=== PATIENT | male | born 1970 | race Caucasian/White ===

== ENCOUNTER 2016-10-04 20:43 | Observation (INO) | payer OTHER ==
[~2016-10-04] VITALS: Ht 160 cm; Wt 109.8 kg
[~2016-10-04 20:43] MED LIST: ADVAIR; ALBU17AE3 IH; ALBU2.5V4 IH; ALBU8.5H2 IH; ALBU8.5H4 IH; AZIT250T5 PO; BUDE10.2 INH; CEPH500C PO; DOXY100C2 PO; DOXY100T2 PO; FAMO20TA5 PO; FLUT1DIS26 IH; HYDR-34 PO; IBUP-30 PO; IBUP800T26 PO; LRT10T PO; METFORMIN PO; MNTL10T PO; MTF500T PO; NEBU1EAC2 MC; PNT40TEC PO; PRD10T PO; PRD20T PO; PRED5TAB PO; RT-ALBUINH IH; RT-ALBUINH INH
--- OUTSIDE RECORDS SUMMARY | 2016-10-04 20:48 | XMS REPORT | Continuity of Care Document ---
Author Author [facility] Organization [facility] Address Unknown Phone Unavailable Allergies Active Description Code Type Severity Reaction Onset Reported/Identified Relationship to Patient Clinical Status Yes No Known Drug Allergies [id number] Drug Allergy Unknown N/ A 05/16/2012 Medications Problems Date Dx Coded Attending Type Code Diagnosis Diagnosed By 05/17/2012 Ot 305.1 TOBACCO USE DISORDER 05/17/2012 Ot 493.90 ASTHMA, UNSPECIFIED 05/17/2012 Ot 790.6 ABN BLOOD CHEMISTRY NEC 05/17/2012 Ot V03.82 PROPHYLACTIC VACC AGAINST STREPTOCOCCUS 05/17/2012 Ot V04.81 ND FOR PROPHYLACTIC VACCIN AND INOCULATI 07/06/2012 Ot 493.92 ASTHMA, UNSPECIFIED, W (ACUTE) EXACERBAT 10/13/2012 Ot 910.4 INSECT BITE HEAD 10/13/2012 Ot E000.8 OTHER EXTERNAL CAUSE STATUS 10/13/2012 Ot E849.0 ACCIDENT IN HOME 10/13/2012 Ot E906.4 NONVENOM ARTHROPOD BITE 06/15/2013 RYAN HANSON MD Ot 250.00 DIAB DENAE WO COMPL, TYPE II OR UNSPEC TY 06/15/2013 RYAN HANSON MD Ot 305.1 TOBACCO USE DISORDER 06/15/2013 RYAN HANSON MD Ot 574.00 CHOLELITH W AC CHOLECYST 06/15/2013 RYAN HANSON MD Ot 574.10 CHOLELITH W CHOLECYS NEC 06/15/2013 RYAN HANSON MD Ot V04.81 ND FOR PROPHYLACTIC VACCIN AND INOCULATI 11/12/2013 VINCENT MUÑOZ MD Ot 574.20 CHOLELITHIASIS NOS 11/12/2013 VINCENT MUÑOZ MD Ot 789.03 ABDOMINAL PAIN, RIGHT LOWER QUADRANT 01/17/2014 MARC SOUSA MD Ot 250.00 DIAB DENAE WO COMPL, TYPE II OR UNSPEC TY 01/17/2014 MARC SOUSA MD Ot 305.1 TOBACCO USE DISORDER 01/17/2014 MARC SOUSA MD M Ot 574.91 CALC GB/BILE DUCT W/O CHOLECYST W/ OBSTRU 01/18/2014 RYAN HANSON MD Ot 250.00 DIAB DENAE WO COMPL, TYPE II OR UNSPEC TY 01/18/2014 RYAN HANSON MD Ot 493.90 ASTHMA, UNSPECIFIED 01/18/2014 RYAN HANSON MD Ot 574.00 CHOLELITH W AC CHOLECYST 01/18/2014 RYAN HANSON MD Ot 574.10 CHOLELITH W CHOLECYS NEC 07/01/2014 VINCENT MUÑOZ MD Ot 493.92 ASTHMA, UNSPECIFIED, W (ACUTE) EXACERBAT 07/01/2014 VINCENT MUÑOZ MD Ot 786.09 RESPIRATORY ABNORM NEC 08/01/2015 LORENA APPIAH MD Ot 250.00 08/01/2015 LORENA APPIAH MD Ot 786.50 08/01/2015 NAIF SIMMS ADDING MACHINE OPERATOR Ot F17.210 NICOTINE DEPENDENCE, CIGARETTES, UNCOMPL 08/01/2015 NAIF SIMMS ADDING MACHINE OPERATOR Ot J20.9 ACUTE BRONCHITIS, UNSPECIFIED 08/01/2015 LORENA APPIAH MD Ot 250.00 08/01/2015 LORENA APPIAH MD Ot 786.50 09/18/2015 SUZETTE GUPTA Ot F17.210 NICOTINE DEPENDENCE, CIGARETTES, UNCOMPL 09/18/2015 SUZETTE GUPTA Ot J45.901 UNSPECIFIED ASTHMA WITH (ACUTE) EXACERBA 09/18/2015 LORENA APPIAH MD Ot 250.00 09/18/2015 LORENA APPIAH MD Ot 786.50 11/11/2015 LORENA APPIAH MD Ot 250.00 11/11/2015 LORENA APPIAH MD Ot 786.50 04/20/2016 LORENA APPIAH MD Ot 250.00 DIAB DENAE WO COMPL, TYPE II OR UNSPEC TY 04/20/2016 LORENA APPIAH MD Ot 786.50 CHEST PAIN NOS 04/21/2016 JOHN DIETZ MD Ot J18.9 PNEUMONIA, UNSPECIFIED ORGANISM 04/21/2016 JOHN DIETZ MD Ot J45.51 SEVERE PERSISTENT ASTHMA WITH (ACUTE) EX 04/21/2016 LORENA APPIAH MD Ot 250.00 DIAB DENAE WO COMPL, TYPE II OR UNSPEC TY 04/21/2016 TD ROA, LORENA J Ot 786.50 CHEST PAIN NOS Procedures Results Test Result Range Complete blood count (CBC) with automated white blood cell (WBC) differential - 04/20/16 15:02 Blood leukocytes automated count (number/volume) 11.2 10*3/ uL 4.3-11.0 Blood erythrocytes automated count (number/volume) 4.99 10*6 /uL 4.35-5.85 Venous blood hemoglobin measurement (mass/volume) 15.8 g/dL 13.3-17.7 Blood hematocrit (volume fraction) 45 % 40-54 Automated erythrocyte mean corpuscular volume 90 [foz_us] 80-99 Automated erythrocyte mean corpuscular hemoglobin (mass per erythrocyte) 32 pg 25-34 Automated erythrocyte mean corpuscular hemoglobin concentration measurement ( mass/volume) 35 g/dL 32-36 Automated erythrocyte distribution width ratio 12.6 % 10.0-14.5 Automated blood platelet count (count/volume) 271 10*3/uL 130-400 Automated blood platelet mean volume measurement 10.1 [foz_ us] 7.4-10.4 Automated blood neutrophils/100 leukocytes 62 % 42-75 Automated blood lymphocytes/100 leukocytes 26 % 12-44 Blood monocytes/100 leukocytes 10 % 0-12 Automated blood eosinophils/100 leukocytes 2 % 0-10 Automated blood basophils/100 leukocytes 1 % 0-10 Blood neutrophils automated count (number/volume) 6.9 10*3 1.8-7.8 Blood lymphocytes automated count (number/volume) 2.9 10*3 1.0-4.0 Blood monocytes automated count (number/volume) 1.2 10*3 0.0-1.0 Automated eosinophil count 0.2 10*3/uL 0.0-0.3 Automated blood basophil count (count/volume) 0.1 10*3/uL 0.0-0.1 Comprehensive metabolic panel - 04/20/16 15:02 Serum or plasma sodium measurement (moles/volume) 139 mmol/ L 135-145 Serum or plasma potassium measurement (moles/volume) 3.9 mmol/L 3.6-5.0 Serum or plasma chloride measurement (moles/volume) 108 mmol /L 98-107 Carbon dioxide 22 mmol/L 21-32 Serum or plasma anion gap determination (moles/volume) 9 mmol/L 5-14 Serum or plasma urea nitrogen measurement (mass/volume) 11 mg/dL 7-18 Serum or plasma creatinine measurement (mass/volume) 1.10 mg /dL 0.60-1.30 Serum or plasma urea nitrogen/creatinine mass ratio 10 NRG Serum or plasma creatinine measurement with calculation of estimated glomerular filtration rate > NRG Serum or plasma glucose measurement (mass/volume) 155 mg/dL 70-105 Serum or plasma calcium measurement (mass/volume) 9.8 mg/dL 8.5-10.1 Serum or plasma total bilirubin measurement (mass/volume) 0.3 mg/dL 0.1-1.0 Serum or plasma alkaline phosphatase measurement (enzymatic activity/volume) 119 U/L 40-136 Serum or plasma aspartate aminotransferase measurement (enzymatic activity/ volume) 24 U/L 5-34 Serum or plasma alanine aminotransferase measurement (enzymatic activity/volume ) 55 U/L 0-55 Serum or plasma protein measurement (mass/volume) 7.4 g/dL 6.4-8.2 Serum or plasma albumin measurement (mass/volume) 4.3 g/dL 3.2-4.5 Serum or plasma troponin i.cardiac measurement (mass/volume) - 04/20/16 15:02 Serum or plasma troponin i.cardiac measurement (mass/volume) < ng/mL <0.30 Serum or plasma lithium measurement (moles/volume) - 04/20/16 15:02 BNP level < pg/mL <100.0 Arterial blood gas measurement - 04/20/16 16:09 Blood pCO2 26 mm[Hg] 35-45 Blood pO2 61 mm[Hg] 79-93 Arterial blood bicarbonate measurement (moles/volume) 20 mmol/L 23-27 Arterial blood base excess by calculation -0.7 mmol/L -2.5-2.5 Arterial blood oxygen saturation measurement 95 % 94-100 * Inhaled oxygen flow rate 2 NRG Arterial blood pH measurement with patient temperature correction 7.52 7.37-7.43 Arterial blood carbon dioxide, total measurement (moles/volume) 21.2 mmol/L 21.0-31.0 Body site LEFT RADIAL NRG Assessment of wrist artery patency prior to arterial puncture POSITIVE NRG Setting of ventilation mode NO NRG Measurement of body temperature 98.7 NRG Bacterial blood culture - 04/20/16 16:49 Bacterial blood culture NG NRG Blood lactic acid measurement (moles/volume) - 04/20/16 17:18 Blood lactic acid measurement (moles/volume) 1.4 mmol/L 0.5-2.0 Bacterial blood culture - 04/20/16 17:18 Bacterial blood culture NG NRG Arterial blood gas measurement - 04/20/16 18:46 Blood pCO2 41 mm[Hg] 35-45 Blood pO2 85 mm[Hg] 79-93 Arterial blood bicarbonate measurement (moles/volume) 24 mmol/L 23-27 Arterial blood base excess by calculation -1.5 mmol/L -2.5-2.5 Arterial blood oxygen saturation measurement 97 % 94-100 * Inhaled oxygen flow rate 3 NRG Arterial blood pH measurement with patient temperature correction 7.38 7.37-7.43 Arterial blood carbon dioxide, total measurement (moles/volume) 24.8 mmol/L 21.0-31.0 Body site LEFT RADIAL NRG Assessment of wrist artery patency prior to arterial puncture POSITIVE NRG Setting of ventilation mode NO NRG Measurement of body temperature 98.4 NRG Encounters ACCT No. Visit Date/Time Discharge Status Pt. Type Provider Facility Loc./Unit Complaint [id number] 04/20/2016 16:49:00 2015 11:10:00 DIS Inpatient MIRELA ROA, JOHN Parsons [facility] 4TH ATYPICAL PNEUMONIA, ASTHMA, HYPOXIA [id number] 09/18/2015 17:00:00 2015 19:34:00 DIS Emergency SUZETTE GUPTA [facility] ER CONGESTION,SOA [id number] 08/01/2015 20:35:00 2014 22:10:00 DIS Emergency NAIF SIMMS APRN [facility] ER SOA [id number] 06/30/2014 23:25:00 2013 01:00:00 DIS Emergency VINCENT MUÑOZ MD [facility] ER DIFFICULITY BREATHING [id number] 01/17/2014 19:10:00 2013 21:20:00 DIS Outpatient RYAN HANSON MD [facility] SDC GALLSTONES [id number] 01/16/2014 17:44:00 2013 09:36:00 DIS Inpatient LARS ROA, MARC Tanner [facility] 4TH CHOLELITHIASIS WITH CBD OBSTRUCTION [id number] 11/12/2013 04:09:00 2013 08:07:00 DIS Emergency WANDA ROA, VINCENT Parsons [facility] ER ABD PAIN [id number] 06/14/2013 03:16:00 2012 11:20:00 DIS Inpatient VALENTIN ROA, RYAN [facility] SURGICAL ABD PAIN,ACUTE CHOLECYSTITIS [id number] 01/03/2013 10:24:00 2012 23:59:59 CLS Outpatient TD ROA, LORENA Dempsey [facility] RAD CHEST PAIN,DIZZINES,HTN,DIABETES [id number] 12/28/2012 18:10:00 2012 16:10:00 DIS Inpatient [id number] 10/13/2012 21:52:00 Document Registration [id number] 07/06/2012 00:05:00 Document Registration [id number] 05/16/2012 18:00:00 Document Registration
[2016-10-04] MEDS ORDERED: RT-ALBUTEROL/IPRATROPIUM 3 ML (DUONEB) VIAL INH ONE ×2 (21:00→21:30)
[2016-10-04] MEDS ORDERED: DEXAMETHASONE 4 MG/ML SDV (DECADRON) IH ONE (21:00)
--- NOTE | 2016-10-04 21:00 | ED Respiratory ---
General Chief Complaint: Respiratory Problems Stated Complaint: SOA Source: patient History of Present Illness Time seen by provider: 20:43 Initial Comments PT ARRIVES VIA POV FROM HOME C/O SHORTNESS OF BREATH FOR 3-4 DAYS, WORSE SINCE THIS AM PT WITH HISTORY OF ASTHMA/ SUSPECTED COPD--STATES NEBULIZER TREATMENTS NOT HELPING---USED SYMBICORT TWICE TODAY AND USED ALBUTEROL NEBULIZER TODAY X 2-- LAST TIME WAS AT 1500 TODAY HAS HAD MINIMALLY PRODUCTIVE COUGH NO FEVER, SWEATS OR CHILLS HAS HAD SLIGHT SWELLING IN LEGS/ FEET HAS RIGHT LOWER CHEST PAIN--MOSTLY WITH MOVEMENTS OR COUGHING DENIES HISTORY OF CARDIAC PROBLEMS OR HTN 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 PCP: [facility] Allergies and Home Medications Allergies Coded Allergies: No Known Drug Allergies (Unverified , 05/16/12) Home Medications Albuterol Sulfate 2.5 Mg/3 Ml Vial.neb #30 2.5 MG IH QID PRN PRN SHORTNESS OF BREATH Prescribed by: JOHN LOUIE on 04/21/16 1007 Budesonide/Formoterol Fumarate 10.2 Gm Hfa.aer.ad 2 PUFF INH BID (Reported) Ibuprofen 800 Mg Tablet 800 MG PO BID PRN PRN PAIN (Reported) Constitutional: no symptoms reportedNo chills, No diaphoresis, No dizziness, No fever EENTM: no symptoms reported Respiratory: see HPI cough dyspnea on exertion short of breath wheezing Cardiovascular: see HPI chest pain edemaNo palpitations, No syncope, No vascular heart diseas Gastrointestinal: no symptoms reported Genitourinary: no symptoms reported Musculoskeletal: see HPI Skin: no symptoms reported Psychiatric/Neurological: No Symptoms Reported Hematologic/Lymphatic: No Symptoms Reported Immunological/Allergic: no symptoms reported Past Gdluvsb-Xkdzbt-Jhgobe Hx Patient Social History Alcohol Use: Past History (HISTORY OF ABUSE/HEAVY USE--STATES NONE FOR YEARS) Recreational Drug Use: No Smoking Status: Current Everyday Smoker (1 PPD) Type Used: Cigarettes Recent Foreign Travel: No Contact w/Someone Who Travel: No Recent Hopitalizations: No Immunizations Up To Date Tetanus Booster (TDap): More than 5yrs PED Vaccines UTD: Yes Date of Pneumonia Vaccine: May 01, 2012 Date of Influenza Vaccine: Jun 15, 2013 Seasonal Allergies Seasonal Allergies: Yes Surgeries HX Surgeries: Yes (ERCP BEFORE GALL BLADDER REMOVAL ; HERNIA REPAIR; RIGHT SHOULDER SURGERY) Surgeries: Abdominal, Gallbladder, Orthopedic Respiratory Hx Respiratory Disorders: Yes Respiratory Disorders: Asthma, Pneumonia, Chronic Bronchitis Cardiovascular Hx Cardiac Disorders: No Neurological Hx Neurological Disorders: Yes Neurological Disorders: Headaches /Migraines Reproductive System Hx Reproductive Disorders: No Genitourinary Hx Genitourinary Disorders: Yes Genitourinary Disorders: Kidney Stones Gastrointestinal Hx Gastrointestinal Disorders: Yes ("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 5) Gastrointestinal Disorders: Gastroesophageal Reflux, Gall Bladder Disease Musculoskeletal Hx Musculoskeletal Disorders: Yes (RIGHT SHOULDER SURGERY-2006) Musculoskeletal Disorders: Arthritis, Chronic Back Pain Endocrine Hx Endocrine Disorders: Yes (Reports diet control only) Endocrine Disorders: Diabetes, Non-Insulin dep HEENT HX ENT Disorders: Yes (wears glasses; POOR DENTITION) Loss of Vision: Bilateral Hearing Impairment: Hard of Hearing Cancer Hx Cancer: No Psychosocial Hx Psychiatric Problems: No Integumentary HX Skin/Integumentary Disorder: Yes Skin/Integumentary Disorders: Psoriasis Blood Transfusions Hx Blood Disorders: No Adverse Reaction to a Blood Tr: No Family Medical History Significant Family History: No Pertinent Family Hx Family Medial History: Cancer 09 SISTER, Onset:Unknown (LEUKEMIA) Family history: Alzheimer's disease GRANDMOTHER, Onset:Unknown Family history: Arthritis GRANDMOTHER, Onset:Unknown Family history: Asthma 03 FATHER, Onset:Unknown Family history: Diabetes mellitus 03 FATHER, Onset:Unknown Family history: Hypertension 03 FATHER, Onset:Unknown 03 MOTHER, Onset:Unknown Kidney disease 03 FATHER (KIDNEY STONES) Visual impairment Physical Exam Vital Signs Vital Sign - Last 12Hours 10/04/16 10/04/16 20:53 21:04 Temp 97.1 Pulse 86 Resp 44 B/P 138/91 Pulse Ox 92 O2 Delivery Room Air O2 Flow Rate 2 Capillary Refill : General Appearance: mild distress (MILD TO MODERATE DYSPNEA/HYPERVENTILATING, BUT ABLE TO TALK IN FULL SENTENCES; ANXIOUS) obese HEENT: PERRL/EOMI other (POOR DENTITION, MULTIPLE MISSING TEETH) Neck: normal inspection Respiratory: wheezing (DIFFUSE EXPIRATORY WHEEZING BILATERALLY) other (MILD TO MODERATE DYSPNEA, HYPERVENTILATING. TENDERNESS, TO RIGHT ANTERIOR LOWER RIB AREA) Cardiovascular: regular rate, rhythm no JVD no murmur Gastrointestinal: non tender soft Extremities: normal range of motion non-tender no calf tenderness normal capillary refill pedal edema (TRACE BILATERALLY) Neurologic/Psychiatric: apple thinner II-XII nml as tested no motor/sensory deficits alert oriented x 3 other (ANXIOUS) Skin: normal color warm/dry Progress/Results/Core Measures Results/Orders Lab Results Laboratory Tests Test 10/04/16 20:55 Range/Units Activated Partial Thromboplast Time 27 24-35 SEC Alanine Aminotransferase (ALT/SGPT) 63 H 0-55 U/L Albumin 4.1 3.2-4.5 G/DL Alkaline Phosphatase 121 40-136 U/L Anion Gap 12 5-14 MMOL/L Aspartate Amino Transf (AST/SGOT) 28 5-34 U/L B-Type Natriuretic Peptide < 10.0 <100.0 PG/ML BUN/Creatinine Ratio 18 Basophils # (Auto) 0.1 0.0-0.1 10^3/uL Basophils (%) (Auto) 1 0-10 % Blood Urea Nitrogen 17 7-18 MG/DL Calcium Level 9.7 8.5-10.1 MG/DL Carbon Dioxide Level 22 21-32 MMOL/L Chloride Level 107 98-107 MMOL/L Creatine Kinase MB 2.5 <6.6 NG/ML Creatinine 0.95 0.60-1.30 MG/DL Eosinophils # (Auto) 0.3 0.0-0.3 10^3/uL Eosinophils (%) (Auto) 3 0-10 % Estimat Glomerular Filtration Rate > 60 Glucose Level 115 H 70-105 MG/DL Hematocrit 43 40-54 % Hemoglobin 15.2 13.3-17.7 G/DL INR Comment 0.9 0.8-1.4 Lymphocytes # (Auto) 2.6 1.0-4.0 X 10^3 Lymphocytes (%) (Auto) 26 12-44 % Magnesium Level 2.2 1.8-2.4 MG/DL Mean Corpuscular Hemoglobin 32 25-34 PG Mean Corpuscular Hemoglobin Concent 35 32-36 G/DL Mean Corpuscular Volume 89 80-99 FL Mean Platelet Volume 10.0 7.4-10.4 FL Monocytes # (Auto) 1.7 H 0.0-1.0 X 10^3 Monocytes (%) (Auto) 17 H 0-12 % Neutrophils # (Auto) 5.5 1.8-7.8 X 10^3 Neutrophils (%) (Auto) 53 42-75 % Platelet Count 241 130-400 10^3/uL Potassium Level 4.6 3.6-5.0 MMOL/L Prothrombin Time 12.0 L 12.2-14.7 SEC Red Blood Count 4.83 4.35-5.85 10^6/uL Red Cell Distribution Width 12.9 10.0-14.5 % Sodium Level 141 135-145 MMOL/L Total Bilirubin 0.3 0.1-1.0 MG/DL Total Creatine Kinase 159 30-200 U/L Total Protein 7.1 6.4-8.2 G/DL Troponin I < 0.30 <0.30 NG/ML White Blood Count 10.3 4.3-11.0 10^3/uL Micro Results Microbiology 10/04/16 Influenza Types A,B Antigen (ORESTES) - Final, Complete My Orders Orders-DEMI BOSE DO Saline Lock/Iv-Start (10/04/16 20:53) Ekg Tracing (10/04/16 20:53) O2 (10/04/16 20:53) Monitor-Rhythm Ecg Trace Only (10/04/16 20:53) BNP (10/04/16 20:53) Cbc With Automated Diff (10/04/16 20:53) Comprehensive Metabolic Panel (10/04/16 20:53) Creatine Kinase (10/04/16 20:53) Creatine Kinase Mb (10/04/16 20:53) Magnesium (10/04/16 20:53) Protime With Inr (10/04/16 20:53) Partial Thromboplastin Time (10/04/16 20:53) Troponin I (10/04/16 20:53) Influenza A And B Antigens (10/04/16 20:53) Chest 1 View, Ap/Pa Only (10/04/16 20:53) Albuterol/Ipra Inhalation Soln (Duoneb I (10/04/16 21:00) Dexamethasone Injection (Decadron Inject (10/04/16 21:00) Rt Request For Service (10/04/16 20:53) Svn Sm Volume Nebulizer Rt-Rfs (10/04/16 20:53) Albuterol/Ipra Inhalation Soln (Duoneb I (10/04/16 21:30) Rt Request For Service (10/04/16 21:23) Svn Sm Volume Nebulizer Rt-Rfs (10/04/16 21:23) Chest Pa/Lat (2 View) (10/04/16 21:31) Methylprednisolone Sod Succ (Solu-Medrol (10/04/16 21:45) Lorazepam Injection (Ativan Injection) (10/04/16 21:45) Medications Given in ED Current Medications Medications Dose Ordered Sig/Mike Route Start Time Stop Time Status Last Admin Dose Admin Albuterol/ Ipratropium 3 ml ONCE ONCE INH 10/04/16 21:00 10/04/16 21:01 DC 10/04/16 21:04 3 ML Dexamethasone Sodium Phosphate 20 mg ONCE ONCE IH 10/04/16 21:00 10/04/16 21:01 DC 10/04/16 21:04 20 MG Lorazepam 1 mg ONCE ONCE IVP 10/04/16 21:45 10/04/16 21:46 DC 10/04/16 21:41 1 MG Methylprednisolone Sodium Succinate 125 mg ONCE ONCE IVP 10/04/16 21:45 10/04/16 21:46 DC 10/04/16 21:39 125 MG Vital Signs/I&O Vital Sign - Last 12Hours 10/04/16 10/04/16 10/04/16 10/04/16 20:53 20:59 21:04 21:14 Temp 97.1 Pulse 86 Resp 44 B/P 138/91 Pulse Ox 92 98 99 97 O2 Delivery Room Air Nasal Cannula O2 Flow Rate 2 2 Progress Note : Progress Note INCREASED AERATION AND DECREASED WHEEZING AFTER NEB TREATMENTS, BUT STILL WITH MILD RESIDUAL WHEEZE, AND STILL MILDLY DYSPNEIC, BUT OVERALL IMPROVED PT CALMER WITH ATIVAN O2 SATS REMAINED IN MID 90'S ON 2L/NC ECG Initial ECG Impression Time: 20:54 Initial ECG Rate: 83 Initial ECG Rhythm: Normal Sinus Initial ECG Comparisson: Unchanged Diagnostic Imaging Comments PORTABLE CXR--BIBASILAR ALVEOLAR INFILTRATES, LIMITED EXAM--PER RADIOLOGIST REPORT @ 2121 CXR PA AND LAT--CENTRAL REACTIVE AIRWAY CHANGES SUCH BRONCHITIS, WITH PERIHILAR AND BIBASILAR INFILTRATES--PER RADIOLOGIST REPORT @ 2208 Reviewed: Reviewed by Me Departure Communication Progress Notes 2224--SPOKE WITH DR. ENCARNACION, ACCEPTS PT FOR ADMIT. Impression Impression: Primary Impression: Pneumonia Additional Impression: COPD exacerbation Disposition: ADMITTED INPATIENT Condition: Improved Decision to Admit Reason: Admit from ER (General) Decision to Admit/Date: Oct 04, 2016 Time/Decision to Admit Time: 22:25 Departure-Patient Inst. Referrals: NO,LOCAL PHYSICIAN (PCP/Family) Primary Care Physician DEMI BOSE DO Oct 04, 2016 21:00
[2016-10-04 21:02] LABS: BASOPHILS # (AUTO) 0.1 10^3/uL (0.0-0.1); BASOPHILS % (AUTO) 1 % (0-10); EOSINOPHILS # (AUTO) 0.3 10^3/uL (0.0-0.3); EOSINOPHILS % (AUTO) 3 % (0-10); LYMPHOCYTES # (AUTO) 2.6 X 10^3 (1.0-4.0); LYMPHOCYTES % (AUTO) 26 % (12-44); MEAN CORPUSCULAR HEMOGLOBIN 32 PG (25-34); MEAN CORPUSCULAR HGB CONC 35 G/DL (32-36); MEAN CORPUSCULAR VOLUME 89 FL (80-99); MONOCYTES # (AUTO) 1.7 X 10^3 (0.0-1.0); MONOCYTES % (AUTO) 17 % (0-12); NEUTROPHILS # (AUTO) 5.5 X 10^3 (1.8-7.8); NEUTROPHILS % (AUTO) 53 % (42-75); PLATELET COUNT 241 10^3/uL (130-400); RED BLOOD COUNT 4.83 10^6/uL (4.35-5.85); RED CELL DISTRIBUTION WIDTH 12.9 % (10.0-14.5); WHITE BLOOD COUNT 10.3 10^3/uL (4.3-11.0)
[2016-10-04 21:12] LABS: INR 0.9 (0.8-1.4)
--- NOTE | 2016-10-04 21:19 | Diagnostic Imaging Report ---
INDICATION: 46-year-old male presents with increasing shortness of breath. COMPARISONS: 04/20/16 FINDINGS: Single view of the chest is slightly underpenetrated. Cardiac contour is upper limits of normal. The basilar infiltrates are present. Soft tissues and bony thorax are normal. IMPRESSION: Bibasilar alveolar infiltrates. The film, however, is underpenetrated which accentuates the findings. Dictated by: Dictated on workstation # [id number]
[2016-10-04 21:24] LABS: ALANINE AMINOTRANSFERASE 63 U/L (0-55); ALBUMIN 4.1 G/DL (3.2-4.5); ANION GAP 12 MMOL/L (5-14); ASPARTATE AMINO TRANSFERASE 28 U/L (5-34); BILIRUBIN,TOTAL 0.3 MG/DL (0.1-1.0); BLOOD UREA NITROGEN 17 MG/DL (7-18); BUN/CREATININE RATIO 18; CALCIUM 9.7 MG/DL (8.5-10.1); CARBON DIOXIDE 22 MMOL/L (21-32); CHLORIDE 107 MMOL/L (98-107); CREATINE KINASE 159 U/L (30-200); CREATININE SERUM 0.95 MG/DL (0.60-1.30); GFR ESTIMATED > 60; GLUCOSE 115 MG/DL (70-105); MAGNESIUM 2.2 MG/DL (1.8-2.4); POTASSIUM 4.6 MMOL/L (3.6-5.0); SODIUM 141 MMOL/L (135-145); TOTAL PROTEIN 7.1 G/DL (6.4-8.2)
[2016-10-04 21:31] LABS: TROPONIN I < 0.30 NG/ML (<0.30)
[2016-10-04] MEDS ORDERED: methylPREDNISolone 125 MG (Solu-MEDROL) VIAL IVP ONE (21:45)
[2016-10-04] MEDS ORDERED: LORazepam INJ 2 MG/ML (ATIVAN) VIAL IVP ONE (21:45)
--- NOTE | 2016-10-04 21:58 | Diagnostic Imaging Report ---
INDICATION: A 46-year-old male with shortness of breath and wheezing. COMPARISON: 10/04/2016. FINDINGS: PA and lateral films of the chest show prominent central lung markings with peribronchial cuffing. There is perihilar and bibasilar atelectatic infiltrates but no large consolidations. There is no effusion or pneumothorax. Cardiac contour is upper limits of normal. Soft tissues and bony thorax are normal. IMPRESSION: Central reactive airway changes such as bronchitis with perihilar and bibasilar alveolar infiltrates but no confluent consolidations. Dictated by: Dictated on workstation # [id number]
[2016-10-04] MEDS ORDERED: cefTRIAXone INJECTION 1,000 MG in NS (IVPB) 50 ML IV ONE (22:30)
[2016-10-04] MEDS ORDERED: IBUP-1780 PO (22:43)
[2016-10-05 00:17] VITALS: BP 118/72
[2016-10-05] MEDS ORDERED: RT-ALBUTEROL/IPRATROPIUM 3 ML (DUONEB) VIAL INH PRN (00:45)
[2016-10-05] MEDS ORDERED: AZITHROMYCIN 500 MG/NS 250 ML IVPB (1 X DOSE) IV NR ×2 (00:57)
[2016-10-05] MEDS ORDERED: RT-BUDESONIDE NEBS 0.5 MG/2ML (PULMICORT) AMP INH SCH ×2 (01:00→08:00)
[2016-10-05] MEDS ORDERED: LORazepam INJ 2 MG/ML (ATIVAN) VIAL IV PRN (01:00)
[2016-10-05 02:00] VITALS: BP 119/68
[2016-10-05 04:00] VITALS: BP 119/69
[2016-10-05] MEDS: methylPREDNISolone 125 MG (Solu-MEDROL) VIAL IV SCH ×2 (04:38→09:58)
[2016-10-05 05:07] LABS: BASOPHILS % (AUTO) 0 % (0-10); EOSINOPHILS % (AUTO) 0 % (0-10); LYMPHOCYTES # (AUTO) 0.9 X 10^3 (1.0-4.0); LYMPHOCYTES % (AUTO) 10 % (12-44); MEAN CORPUSCULAR HEMOGLOBIN 31 PG (25-34); MEAN CORPUSCULAR HGB CONC 35 G/DL (32-36); MEAN CORPUSCULAR VOLUME 90 FL (80-99); MEAN PLATELET VOLUME 10.1 FL (7.4-10.4); MONOCYTES # (AUTO) 0.1 X 10^3 (0.0-1.0); MONOCYTES % (AUTO) 1 % (0-12); NEUTROPHILS # (AUTO) 8.2 X 10^3 (1.8-7.8); NEUTROPHILS % (AUTO) 89 % (42-75); PLATELET COUNT 240 10^3/uL (130-400); RED BLOOD COUNT 4.96 10^6/uL (4.35-5.85); RED CELL DISTRIBUTION WIDTH 12.8 % (10.0-14.5); WHITE BLOOD COUNT 9.2 10^3/uL (4.3-11.0)
[2016-10-05 05:37] LABS: ALANINE AMINOTRANSFERASE 64 U/L (0-55); ALBUMIN 4.2 G/DL (3.2-4.5); ANION GAP 14 MMOL/L (5-14); ASPARTATE AMINO TRANSFERASE 23 U/L (5-34); BILIRUBIN,TOTAL 0.4 MG/DL (0.1-1.0); BLOOD UREA NITROGEN 19 MG/DL (7-18); BUN/CREATININE RATIO 20; CALCIUM 9.2 MG/DL (8.5-10.1); CARBON DIOXIDE 17 MMOL/L (21-32); CHLORIDE 105 MMOL/L (98-107); CREATININE SERUM 0.93 MG/DL (0.60-1.30); GFR ESTIMATED > 60; GLUCOSE 277 MG/DL (70-105); POTASSIUM 4.9 MMOL/L (3.6-5.0); SODIUM 136 MMOL/L (135-145); TOTAL PROTEIN 7.2 G/DL (6.4-8.2)
[2016-10-05 06:00] VITALS: BP 120/63
[2016-10-05] MEDS: RT-ALBUTEROL/IPRATROPIUM 3 ML (DUONEB) VIAL INH SCH ×2 (07:26→10:29)
[2016-10-05] MEDS ORDERED: RT-ADVAIR HFA 115/21 MCG PER PUFF IH SCH (08:00)
[2016-10-05 08:42] VITALS: BP 110/65
[2016-10-05] MEDS ORDERED: ALBU2.5V4 NEB (09:23)
[2016-10-05] MEDS ORDERED: IBUP-30 PO (09:26)
[2016-10-05] MEDS ORDERED: DIPH25CA79 PO (09:27)
[2016-10-05] MEDS ORDERED: ACET-2267 PO (09:27)
[2016-10-05] MEDS ORDERED: CATHETER FLUSH 10 ML SYR IV PRN (10:15)
[2016-10-05] MEDS ORDERED: PRED10TA22 PO (11:06)
[2016-10-05] MEDS ORDERED: AZIT250T5 PO (11:06)
--- NOTE | 2016-10-05 11:09 | Discharge Instructions ---
Discharge [facility] Discharge Medications New, Converted or Re-Newed RX: Transmitted to Pharmacy New Medications: Prednisone (Prednisone) 10 Mg Tab.ds.pk 10 MG PO DAILY Take 6 tabs(60mg)daily,decrease by 1 tab(10mg)every other day. # 42 PKG Azithromycin (Azithromycin) 250 Mg Tablet 250 MG PO DAILY Take 2 the first day and 1 tab daily until complete #6 TAB Continued Medications: Acetaminophen (Tylenol Extra Strength) 500 Mg Tablet 1000 MG PO Q6H TAKES 2 (500MG) TABLETS PRN HEADACHE TAB Albuterol Sulfate (Albuterol Sulfate) 2.5 Mg/3 Ml Vial.neb 2.5 MG NEB QID PRN SHORTNESS OF BREATH EA Budesonide/Formoterol Fumarate (Symbicort 160-4.5 Mcg Inhaler) 10.2 Gm Hfa.aer.ad 2 PUFF INH BID LAST FILLED 07-06-16 INHALER Diphenhydramine HCl (Benadryl) 25 Mg Capsule 25 MG PO Q8H PRN ALLERGIES CAP Ibuprofen (Advil) 200 Mg Tablet 600-800 MG PO BID TAKES 3 TO 4 (200MG) TABLETS PRN BACK PAIN TAB Patient Instructions Goal/Follow Up Appt: You have a follow up appointment with Dr Altman on TuesdayOctober 08 @ 11am Patient Instructions: - make sure to take your steroids as prescribed - For the next 2 days schedule your breathing treatments every 6 hrs then go back to only as needed Return to The [facility] For: - Increasing shortness of breath - Chest pain - Unable to tolerate medication Activity & Diet Discharge Diet: Cardiac Diet Activity as Tolerated: Yes Copy Copies To 1: DIRK TY MD, HOLLY R MD Oct 05, 2016 11:09
--- NOTE | 2016-10-05 11:16 | Short Stay Summary ---
HPI History of Present Illness: 46 yo M that presented to ER with increasing shortness of breath since Tuesday. States that he started using his nebulizer treatments several times a day and they were working at the beginning of the week but last night he was severely short of breath. States that he has a baseline shortness of breath with activity. Denies any home oxygen requirement. Denies any fever or chills. + Right upper quadrant abdominal pain that worsened with coughing. + sick contacts. Minimal decrease in appetite Source: patient, family Exam Limitations: no limitations Date seen by provider: Oct 05, 2016 Attending Physician Riddhi Sheppard MD PCP Rachel,[facility] Date of Admission Oct 04, 2016 at 22:25 Home Medications Home Medications Reviewed patient Home Medication Reconciliation Form Allergies Coded Allergies: No Known Drug Allergies (Unverified , 05/16/12) WBK-Ojrxoz-Fbhxhk Hx Patient Social History Alcohol Use: Past History Recreational Drug Use: No Smoking Status: Current Everyday Smoker Type Used: Cigarettes Recent Foreign Travel: No Contact w/other who traveled: No Recent Hopitalizations: No Recent Infectious Disease Expo: No Physical Abuse Screen: No Sexual Abuse: No Immunizations Up To Date Tetanus Booster (TDap): More than 5yrs Date of Pneumonia Vaccine: May 01, 2012 Date of Influenza Vaccine: May 08, 2016 Past Medical History severe asthma Family Medical History Significant Family History: No Pertinent Family Hx Family History: Cancer 09 SISTER, Onset:Unknown (LEUKEMIA) Family history: Alzheimer's disease GRANDMOTHER, Onset:Unknown Family history: Arthritis GRANDMOTHER, Onset:Unknown Family history: Asthma 03 FATHER, Onset:Unknown Family history: Diabetes mellitus 03 FATHER, Onset:Unknown Family history: Hypertension 03 FATHER, Onset:Unknown 03 MOTHER, Onset:Unknown Kidney disease 03 FATHER (KIDNEY STONES) Visual impairment Review of Systems (CHC) Constitutional: no symptoms reportedNo chills, No fever, malaise EENTM: no symptoms reported Respiratory: cough dyspnea on exertionNo hemoptysis, No orthopnea, short of breath Cardiovascular: no symptoms reportedNo chest pain, No edema, No palpitations Gastrointestinal: RUQ (pain with coughing)No constipation, No diarrhea, No hematemesis, No nausea, No vomiting Genitourinary: no symptoms reportedNo dysuria, No frequency, No hematuria Musculoskeletal: no symptoms reported Skin: no symptoms reportedNo lesions, No rash Psychiatric/Neurological: No Symptoms Reported Reviewed Test Results Reviewed Test Results Lab Laboratory Tests Test 10/04/16 20:55 10/05/16 04:56 Range/Units Activated Partial Thromboplast Time 27 24-35 SEC Alanine Aminotransferase (ALT/SGPT) 63 H 64 H 0-55 U/L Albumin 4.1 4.2 3.2-4.5 G/DL Alkaline Phosphatase 121 125 40-136 U/L Anion Gap 12 14 5-14 MMOL/L Aspartate Amino Transf (AST/SGOT) 28 23 5-34 U/L B-Type Natriuretic Peptide < 10.0 <100.0 PG/ML BUN/Creatinine Ratio 18 20 Basophils # (Auto) 0.1 0.0 0.0-0.1 10^3/uL Basophils (%) (Auto) 1 0 0-10 % Blood Urea Nitrogen 17 19 H 7-18 MG/DL Calcium Level 9.7 9.2 8.5-10.1 MG/DL Carbon Dioxide Level 22 17 L 21-32 MMOL/L Chloride Level 107 105 98-107 MMOL/L Creatine Kinase MB 2.5 <6.6 NG/ML Creatinine 0.95 0.93 0.60-1.30 MG/DL Eosinophils # (Auto) 0.3 0.0 0.0-0.3 10^3/uL Eosinophils (%) (Auto) 3 0 0-10 % Estimat Glomerular Filtration Rate > 60 > 60 Glucose Level 115 H 277 H 70-105 MG/DL Hematocrit 43 44 40-54 % Hemoglobin 15.2 15.4 13.3-17.7 G/DL INR Comment 0.9 0.8-1.4 Lymphocytes # (Auto) 2.6 0.9 L 1.0-4.0 X 10^3 Lymphocytes (%) (Auto) 26 10 L 12-44 % Magnesium Level 2.2 1.8-2.4 MG/DL Mean Corpuscular Hemoglobin 32 31 25-34 PG Mean Corpuscular Hemoglobin Concent 35 35 32-36 G/DL Mean Corpuscular Volume 89 90 80-99 FL Mean Platelet Volume 10.0 10.1 7.4-10.4 FL Monocytes # (Auto) 1.7 H 0.1 0.0-1.0 X 10^3 Monocytes (%) (Auto) 17 H 1 0-12 % Neutrophils # (Auto) 5.5 8.2 H 1.8-7.8 X 10^3 Neutrophils (%) (Auto) 53 89 H 42-75 % Platelet Count 241 240 130-400 10^3/uL Potassium Level 4.6 4.9 3.6-5.0 MMOL/L Prothrombin Time 12.0 L 12.2-14.7 SEC Red Blood Count 4.83 4.96 4.35-5.85 10^6/uL Red Cell Distribution Width 12.9 12.8 10.0-14.5 % Sodium Level 141 136 135-145 MMOL/L Total Bilirubin 0.3 0.4 0.1-1.0 MG/DL Total Creatine Kinase 159 30-200 U/L Total Protein 7.1 7.2 6.4-8.2 G/DL Troponin I < 0.30 <0.30 NG/ML White Blood Count 10.3 9.2 4.3-11.0 10^3/uL Radiology Date of Exam: 10/04/16 CHEST PA/LAT (2 VIEW) INDICATION: A 46-year-old male with shortness of breath and wheezing. COMPARISON: 10/04/2016. FINDINGS: PA and lateral films of the chest show prominent central lung markings with peribronchial cuffing. There is perihilar and bibasilar atelectatic infiltrates but no large consolidations. There is no effusion or pneumothorax. Cardiac contour is upper limits of normal. Soft tissues and bony thorax are normal. IMPRESSION: Central reactive airway changes such as bronchitis with perihilar and bibasilar alveolar infiltrates but no confluent consolidations. Physical Exam-([facility]) Physical Exam Vital Signs VS - Last 72 Hours, by Label 10/04/16 10/04/16 10/04/16 10/04/16 20:53 20:59 21:04 21:14 Temp 97.1 Pulse 86 Resp 44 B/P 138/91 Pulse Ox 92 98 99 97 O2 Delivery Room Air Nasal Cannula O2 Flow Rate 2 2 10/04/16 10/04/16 10/04/16 10/05/16 23:01 23:26 23:30 00:17 Temp 97.4 96.9 Pulse 88 93 Resp 14 18 B/P 118/72 Pulse Ox 91 94 94 O2 Delivery Nasal Cannula Nasal Cannula O2 Flow Rate 2 2.00 2.00 2.00 2.00 10/05/16 10/05/16 10/05/16 10/05/16 00:34 01:00 02:00 04:00 Temp 96.8 96.8 Pulse 71 79 97 Resp 20 20 B/P 119/68 119/69 Pulse Ox 94 95 95 O2 Delivery Nasal Cannula Nasal Cannula O2 Flow Rate 2.00 2.00 2.00 2.00 10/05/16 10/05/16 10/05/16 10/05/16 06:00 07:00 07:27 07:36 Temp 97.6 Pulse 95 70 Resp 20 B/P 120/63 Pulse Ox 94 92 93 O2 Delivery Nasal Cannula O2 Flow Rate 2.00 2.00 10/05/16 10/05/16 10/05/16 08:42 09:00 10:29 Temp 97.8 Pulse 117 Resp 20 B/P 110/65 Pulse Ox 93 93 91 O2 Delivery Nasal Cannula Nasal Cannula O2 Flow Rate 2.00 2.00 Capillary Refill : Less Than 3 Seconds General Appearance: WD/WN mild distress (with activity) HEENT: PERRL/EOMI Neck: non-tender full range of motion supple normal inspection Respiratory: chest non-tender no accessory muscle useNo crackles, wheezing Cardiovascular: normal peripheral pulses regular rate, rhythm no edema no gallop no JVD no murmur Gastrointestinal: normal bowel sounds non tender soft no organomegaly no pulsatile massNo guarding, No rebound, No tenderness Back: normal inspection no CVA tenderness Extremities: normal range of motion non-tender normal inspection no pedal edema no calf tenderness normal capillary refill Neurologic/Psychiatric: 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 Patient is wanting to go home today. States that he has all his breathing treatments at home. He is still short of breath this AM but has an oxygen saturation above 92 all morning. Will send him home on antibiotics and prolonged steroid taper. Encouraged patient to schedule his breathing treatments every 4-6 hours for the next couple days. Patient has follow up on Tuesday with PCP. Clinical Quality Measures DVT/VTE Risk/Contraindication: Risk Factor Score Per Nursin RFS Level Per Nursing on Admit: 4+=Very High Copy Copies To 1: DIRK TY MD, HOLLY R MD Oct 05, 2016 11:16
[2016-10-05] MEDS ORDERED: LEVO750T9 PO (11:18)
[2016-10-05] MEDS ORDERED: CATHETER FLUSH 10 ML SYR IV SCH (14:00)
[2016-10-05] MEDS ORDERED: cefTRIAXone 1 GM/NS 50 ML IVPB IV SCH ×2 (21:00)
[2016-10-06] MEDS ORDERED: AZITHROMYCIN 250 MG TAB (ZITHROMAX) PO SCH (09:00)
== END 2016-10-05 11:06 | disposition home or self-care (01) ==
LOC: EDUNIT# 20:43 → ER 20:44 → 4TH 22:25 → UNDOADMOB 22:25 → 4TH 23:27 → UNDODISOB 10-05 12:30
PROVIDERS: ADMIT Family Medicine; ATTEND Family Medicine
DX: J18.9 Pneumonia, unspecified organism (principal); J44.1 Chronic obstructive pulmonary disease with (acute) exacerbation; E11.9 Type 2 diabetes mellitus without complications; E66.9 Obesity, unspecified; F17.210 Nicotine dependence, cigarettes, uncomplicated; Z79.899 Other long term (current) drug therapy
CPT/HCPCS: 36415; 71010; 71020; 80053; 82550; 82553; 83735; 83880; 84484; 85025; 85610; 85730; 87804; 93005; 93041; 94640; 94760; 96374; 96375; G0378

== ENCOUNTER 2016-12-27 22:07 | Observation (INO) | payer OTHER ==
[~2016-12-27] VITALS: Ht 160 cm; Wt 108.0 kg
[~2016-12-27 22:07] MED LIST changes: +ACET-2267 PO; +ALBU2.5V4 NEB; +DIPH25CA79 PO; +IBUP-1780 PO; +LEVO750T9 PO; +PRED10TA22 PO
[2016-12-27] MEDS ORDERED: RT-ALBUTEROL/IPRATROPIUM 3 ML (DUONEB) VIAL ONE (22:13)
[2016-12-27 22:26] LABS: ABG BASE EXCESS 0.6 MMOL/L (-2.5-2.5); ABG HCO3 24 MMOL/L (23-27); ABG OXYGEN SATURATION 87 % (94-100); ABG PCO2 34 MMHG (35-45); ABG PH 7.46 (7.37-7.43); ABG PO2 44 MMHG (79-93); ABG TCO2 25.3 MMOL/L (21.0-31.0)
[2016-12-27 22:26] LABS: BASOPHILS # (AUTO) 0.1 10^3/uL (0.0-0.1); BASOPHILS % (AUTO) 1 % (0-10); EOSINOPHILS # (AUTO) 0.3 10^3/uL (0.0-0.3); EOSINOPHILS % (AUTO) 3 % (0-10); LYMPHOCYTES # (AUTO) 3.1 X 10^3 (1.0-4.0); LYMPHOCYTES % (AUTO) 30 % (12-44); MEAN CORPUSCULAR HEMOGLOBIN 31 PG (25-34); MEAN CORPUSCULAR HGB CONC 35 G/DL (32-36); MEAN CORPUSCULAR VOLUME 89 FL (80-99); MEAN PLATELET VOLUME 10.1 FL (7.4-10.4); MONOCYTES # (AUTO) 1.1 X 10^3 (0.0-1.0); MONOCYTES % (AUTO) 11 % (0-12); NEUTROPHILS # (AUTO) 5.7 X 10^3 (1.8-7.8); NEUTROPHILS % (AUTO) 55 % (42-75); PLATELET COUNT 258 10^3/uL (130-400); RED BLOOD COUNT 4.99 10^6/uL (4.35-5.85); RED CELL DISTRIBUTION WIDTH 12.8 % (10.0-14.5); WHITE BLOOD COUNT 10.3 10^3/uL (4.3-11.0)
--- NOTE | 2016-12-27 22:26 | ED Cough/URI ---
General Chief Complaint: Respiratory Problems Stated Complaint: CANT BREATHE Nursing Triage Note: pt came in by wheelchair to ed. pt stated he has been sob for approx last 4 days. Source: patient Exam Limitations: no limitations History of Present Illness Time seen by provider: 22:25 Initial Comments To ER with reports of inability to breathe. States is been short of breath the past 4 days. He has asthma and COPD. Timing/Duration: just prior to arrival Severity/Quality: moderate Modifying Factors: Improves With Activity Associated Symptoms: denies symptoms Allergies and Home Medications Allergies Coded Allergies: No Known Drug Allergies (Unverified , 05/16/12) Home Medications Acetaminophen 500 Mg Tablet, 1,000 MG PO Q6H PRN for HEADACHE, (Reported) TAKES 2 (500MG) TABLETS Albuterol Sulfate 2.5 Mg/3 Ml Vial.neb, 2.5 MG NEB QID PRN for SHORTNESS OF BREATH, (Reported) Budesonide/Formoterol Fumarate 10.2 Gm Hfa.aer.ad, 2 PUFF INH BID, (Reported) LAST FILLED 07-06-16 Diphenhydramine HCl 25 Mg Capsule, 25 MG PO Q8H PRN for ALLERGIES, (Reported) Ibuprofen 200 Mg Tablet, 600-800 MG PO BID PRN for BACK PAIN, (Reported) TAKES 3 TO 4 (200MG) TABLETS Constitutional: see HPI, No chills, No fever EENTM: see HPI Respiratory: no symptoms reported Cardiovascular: no symptoms reported Genitourinary: no symptoms reported Musculoskeletal: no symptoms reported Skin: no symptoms reported Psychiatric/Neurological: No Symptoms Reported Hematologic/Lymphatic: No Symptoms Reported Immunological/Allergic: no symptoms reported Past Tkjgwma-Knlsey-Kmecaz Hx Patient Social History Alcohol Use: Denies Use Recreational Drug Use: No Smoking Status: Current Everyday Smoker Type Used: Cigarettes 2nd Hand Smoke Exposure: Yes Recent Foreign Travel: No Contact w/Someone Who Travel: No Recent Infectious Disease Expo: No Recent Hopitalizations: No Immunizations Up To Date Tetanus Booster (TDap): More than 5yrs PED Vaccines UTD: Yes Date of Pneumonia Vaccine: May 01, 2012 Date of Influenza Vaccine: May 08, 2016 Seasonal Allergies Seasonal Allergies: Yes Surgeries HX Surgeries: Yes (ERCP BEFORE GALL BLADDER REMOVAL ; HERNIA REPAIR; RIGHT SHOULDER SURGERY) Surgeries: Abdominal, Gallbladder, Orthopedic Respiratory Hx Respiratory Disorders: Yes Respiratory Disorders: Asthma, Pneumonia, Chronic Bronchitis Cardiovascular Hx Cardiac Disorders: No Neurological Hx Neurological Disorders: Yes Neurological Disorders: Headaches /Migraines Reproductive System Hx Reproductive Disorders: No Genitourinary Hx Genitourinary Disorders: Yes Genitourinary Disorders: Kidney Stones Gastrointestinal Hx Gastrointestinal Disorders: Yes ("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 5) Gastrointestinal Disorders: Gastroesophageal Reflux, Gall Bladder Disease Musculoskeletal Hx Musculoskeletal Disorders: Yes (RIGHT SHOULDER SURGERY-2006) Musculoskeletal Disorders: Arthritis, Chronic Back Pain Endocrine Hx Endocrine Disorders: Yes (Reports diet control only) Endocrine Disorders: Diabetes, Non-Insulin dep HEENT HX ENT Disorders: Yes (wears glasses; POOR DENTITION) Loss of Vision: Bilateral Hearing Impairment: Hard of Hearing Cancer Hx Cancer: No Psychosocial Hx Psychiatric Problems: No Integumentary HX Skin/Integumentary Disorder: Yes Skin/Integumentary Disorders: Psoriasis Blood Transfusions Hx Blood Disorders: No Adverse Reaction to a Blood Tr: No Family Medical History Significant Family History: No Pertinent Family Hx Family Medial History: Cancer 09 SISTER, Onset:Unknown (LEUKEMIA) Family history: Alzheimer's disease GRANDMOTHER, Onset:Unknown Family history: Arthritis GRANDMOTHER, Onset:Unknown Family history: Asthma 03 FATHER, Onset:Unknown Family history: Diabetes mellitus 03 FATHER, Onset:Unknown Family history: Hypertension 03 FATHER, Onset:Unknown 03 MOTHER, Onset:Unknown Kidney disease 03 FATHER (KIDNEY STONES) Visual impairment Physical Exam Vital Signs Vital Sign - Last 12Hours 12/27/16 22:11 Temp 96.2 Pulse 98 Resp 20 B/P (MAP) 135/89 Pulse Ox 95 O2 Delivery Room Air Capillary Refill : Less Than 3 Seconds General Appearance: WD/WN, no apparent distress, other (obese, arrives speaking nearly constantly though he is quite tachypneic in the 30-40 range. Lungs are clear. Oxygen saturation is 94-96 percent on room air with good air movement considering his list of medical problems) HEENT: PERRL/EOMI, normal ENT inspection Neck: non-tender, full range of motion Respiratory: normal breath sounds, no respiratory distress, no accessory muscle use Cardiovascular: regular rate, rhythm, no murmur Gastrointestinal: normal bowel sounds, non tender, soft Neurologic/Psychiatric: alert, normal mood/affect Skin: normal color, warm/dry Offered morphine for air hunger patient refuses states "I get real sick on narcotics" Focused Exam Lactic Acid Level Laboratory Tests Test 12/27/16 22:12 Lactic Acid Level 2.00 MMOL/L (0.50-2.00) Progress/Results/Core Measures Results/Orders Lab Results Laboratory Tests Test 12/27/16 22:07 12/27/16 22:12 Range/Units Blood Gas Puncture Site LEFT RADAIL Blood Gas Patient Temperature 96.8 Arterial Blood pH 7.46 H 7.37-7.43 Arterial Blood Partial Pressure CO2 34 L 35-45 MMHG Arterial Blood Partial Pressure O2 44 L 79-93 MMHG Arterial Blood HCO3 24 23-27 MMOL/L Arterial Blood Total CO2 25.3 21.0-31.0 MMOL/L Arterial Blood Oxygen Saturation 87 L 94-100 % Arterial Blood Base Excess 0.6 -2.5-2.5 MMOL/L Perfecto Test YES-POS Blood Gas Ventilator Setting NO Blood Gas Inspired Oxygen 2L White Blood Count 10.3 4.3-11.0 10^3/uL Red Blood Count 4.99 4.35-5.85 10^6/uL Hemoglobin 15.6 13.3-17.7 G/DL Hematocrit 44 40-54 % Mean Corpuscular Volume 89 80-99 FL Mean Corpuscular Hemoglobin 31 25-34 PG Mean Corpuscular Hemoglobin Concent 35 32-36 G/DL Red Cell Distribution Width 12.8 10.0-14.5 % Platelet Count 258 130-400 10^3/uL Mean Platelet Volume 10.1 7.4-10.4 FL Neutrophils (%) (Auto) 55 42-75 % Lymphocytes (%) (Auto) 30 12-44 % Monocytes (%) (Auto) 11 0-12 % Eosinophils (%) (Auto) 3 0-10 % Basophils (%) (Auto) 1 0-10 % Neutrophils # (Auto) 5.7 1.8-7.8 X 10^3 Lymphocytes # (Auto) 3.1 1.0-4.0 X 10^3 Monocytes # (Auto) 1.1 H 0.0-1.0 X 10^3 Eosinophils # (Auto) 0.3 0.0-0.3 10^3/uL Basophils # (Auto) 0.1 0.0-0.1 10^3/uL Sodium Level 139 135-145 MMOL/L Potassium Level 4.0 3.6-5.0 MMOL/L Chloride Level 107 98-107 MMOL/L Carbon Dioxide Level 20 L 21-32 MMOL/L Anion Gap 12 5-14 MMOL/L Blood Urea Nitrogen 13 7-18 MG/DL Creatinine 1.13 0.60-1.30 MG/DL Estimat Glomerular Filtration Rate > 60 BUN/Creatinine Ratio 12 Glucose Level 159 H 70-105 MG/DL Lactic Acid Level 2.00 0.50-2.00 MMOL/L Calcium Level 9.6 8.5-10.1 MG/DL Total Bilirubin 0.3 0.1-1.0 MG/DL Aspartate Amino Transf (AST/SGOT) 28 5-34 U/L Alanine Aminotransferase (ALT/SGPT) 58 H 0-55 U/L Alkaline Phosphatase 119 40-136 U/L Troponin I < 0.30 <0.30 NG/ML Total Protein 7.0 6.4-8.2 G/DL Albumin 4.1 3.2-4.5 G/DL My Orders Orders - NAIF SIMMS APRN Chest Pa/Lat (2 View) (12/27/16 22:18) Troponin I (12/27/16 22:18) Blood Culture (12/27/16 22:18) Cbc With Automated Diff (12/27/16 22:18) Comprehensive Metabolic Panel (12/27/16 22:18) Arterial Blood Gas (12/27/16 22:18) Saline Lock/Iv-Start (12/27/16 22:18) Lactic Acid Analyzer (12/27/16 22:18) Methylprednisolone Sod Succ (Solu-Medrol (12/27/16 22:30) Albuterol/Ipra Inhalation Soln (Duoneb I (12/27/16 22:30) Morphine Injection (Morphine Injection (12/27/16 22:30) Svn Sm Volume Nebulizer Rt-Rfs (12/27/16 22:18) Medications Given in ED Current Medications Medications Dose Ordered Sig/Mike Route Start Time Stop Time Status Last Admin Dose Admin Albuterol/ Ipratropium 3 ml STK-MED ONCE .ROUTE 12/27/16 22:13 12/27/16 22:18 DC 12/27/16 22:20 3 ML Methylprednisolone Sodium Succinate 125 mg ONCE ONCE IVP 12/27/16 22:30 12/27/16 22:31 DC 12/27/16 22:26 125 MG Morphine Sulfate 2 mg ONCE ONCE IVP 12/27/16 22:30 12/27/16 22:31 DC 12/27/16 22:26 2 MG Vital Signs/I&O Vital Sign - Last 12Hours 12/27/16 12/27/16 22:11 22:20 Temp 96.2 Pulse 98 Resp 20 B/P (MAP) 135/89 Pulse Ox 95 96 O2 Delivery Room Air Blood Pressure Mean: 104 Departure Communication Progress Notes 2338-is oxygen saturation has dropped a few times to 86-87 percent while on room air. We'll admit for supple oxygen as he does not have this at home. Impression Impression: Primary Impression: Hyperventilation Additional Impression: Hypoxia Disposition: 09 ADMITTED INPATIENT Condition: Stable Decision to Admit Reason: Admit from ER (General) Decision to Admit/Date: December 27, 2016 Time/Decision to Admit Time: 23:39 Departure-Patient Inst. Referrals: [facility] (PCP/Family) Primary Care Physician NAIF SIMMS APRN December 27, 2016 22:26
[2016-12-27 22:27] LABS: ALLENS TEST YES-POS; PATIENT TEMP 96.8
[2016-12-27] MEDS ORDERED: methylPREDNISolone 125 MG (Solu-MEDROL) VIAL IVP ONE (22:30)
[2016-12-27] MEDS ORDERED: RT-ALBUTEROL/IPRATROPIUM 3 ML (DUONEB) VIAL INH ONE (22:30)
[2016-12-27] MEDS ORDERED: morphine INJ 10 MG/ML 1ML (SYR OR VIAL) IVP ONE (22:30)
[2016-12-27 22:48] LABS: ALANINE AMINOTRANSFERASE 58 U/L (0-55); ALBUMIN 4.1 G/DL (3.2-4.5); ANION GAP 12 MMOL/L (5-14); ASPARTATE AMINO TRANSFERASE 28 U/L (5-34); BILIRUBIN,TOTAL 0.3 MG/DL (0.1-1.0); BLOOD UREA NITROGEN 13 MG/DL (7-18); BUN/CREATININE RATIO 12; CALCIUM 9.6 MG/DL (8.5-10.1); CARBON DIOXIDE 20 MMOL/L (21-32); CHLORIDE 107 MMOL/L (98-107); CREATININE SERUM 1.13 MG/DL (0.60-1.30); GFR ESTIMATED > 60; GLUCOSE 159 MG/DL (70-105); SODIUM 139 MMOL/L (135-145)
[2016-12-27 22:54] LABS: TROPONIN I < 0.30 NG/ML (<0.30)
[2016-12-28] MEDS ORDERED: RT-ALBUTEROL SULF 2.5 MG/3 ML PRE-MIX VIAL IH PRN (01:45)
[2016-12-28 04:00] VITALS: BP 131/66
[2016-12-28] MEDS: methylPREDNISolone 40 MG/ML (Solu-MEDROL) VIAL IV SCH ×2 (06:00→14:53)
[2016-12-28 08:00] VITALS: BP 118/67
--- NOTE | 2016-12-28 08:08 | Diagnostic Imaging Report ---
PA and lateral views of the chest. INDICATION: Cough, COPD. COMPARISON: 10/04/2016. FINDINGS: There is pulmonary hyperinflation, stable prominence of the interstitial markings, and minimal left basilar scarring. There is no airspace consolidation of significance. The heart size is at the upper limits of normal. No effusion or pneumothorax. Mediastinum and amrit appear unremarkable. IMPRESSION: Hyperinflated lungs with stable prominent interstitial thickening. Dictated by: Dictated on workstation # [id number]
[2016-12-28] MEDS ORDERED: CETI10TA20 PO (08:20)
[2016-12-28] MEDS ORDERED: RT-ALBUINH INH (08:20)
[2016-12-28] MEDS: RT-ALBUTEROL SULF 2.5 MG/3 ML PRE-MIX VIAL IH SCH ×3 (08:35→19:21)
[2016-12-28] MEDS: LORATADINE (CLARITIN) 10 MG TAB PO SCH (11:18)
--- NOTE | 2016-12-28 11:36 | History & Physicial (CHS) ---
HPI History of Present Illness: 46 yo male presented to ER with worsening shortness of breath in spite of home breathing treatments for the last 4 days. He has been short of breath for some time, but one of his daughters got sick with a cold and shortly thereafter he had cough with yellow sputum, rattly breathing and worsening shortness of air. He denies fever. He has been using his nebulized albuterol every 6 hours- even at 3 am. He does also use Symbicort on a regular basis. He states he was diagnosed with COPD several months ago, does not recall having had PFTs in the past. He has had nausea and vomiting as well. Date seen by provider: December 28, 2016 Time seen by provider: 09:45 Attending Physician Abbey Ratliff MD PCP [facility] [place] Date of Admission December 27, 2016 at 11:25 pm Home Medications Home Medications Reviewed patient Home Medication Reconciliation Form Allergies Coded Allergies: No Known Drug Allergies (Unverified , 05/16/12) VBW-Pboxqe-Gmtaoj Hx Patient Social History Alcohol Use: Denies Use Recreational Drug Use: No Smoking Status: Current Everyday Smoker Type Used: Cigarettes 2nd Hand Smoke Exposure: Yes Recent Foreign Travel: No Contact w/other who traveled: No Recent Hopitalizations: No Recent Infectious Disease Expo: No Physical Abuse Screen: No Sexual Abuse: No Immunizations Up To Date Tetanus Booster (TDap): More than 5yrs Date of Pneumonia Vaccine: May 01, 2012 Date of Influenza Vaccine: May 08, 2016 Past Medical History PMHx: Possible COPD Diabetes (diet controlled) PSurgHx: Shoulder surgery for rotator cuff and arthritis Cholecystectomy Ex-lap Inguinal hernia repair Family Medical History Significant Family History: COPD, Hypertension Review of Systems ([facility]C) Constitutional: No fever EENTM: nose congestion Respiratory: cough, phlegm, short of breath Cardiovascular: No chest pain Gastrointestinal: abdominal pain (with coughing), No constipation, No diarrhea , nausea, vomiting Genitourinary: no symptoms reported Musculoskeletal: joint pain (hand arthritis) Skin: No rash Psychiatric/Neurological: No Symptoms Reported Reviewed Test Results Reviewed Test Results Lab Laboratory Tests Test 12/27/16 22:07 12/27/16 22:12 Range/Units Blood Gas Puncture Site LEFT RADAIL Blood Gas Patient Temperature 96.8 Arterial Blood pH 7.46 H 7.37-7.43 Arterial Blood Partial Pressure CO2 34 L 35-45 MMHG Arterial Blood Partial Pressure O2 44 L 79-93 MMHG Arterial Blood HCO3 24 23-27 MMOL/L Arterial Blood Total CO2 25.3 21.0-31.0 MMOL/L Arterial Blood Oxygen Saturation 87 L 94-100 % Arterial Blood Base Excess 0.6 -2.5-2.5 MMOL/L Perfecto Test YES-POS Blood Gas Ventilator Setting NO Blood Gas Inspired Oxygen 2L White Blood Count 10.3 4.3-11.0 10^3/uL Red Blood Count 4.99 4.35-5.85 10^6/uL Hemoglobin 15.6 13.3-17.7 G/DL Hematocrit 44 40-54 % Mean Corpuscular Volume 89 80-99 FL Mean Corpuscular Hemoglobin 31 25-34 PG Mean Corpuscular Hemoglobin Concent 35 32-36 G/DL Red Cell Distribution Width 12.8 10.0-14.5 % Platelet Count 258 130-400 10^3/uL Mean Platelet Volume 10.1 7.4-10.4 FL Neutrophils (%) (Auto) 55 42-75 % Lymphocytes (%) (Auto) 30 12-44 % Monocytes (%) (Auto) 11 0-12 % Eosinophils (%) (Auto) 3 0-10 % Basophils (%) (Auto) 1 0-10 % Neutrophils # (Auto) 5.7 1.8-7.8 X 10^3 Lymphocytes # (Auto) 3.1 1.0-4.0 X 10^3 Monocytes # (Auto) 1.1 H 0.0-1.0 X 10^3 Eosinophils # (Auto) 0.3 0.0-0.3 10^3/uL Basophils # (Auto) 0.1 0.0-0.1 10^3/uL Sodium Level 139 135-145 MMOL/L Potassium Level 4.0 3.6-5.0 MMOL/L Chloride Level 107 98-107 MMOL/L Carbon Dioxide Level 20 L 21-32 MMOL/L Anion Gap 12 5-14 MMOL/L Blood Urea Nitrogen 13 7-18 MG/DL Creatinine 1.13 0.60-1.30 MG/DL Estimat Glomerular Filtration Rate > 60 BUN/Creatinine Ratio 12 Glucose Level 159 H 70-105 MG/DL Lactic Acid Level 2.00 0.50-2.00 MMOL/L Calcium Level 9.6 8.5-10.1 MG/DL Total Bilirubin 0.3 0.1-1.0 MG/DL Aspartate Amino Transf (AST/SGOT) 28 5-34 U/L Alanine Aminotransferase (ALT/SGPT) 58 H 0-55 U/L Alkaline Phosphatase 119 40-136 U/L Troponin I < 0.30 <0.30 NG/ML Total Protein 7.0 6.4-8.2 G/DL Albumin 4.1 3.2-4.5 G/DL Radiology CXR 12/27: IMPRESSION: Hyperinflated lungs with stable prominent interstitial thickening. Physical Exam-([facility]) Physical Exam Vital Signs VS - Last 72 Hours, by Label 12/27/16 12/27/16 12/28/16 12/28/16 22:11 22:20 00:27 00:44 Temp 96.2 96.2 Pulse 98 101 Resp 20 24 B/P (MAP) 135/89 Pulse Ox 95 96 92 O2 Delivery Room Air O2 Flow Rate 2.00 12/28/16 12/28/16 12/28/16 12/28/16 01:00 01:00 01:00 04:00 Temp 96.4 Pulse 82 81 Resp 24 B/P (MAP) 131/66 Pulse Ox 94 94 94 O2 Flow Rate 2.00 12/28/16 12/28/16 12/28/16 12/28/16 07:59 08:00 08:15 08:35 Temp 97.7 Pulse 99 86 Resp 20 B/P (MAP) 118/67 Pulse Ox 91 94 O2 Flow Rate 2.00 2.00 2.00 Capillary Refill : Less Than 3 Seconds General Appearance: WD/WN, mild distress Respiratory: decreased breath sounds, accessory muscle use, rhonchi Cardiovascular: regular rate, rhythm, no murmur Gastrointestinal: normal bowel sounds, non tender, distended Extremities: pedal edema, other (clubbing of fingertips) Neurologic/Psychiatric: alert, normal mood/affect Skin: normal color Assessment/Plan Assessment/Plan Admission Dx Acute on chronic hypoxic respiratory insufficiency Diet-controlled diabetes Plan Acute on chronic hypoxic respiratory insufficiency- possibly secondary to COPD, requiring supplemental oxygen with no baseline previous need -No evidence of pneumonia on x-ray and no evidence of infection in labs/vitals -Blood gas with hypoxia and low CO2, somewhat atypical for COPD and he has not had diagnostic testing, has had multiple CXR but no history of CT and now has chronic interstitial thickening finding on CXR, will obtain CT for further evaluation and recommend PFTs outpatient (as well as polysomnogram as he notes his has observed apneas) -Change IV steroids to prednisone taper, continue RT protocol, resume home Symbicort, consider adding anticholinergic for home use Diet-controlled diabetes- A1c in clinic 6.7 05/2016 -Diabetic diet, check A1c DVT ppx- SCDs, enoxaparin Diagnosis/Problems: Clinical Quality Measures DVT/VTE Risk/Contraindication: Risk Factor Score Per Nursin RFS Level Per Nursing on Admit: 4+=Very High Copy Copies To 1: DIRK TY MD, BETHANY N MD December 28, 2016 11:36 am
[2016-12-28 12:00] VITALS: BP 131/73
[2016-12-28] MEDS: ENOXAPARIN 40 MG/0.4 ML (LOVENOX) SYR SC SCH (12:33)
[2016-12-28] MEDS ORDERED: predniSONE 20 MG TAB PO NR (14:45)
--- NOTE | 2016-12-28 15:29 | Diagnostic Imaging Report ---
PROCEDURE: CT angiography of the chest with contrast. TECHNIQUE: Multiple contiguous axial images were obtained through the chest after uneventful bolus administration of intravenous contrast. Reconstructed CTA MIP acquisitions were also performed. INDICATION: Hypoxia. FINDINGS: The pulmonary arterial branches are widely patent with no intraluminal filling defect or thrombus. There are no findings of PE. The thoracic aorta is nonaneurysmal. There are features of COPD with cyst formation, greatest in the pulmonary apices where paraseptal bullae and bleb are noted. The lower lobe airways are nondilated but do show some thickening of their maxwell with likely elements of bronchitis. No focal pneumonia. No dominant lung mass. There is some mild adenopathy, likely reactive, in the pulmonary amrit and mediastinum with no dominant mass. No thoracic effusion. The upper abdomen reveals small amounts of pneumobilia, presumed post interventional, with moderate hepatic steatosis. IMPRESSION: Negative for PE or acute aortic pathology. There are extensive changes of COPD with cyst formation and bullous disease, paraseptal in the apices and airway thickening in the lower lobes. No focal pneumonia, effusion, or pneumothorax. A fatty liver is noted. Dictated by: Dictated on workstation # [id number]
[2016-12-28 16:50] VITALS: BP 116/67
[2016-12-28 19:15] VITALS: BP 129/71
[2016-12-28] MEDS: RT-ADVAIR HFA 115/21 MCG PER PUFF IH SCH (19:21)
[2016-12-29 00:20] VITALS: BP 118/69
[2016-12-29 04:10] VITALS: BP 115/73
[2016-12-29 08:00] VITALS: BP 106/62
[2016-12-29] MEDS: LORATADINE (CLARITIN) 10 MG TAB PO SCH (08:58)
[2016-12-29] MEDS: RT-ALBUTEROL SULF 2.5 MG/3 ML PRE-MIX VIAL IH SCH (10:33)
[2016-12-29] MEDS: RT-ADVAIR HFA 115/21 MCG PER PUFF IH SCH (10:38)
[2016-12-29] MEDS ORDERED: METF500T4 PO (11:14)
[2016-12-29] MEDS ORDERED: TIOT18CA2 IH (11:14)
[2016-12-29] MEDS ORDERED: PRD10T PO (11:14)
--- NOTE | 2016-12-29 11:32 | Discharge Summary ---
Diagnosis/Chief Complaint Date of Admission December 28, 2016 at 12:44 am Date of Discharge December 29, 2016 Admission Diagnosis Admission Diagnosis Acute on chronic hypoxic respiratory insufficiency Diet-controlled diabetes Discharge Diagnosis Acute on chronic hypoxic respiratory insufficiency- possibly secondary to COPD, requiring supplemental oxygen with no baseline previous need -No evidence of pneumonia on x-ray and no evidence of infection in labs/vitals -Blood gas with hypoxia and low CO2, somewhat atypical for COPD and he has not had diagnostic testing, has had multiple CXR but no history of CT and now has chronic interstitial thickening finding on CXR, CT obtained which showed findings of severe COPD, given severity and his young age, nzsjv-[id number]-[id number]-trypsin level drawn and pending at time of d/c -Changed IV steroids to prednisone taper, resumed home Symbicort, added Spiriva on d/c -Required oxygen at d/c, 2 lpm -Recommend outpatient PFTs when stable -Strongly recommended smoking cessation -Recommend considering Pulm referral DMII- A1c in clinic 6.7 05/2016 and was diet-controlled -A1c in hospital 8.2, started metformin 500 mg daily, instructed to increase after one week to BID and follow up with primary to increase further. Chief Complaint/HPI Chief Complaint/HPI 46 yo male presented to ER with worsening shortness of breath in spite of home breathing treatments for the last 4 days. He has been short of breath for some time, but one of his daughters got sick with a cold and shortly thereafter he had cough with yellow sputum, rattly breathing and worsening shortness of air. He denies fever. He has been using his nebulized albuterol every 6 hours- even at 3 am. He does also use Symbicort on a regular basis. He states he was diagnosed with COPD several months ago, does not recall having had PFTs in the past. He has had nausea and vomiting as well. Discharge Summary-Simple/Stand Consultations Discharge Physical Examination Allergies: Coded Allergies: No Known Drug Allergies (Unverified , 05/16/12) Vitals & I&Os Vital Sign - Last 12Hours Date Time Temp Pulse Resp B/P (MAP) Pulse Ox O2 Delivery O2 Flow Rate FiO2 12/29/16 10:40 96 12/29/16 10:00 2.00 12/29/16 08:00 97.7 68 20 106/62 12/27/16 22:11 Room Air Intake and Output 12/29/16 00:00 Intake Total 1590 ml Output Total 2375 ml Balance -785 ml General Appearance: Alert, No Acute Distress Respiratory: Clear to Auscultation, Other (decreased air movement) Neuro: Normal Speech Psych/Mental Status: Mental Status NL Hospital Course See final discharge diagnosis. Labs Laboratory Tests Test 12/27/16 22:07 12/27/16 22:12 12/29/16 05:15 12/29/16 12:06 Range/Units Blood Gas Puncture Site LEFT RADAIL Blood Gas Patient Temperature 96.8 Arterial Blood pH 7.46 H 7.37-7.43 Arterial Blood Partial Pressure CO2 34 L 35-45 MMHG Arterial Blood Partial Pressure O2 44 L 79-93 MMHG Arterial Blood HCO3 24 23-27 MMOL/L Arterial Blood Total CO2 25.3 21.0-31.0 MMOL/L Arterial Blood Oxygen Saturation 87 L 94-100 % Arterial Blood Base Excess 0.6 -2.5-2.5 MMOL/L Perfecto Test YES-POS Blood Gas Ventilator Setting NO Blood Gas Inspired Oxygen 2L White Blood Count 10.3 4.3-11.0 10^3/uL Red Blood Count 4.99 4.35-5.85 10^6/uL Hemoglobin 15.6 13.3-17.7 G/DL Hematocrit 44 40-54 % Mean Corpuscular Volume 89 80-99 FL Mean Corpuscular Hemoglobin 31 25-34 PG Mean Corpuscular Hemoglobin Concent 35 32-36 G/DL Red Cell Distribution Width 12.8 10.0-14.5 % Platelet Count 258 130-400 10^3/uL Mean Platelet Volume 10.1 7.4-10.4 FL Neutrophils (%) (Auto) 55 42-75 % Lymphocytes (%) (Auto) 30 12-44 % Monocytes (%) (Auto) 11 0-12 % Eosinophils (%) (Auto) 3 0-10 % Basophils (%) (Auto) 1 0-10 % Neutrophils # (Auto) 5.7 1.8-7.8 X 10^3 Lymphocytes # (Auto) 3.1 1.0-4.0 X 10^3 Monocytes # (Auto) 1.1 H 0.0-1.0 X 10^3 Eosinophils # (Auto) 0.3 0.0-0.3 10^3/uL Basophils # (Auto) 0.1 0.0-0.1 10^3/uL Sodium Level 139 135-145 MMOL/L Potassium Level 4.0 3.6-5.0 MMOL/L Chloride Level 107 98-107 MMOL/L Carbon Dioxide Level 20 L 21-32 MMOL/L Anion Gap 12 5-14 MMOL/L Blood Urea Nitrogen 13 7-18 MG/DL Creatinine 1.13 0.60-1.30 MG/DL Estimat Glomerular Filtration Rate > 60 BUN/Creatinine Ratio 12 Glucose Level 159 H 70-105 MG/DL Lactic Acid Level 2.00 0.50-2.00 MMOL/L Calcium Level 9.6 8.5-10.1 MG/DL Total Bilirubin 0.3 0.1-1.0 MG/DL Aspartate Amino Transf (AST/SGOT) 28 5-34 U/L Alanine Aminotransferase (ALT/SGPT) 58 H 0-55 U/L Alkaline Phosphatase 119 40-136 U/L Troponin I < 0.30 <0.30 NG/ML Total Protein 7.0 6.4-8.2 G/DL Albumin 4.1 3.2-4.5 G/DL Hemoglobin A1c 8.2 H 4.5-6.2 % Radiology Reviewed CXR 12/27: IMPRESSION: Hyperinflated lungs with stable prominent interstitial thickening. CTA chest 12/28: IMPRESSION: Negative for PE or acute aortic pathology. There are extensive changes of COPD with cyst formation and bullous disease, paraseptal in the apices and airway thickening in the lower lobes. No focal pneumonia, effusion, or pneumothorax. A fatty liver is noted. Discharge Instructions to patient/family Please see electonic discharge instructions given to patient. Discharge Medications Reviewed and agree with Discharge Medication list on patient's Discharge Instruction sheet Clinical Quality Measures DVT/VTE Risk/Contraindication: Risk Factor Score Per Nursin RFS Level Per Nursing on Admit: 4+=Very High Copy Copies To 1: DIRK TY MD, BETHANY N MD December 29, 2016 11:32 am
--- NOTE | 2016-12-29 11:32 | Discharge Instructions ---
Discharge [facility] Discharge Medications New, Converted or Re-Newed RX: Transmitted to Pharmacy New Medications: Metformin HCl (Metformin HCl) 500 Mg Tablet 500 MG PO DAILY, #30 TAB 0 Refills Prednisone (Prednisone) 10 Mg Tab 0 PO UD, #42 TAB 0 Refills Take 6 tabs(60mg)daily, decrease by 1 tab(10mg) every other day. Tiotropium [place] (Spiriva) 1 Inh Aerp 2 PUFF IH DAILY, #1 INHALER 0 Refills Continued Medications: Acetaminophen (Tylenol Extra Strength) 500 Mg Tablet 1000 MG PO Q6H PRN for HEADACHE, TAB TAKES 2 (500MG) TABLETS Albuterol Sulfate (Albuterol Sulfate) 2.5 Mg/3 Ml Vial.neb 2.5 MG NEB QID, EA Albuterol Sulfate (Proventil Hfa) 6.7 Gm Hfa.aer.ad 2 PUFF INH Q4H PRN for SHORTNESS OF BREATH, INHALER Budesonide/Formoterol Fumarate (Symbicort 160-4.5 Mcg Inhaler) 10.2 Gm Hfa.aer.ad 2 PUFF INH BID, INHALER Cetirizine HCl (Zyrtec) 10 Mg Tablet 10 MG PO 2100, TAB Ibuprofen (Advil) 200 Mg Tablet 600-800 MG PO BID PRN for BACK PAIN, TAB TAKES 3 TO 4 (200MG) TABLETS Patient Instructions Goal/Follow Up Appt: Follow up with Dr. Puga on January 04 at 9:20 am. Start taking metformin once per day for diabetes for a week, then increase to twice a day and talk to Dr. Puga about increasing dose further. [facility]: Fever, worsening shortness of breath Activity & Diet Discharge Diet: ADA Diet Activity as Tolerated: Yes VALENCIA SERRANO MD December 29, 2016 11:20 am
[2016-12-29 12:00] VITALS: BP 119/79
[2016-12-29] MEDS: ENOXAPARIN 40 MG/0.4 ML (LOVENOX) SYR SC SCH (13:07)
[2016-12-29 13:30] VITALS: BP 119/79
== END 2016-12-29 11:18 | disposition home or self-care (01) ==
LOC: ER 22:07 → EDUNIT# 22:07 → 4TH 23:25 → UNDOADMOB 23:25 → 4TH 12-28 00:44
PROVIDERS: ADMIT Family Medicine; ATTEND Family Medicine
DX: R06.89 Other abnormalities of breathing (principal); E11.9 Type 2 diabetes mellitus without complications
CPT/HCPCS: 36415; 71020; 71275; 80053; 82103; 82805; 83036; 83605; 84484; 85025; 87040; 94640; 94760; 96374; 96375; G0378

== ENCOUNTER 2017-01-29 15:42 | Emergency (ER) | payer SELFPAY ==
[~2017-01-29] VITALS: Ht 160 cm; Wt 104.3 kg
[~2017-01-29 15:42] MED LIST changes: +CETI10TA20 PO; +METF500T4 PO; +TIOT18CA2 IH
--- NOTE | 2017-01-29 16:38 | ED Abdominal Pain ---
General Stated Complaint: THROWING UP/FEVER Source of Information: Patient Exam Limitations: No Limitations History of Present Illness Time Seen By Provider: 16:36 Initial Comments To ER with epigastric abdominal pain, diffuse abdominal cramping for 4 days after eating salad which she believes was bad. This was initially accompanied by diarrhea, vomiting, nausea. The diarrhea has resolved and he had a normal formed bowel movement yesterday. However, the nausea and vomiting persist. Chills but no measured fever. Diarrhea is without blood or mucus. Timing/Duration: 4-5 Days Severity/Quality: Cramping Location: Epigastric, Generalized Abdomen Activities at Onset: None Associated Symptoms: Nausea/Vomiting Allergies and Home Medications Allergies Coded Allergies: No Known Drug Allergies (Unverified , 05/16/12) Home Medications Acetaminophen 500 Mg Tablet, 1,000 MG PO Q6H PRN for HEADACHE, (Reported) TAKES 2 (500MG) TABLETS Albuterol Sulfate 2.5 Mg/3 Ml Vial.neb, 2.5 MG NEB QID, (Reported) Albuterol Sulfate 6.7 Gm Hfa.aer.ad, 2 PUFF INH Q4H PRN for SHORTNESS OF BREATH, (Reported) Budesonide/Formoterol Fumarate 10.2 Gm Hfa.aer.ad, 2 PUFF INH BID, (Reported) Cetirizine HCl 10 Mg Tablet, 10 MG PO 2100, (Reported) Ibuprofen 200 Mg Tablet, 600-800 MG PO BID PRN for BACK PAIN, (Reported) TAKES 3 TO 4 (200MG) TABLETS Metformin HCl 500 Mg Tablet, 500 MG PO DAILY, #30 Ref 0 Prescribed by: VALENCIA SERRANO on 12/29/16 1114 Prednisone 10 Mg Tab, 0 PO UD, #42 Ref 0 Take 6 tabs(60mg)daily, decrease by 1 tab(10mg) every other day. Prescribed by: VALENCIA SERRANO on 12/29/16 1114 Tiotropium [place] 1 Inh Aerp, 2 PUFF IH DAILY, #1 Ref 0 Prescribed by: VALENCIA SERRANO on 12/29/16 1114 Review of Systems Constitutional: see HPI, chills, No fever EENTM: No Symptoms Reported Respiratory: See HPI Cardiovascular: No Symptoms Reported Gastrointestinal: See HPI, Abdominal Pain, Nausea, Vomiting Genitourinary: No Symptoms Reported Musculoskeletal: no symptoms reported Skin: no symptoms reported Psychiatric/Neurological: No Symptoms Reported Endocrine: No Symptoms Reported Past Tvpelwy-Awebmf-Feuupy Hx Patient Social History Type Used: Cigarettes 2nd Hand Smoke Exposure: Yes Recent Foreign Travel: No Contact w/Someone Who Travel: No Recent Hopitalizations: No Immunizations Up To Date Tetanus Booster (TDap): More than 5yrs PED Vaccines UTD: Yes Date of Pneumonia Vaccine: May 01, 2012 Date of Influenza Vaccine: May 08, 2016 Seasonal Allergies Seasonal Allergies: Yes Surgeries HX Surgeries: Yes (ERCP BEFORE GALL BLADDER REMOVAL ; HERNIA REPAIR; RIGHT SHOULDER SURGERY) Surgeries: Abdominal, Gallbladder, Orthopedic Respiratory Hx Respiratory Disorders: Yes Respiratory Disorders: Asthma, Pneumonia, Chronic Bronchitis Cardiovascular Hx Cardiac Disorders: No Neurological Hx Neurological Disorders: Yes Neurological Disorders: Headaches /Migraines Reproductive System Hx Reproductive Disorders: No Genitourinary Hx Genitourinary Disorders: Yes Genitourinary Disorders: Kidney Stones Gastrointestinal Hx Gastrointestinal Disorders: Yes ("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 5) Gastrointestinal Disorders: Gastroesophageal Reflux, Gall Bladder Disease Musculoskeletal Hx Musculoskeletal Disorders: Yes (RIGHT SHOULDER SURGERY-2005) Musculoskeletal Disorders: Arthritis, Chronic Back Pain Endocrine Hx Endocrine Disorders: Yes (Reports diet control only) Endocrine Disorders: Diabetes, Non-Insulin dep HEENT HX ENT Disorders: Yes (wears glasses; POOR DENTITION) Loss of Vision: Bilateral Hearing Impairment: Hard of Hearing Cancer Hx Cancer: No Psychosocial Hx Psychiatric Problems: No Integumentary HX Skin/Integumentary Disorder: Yes Skin/Integumentary Disorders: Psoriasis Blood Transfusions Hx Blood Disorders: No Adverse Reaction to a Blood Tr: No Family Medical History Significant Family History: COPD, Hypertension Family Medial History: Cancer 09 SISTER, Onset:Unknown (LEUKEMIA) Family history: Alzheimer's disease GRANDMOTHER, Onset:Unknown Family history: Arthritis GRANDMOTHER, Onset:Unknown Family history: Asthma 03 FATHER, Onset:Unknown Family history: Diabetes mellitus 03 FATHER, Onset:Unknown Family history: Hypertension 03 FATHER, Onset:Unknown 03 MOTHER, Onset:Unknown Kidney disease 03 FATHER (KIDNEY STONES) Visual impairment Physical Exam Vital Signs VS - Last 72 Hours, by Label 01/29/17 16:20 Temp 98.4 Pulse 75 Resp 24 B/P (MAP) 122/79 Pulse Ox 97 O2 Delivery Nasal Cannula O2 Flow Rate 2.00 Capillary Refill : General Appearance: WD/WN, no apparent distress HEENT: PERRL/EOMI, normal ENT inspection, other (small right subconjunctival hemorrhage) Neck: non-tender, full range of motion Respiratory: no respiratory distress, no accessory muscle use Gastrointestinal: normal bowel sounds, soft, tenderness (tender epigastric) Extremities: normal range of motion, non-tender, other (clubbing of fingertips) Neurologic/Psychiatric: alert, normal mood/affect, oriented x 3 Skin: normal color, warm/dry Progress/Results/Core Measures Results/Orders Lab Results Laboratory Tests Test 01/29/17 16:30 01/29/17 17:06 Range/Units White Blood Count 11.0 4.3-11.0 10^3/uL Red Blood Count 5.03 4.35-5.85 10^6/uL Hemoglobin 15.5 13.3-17.7 G/DL Hematocrit 45 40-54 % Mean Corpuscular Volume 89 80-99 FL Mean Corpuscular Hemoglobin 31 25-34 PG Mean Corpuscular Hemoglobin Concent 35 32-36 G/DL Red Cell Distribution Width 12.6 10.0-14.5 % Platelet Count 307 130-400 10^3/uL Mean Platelet Volume 10.2 7.4-10.4 FL Neutrophils (%) (Auto) 61 42-75 % Lymphocytes (%) (Auto) 26 12-44 % Monocytes (%) (Auto) 11 0-12 % Eosinophils (%) (Auto) 1 0-10 % Basophils (%) (Auto) 0 0-10 % Neutrophils # (Auto) 6.7 1.8-7.8 X 10^3 Lymphocytes # (Auto) 2.9 1.0-4.0 X 10^3 Monocytes # (Auto) 1.2 H 0.0-1.0 X 10^3 Eosinophils # (Auto) 0.1 0.0-0.3 10^3/uL Basophils # (Auto) 0.0 0.0-0.1 10^3/uL Sodium Level 138 135-145 MMOL/L Potassium Level 3.8 3.6-5.0 MMOL/L Chloride Level 103 98-107 MMOL/L Carbon Dioxide Level 24 21-32 MMOL/L Anion Gap 11 5-14 MMOL/L Blood Urea Nitrogen 10 7-18 MG/DL Creatinine 0.93 0.60-1.30 MG/DL Estimat Glomerular Filtration Rate > 60 BUN/Creatinine Ratio 11 0-20 Glucose Level 138 H 70-105 MG/DL Calcium Level 9.9 8.5-10.1 MG/DL Total Bilirubin 0.4 0.1-1.0 MG/DL Aspartate Amino Transf (AST/SGOT) 27 5-34 U/L Alanine Aminotransferase (ALT/SGPT) 53 0-55 U/L Alkaline Phosphatase 114 40-136 U/L Total Protein 7.3 6.4-8.2 GM/DL Albumin 4.2 3.2-4.5 GM/DL Lipase 76 8-78 U/L Urine Color YELLOW Urine Clarity CLEAR Urine pH 7 5-9 Urine Specific [place] 1.010 L 1.016-1.022 Urine Protein NEGATIVE NEGATIVE Urine Glucose (UA) NEGATIVE NEGATIVE Urine Ketones NEGATIVE NEGATIVE Urine Nitrite NEGATIVE NEGATIVE Urine Bilirubin NEGATIVE NEGATIVE Urine Urobilinogen 1 NORMAL MG/DL Urine Leukocyte Esterase NEGATIVE NEGATIVE Urine RBC (Auto) NEGATIVE NEGATIVE Urine RBC NONE /HPF Urine WBC NONE /HPF Urine Squamous Epithelial Cells 0-2 /HPF Urine Crystals NONE /LPF Urine Bacteria NEGATIVE /HPF Urine Casts NONE /LPF Urine Mucus NEGATIVE /LPF Urine Culture Indicated NO My Orders Orders - NAIF SIMMS APRN Cbc With Automated Diff (01/29/17 16:34) Comprehensive Metabolic Panel (01/29/17 16:34) Ua Culture If Indicated (01/29/17 16:34) Lipase (01/29/17 16:34) Saline Lock/Iv-Start (01/29/17 16:34) Ns Iv 500 Ml (Sodium Chloride 0.9%) (01/29/17 16:45) Ondansetron Injection (Zofran Injectio (01/29/17 16:45) Medications Given in ED Current Medications Medications Dose Ordered Sig/Mike Route Start Time Stop Time Status Last Admin Dose Admin Ondansetron HCl 4 mg ONCE ONCE IVP 01/29/17 16:45 01/29/17 16:46 DC 01/29/17 16:57 4 MG Vital Signs/I&O Vital Sign - Last 12Hours 01/29/17 16:20 Temp 98.4 Pulse 75 Resp 24 B/P (MAP) 122/79 Pulse Ox 97 O2 Delivery Nasal Cannula O2 Flow Rate 2.00 Departure Impression Impression: Primary Impression: Nausea and vomiting Qualified Codes: R11.2 - Nausea with vomiting, unspecified Disposition: HOME, SELF-CARE Condition: Stable Departure-Patient Inst. Decision time for Depature: 17:37 Referrals: [facility] (PCP/Family) Primary Care Physician Patient Instructions: Nausea and Vomiting, Adult Add. Discharge Instructions: 1. Small frequent sips of liquids such as Pedialyte, Gatorade or water 2. Return to ER for any concerns 3. See your doctor next week Scripts Ondansetron (Zofran Odt) 8 Mg Tab.rapdis 8 MG PO Q6H Y for NAUSEA/VOMITING-1ST LINE, #10 TAB Prov: NAIF SIMMS APRN 01/29/17 Sucralfate (Carafate) 1 Gm Tablet 1 GM PO ACHS, #28 TAB Prov: NAIF SIMMS APRN 01/29/17 NAIF SIMMS APRN Jan 29, 2017 16:38
[2017-01-29 16:40] LABS: BASOPHILS % (AUTO) 0 % (0-10); EOSINOPHILS # (AUTO) 0.1 10^3/uL (0.0-0.3); EOSINOPHILS % (AUTO) 1 % (0-10); LYMPHOCYTES # (AUTO) 2.9 X 10^3 (1.0-4.0); LYMPHOCYTES % (AUTO) 26 % (12-44); MEAN CORPUSCULAR HEMOGLOBIN 31 PG (25-34); MEAN CORPUSCULAR HGB CONC 35 G/DL (32-36); MEAN CORPUSCULAR VOLUME 89 FL (80-99); MEAN PLATELET VOLUME 10.2 FL (7.4-10.4); MONOCYTES # (AUTO) 1.2 X 10^3 (0.0-1.0); MONOCYTES % (AUTO) 11 % (0-12); NEUTROPHILS # (AUTO) 6.7 X 10^3 (1.8-7.8); NEUTROPHILS % (AUTO) 61 % (42-75); PLATELET COUNT 307 10^3/uL (130-400); RED BLOOD COUNT 5.03 10^6/uL (4.35-5.85); RED CELL DISTRIBUTION WIDTH 12.6 % (10.0-14.5)
[2017-01-29] MEDS ORDERED: ONDANSETRON 4 MG/2 ML (SDV) Z0FRAN IVP ONE (16:45)
[2017-01-29] MEDS ORDERED: NS IV 500 ML 500 ML IV SCH (16:45)
[2017-01-29 17:06] LABS: ALANINE AMINOTRANSFERASE 53 U/L (0-55); ALBUMIN 4.2 GM/DL (3.2-4.5); ANION GAP 11 MMOL/L (5-14); ASPARTATE AMINO TRANSFERASE 27 U/L (5-34); BILIRUBIN,TOTAL 0.4 MG/DL (0.1-1.0); BLOOD UREA NITROGEN 10 MG/DL (7-18); BUN/CREATININE RATIO 11 (0-20); CALCIUM 9.9 MG/DL (8.5-10.1); CARBON DIOXIDE 24 MMOL/L (21-32); CHLORIDE 103 MMOL/L (98-107); CREATININE SERUM 0.93 MG/DL (0.60-1.30); GFR ESTIMATED > 60; GLUCOSE 138 MG/DL (70-105); HEMOLYSIS 12 (-100-29); ICTERUS 0.5 (-100-1.9); LIPASE 76 U/L (8-78); LIPEMIA 11 (-100-49); POTASSIUM 3.8 MMOL/L (3.6-5.0); SODIUM 138 MMOL/L (135-145); TOTAL PROTEIN 7.3 GM/DL (6.4-8.2)
[2017-01-29 17:13] LABS: BILIRUBIN,URINE NEGATIVE (NEGATIVE); KETONES,URINE NEGATIVE (NEGATIVE); LEUKOCYTE ESTERASE ,URINE NEGATIVE (NEGATIVE); NITRITE,URINE NEGATIVE (NEGATIVE); PH,URINE 7 (5-9); PROTEIN,URINE NEGATIVE (NEGATIVE); UROBILINOGEN,URINE 1 MG/DL (NORMAL)
[2017-01-29 17:21] LABS: SQUAMOUS EPITHELIAL CELL,UR 0-2 /HPF
[2017-01-29] MEDS ORDERED: ONDA8TAB9 PO (17:39)
[2017-01-29] MEDS ORDERED: SUCR1TAB36 PO (17:39)
[2017-01-29] MEDS ORDERED: LIDOCAINE 2% VISCOUS 15 ML UDC PO ONE (17:45)
[2017-01-29] MEDS ORDERED: ANTACID SUSP 30 ML UDC (MYLANTA) PO ONE (17:45)
[2017-01-29] MEDS ORDERED: PROCHLORPERAZINE 10 MG/2ML INJ (COMPAZINE) IV ONE (17:45)
[2017-01-29 18:21] VITALS: BP 131/71
--- OUTSIDE RECORDS SUMMARY | 2017-01-31 17:22 | XMS REPORT | Continuity of Care Document ---
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 SIMMS WOOD EXPERIMENTAL MECHANIC Ot J20.9 ACUTE BRONCHITIS, UNSPECIFIED 08/01/2015 LORENA [...] COMPL, TYPE II OR UNSPEC TY 04/21/2016 LORENA APPIAH MD Ot 786.50 CHEST PAIN NOS 10/05/2016 LORENA APPIAH MD Ot 250.00 DIAB DENAE WO COMPL, TYPE II OR UNSPEC TY 10/05/2016 LORENA APPIAH MD Ot 786.50 CHEST PAIN NOS 10/05/2016 MATTHEW ENCARNACION MD Ot E11.9 TYPE 2 DIABETES MELLITUS WITHOUT COMPLIC 10/05/2016 MATTHEW ENCARNACION MD Ot E66.9 OBESITY, UNSPECIFIED 10/05/2016 MATTHEW ENCARNACION MD Ot F17.210 NICOTINE DEPENDENCE, CIGARETTES, UNCOMPL 10/05/2016 MATTHEW ENCARNACION MD Ot J18.9 PNEUMONIA, UNSPECIFIED ORGANISM 10/05/2016 MATTHEW ENCARNACION MD, Ot J44.1 CHRONIC OBSTRUCTIVE PULMONARY DISEASE W 10/05/2016 MATTHEW ENCARNACION MD, Ot Z79.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 Visit Date/Time Discharge Status Pt. Type Provider Facility Loc./Unit Complaint [id number] 12/28/2016 00:44:00 2016 13:30:00 DIS Inpatient VALENCIA SERRANO MD [facility] 4TH COPD EXACERBATION W/ HYPOXIA [id number] 10/04/2016 22:25:00 2016 12:30:00 DIS Inpatient MATTHEW ENCARNACION MD [facility] 4TH PNEUMONIA,COPD EXACERBATION [id number] 04/20/2016 16:49:00 2015 11:10:00 DIS Inpatient MIRELA ROA, JOHN Parsons [facility] 4TH ATYPICAL PNEUMONIA, ASTHMA, HYPOXIA [id number] 09/18/2015 17:00:00 2015 19:34:00 DIS Emergency SUZETTE GUPTA [facility] ER CONGESTION,SOA [id number] 08/01/2015 20:35:00 2014 22:10:00 DIS Emergency NAIF SIMMS APRN [facility] ER SOA [id number] 06/30/2014 23:25:00 2013 01:00:00 DIS Emergency VINCENT MUÑOZ MD [facility] ER DIFFICULITY BREATHING [id number] 01/17/2014 19:10:00 2013 21:20:00 DIS Outpatient RYAN HANSON MD [facility] SDC GALLSTONES [id number] 01/16/2014 17:44:00 2013 09:36:00 DIS Inpatient LARS ROA, MARC Tanner [facility] 4TH CHOLELITHIASIS WITH CBD OBSTRUCTION [id number] 11/12/2013 04:09:00 2013 08:07:00 DIS Emergency VINCENT MUÑOZ MD [facility] ER ABD PAIN [id number] 06/14/2013 03:16:00 2012 11:20:00 DIS Inpatient RYAN HANSON MD [facility] SURGICAL ABD PAIN,ACUTE CHOLECYSTITIS [id number] 01/03/2013 10:24:00 2012 23:59:59 CLS Outpatient LORENA APPIAH MD [facility] RAD CHEST PAIN,DIZZINES,HTN,DIABETES [id number] 12/28/2012 18:10:00 2012 16:10:00 DIS Inpatient [id number] 01/29/2017 15:44:00 ACT Emergency NAIF SIMMS APRN [facility] ER THROWING UP/FEVER [id number] 10/13/2012 21:52:00 Document Registration [id number] 07/06/2012 00:05:00 Document Registration [id number] 05/16/2012 18:00:00 Document Registration
== END 2017-01-29 18:21 | disposition home or self-care (01) ==
LOC: EDUNIT# 15:42 → ER 15:44
DX: R11.2 Nausea with vomiting, unspecified (principal); R50.9 Fever, unspecified; J45.909 Unspecified asthma, uncomplicated; E11.9 Type 2 diabetes mellitus without complications; F17.210 Nicotine dependence, cigarettes, uncomplicated; Z87.19 Personal history of other diseases of the digestive system; Z87.442 Personal history of urinary calculi
CPT/HCPCS: 36415; 80053; 81000; 83690; 85025

== ENCOUNTER 2017-12-31 16:22 | Emergency (ER) | payer SELFPAY ==
[~2017-12-31] VITALS: Ht 160 cm; Wt 113.4 kg
[~2017-12-31 16:22] MED LIST changes: +AZIT250T12 PO; -AZIT250T5 PO; -METF500T4 PO; +METF500T5 PO; +ONDA8TAB9 PO; +SUCR1TAB36 PO
--- OUTSIDE RECORDS SUMMARY | 2017-12-31 16:27 | XMS REPORT ---
Author Author DIRK TY [facility] Address [address] [place] [address] Care Team Providers Care Docent Coordinator Name Role Phone DIRK TY Unavailable PROBLEMS Type Condition ICD9-CM Code HLS41-VJ Code Onset Dates Condition Status SNOMED Code Problem Nicotine dependence F17.200 Active 31422442 Problem Sleep apnea, unspecified type G47.30 Active 51491171 Problem COPD exacerbation J44.1 Active 638360739 Problem Diabetes E11.9 Active 65263871 Problem Asthma J45.909 Active 396377423 Problem Other inflammatory polyneuropathies G61.89 Active 36546992 Problem Hearing loss, unspecified laterality H91.90 Active [id number] ALLERGIES No Information SOCIAL HISTORY Never Assessed PLAN OF CARE VITAL SIGNS MEDICATIONS Medication Instructions Dosage Frequency Start Date End Date Duration Status Symbicort 160-4.5 MCG/ACT Inhalation Twice a day 2 puffs 12h 21 Oct, 2015 30 days Active RESULTS No Results PROCEDURES No Known procedures IMMUNIZATIONS No Known Immunizations MEDICAL (GENERAL) HISTORY Type Description Date Medical History Asthma Medical History Diabetes Surgical History hernia repair Surgical History shoulder arthroscopy Surgical History cholecystectomy Surgical History exploritory x 2 Surgical History blockage repair of gallbladder prior to surgery Hospitalization History Atypical Pneumonia, Asthma, Hypoxia--[facility] 04/20/16 Hospitalization History Pneumonia, COPD exacerbation-[facility] 10/04/15 Hospitalization History hypoxia, COPD exac-[facility] 12/28/16
--- OUTSIDE RECORDS SUMMARY | 2017-12-31 16:27 | XMS REPORT ---
Author Author DIRK TY [facility] Address [address] [place] [address] Care Team Providers Care Manager Global Name Role Phone DIRK TY Unavailable PROBLEMS Type Condition ICD9-CM Code DOX76-TA Code Onset Dates Condition Status SNOMED Code Problem Nicotine dependence F17.200 Active 12519260 Problem Sleep apnea, unspecified type G47.30 Active 59094191 Problem COPD exacerbation J44.1 Active 414094942 Problem Diabetes E11.9 Active 29042724 Problem Asthma J45.909 Active 575206062 Problem Other inflammatory polyneuropathies G61.89 Active 77067917 Problem Hearing loss, unspecified laterality H91.90 Active 43927637 ALLERGIES Substance Reaction Event Type Date Status N.K.D.A. Unknown Non Drug Allergy Aug, Unknown SOCIAL HISTORY No smoking Hx information available PLAN OF CARE Activity Details Follow Up 3 Months Reason: VITAL SIGNS Height 63 in 2016-08-19 Weight 238 lbs 2016-08-19 Temperature 97.3 degrees Fahrenheit 2016-08-19 Heart Rate 108 bpm 2016-08-19 Respiratory Rate 34 2016-08-19 Oximetry 94 % 2016-08-19 BMI 42.16 kg/m2 2016-08-19 Blood pressure systolic 148 mmHg 2016-08-19 Blood pressure diastolic 80 mmHg 2016-08-19 MEDICATIONS Medication Instructions Dosage Frequency Start Date End Date Duration Status Benadryl Allergy 25 MG Active Symbicort 160-4.5 MCG/ACT Inhalation Twice a day 2 puffs 12h Oct, Active Ibuprofen 400 MG Orally Three times a day 1 tablet 8h Active Albuterol Sulfate (2.5 MG/3ML) 0.083% Inhalation 4 times a day 3 ml 6h May, Active PredniSONE 50 mg Orally Once a day 1 tablet 24h Aug, Aug, 05 days Active ProAir HFA 108 (90 Base) MCG/ACT Inhalation every 4 hrs 2 puffs as needed 4h Oct, Active RESULTS No Results PROCEDURES Procedure Date Ordered Related Diagnosis Body Site ALBUTEROL UNIT DOSE FORM INHALED 2016-08-19 N/A MEASURE BLOOD OXYGEN LEVEL Aug 19, 2016 Office Visit, Est Pt., Level 3 Aug 19, 2016 ALBUTEROL INHAL UNIT DOSE 1 MG Aug 19, 2016 IMMUNIZATIONS No Known Immunizations
--- OUTSIDE RECORDS SUMMARY | 2017-12-31 16:27 | XMS REPORT ---
Author Author DIRK TY [facility] Address [address] [place] [address] Care Team Providers Care Roundhouse Worker Name Role Phone DIRK TY Unavailable PROBLEMS Type Condition ICD9-CM Code VVQ05-SA Code Onset Dates Condition Status SNOMED Code Problem Asthma J45.909 Active 612187006 Problem Nicotine dependence F17.200 Active 40736102 Problem Mixed hyperlipidemia E78.2 Active 049258446 Problem Sleep apnea, unspecified type G47.30 Active 65418060 Problem Hearing loss, unspecified laterality H91.90 Active 22859935 Problem Diabetes E11.9 Active 05802521 Problem COPD exacerbation J44.1 Active 838970595 Problem Other inflammatory polyneuropathies G61.89 Active 32767444 ALLERGIES No Information ENCOUNTERS Encounter Location Date Diagnosis [place] [id number] [place] [address]70 Nov, [place] [id number] [place] [address] 23775- 1755 Sep, [place] [id number] [place] [address] 05328- 0462 Sep, [place] [address] [id number] [place] [address] 71233- 3248 Jul, COPD exacerbation J44.1 [place] [id number] [place] [address] 39501- 8657 Jul, [place] [address] [address] Jul, BMI 40.0-44.9, adult Z68.41 ; Encounter for immunization Z23 ; Diabetes E11.9 ; Asthma J45.909 and Mixed hyperlipidemia E78.2 [place] [address] [address] Jun, [facility] [address] [facility] [id number] [place] [address] 25821- 6090 May, Dental examination Z01.20 [facility] [address] [facility] [id number], [place] [address] Apr, Diabetes E11.9 [facility] [address] [facility] [id number] [place] [address] 98592- 4073 Feb, COPD exacerbation J44.1 [facility] [id number] [place] [address], [place] [address]- [address] Feb, [facility] [id number] [place] [address] 94098- 1464 Feb, Abscess L02.91 [facility] [id number] [place] [address] 47799- 6063 Jan, Diabetes E11.9 [facility] [address] [facility] [id number], [place] [address] Jan, Diabetes E11.9 [facility] [address] [place] [address] 96977- 2135 Jan, [facility] [address], [place] [address] Jan, [facility] [address], [place] [address] December, Dental examination Z01.20 [facility] [address] [facility] [id number], [place] [address] December, Diabetes E11.9 [facility] [address] [facility] [id number], [place] [address] December, [facility] [address] [place] [id number] [address] December, [facility] [address], [place] [address] December, Diabetes E11.9 ; COPD exacerbation J44.1 and Sleep apnea, unspecified type G47.30 [place] [id number] [place] [address] 36700- 2177 December, [place] [address] [id number] [place] [address] 10857- 4157 Oct, COPD exacerbation J44.1 [place] [address] [address]- [address] Oct, Asthma J45.909 [place] [address] [id number] Sep, [place] [address] [address] Aug, Asthma J45.909 and Other inflammatory polyneuropathies G61.[address] [address] May, Diabetes E11.9 and Asthma J45.909 [place] [id number] [place] [address] 40967- 7298 16 Apr, 2016 Pneumonia of left lower lobe due to infectious organism J18.9 ; Asthma J45.909 ; Impacted cerumen of right ear H61.21 and Hearing loss, unspecified laterality H91.90 [place] [id number] [place] [address] 82309- 2491 Apr, [place] [id number] [place] [address] 83597- 2352 Oct, Diabetes E11.9 ; Asthma J45.909 and Nicotine dependence F17.200 IMMUNIZATIONS No Known Immunizations SOCIAL HISTORY Never Assessed REASON FOR VISIT 1 mo f/u DM Ed PLAN OF CARE VITAL SIGNS MEDICATIONS Medication Instructions Dosage Frequency Start Date End Date Duration Status Lovastatin 40 mg Orally Once a day 1 tablet with a meal 24h Active Symbicort 160-4.5 MCG/ACT Inhalation Twice a day 2 puffs 12h Oct, Active ProAir HFA 108 (90 Base) MCG/ACT Inhalation every 4 hrs 2 puffs as needed 4h 21 Oct, 2015 Active Spiriva Respimat 1.25 MCG/ACT Inhalation Once a day 2 puffs 24h Active PredniSONE 5 MG Orally Once a day 2 tablet 24h Active RESULTS No Results PROCEDURES No Known procedures INSTRUCTIONS MEDICATIONS ADMINISTERED No Known Medications MEDICAL (GENERAL) HISTORY Type Description Date Medical History Asthma Medical History Diabetes Surgical History hernia repair Surgical History shoulder arthroscopy right Surgical History cholecystectomy Surgical History exploritory x 2 for abdominal pain Surgical History blockage repair of gallbladder prior to surgery Hospitalization History Atypical Pneumonia, Asthma, Hypoxia--[facility] 04/20/16 Hospitalization History Pneumonia, COPD exacerbation-[facility] 10/04/15 Hospitalization History hypoxia, COPD exac-[facility] 12/28/16
--- OUTSIDE RECORDS SUMMARY | 2017-12-31 16:27 | XMS REPORT ---
Author Author DIRK TY [facility] Address [address] [place] [address] Care Team Providers Care Paraprofessional Interpreter Name Role Phone DIRK TY Unavailable PROBLEMS Type Condition ICD9-CM Code PTA01-DO Code Onset Dates Condition Status SNOMED Code Problem Nicotine dependence F17.200 Active 89029861 Problem Diabetes E11.9 Active 82739233 Problem Asthma J45.909 Active 890034181 Problem Diabetic polyneuropathy associated with type 2 diabetes mellitus E11.42 Active 48596598 Problem Mixed hyperlipidemia E78.2 Active 643819447 Problem Other inflammatory polyneuropathies G61.89 Active 62786710 Problem Hearing loss, unspecified laterality H91.90 Active 24327449 Problem Sleep apnea, unspecified type G47.30 Active 32305406 Problem COPD exacerbation J44.1 Active [id number] ALLERGIES No Information ENCOUNTERS Encounter Location Date Diagnosis [place] [id number] [place] [address] 31562- 3347 Nov, Diabetes E11.9 ; Mixed hyperlipidemia E78.2 ; Asthma J45.909 ; Diabetic polyneuropathy associated with type 2 diabetes mellitus E11.42 ; Nicotine dependence F17.200 and BMI 40.0-44.9, adult Z68.41 [place] [id number] [place] [address] 49194- [address]20 Nov, [facility] [id number] [place] [address] 59631- 2303 Sep, [place] [address] [id number] [place] [address] 51315- 1028 Sep, [facility] [address] [id number] [place] [address] 75481- 6106 Jul, COPD exacerbation J44.1 [place] [id number] [place] [address] 41552- 1404 Jul, [facility] [address] [address]- [address] Jul, BMI 40.0-44.9, adult Z68.41 ; Encounter for immunization Z23 ; Diabetes E11.9 ; Asthma J45.909 and Mixed hyperlipidemia E78.2 [facility] [address] [address]- [address] Jun, [facility] [address] 14486- 8159 May, Dental examination Z01.20 [place] [address] 54774- 6045 Apr, Diabetes E11.9 [facility] [address] 28322- 1349 Feb, COPD exacerbation J44.1 [facility] [address] 19796- 4688 Feb, [facility] [address] 64604- [address]123 Feb, [address]02.[address] [facility] [address] [id number] [place] [address] 92982- 9695 Jan, Diabetes E11.9 [facility] [address] 77159- 7222 Jan, Diabetes E11.9 [facility] [address] [id number] [place] [address] 28940- 8142 Jan, [facility] [address] 11051- [address]83 Jan, [facility] [address] [id number] [place] [address] 01058- 0976 December, Dental examination Z01.20 [facility] [address] 84619- 5641 December, Diabetes E11.9 [facility] [address] [id number] [place] [address] 96153- 1255 December, [facility] [id number] [place] [address] 09300- 0531 December, [facility] [address] [id number] [place] [address] 80472- 5348 December, Diabetes E11.9 ; COPD exacerbation J44.1 and Sleep apnea, unspecified type G47.30 [place] [id number] [place] [address] 80780- 6354 December, [place] [id number] [place] [address] 05251- 9455 Oct, COPD exacerbation J44.1 [place] [id number] [place] [address] 66475- 7565 Oct, Asthma J45.909 [facility] [address] [id number] [place] [address] [id number] Sep, [place] [id number] [place] [address] 38463- 1188 Aug, Asthma J45.909 and Other inflammatory polyneuropathies G61.89 [place] [id number] [place] [address] 77578- 7316 May, Diabetes E11.9 and Asthma J45.909 [place] [address] [place] [address] 25471- 0320 16 Apr, 2016 Pneumonia of left lower lobe due to infectious organism J18.9 ; Asthma J45.909 ; Impacted cerumen of right ear H61.21 and Hearing loss, unspecified laterality H91.90 [facility] [address] [place] [address] 97842- 7341 15 Apr, 2016 [facility] [address] [id number] [place] [address] 46627- 1924 Oct, Diabetes E11.9 ; Asthma J45.909 and Nicotine dependence F17.200 IMMUNIZATIONS No Known Immunizations SOCIAL HISTORY Never Assessed REASON FOR VISIT Refill for Metformin PLAN OF CARE VITAL SIGNS MEDICATIONS Medication Instructions Dosage Frequency Start Date End Date Duration Status Metformin HCl 500 MG Orally twice a day 1 tablet with meals 12h 30 days Active RESULTS No Results PROCEDURES No Known procedures INSTRUCTIONS MEDICATIONS ADMINISTERED No Known Medications MEDICAL (GENERAL) HISTORY Type Description Date Medical History Asthma Medical History Diabetes Surgical History hernia repair Surgical History shoulder arthroscopy right Surgical History cholecystectomy Surgical History exploritory x 2 for abdominal pain Surgical History blockage repair of gallbladder prior to surgery Hospitalization History Atypical Pneumonia, Asthma, Hypoxia--[facility] 04/20/16 Hospitalization History Pneumonia, COPD exacerbation-[facility] 10/04/15 Hospitalization History hypoxia, COPD exac-[facility] 12/28/16
--- OUTSIDE RECORDS SUMMARY | 2017-12-31 16:28 | XMS REPORT ---
Author Author DIRK TY [facility] Address [address] [place] [address] Care Team Providers Care Systems Test Analyst Name Role Phone DIRK TY Unavailable PROBLEMS Type Condition ICD9-CM Code UBX59-BF Code Onset Dates Condition Status SNOMED Code Problem Nicotine dependence F17.200 Active 59436452 Problem Sleep apnea, unspecified type G47.30 Active 03815749 Problem COPD exacerbation J44.1 Active 566780239 Problem Diabetes E11.9 Active 01847475 Problem Asthma J45.909 Active 822652681 Problem Other inflammatory polyneuropathies G61.89 Active 07664114 Problem Hearing loss, unspecified laterality H91.90 Active 27760909 ALLERGIES No Known Allergies SOCIAL HISTORY Never Assessed PLAN OF CARE Activity Details Follow Up 3 Months Reason: VITAL SIGNS Height 63 in 2016-10-08 Weight 240.0 lbs 2016-10-08 Temperature 98.0 degrees Fahrenheit 2016-10-08 Heart Rate 102 bpm 2016-10-08 Respiratory Rate 24 2016-10-08 Oximetry 97 % 2016-10-08 BMI 42.51 kg/m2 2016-10-08 Blood pressure systolic 142 mmHg 2016-10-08 Blood pressure diastolic 80 mmHg 2016-10-08 MEDICATIONS Medication Instructions Dosage Frequency Start Date End Date Duration Status ProAir HFA 108 (90 Base) MCG/ACT Inhalation every 4 hrs 2 puffs as needed 4h Oct, Active Ibuprofen 200 MG Orally 2 times a day as needed 3 or 4 tablets Active Benadryl Allergy 25 MG Orally every 8 hrs 1 tablet as needed 8h Active Levaquin 750 MG Orally Once a day 1 tablet 24h Oct, Oct, Active PredniSONE 10 mg Orally Once a day As directed 24h Oct, 13 days Active Levofloxacin 750 MG Orally Once a day 1 tablet 24h Active Albuterol Sulfate (2.5 MG/3ML) 0.083% USE 1 VIAL IN NEBULIZER FOUR TIMES DAILY 12 Active Acetaminophen 500 MG Orally every 6 hrs 2 capsules as needed 6h Active Symbicort 160-4.5 MCG/ACT Inhalation Twice a day 2 puffs 12h 21 Oct, 2015 30 days Active RESULTS No Results PROCEDURES Procedure Date Ordered Result Body Site MEASURE BLOOD OXYGEN LEVEL October 08, 2016 IMMUNIZATIONS No Known Immunizations MEDICAL (GENERAL) HISTORY Type Description Date Medical History Asthma Medical History Diabetes Surgical History hernia repair Surgical History shoulder arthroscopy Surgical History cholecystectomy Surgical History exploritory x 2 Surgical History blockage repair of gallbladder prior to surgery Hospitalization History Atypical Pneumonia, Asthma, Hypoxia--[facility] 04/20/16 Hospitalization History Pneumonia, COPD exacerbation-[facility] 10/04/15 Hospitalization History hypoxia, COPD exac-[facility] 12/28/16
--- OUTSIDE RECORDS SUMMARY | 2017-12-31 16:28 | XMS REPORT ---
Author Author DIRK TY [facility] Address [address] [place] [address] Care Team Providers Care Buggy Man Name Role Phone DIRK TY Unavailable PROBLEMS Type Condition ICD9-CM Code BQW98-LR Code Onset Dates Condition Status SNOMED Code Problem Diabetes E11.9 Active 22286859 Problem Asthma J45.909 Active 859344396 Problem Dental examination Z01.20 Active 278106439 Problem Sleep apnea, unspecified type G47.30 Active 55419156 Problem Hearing loss, unspecified laterality H91.90 Active 57193773 Problem Nicotine dependence F17.200 Active 40869977 Problem COPD exacerbation J44.1 Active 173890610 Problem Other inflammatory polyneuropathies G61.89 Active 24659205 ALLERGIES No Information SOCIAL HISTORY Never Assessed [...] to surgery Hospitalization History Atypical Pneumonia, Asthma, Hypoxia--[facility] 04/20/16 Hospitalization History Pneumonia, COPD exacerbation-[facility] 10/04/15 Hospitalization History hypoxia, COPD exac-[facility] 12/28/16
--- OUTSIDE RECORDS SUMMARY | 2017-12-31 16:28 | XMS REPORT ---
Author Author MATTHEW ENCARNACION Organization [facility] Address [address] [place] [address] Care Team Providers Care Sewing Techniques Demonstrator Name Role Phone MATTHEW ENCARNACION Unavailable PROBLEMS Type Condition ICD9-CM Code IYZ28-HW Code Onset Dates Condition Status SNOMED Code Problem Nicotine dependence F17.200 Active 23621784 Problem Sleep apnea, unspecified type G47.30 Active 33376739 Problem COPD exacerbation J44.1 Active 276632001 Problem Diabetes E11.9 Active 55474218 Problem Asthma J45.909 Active 201974104 Problem Other inflammatory polyneuropathies G61.89 Active 82792473 Problem Hearing loss, unspecified laterality H91.90 Active 48092696 ALLERGIES No Information SOCIAL HISTORY Never Assessed PLAN OF CARE VITAL SIGNS MEDICATIONS Medication Instructions Dosage Frequency Start Date End Date Duration Status Symbicort 160-4.5 MCG/ACT Inhalation Twice a day 2 puffs 12h Oct, Active Acetaminophen 500 MG Orally every 6 hrs 2 capsules as needed 6h Active Ibuprofen 200 MG Orally 2 times a day as needed 3 or 4 tablets Active PredniSONE 10 mg Orally Once a day 6 tabs daily, and decrease by 1 tab every other day 24h Active Levaquin 750 MG Orally Once a day 1 tablet 24h Oct, Oct, Active Albuterol Sulfate (2.5 MG/3ML) 0.083% USE 1 VIAL IN NEBULIZER FOUR TIMES DAILY 12 Active Benadryl Allergy 25 MG Orally every 8 hrs 1 tablet as needed 8h Active RESULTS No Results PROCEDURES No Known procedures IMMUNIZATIONS No Known Immunizations MEDICAL (GENERAL) HISTORY Type Description Date Medical History Asthma Medical History Diabetes Surgical History hernia repair Surgical History shoulder arthroscopy Surgical History cholecystectomy Surgical History exploritory x 2 Surgical History blockage repair of gallbladder prior to surgery Hospitalization History Atypical Pneumonia, Asthma, Hypoxia--[facility] 04/20/16 Hospitalization History Pneumonia, COPD exacerbation-[facility] 10/04/15 Hospitalization History hypoxia, COPD exac-[facility] 12/28/16
--- OUTSIDE RECORDS SUMMARY | 2017-12-31 16:28 | XMS REPORT ---
Author Author DIRK TY [facility] Address [address] [place] [address] Care Team Providers Care Checkman Name Role Phone DIRK TY Unavailable PROBLEMS Type Condition ICD9-CM Code EMR12-XK Code Onset Dates Condition Status SNOMED Code Problem Diabetes E11.9 Active 40169865 Problem Asthma J45.909 Active 771565776 Problem Dental examination Z01.20 Active 051352999 Problem Sleep apnea, unspecified type G47.30 Active 96747320 Problem Hearing loss, unspecified laterality H91.90 Active 11377598 Problem Nicotine dependence F17.200 Active 67096596 Problem COPD exacerbation J44.1 Active 874915265 Problem Other inflammatory polyneuropathies G61.89 Active 55563254 ALLERGIES No Information SOCIAL HISTORY Never Assessed PLAN OF CARE VITAL SIGNS MEDICATIONS Medication Instructions Dosage Frequency Start Date End Date Duration Status Lovastatin 40 mg Orally Once a day 1 tablet with a meal 24h Jan, 30 day(s) Active RESULTS No Results PROCEDURES No Known procedures IMMUNIZATIONS No Known Immunizations MEDICAL (GENERAL) HISTORY Type Description Date Medical History Asthma Medical History Diabetes Surgical History hernia repair Surgical History shoulder arthroscopy right Surgical History cholecystectomy Surgical History exploritory x 2 for abdominal pain Surgical History blockage repair of gallbladder prior to surgery Hospitalization History Atypical Pneumonia, Asthma, Hypoxia--[facility] 04/20/16 Hospitalization History Pneumonia, COPD exacerbation-[facility] 10/04/15 Hospitalization History hypoxia, COPD exac-[facility] 12/28/16
--- OUTSIDE RECORDS SUMMARY | 2017-12-31 16:28 | XMS REPORT ---
Author Author ZACH VALENCIA Organization [facility] Address [address] [place] [address] Care Team Providers Care Office Support Clerk Name Role Phone ZACHFAITHVALENCIA Unavailable PROBLEMS Type Condition ICD9-CM Code WJM95-JZ Code Onset Dates Condition Status SNOMED Code Problem Diabetes E11.9 Active 81880451 Problem Asthma J45.909 Active 417823513 Problem Dental examination Z01.20 Active 053235295 Problem Sleep apnea, unspecified type G47.30 Active 59979162 Problem Hearing loss, unspecified laterality H91.90 Active 37006599 Problem Nicotine dependence F17.200 Active 28671192 Problem COPD exacerbation J44.1 Active 809990284 Problem Other inflammatory polyneuropathies G61.89 Active 23880636 ALLERGIES No Information SOCIAL HISTORY Never Assessed PLAN OF CARE VITAL SIGNS MEDICATIONS Medication Instructions Dosage Frequency Start Date End Date Duration Status Zyrtec Allergy 10 MG Orally Once a day 1 tablet 24h Active Metformin HCl 500 mg Orally Once a day 1 tablet with meals 24h Active Ibuprofen 200 MG Orally 2 times a day as needed 3 or 4 tablets Active ProAir HFA 108 (90 Base) MCG/ACT Inhalation every 4 hrs 2 puffs as needed 4h Oct, Active Albuterol Sulfate (2.5 MG/3ML) 0.083% Inhalation 4 times a day 1 vial 6h Active Spiriva HandiHaler 18 MCG Inhalation Once a day 1 capsule 24h Active Spiriva Respimat 2.5 MCG/ACT Inhalation Once a day 2 puffs 24h Active Acetaminophen 500 MG Orally every 6 hrs 2 capsules as needed 6h Active Symbicort 160-4.5 MCG/ACT Inhalation Twice a day 2 puffs 12h Oct, 30 days Active RESULTS No Results PROCEDURES No Known procedures IMMUNIZATIONS No Known Immunizations MEDICAL (GENERAL) HISTORY Type Description Date Medical History Asthma Medical History Diabetes Surgical History hernia repair Surgical History shoulder arthroscopy right Surgical History cholecystectomy Surgical History exploritory x 2 for abdominal pain Surgical History blockage repair of gallbladder prior to surgery Hospitalization History Atypical Pneumonia, Asthma, Hypoxia--[facility] 04/20/16 Hospitalization History Pneumonia, COPD exacerbation-[facility] 10/04/15 Hospitalization History hypoxia, COPD exac-[facility] 12/28/16
--- OUTSIDE RECORDS SUMMARY | 2017-12-31 16:28 | XMS REPORT ---
Author Author DIRK TY [facility] Address [address] [place] [address] Care Team Providers Care Parachute Harness Rigger Name Role Phone DIRK TY Unavailable PROBLEMS Type Condition ICD9-CM Code JEX05-SQ Code Onset Dates Condition Status SNOMED Code Problem Diabetes E11.9 Active 72237219 Problem Asthma J45.909 Active 941687757 Problem Dental examination Z01.20 Active 544713140 Problem Sleep apnea, unspecified type G47.30 Active 29702956 Problem Hearing loss, unspecified laterality H91.90 Active 77082496 Problem Nicotine dependence F17.200 Active 08268516 Problem COPD exacerbation J44.1 Active 582759432 Problem Other inflammatory polyneuropathies G61.89 Active 73732800 ALLERGIES Substance Reaction Event Type Date Status narcotics makes him very sick Non Drug Allergy December, Active SOCIAL HISTORY Never Assessed PLAN OF CARE Activity Details Follow Up 3 Months Reason: VITAL SIGNS Height 63 in 2017-01-04 Weight 241 lbs 2017-01-04 Temperature 98.1 degrees Fahrenheit 2017-01-04 Heart Rate 86 bpm 2017-01-04 Respiratory Rate 26 2017-01-04 Oximetry w/ oxygen:96 % 2017-01-04 BMI 42.69 kg/m2 2017-01-04 Blood pressure systolic 122 mmHg 2017-01-04 Blood pressure diastolic 84 mmHg 2017-01-04 MEDICATIONS Medication Instructions Dosage Frequency Start Date End Date Duration Status Metformin HCl 500 mg Orally Once a day 1 tablet with meals 24h Active ProAir HFA 108 (90 Base) MCG/ACT Inhalation every 4 hrs 2 puffs as needed 4h Oct, Active Acetaminophen 500 MG Orally every 6 hrs 2 capsules as needed 6h Active Spiriva HandiHaler 18 MCG Inhalation Once a day 1 capsule 24h Active Symbicort 160-4.5 MCG/ACT Inhalation Twice a day 2 puffs 12h Oct, 30 days Active Albuterol Sulfate (2.5 MG/3ML) 0.083% Inhalation 4 times a day 1 vial 6h Active PredniSONE 10 MG Orally Once a day 1 tablet 24h Active Ibuprofen 200 MG Orally 2 times a day as needed 3 or 4 tablets Active Zyrtec Allergy 10 MG Orally Once a day 1 tablet 24h Active Spiriva Respimat 2.5 MCG/ACT Inhalation Once a day 2 puffs 24h Active RESULTS Name Result Date Reference Range A1C (IN HOUSE) 2017-01-04 A1C IN HOUSE 7.9 4.3 - 5.6 % Previous A1c 6.7 Lot [id number] Exp date 08/2018 LIPID PANEL 2017-01-04 Cholesterol, Total 163 100-199 Triglycerides 98 0-149 HDL Cholesterol 52 >39 VLDL Cholesterol Jose De Jesus 20 5-40 LDL Cholesterol Calc 91 0-99 Comment: PROCEDURES Procedure Date Ordered Result Body Site MEASURE BLOOD OXYGEN LEVEL January 04, 2017 GLYCATED HEMOGLOBIN TEST January 04, 2017 LIPID PANEL January 04, 2017 VENIPUNCT, ROUTINE* January 04, 2017 IMMUNIZATIONS No Known Immunizations MEDICAL (GENERAL) HISTORY Type Description Date Medical History Asthma Medical History Diabetes Surgical History hernia repair Surgical History shoulder arthroscopy right Surgical History cholecystectomy Surgical History exploritory x 2 for abdominal pain Surgical History blockage repair of gallbladder prior to surgery Hospitalization History Atypical Pneumonia, Asthma, Hypoxia--[facility] 04/20/16 Hospitalization History Pneumonia, COPD exacerbation-[facility] 10/04/15 Hospitalization History hypoxia, COPD exac-[facility] 12/28/16
--- OUTSIDE RECORDS SUMMARY | 2017-12-31 16:29 | XMS REPORT ---
Author Author DIRK TY [facility] Address [address] [place] [address] Care Team Providers Care Upper And Bottom Lacer Hand Name Role Phone DIRK TY Unavailable PROBLEMS Type Condition ICD9-CM Code ZFA97-FE Code Onset Dates Condition Status SNOMED Code Problem Diabetes E11.9 Active 38688763 Problem Asthma J45.909 Active 409150307 Problem Dental examination Z01.20 Active 020935766 Problem Sleep apnea, unspecified type G47.30 Active 35517820 Problem Hearing loss, unspecified laterality H91.90 Active 79852445 Problem Nicotine dependence F17.200 Active 49739403 Problem COPD exacerbation J44.1 Active 792633925 Problem Other inflammatory polyneuropathies G61.89 Active 93169160 ALLERGIES No Information SOCIAL HISTORY Never Assessed PLAN OF CARE VITAL SIGNS MEDICATIONS No Known Medications RESULTS No Results PROCEDURES No Known procedures IMMUNIZATIONS No Known Immunizations MEDICAL (GENERAL) HISTORY Type Description Date Medical History Asthma Medical History Diabetes Surgical History hernia repair Surgical History shoulder arthroscopy right Surgical History cholecystectomy Surgical History exploritory x 2 for abdominal pain Surgical History blockage repair of gallbladder prior to surgery Hospitalization History Atypical Pneumonia, Asthma, Hypoxia--[facility] 04/20/16 Hospitalization History Pneumonia, COPD exacerbation-[facility] 10/04/15 Hospitalization History hypoxia, COPD exac-[facility] 12/28/16
--- OUTSIDE RECORDS SUMMARY | 2017-12-31 16:29 | XMS REPORT ---
Author Author DIRK TY [facility] Address [address] [place] [address] Care Team Providers Care Activities Aide Name Role Phone DIRK TY Unavailable PROBLEMS Type Condition ICD9-CM Code CRA15-GU Code Onset Dates Condition Status SNOMED Code Problem Asthma J45.909 Active 850571016 Problem Nicotine dependence F17.200 Active 74389330 Problem Mixed hyperlipidemia E78.2 Active 221957527 Problem Sleep apnea, unspecified type G47.30 Active 98333454 Problem Hearing loss, unspecified laterality H91.90 Active 21566887 Problem Diabetes E11.9 Active 64569221 Problem COPD exacerbation J44.1 Active 555177703 Problem Other inflammatory polyneuropathies G61.89 Active 64247292 ALLERGIES No Information ENCOUNTERS Encounter Location Date Diagnosis [place] [id number] [place] [address]- 7559 Nov, [place] [id number] [place] [address] 43766- 3866 Sep, [place] [id number] [place] [address] 62327- 9755 Sep, [place] [id number] [place] [address] 40009- 3739 Jul, COPD exacerbation J44.1 [place] [id number] [place] [address] 67891- 8513 Jul, [place] [address] [address] Jul, BMI 40.0-44.9, adult Z68.41 ; Encounter for immunization Z23 ; Diabetes E11.9 ; Asthma J45.909 and Mixed hyperlipidemia E78.2 [place] [address], [place] [address] Jun, [facility] [address] [facility] [id number] [place] [address] 18288- 4488 May, Dental examination Z01.20 [facility] [address] [facility] [id number] [address] Apr, Diabetes E11.9 [facility] [address] [facility] [id number] [place] [address] 46223- 9682 Feb, COPD exacerbation J44.1 [facility] [address] [place] [address], [place] [address] Feb, [facility] [id number] [place] [address] 88173- 0706 Feb, Abscess L02.91 [facility] [id number] [place] [address] 03896- 3188 Jan, Diabetes E11.9 [facility] [address] [facility] [id number], [place] [address] Jan, Diabetes E11.9 [facility] [address] [place] [address] 23094- 2409 Jan, [facility] [address], [place] [address] Jan, [facility] [address], [place] [address] December, Dental examination Z01.20 [facility] [address] [facility] [id number], [place] [address] December, Diabetes E11.9 [facility] [address] [facility] [id number], [place] [address] December, [facility] [address] [place] [id number] [address] December, [facility] [address], [place] [address] December, Diabetes E11.9 ; COPD exacerbation J44.1 and Sleep apnea, unspecified type G47.30 [place] [id number] [place] [address] 50575- 9134 December, [place] [id number] [place] [address] 92683- 0651 Oct, COPD exacerbation J44.1 [place] [id number] [place] [address] 11777- 8009 Oct, Asthma J45.909 [place] [address] [id number] Sep, [place] [id number] [place] [address] 73520- 7527 Aug, Asthma J45.909 and Other inflammatory polyneuropathies G61.89 [place] [id number] [place] [address] 37466- 8937 May, Diabetes E11.9 and Asthma J45.909 [place] [id number] [place] [address] 01151- 1474 16 Apr, 2016 Pneumonia of left lower lobe due to infectious organism J18.9 ; Asthma J45.909 ; Impacted cerumen of right ear H61.21 and Hearing loss, unspecified laterality H91.90 [place] [id number] [place] [address] 51567- 6266 Apr, [place] [address] [id number] [place] [address] 82127- 4602 Oct, Diabetes E11.9 ; Asthma J45.909 and Nicotine dependence F17.200 IMMUNIZATIONS No Known Immunizations SOCIAL HISTORY Never Assessed REASON FOR VISIT Dressing change to left Great toe from previous I&D, wound appears to be macerated with some residual redness. told pt to keep area dry and make sure he is taking his antibiotics. also to keep the foot elevated and return tomorro for dressing change- Pt voiced understanding- Beth Salazar RN PLAN OF CARE VITAL SIGNS MEDICATIONS Unknown Medications RESULTS No Results PROCEDURES No Known procedures INSTRUCTIONS MEDICATIONS ADMINISTERED No Known Medications MEDICAL (GENERAL) HISTORY Type Description Date Medical History Asthma Medical History Diabetes Surgical History hernia repair Surgical History shoulder arthroscopy right Surgical History cholecystectomy Surgical History exploritory x 2 for abdominal pain Surgical History blockage repair of gallbladder prior to surgery Hospitalization History Atypical Pneumonia, Asthma, Hypoxia--[facility] 04/20/16 Hospitalization History Pneumonia, COPD exacerbation-[facility] 10/04/15 Hospitalization History hypoxia, COPD exac-[facility] 12/28/16
--- OUTSIDE RECORDS SUMMARY | 2017-12-31 16:29 | XMS REPORT ---
Author Author AUDELIA WISDOM [facility] Address [address] [place] [address] Care Team Providers Care Document Review Attorney Name Role Phone AUDELIA WISDOM Unavailable PROBLEMS Type Condition ICD9-CM Code AHE22-GX Code Onset Dates Condition Status SNOMED Code Problem Nicotine dependence F17.200 Active 07584868 Problem Diabetes E11.9 Active 64408004 Problem Asthma J45.909 Active 018069524 Problem Diabetic polyneuropathy associated with type 2 diabetes mellitus E11.42 Active 69388722 Problem Mixed hyperlipidemia E78.2 Active 826434074 Problem Other inflammatory polyneuropathies G61.89 Active 86604722 Problem Hearing loss, unspecified laterality H91.90 Active 91526116 Problem Sleep apnea, unspecified type G47.30 Active 08590459 Problem COPD exacerbation J44.1 Active 103294439 ALLERGIES Substance Reaction Event Type Date Status narcotics makes him very sick Non Drug Allergy May, Active ENCOUNTERS Encounter Location Date Diagnosis [facility] [id number] [place] [address] 96016- 6655 December, Mixed hyperlipidemia E78.2 [facility] [id number] [place] [address] 68107- 5152 Nov, Diabetes E11.9 ; Mixed hyperlipidemia E78.2 ; Asthma J45.909 ; Diabetic polyneuropathy associated with type 2 diabetes mellitus E11.42 ; Nicotine dependence F17.200 and BMI 40.0-44.9, adult Z68.41 [facility] [id number] [place] [address] 63835- 4163 Nov, [facility] [id number] [place] [address] 86552- 1886 Sep, [facility] [id number] [place] [address] 02033- 3066 Sep, [facility] [address] 38769- 1299 Jul, COPD exacerbation J44.1 [facility] [id number] [place] [address] 27598- 8217 Jul, [facility] [address] [address]42- 6974 Jul, BMI 40.0-44.9, adult Z68.41 ; Encounter for immunization Z23 ; Diabetes E11.9 ; Asthma J45.909 and Mixed hyperlipidemia E78.2 [facility] [address] 09296- 2901 Jun, [facility] [address] 43357- 3248 May, Dental examination Z01.20 [facility] [address] 38342- 3947 Apr, Diabetes E11.9 [facility] [address] 80127- 2813 Feb, COPD exacerbation J44.1 [facility] [id number] [place] [address] 32391- 2593 Feb, [facility] [id number] [place] [address] 33130- 8665 Feb, Abscess L02.91 [facility] [id number] [place] [address] 35706- 3761 Jan, Diabetes E11.9 [facility] [address] 10504- 7752 Jan, Diabetes E11.9 [facility] [id number] [place] [address] 29534- 3683 Jan, [facility] [address] 03919- 6476 Jan, [facility] [address] [place] [address] 69986- 5668 December, Dental examination Z01.20 [place] [id number] [place] [address] 20434- 4241 December, Diabetes E11.9 [place] [id number] [place] [address] 32648- 9934 December, [place] [address] 82704- 8617 December, [place] [id number] [place] [address] 73930- 1520 December, Diabetes E11.9 ; COPD exacerbation J44.1 and Sleep apnea, unspecified type G47.30 [place] [id number] [place] [address] 31881- 5606 December, [place] [id number] [place] [address] 89341- 2601 Oct, COPD exacerbation J44.1 [place] [address] 81189- 7364 Oct, Asthma J45.909 [facility] [address] [id number] [place] [address] [id number] Sep, [place] [id number] [place] [address] 89959- 3520 Aug, Asthma J45.909 and Other inflammatory polyneuropathies G61.89 [place] [id number] [place] [address] 97704- 0124 May, Diabetes E11.9 and Asthma J45.909 [place] [id number] [place] [address] 45525- 0136 16 Apr, 2016 Pneumonia of left lower lobe due to infectious organism J18.9 ; Asthma J45.909 ; Impacted cerumen of right ear H61.21 and Hearing loss, unspecified laterality H91.90 [facility] [address] [facility] [id number] [address] Apr, [facility] [address] [facility] [id number] [place] [address] Oct, Diabetes E11.9 ; Asthma J45.909 and Nicotine dependence F17.200 IMMUNIZATIONS No Known Immunizations SOCIAL HISTORY Never Assessed REASON FOR VISIT dental establish care. PLAN OF CARE VITAL SIGNS Blood pressure systolic 134 mmHg 2017-05-13 Blood pressure diastolic 95 mmHg 2017-05-13 MEDICATIONS Medication Instructions Dosage Frequency Start Date End Date Duration Status Albuterol Sulfate (2.5 MG/3ML) 0.083% USE 1 VIAL IN NEBULIZER FOUR TIMES DAILY 12 Active Benadryl Allergy 25 MG Orally every 8 hrs 1 tablet as needed 8h Active Symbicort 160-4.5 MCG/ACT Inhalation Twice a day 2 puffs 12h Oct, Active ProAir HFA 108 (90 Base) MCG/ACT Inhalation every 4 hrs 2 puffs as needed 4h Oct, Active Ibuprofen 200 MG Orally 2 times a day as needed 3 or 4 tablets Active Acetaminophen 500 MG Orally every 6 hrs 2 capsules as needed 6h Active PredniSONE 5 MG Orally Once a day 2 tablet 24h Active Spiriva Respimat 1.25 MCG/ACT Inhalation Once a day 2 puffs 24h Active Zyrtec Allergy 10 MG Orally Once a day 1 tablet 24h Active Lovastatin 40 mg Orally Once a day 1 tablet with a meal 24h Active Metformin HCl 500 MG Orally twice a day 1 tablet with meals 12h 30 days Active RESULTS No Results PROCEDURES Procedure Date Ordered Result Body Site INTRAORL-PERIAPICAL 1 FILM 00099 May 13, 2017 INTRAORL-PERIAPICAL EA ADD FILM May 13, 2017 BITEWINGS - FOUR FILMS May 13, 2017 INTRAORL-PERIAPICAL EA ADD FILM May 13, 2017 INSTRUCTIONS MEDICATIONS ADMINISTERED No Known Medications MEDICAL (GENERAL) HISTORY Type Description Date Medical History Asthma Medical History Diabetes Surgical History hernia repair Surgical History shoulder arthroscopy right Surgical History cholecystectomy Surgical History exploritory x 2 for abdominal pain Surgical History blockage repair of gallbladder prior to surgery Hospitalization History Atypical Pneumonia, Asthma, Hypoxia--[facility] 04/20/16 Hospitalization History Pneumonia, COPD exacerbation-[facility] 10/04/15 Hospitalization History hypoxia, COPD exac-[facility] 12/28/16
--- OUTSIDE RECORDS SUMMARY | 2017-12-31 16:29 | XMS REPORT ---
Author Author DIRK TY [facility] Address [address] [place] [address] Care Team Providers Care Christmas Tree Grader Name Role Phone DIRK TY Unavailable PROBLEMS Type Condition ICD9-CM Code LNE66-QH Code Onset Dates Condition Status SNOMED Code Problem Diabetes E11.9 Active 83335680 Problem Asthma J45.909 Active 986397268 Problem Dental examination Z01.20 Active 464860147 Problem Sleep apnea, unspecified type G47.30 Active 58828188 Problem Hearing loss, unspecified laterality H91.90 Active 15154188 Problem Nicotine dependence F17.200 Active 61860796 Problem COPD exacerbation J44.1 Active 757107814 Problem Other inflammatory polyneuropathies G61.89 Active 38919161 ALLERGIES No Information SOCIAL HISTORY Never Assessed [...] surgery Hospitalization History Atypical Pneumonia, Asthma, Hypoxia--[facility] 04/20/16 Hospitalization History Pneumonia, COPD exacerbation-[facility] 10/04/15 Hospitalization History hypoxia, COPD exac-[facility] 12/28/16
--- OUTSIDE RECORDS SUMMARY | 2017-12-31 16:29 | XMS REPORT ---
Author Author DEMI SCHMIDT [facility] Address [address] [place] [address] Care Team Providers Care Wood And Hardware Outfitter Name Role Phone DEMI SCHMIDT Unavailable PROBLEMS Type Condition ICD9-CM Code GAZ80-NU Code Onset Dates Condition Status SNOMED Code Problem Diabetes E11.9 Active 01362074 Problem Asthma J45.909 Active 801372471 Problem Dental examination Z01.20 Active 140801774 Problem Sleep apnea, unspecified type G47.30 Active 76281652 Problem Hearing loss, unspecified laterality H91.90 Active 37417935 Problem Nicotine dependence F17.200 Active 78524493 Problem COPD exacerbation J44.1 Active 598727460 Problem Other inflammatory polyneuropathies G61.89 Active 86757079 ALLERGIES No Information SOCIAL HISTORY Never Assessed PLAN OF CARE Activity Details Follow Up prn Reason:dental wellness VITAL SIGNS MEDICATIONS No Known Medications RESULTS No Results PROCEDURES Procedure Date Ordered Result Body Site SCREENING OF A PATIENT January 05, 2017 Billing Notes on claim January 05, 2017 IMMUNIZATIONS No Known Immunizations MEDICAL (GENERAL) HISTORY Type Description Date Medical History Asthma Medical History Diabetes Surgical History hernia repair Surgical History shoulder arthroscopy right Surgical History cholecystectomy Surgical History exploritory x 2 for abdominal pain Surgical History blockage repair of gallbladder prior to surgery Hospitalization History Atypical Pneumonia, Asthma, Hypoxia--[facility] 04/20/16 Hospitalization History Pneumonia, COPD exacerbation-[facility] 10/04/15 Hospitalization History hypoxia, COPD exac-[facility] 12/28/16
--- OUTSIDE RECORDS SUMMARY | 2017-12-31 16:29 | XMS REPORT ---
Author Author DIRK TY [facility] Address [address] [place] [address] Care Team Providers Care Administrative Assistant Receptionist Name Role Phone DIRK TY Unavailable PROBLEMS Type Condition ICD9-CM Code STG12-LI Code Onset Dates Condition Status SNOMED Code Problem Diabetes E11.9 Active 04766871 Problem Asthma J45.909 Active 453914611 Problem Dental examination Z01.20 Active 589453603 Problem Sleep apnea, unspecified type G47.30 Active 19214705 Problem Hearing loss, unspecified laterality H91.90 Active 60854711 Problem Nicotine dependence F17.200 Active 12368643 Problem COPD exacerbation J44.1 Active 191406840 Problem Other inflammatory polyneuropathies G61.89 Active 38853514 ALLERGIES Substance Reaction Event Type Date Status [...] times a day 1 vial 6h Active Metformin HCl 500 mg Orally Once a day 1 tablet with meals 24h Active PredniSONE 10 MG Orally Once a day 1 tablet 24h Active Ibuprofen 200 MG Orally 2 times a day as needed 3 or 4 tablets Active Spiriva HandiHaler 18 MCG Inhalation Once a day 1 capsule 24h Active Symbicort 160-4.5 MCG/ACT Inhalation Twice a day 2 puffs 12h Oct, 30 days Active Zyrtec Allergy 10 MG Orally Once a day 1 tablet 24h Active Acetaminophen 500 MG Orally every 6 hrs 2 capsules as needed 6h Active Spiriva Respimat 2.5 MCG/ACT Inhalation Once a day 2 puffs 24h Active Nystatin 447055 UNIT/ML Mouth/Throat Four times a day 4 ml 6h December, Jan, 30 day(s) Active RESULTS Name Result Date Reference Range MICROALBUMIN/CREATININE RATIO, URINE 2017-01-05 Creatinine, Urine 55.7 Not Estab. Microalbumin, Urine 3.3 Not Estab. Microalb/Creat Ratio 5.9 0.0-30.0 MICROALBUMIN, URINE (IN HOUSE) 2017-01-05 MICROALBUMIN Abnormal Lot # [id number] Exp date 12/05/2017 Clarity Clear Color Yellow ALB 30 CRE 50 A:C (IN HOUSE) 30-300 Control + Control - Lot # [id number] Exp date PROCEDURES Procedure Date Ordered Result Body Site MICROALBUMIN, SEMIQUANT January 05, 2017 ASSAY OF URINE CREATININE January 05, 2017 MICROALBUMIN, QUANTITATIVE January 05, 2017 IMMUNIZATIONS No Known Immunizations MEDICAL (GENERAL) HISTORY Type Description Date Medical History Asthma Medical History Diabetes Surgical History hernia repair Surgical History shoulder arthroscopy right Surgical History cholecystectomy Surgical History exploritory x 2 for abdominal pain Surgical History blockage repair of gallbladder prior to surgery Hospitalization History Atypical Pneumonia, Asthma, Hypoxia--[facility] 04/20/16 Hospitalization History Pneumonia, COPD exacerbation-[facility] 10/04/15 Hospitalization History hypoxia, COPD exac-[facility] 12/28/16
--- OUTSIDE RECORDS SUMMARY | 2017-12-31 16:30 | XMS REPORT ---
Author Author DEEDEE FLORENCE Organization [facility] Address [address] [place] [address] Care Team Providers Care Agricultural Engineering Teacher Name Role Phone DUTCH FLORENCENETTE Unavailable PROBLEMS Type Condition ICD9-CM Code IVA17-LV Code Onset Dates Condition Status SNOMED Code Problem Diabetes E11.9 Active 53819359 Problem Asthma J45.909 Active 596657806 Problem Dental examination Z01.20 Active 971838541 Problem Sleep apnea, unspecified type G47.30 Active 25981278 Problem Hearing loss, unspecified laterality H91.90 Active 84510630 Problem Nicotine dependence F17.200 Active 38923222 Problem COPD exacerbation J44.1 Active 797607255 Problem Other inflammatory polyneuropathies G61.89 Active 40418733 ALLERGIES No Information SOCIAL HISTORY Never Assessed PLAN OF CARE VITAL SIGNS MEDICATIONS Medication Instructions Dosage Frequency Start Date End Date Duration Status Nystatin 802038 UNIT/ML Mouth/Throat Four times a day 4 ml 6h December, Jan, 30 day(s) Active RESULTS No Results PROCEDURES No Known procedures IMMUNIZATIONS No Known Immunizations MEDICAL (GENERAL) HISTORY Type Description Date Medical History Asthma Medical History Diabetes Surgical History hernia repair Surgical History shoulder arthroscopy right Surgical History cholecystectomy Surgical History exploritory x 2 for abdominal pain Surgical History blockage repair of gallbladder prior to surgery Hospitalization History Atypical Pneumonia, Asthma, Hypoxia--H 04/20/16 Hospitalization History Pneumonia, COPD exacerbation-[facility] 10/04/15 Hospitalization History hypoxia, COPD exac-[facility] 12/28/16
[2017-12-31] MEDS ORDERED: AMOX500T2 PO (16:56)
[2017-12-31] MEDS ORDERED: TRAM-42 PO (16:57)
[2017-12-31] MEDS: LIDOCAINE 2% VISCOUS 15 ML UDC PO ONE (16:58)
[2017-12-31] MEDS: HURRICAINE EXT TUBE (BENZOCAINE) XX ONE (16:58)
[2017-12-31] MEDS: HURRICAINE EXT TUBE (BENZOCAINE) ONE (16:58)
--- NOTE | 2017-12-31 16:59 | ED EENT ---
History of Present Illness General Chief Complaint: Dental Problems/Pain Stated Complaint: TOOTH ACHE Nursing Triage Note: c/o right sided dental pain. Onset yesterday. Numerous dental caries noted. Source: patient Exam Limitations: no limitations History of Present Illness Date Seen by Provider: December 31, 2017 Time Seen by Provider: 16:32 Initial Comments Patient presents to the emergency room with right lower dental pain that has been worsening in recent days. He is taking aucs-jsc-oecueay medications without much improvement. He has been told previously he needs to have the teeth removed but he does not have the money to do that. He denies any fever. He has some wheezing and shortness of breath which is chronic for him. He uses home oxygen and has a travel canister with him. Allergies and Home Medications Allergies Coded Allergies: Opioids - Morphine Analogues (Verified Adverse Reaction, Intermediate, ) Opioid medications cause dizziness and nausea tramadol (Verified Adverse Reaction, Intermediate, NAUSEA, 12/31/17) Tramadol caused immediate nausea and lightheadedness Home Medications Acetaminophen 500 Mg Tablet, 1,000 MG PO Q6H PRN for HEADACHE, (Reported) TAKES 2 (500MG) TABLETS Albuterol Sulfate 2.5 Mg/3 Ml Vial.neb, 2.5 MG NEB QID, (Reported) Albuterol Sulfate 6.7 Gm Hfa.aer.ad, 2 PUFF INH Q4H PRN for SHORTNESS OF BREATH, (Reported) Amoxicillin 500 Mg Tablet, 1,000 MG PO BID Prescribed by: LA[place] WOODARD on 12/31/17 1656 Budesonide/Formoterol Fumarate 10.2 Gm Hfa.aer.ad, 2 PUFF INH BID, (Reported) Cetirizine HCl 10 Mg Tablet, 10 MG PO 2100, (Reported) Ibuprofen 200 Mg Tablet, 600-800 MG PO BID PRN for BACK PAIN, (Reported) TAKES 3 TO 4 (200MG) TABLETS Metformin HCl 500 Mg Tablet, 500 MG PO DAILY Prescribed by: VALENCIA SERRANO on 12/29/16 1114 Ondansetron 8 Mg Tab.rapdis, 8 MG PO Q6H PRN for NAUSEA/VOMITING-1ST LINE Prescribed by: NAIF SIMMS on 01/29/17 1739 Prednisone 10 Mg Tab, 0 PO UD Take 6 tabs(60mg)daily, decrease by 1 tab(10mg) every other day. Prescribed by: VALENCIA SERRANO on 12/29/16 1114 Sucralfate 1 Gm Tablet, 1 GM PO ACHS Prescribed by: NAIF SIMMS on 01/29/17 1739 Tiotropium [place] 1 Inh Aerp, 2 PUFF IH DAILY Prescribed by: VALENCIA SERRANO on 12/29/16 1114 Patient Home Medication List Home Medication List Reviewed: Yes Review of Systems Constitutional: no symptoms reported Eyes: No Symptoms Reported Ears: No Symptoms Reported Nose: no symptoms reported Mouth: see HPI Throat: no symptoms reported Respiratory: see HPI Cardiovascular: no symptoms reported Gastrointestinal: no symptoms reported Musculoskeletal: no symptoms reported Skin: no symptoms reported Neurological: No Symptoms Reported Hematologic/Lymphatic: No Symptoms Reported Past Rzsogkb-Ghhmhb-Cndgfq Hx Past Med/Social Hx: Reviewed and Corrections made Patient Social History Alcohol Use: Denies Use Recreational Drug Use: No Type Used: Cigarettes 2nd Hand Smoke Exposure: Yes Recent Foreign Travel: No Contact w/Someone Who Travel: No Recent Infectious Disease Expo: No Recent Hopitalizations: No Immunizations Up To Date Tetanus Booster (TDap): More than 5yrs PED Vaccines UTD: Yes Date of Pneumonia Vaccine: May 01, 2012 Date of Influenza Vaccine: May 08, 2016 Seasonal Allergies Seasonal Allergies: Yes Past Medical History Surgeries: Yes (ERCP BEFORE GALL BLADDER REMOVAL ; HERNIA REPAIR; RIGHT SHOULDER SURGERY) Abdominal, Gallbladder, Orthopedic Respiratory: Yes Asthma, Pneumonia, Chronic Bronchitis, COPD (Dependent on supplemental O2) Currently Using CPAP: No Currently Using BIPAP: No Cardiac: Yes Neurological: Yes Headaches /Migraines Reproductive Disorders: No Genitourinary: Yes Kidney Stones Gastrointestinal: Yes ("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 5) Gastroesophageal Reflux, Gall Bladder Disease Musculoskeletal: Yes (RIGHT SHOULDER SURGERY-2006) Arthritis, Chronic Back Pain Endocrine: Yes (DIABETES, Reports diet control only) Diabetes, Non-Insulin dep HEENT: Yes Loss of Vision: Bilateral Hearing Impairment: Hard of Hearing Cancer: No Psychosocial: No Integumentary: No Psoriasis Blood Disorders: No Adverse Reaction/Blood Tranf: No Family Medical History Reviewed Nursing Family Hx Cancer 09 SISTER, Onset:Unknown (LEUKEMIA) Family history: Alzheimer's disease GRANDMOTHER, Onset:Unknown Family history: Arthritis GRANDMOTHER, Onset:Unknown Family history: Asthma 03 FATHER, Onset:Unknown Family history: Diabetes mellitus 03 FATHER, Onset:Unknown Family history: Hypertension 03 FATHER, Onset:Unknown 03 MOTHER, Onset:Unknown Kidney disease 03 FATHER (KIDNEY STONES) Visual impairment COPD, Hypertension Physical Exam Vital Signs Vital Signs - First Documented 12/31/17 16:35 Temp 98.1 Pulse 88 Resp 16 B/P (MAP) 150/101 (117) Pulse Ox 97 O2 Delivery Nasal Cannula General Appearance: WD/WN, mild distress Eyes: bilateral eye normal inspection, bilateral eye EOMI Ears: bilateral ear auricle normal, bilateral ear canal normal, bilateral ear TM normal Nose: normal inspection Mouth/Throat: other (severe dental decay throughout the mouth. Tenderness in the gingiva of the right jaw without overt inflammatory changes or abscess. 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, no motor/sensory deficits, alert, normal mood/affect, oriented x 3 Skin: normal color, warm/dry Progress/Results/Core Measures Results/Orders My Orders Orders - [place] MD Lidocaine 2% Viscous 15 Ml (Xylocaine Vi (12/31/17 16:45) Tramadol Tablet (Ultram Tablet) (12/31/17 16:45) Benzocaine Extension Tube (Hurricaine Ex (12/31/17 16:45) Benzocaine Extension Tube (Hurricaine Ex (12/31/17 16:41) Ketorolac Injection (Toradol Injection) (12/31/17 18:15) Ondansetron Oral Dissolve Tab (Zofran (12/31/17 18:15) Medications Given in ED Vital Signs/I&O 12/31/17 12/31/17 18:20 18:42 Temp 98.1 98.1 Pulse 82 Resp 16 B/P (MAP) 149/98 (117) Pulse Ox 97 Blood Pressure Mean: 117 Progress Progress Note : Progress Note Patient was treated with tramadol and anesthetic gauze pads. A canister of anesthetic gauze pads was dispensed. Patient did not want any opioid medications as he has adverse reactions to them. Patient had not tried tramadol previously. He was given a dose of tramadol and developed lightheadedness and nausea. He was then treated with Zofran and Toradol. Pain did not significantly improved prior to Toradol. Patient ultimately was discharged with instructions to follow-up with a dentist as soon as possible. Amoxicillin was prescribed. Ultram was added to the allergy list. Departure Impression Primary Impression: Dental caries extending into dentine Additional Impression: Pain, dental Disposition: HOME, SELF-CARE Condition: Improved Departure-Patient Inst. Referrals: [facility] (PCP/Family) Primary Care Physician Patient Instructions: Dental Pain (DC) Add. Discharge Instructions: Complete your antibiotics as prescribed. Follow-up with a dentist as soon as possible. You may continue taking xgpj-fsj-uzovlkz medications for pain. [place] your teeth gently twice daily. Return to care if symptoms are worsening, especially if you develop fevers greater than 100. You may use the anesthetic gauze pads given to you in the ER as needed for pain. [place] the affected area with a gauze pad and leave in place as long as desired. Eat and drink very carefully after using these gauze pads as they may numb your tongue, mouth, and throat. DO NOT FALL ASLEEP with gauze pads in your mouth. All discharge instructions reviewed with patient and/or family. Voiced understanding. Scripts Amoxicillin (Amoxicillin) 500 Mg Tablet 1000 MG PO BID, #40 TAB Prov: LA[place] CARRERA MD 12/31/17 LA[facility] CARRERA MD December 31, 2017 16:59
[2017-12-31] MEDS: KETOROLAC 30 MG/ML VIAL IM ONE (18:20)
[2017-12-31] MEDS: ONDANSETRON 4 MG (ZOFRAN) ORAL DISSOLVE TAB SL ONE (18:21)
[2017-12-31 18:42] VITALS: BP 149/98
== END 2017-12-31 18:42 | disposition home or self-care (01) ==
LOC: EDUNIT# 16:22 → ER 16:24
DX: K02.9 Dental caries, unspecified (principal); J44.9 Chronic obstructive pulmonary disease, unspecified; Z99.2 Dependence on renal dialysis; G43.909 Migraine, unspecified, not intractable, without status migrainosus; K21.9 Gastro-esophageal reflux disease without esophagitis; E11.9 Type 2 diabetes mellitus without complications; Z77.22 Contact with and (suspected) exposure to environmental tobacco smoke (acute) (chronic); Z87.442 Personal history of urinary calculi; Z98.890 Other specified postprocedural states; Z79.52 Long term (current) use of systemic steroids; Z79.4 Long term (current) use of insulin; Z88.6 Allergy status to analgesic agent
CPT/HCPCS: 96372; 99284

== ENCOUNTER → 2018-03-15 | Outpatient (CLI) | payer OTHER ==
[~2018-03-15] MED LIST changes: +AMOX500T2 PO; +RT-ALBUTEROL SULF 2.5 MG/3 ML PRE-MIX VIAL INH ONE; +RT-ALBUTEROL SULF 2.5 MG/3 ML PRE-MIX VIAL ONE; +TRAM-42 PO
== END ==
LOC: RT 08:15
PROVIDERS: ATTEND Internal Medicine
DX: J44.9 Chronic obstructive pulmonary disease, unspecified (principal)
CPT/HCPCS: 94060; 94726; 94729

== ENCOUNTER 2018-12-13 10:05 | Emergency (ER) | payer SELFPAY ==
[~2018-12-13] VITALS: Ht 160 cm; Wt 108.9 kg
[~2018-12-13 10:05] MED LIST changes: +METF-397 PO; -METF500T5 PO; -RT-ALBUTEROL SULF 2.5 MG/3 ML PRE-MIX VIAL INH ONE; -RT-ALBUTEROL SULF 2.5 MG/3 ML PRE-MIX VIAL ONE
[2018-12-13] MEDS ORDERED: LOVA40TA2 PO (10:34)
[2018-12-13] MEDS ORDERED: LISI2.5T PO (10:34)
[2018-12-13] MEDS ORDERED: PREG75CA PO (10:34)
[2018-12-13] MEDS ORDERED: ATOR80TA76 PO (10:34)
[2018-12-13] MEDS ORDERED: PRD20T PO (10:46)
[2018-12-13] MEDS ORDERED: AZIT250T12 PO (10:46)
--- NOTE | 2018-12-13 10:46 | ED Cough/URI ---
General Chief Complaint: Coughing up blood Stated Complaint: COUGHING UP BLOOD Nursing Triage Note: PT AMBULATES TO RM 10, ON HOME O2, STATES HE STEPPED OUT TO HAVE A SMOKE AND STARTED COUGHING UP BLOOD ABOUT 15 MIN PHLEBOTOMY TECH. THIS RN ASKED THE PT ABOUT THE FACT THAT HE IS ON O2 AND SMOKING AND THAT IT IS NOT GOOD OR SAFE AND THE PT STATED "I'M NOT STUPID, I TAKE OFF THE O2 WHEN SMOKING." Sepsis Screen: No Definite Risk Source: patient Exam Limitations: no limitations History of Present Illness Date Seen by Provider: December 13, 2018 Time Seen by Provider: 10:43 Initial Comments To ER with reports of coughing up blood about 15 minutes prior to arrival. He states that he's been coughing a lot over the past few weeks, getting a lot of white mucus expectorated, more short of breath than usual over the past few months. No fevers or chills. Does wear soft no oxygen. No history of coughing up blood. Timing/Duration: constant Severity/Quality: moderate Associated Symptoms: cough, shortness of breath Allergies and Home Medications Allergies Coded Allergies: Opioids - Morphine Analogues (Verified Adverse Reaction, Intermediate, ) Opioid medications cause dizziness and nausea tramadol (Verified Adverse Reaction, Intermediate, NAUSEA, 12/31/17) Tramadol caused immediate nausea and lightheadedness Home Medications Acetaminophen 500 Mg Tablet, 1,000 MG PO Q6H PRN for HEADACHE, (Reported) TAKES 2 (500MG) TABLETS Albuterol Sulfate 2.5 Mg/3 Ml Vial.neb, 2.5 MG NEB QID, (Reported) Albuterol Sulfate 6.7 Gm Hfa.aer.ad, 2 PUFF INH Q4H PRN for SHORTNESS OF BREATH, (Reported) Azithromycin 250 Mg Tablet, 250 MG PO UD TAKE 2 TABLETS ON DAY ONE THEN TAKE 1 TABLET DAILY FOR FOUR MORE DAYS Prescribed by: NAIF SIMMS on 12/13/18 1046 Budesonide/Formoterol Fumarate 10.2 Gm Hfa.aer.ad, 2 PUFF INH BID, (Reported) Ibuprofen 200 Mg Tablet, 600-800 MG PO BID PRN for BACK PAIN, (Reported) TAKES 3 TO 4 (200MG) TABLETS Lisinopril 2.5 Mg Tablet, 5 MG PO DAILY, (Reported) Metformin HCl 500 Mg Tablet, 500 MG PO DAILY Prescribed by: VALENCIA SERRANO on 12/29/16 1114 Prednisone 10 Mg Tab, 0 PO UD Take 6 tabs(60mg)daily, decrease by 1 tab(10mg) every other day. Prescribed by: VALENCIA SERRANO on 12/29/16 1114 Prednisone 20 Mg Tab, 40 MG PO DAILY Prescribed by: NAIF SIMMS on 12/13/18 1046 Sucralfate 1 Gm Tablet, 1 GM PO ACHS Prescribed by: NAIF SIMMS on 01/29/17 1739 Tiotropium [place] 1 Inh Aerp, 2 PUFF IH DAILY Prescribed by: VALENCIA SERRANO on 12/29/16 1114 Patient Home Medication List Home Medication List Reviewed: Yes Review of Systems Review of Systems Constitutional: see HPI; No chills, No fever EENTM: see HPI Respiratory: see HPI, cough, short of breath Cardiovascular: no symptoms reported Genitourinary: no symptoms reported Musculoskeletal: no symptoms reported Skin: no symptoms reported Psychiatric/Neurological: No Symptoms Reported Hematologic/Lymphatic: No Symptoms Reported Past Rzqaohn-Xlxdjr-Hayxwu Hx Patient Social History Alcohol Use: Denies Use Recreational Drug Use: No Type Used: Cigarettes 2nd Hand Smoke Exposure: Yes Recent Foreign Travel: No Contact w/Someone Who Travel: No Recent Infectious Disease Expo: No Recent Hopitalizations: No Immunizations Up To Date Tetanus Booster (TDap): More than 5yrs PED Vaccines UTD: Yes Date of Pneumonia Vaccine: May 01, 2012 Date of Influenza Vaccine: May 10, 2018 Seasonal Allergies Seasonal Allergies: Yes Past Medical History Surgeries: Yes (ERCP BEFORE GALL BLADDER REMOVAL ; HERNIA REPAIR; RIGHT SHOULDER SURGERY) Abdominal, Gallbladder, Orthopedic Respiratory: Yes Asthma, Pneumonia, Chronic Bronchitis, COPD Currently Using CPAP: No Currently Using BIPAP: No Cardiac: No Neurological: Yes Headaches /Migraines Reproductive Disorders: No Genitourinary: Yes Kidney Stones Gastrointestinal: Yes ("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 5) Gastroesophageal Reflux, Gall Bladder Disease Musculoskeletal: Yes (RIGHT SHOULDER SURGERY-2006) Arthritis, Chronic Back Pain Endocrine: Yes (DIABETES, Reports diet control only) Diabetes, Non-Insulin dep HEENT: Yes Loss of Vision: Bilateral Hearing Impairment: Hard of Hearing Cancer: No Psychosocial: No Integumentary: No Psoriasis Blood Disorders: No Adverse Reaction/Blood Tranf: No Family Medical History Cancer 09 SISTER, Onset:Unknown (LEUKEMIA) Family history: Alzheimer's disease GRANDMOTHER, Onset:Unknown Family history: Arthritis GRANDMOTHER, Onset:Unknown Family history: Asthma 03 FATHER, Onset:Unknown Family history: Diabetes mellitus 03 FATHER, Onset:Unknown Family history: Hypertension 03 FATHER, Onset:Unknown 03 MOTHER, Onset:Unknown Kidney disease 03 FATHER (KIDNEY STONES) Visual impairment COPD, Hypertension Physical Exam Vital Signs - First Documented 12/13/18 10:20 Temp 97.6 Pulse 86 Resp 22 B/P (MAP) 120/89 (99) Pulse Ox 93 O2 Delivery Nasal Cannula O2 Flow Rate 1.00 1.00 Capillary Refill : Greater Than 3 Seconds Height: 5'3.00" Weight: 240lbs. 0.0oz. 108.427816nq; 42.2 BMI Method:Stated General Appearance: WD/WN, no apparent distress Eyes: Bilateral Eye Normal Inspection, Bilateral Eye PERRL, Bilateral Eye EOMI HEENT: PERRL/EOMI, normal ENT inspection Neck: non-tender, full range of motion Respiratory: no respiratory distress, no accessory muscle use, decreased breath sounds; No wheezing Cardiovascular: regular rate, rhythm, no murmur Gastrointestinal: normal bowel sounds, non tender, soft Neurologic/Psychiatric: alert, normal mood/affect, oriented x 3 Skin: normal color, warm/dry Progress/Results/Core Measures Suspected Sepsis Recent Fever Within 48 Hours: No Infection Criteria Present: None New/Unexplained Altered Menta: No Sepsis Screen: No Definite Risk SIRS Temperature:97.6 Pulse: 86 Respiratory Rate: 22 Laboratory Tests 12/13/18 10:49: White Blood Count 10.0 Blood Pressure 120 /89 Mean: 99 Laboratory Tests 12/13/18 10:49: Creatinine 0.99, Platelet Count 238 12/13/18 11:35: INR Comment 0.9 Results/Orders Lab Results Laboratory Tests Test 12/13/18 10:49 12/13/18 11:35 Range/Units White Blood Count 10.0 4.3-11.0 10^3/uL Red Blood Count 5.16 4.35-5.85 10^6/uL Hemoglobin 16.1 13.3-17.7 G/DL Hematocrit 46 40-54 % Mean Corpuscular Volume 90 80-99 FL Mean Corpuscular Hemoglobin 31 25-34 PG Mean Corpuscular Hemoglobin Concent 35 32-36 G/DL Red Cell Distribution Width 13.0 10.0-14.5 % Platelet Count 238 130-400 10^3/uL Mean Platelet Volume 10.1 7.4-10.4 FL Neutrophils (%) (Auto) 67 42-75 % Lymphocytes (%) (Auto) 21 12-44 % Monocytes (%) (Auto) 9 0-12 % Eosinophils (%) (Auto) 2 0-10 % Basophils (%) (Auto) 1 0-10 % Neutrophils # (Auto) 6.7 1.8-7.8 X 10^3 Lymphocytes # (Auto) 2.1 1.0-4.0 X 10^3 Monocytes # (Auto) 0.9 0.0-1.0 X 10^3 Eosinophils # (Auto) 0.2 0.0-0.3 10^3/uL Basophils # (Auto) 0.1 0.0-0.1 10^3/uL Sodium Level 138 135-145 MMOL/L Potassium Level 4.4 3.6-5.0 MMOL/L Chloride Level 103 98-107 MMOL/L Carbon Dioxide Level 25 21-32 MMOL/L Anion Gap 10 5-14 MMOL/L Blood Urea Nitrogen 16 7-18 MG/DL Creatinine 0.99 0.60-1.30 MG/DL Estimat Glomerular Filtration Rate > 60 BUN/Creatinine Ratio 16 Glucose Level 259 H 70-105 MG/DL Calcium Level 10.0 8.5-10.1 MG/DL Prothrombin Time 12.7 12.2-14.7 SEC INR Comment 0.9 0.8-1.4 Activated Partial Thromboplast Time 27 24-35 SEC My Orders Orders - NAIF SIMMS APRN Cbc With Automated Diff (12/13/18 10:41) Basic Metabolic Panel (12/13/18 10:41) Protime With Inr (12/13/18 10:41) Partial Thromboplastin Time (12/13/18 10:41) Ed Iv/Invasive Line Start (12/13/18 10:41) Ct Angio Chest W (12/13/18 10:41) Iohexol Injection (Omnipaque 350 Mg/Ml 1 (12/13/18 11:15) Received Contrast (Hold Metformin- Contr (12/13/18 11:15) Medications Given in ED Current Medications Medications Dose Ordered Sig/Mike Route Start Time Stop Time Status Last Admin Dose Admin Iohexol 125 ml ONCE ONCE IV 12/13/18 11:15 12/13/18 11:16 DC 12/13/18 11:15 125 ML Vital Signs/I&O 12/13/18 12/13/18 12/13/18 10:20 10:20 12:11 Temp 97.6 97.6 Pulse 86 82 Resp 22 22 B/P (MAP) 120/89 (99) 120/85 (97) Pulse Ox 93 92 O2 Delivery Nasal Cannula Nasal Cannula Nasal Cannula O2 Flow Rate 1.00 1.00 1.00 1.00 Capillary Refill : Greater Than 3 Seconds Blood Pressure Mean: 99 Departure Impression Primary Impression: Chronic bronchitis Qualified Codes: J42 - Unspecified chronic bronchitis Additional Impression: Hemoptysis Disposition: HOME, SELF-CARE Condition: Stable Departure-Patient Inst. Decision time for Depature: 10:45 Referrals: [facility] (PCP/Family) Primary Care Physician Patient Instructions: Coughing up Blood, Chronic Bronchitis Add. Discharge Instructions: 1. Steroids as directed 2. Return to ER for any concerns 3. Follow-up with your doctor next week. All discharge instructions reviewed with patient and/or family. Voiced understanding. Scripts Azithromycin (Azithromycin) 250 Mg Tablet 250 MG PO UD, #6 TAB TAKE 2 TABLETS ON DAY ONE THEN TAKE 1 TABLET DAILY FOR FOUR MORE DAYS Prov: NAIF SIMMS APRN 12/13/18 Prednisone (Prednisone) 20 Mg Tab 40 MG PO DAILY, #8 TAB 0 Refills Prov: NAIF SIMMS APRN 12/13/18 NAIF SIMMS APRN December 13, 2018 10:46
[2018-12-13 10:57] LABS: BASOPHILS # (AUTO) 0.1 10^3/uL (0.0-0.1); BASOPHILS % (AUTO) 1 % (0-10); EOSINOPHILS # (AUTO) 0.2 10^3/uL (0.0-0.3); EOSINOPHILS % (AUTO) 2 % (0-10); HEMATOCRIT 46 % (40-54); HEMOGLOBIN 16.1 G/DL (13.3-17.7); LYMPHOCYTES # (AUTO) 2.1 X 10^3 (1.0-4.0); LYMPHOCYTES % (AUTO) 21 % (12-44); MEAN CORPUSCULAR HEMOGLOBIN 31 PG (25-34); MEAN CORPUSCULAR HGB CONC 35 G/DL (32-36); MEAN CORPUSCULAR VOLUME 90 FL (80-99); MEAN PLATELET VOLUME 10.1 FL (7.4-10.4); MONOCYTES # (AUTO) 0.9 X 10^3 (0.0-1.0); MONOCYTES % (AUTO) 9 % (0-12); NEUTROPHILS # (AUTO) 6.7 X 10^3 (1.8-7.8); NEUTROPHILS % (AUTO) 67 % (42-75); PLATELET COUNT 238 10^3/uL (130-400)
[2018-12-13 11:12] LABS: BUN/CREATININE RATIO 16; CARBON DIOXIDE 25 MMOL/L (21-32); CHLORIDE 103 MMOL/L (98-107); CREATININE SERUM 0.99 MG/DL (0.60-1.30); GFR ESTIMATED > 60; GLUCOSE 259 MG/DL (70-105); POTASSIUM 4.4 MMOL/L (3.6-5.0); SODIUM 138 MMOL/L (135-145)
[2018-12-13] MEDS ORDERED: IOHEXOL 350 MG/ML 150 ML (OMNIPAQUE 350) VIAL IV ONE (11:15)
[2018-12-13] MEDS ORDERED: HOLD METFORMIN - RECEIVED CONTRAST 20 ML VIAL IV SCH (11:15)
--- OUTSIDE RECORDS SUMMARY | 2018-12-13 11:18 | XMS REPORT ---
Author Author DIRK TY [facility] Address [address] [place] [address] Care Team Providers Care Veterinary Laboratory Diagnostician Name Role Phone DIRK TY Unavailable PROBLEMS Type Condition ICD9-CM Code [id number] Code Onset Dates Condition Status SNOMED Code Problem Asthma J45.909 Active 010772980 Problem Hearing loss, unspecified laterality H91.90 Active 78921438 Problem Diabetes E11.9 Active 90033675 Problem Nicotine dependence F17.200 Active 26648525 Problem Chronic obstructive pulmonary disease, unspecified COPD type J44.9 Active 02389105 Problem Diabetic polyneuropathy associated with type 2 diabetes mellitus E11.42 Active 79503507 Problem COPD exacerbation J44.1 Active 196376944 Problem Other inflammatory polyneuropathies G61.89 Active 85201189 Problem Mixed hyperlipidemia E78.2 Active 117049349 Problem Sleep apnea, unspecified type G47.30 Active 36282748 ALLERGIES Substance Reaction Event Type Date Status narcotics makes him very sick Non Drug Allergy Jun, Active ENCOUNTERS Encounter Location Date Diagnosis [place] [id number] [place] [address] 57091- 3373 Jun, Dental abscess K04.7 ; Impacted cerumen of right ear H61.21 and BMI 40.0-44.9, adult Z68.41 [facility] [place] [id number] [place] [address] 23390- 6591 Mar, COPD exacerbation J44.1 and Diabetes E11.[address] [address]- [address] Feb, Diabetes E11.9 ; Diabetic polyneuropathy associated with type 2 diabetes mellitus E11.42 and Chronic obstructive pulmonary disease, unspecified COPD type J44.9 [facility] [place] [address] [address]- [address] December, [facility] [place] [address] [address] December, Diabetes E11.9 [facility] [place] [id number] [place] [address] 51650- 1210 December, [facility] [place] [id number] [place] [address] 00699- 7581 December, Mixed hyperlipidemia E78.2 [facility] [place] [id number] [place] [address] 92943- 2778 Nov, Diabetes E11.9 ; Mixed hyperlipidemia E78.2 ; Asthma J45.909 ; Diabetic polyneuropathy associated with type 2 diabetes mellitus E11.42 ; Nicotine dependence F17.200 and BMI 40.0-44.9, adult Z68.41 [place] [address] [place] [id number] [place] [address] 39898- 2846 Nov, [facility] [place] [id number] [place] [address] 17776- 4475 Sep, [facility] [place] [id number] [place] [address] 35813- 7218 Sep, [facility] [place] [id number] [place] [address] 13617- 2694 Jul, COPD exacerbation J44.1 [facility] [place] [id number] [place] [address] 61873- 4891 Jul, [facility] [place] [id number] [place] [address] 37073- 5931 Jul, BMI 40.0-44.9, adult Z68.41 ; Encounter for immunization Z23 ; Diabetes E11.9 ; Asthma J45.909 and Mixed hyperlipidemia E78.2 [facility] [place] [id number] [place] [address] 44220- 8162 Jun, [facility] [place] [id number] [place] [address] 85885- 2466 May, Dental examination Z01.20 [facility] [place] [address] [address] 9[address] Apr, Diabetes E11.9 [facility] [place] [id number] [place] [address] 83398- 7899 Feb, COPD exacerbation J44.1 [facility] [place] [id number] [place] [address] 86454- 2630 Feb, [facility] [place] [id number] [place] [address] 01034- 7524 Feb, Abscess L02.91 [facility] [place] [id number] [place] [address] 43918- 6926 Jan, Diabetes E11.9 [facility] [place] [id number] [place] [address] 50438- 1321 Jan, Diabetes E11.9 [facility] [place] [id number] [place] [address] 65815- 8779 Jan, [facility] [place] [id number] [place] [address] 45845- 2794 Jan, [facility] [place] [id number] [place] [address] 15508- 8514 December, Dental examination Z01.20 [facility] [place] [address] [place] [address] 90302- 0967 December, Diabetes E11.9 [facility] [place] [address] [address] 0829 December, [facility] [place] [id number] [place] [address] 95380- 9182 December, [facility] [place] [id number] [place] [address] 60166- 0032 December, Diabetes E11.9 ; COPD exacerbation J44.1 and Sleep apnea, unspecified type G47.30 [facility] [place] [id number] [place] [address] 70354- 6758 December, [place] [id number] [place] [address] 64435- 6942 Oct, COPD exacerbation J44.1 [place] [address] [id number] [place] [address] 12849- 8703 Oct, Asthma J45.909 [place] [address] [address] [id number] [place] [address] [id number] Sep, [place] [address] [place] [id number] [place] [address] 77918- 0038 Aug, Asthma J45.909 and Other inflammatory polyneuropathies G61.89 [place] [address] [id number] [place] [address] 43805- 2786 May, Diabetes E11.9 and Asthma J45.909 [place] [address] [id number] [place] [address] 75372- 4010 16 Apr, 2016 Pneumonia of left lower lobe due to infectious organism J18.9 ; Asthma J45.909 ; Impacted cerumen of right ear H61.21 and Hearing loss, unspecified laterality H91.90 [place] [address] [address] [id number] [place] [address] 41317- 8538 15 Apr, 2016 [place] [address] [address] [id number] [place] [address] 47127- 8334 Oct, Diabetes E11.9 ; Asthma J45.909 and Nicotine dependence F17.200 IMMUNIZATIONS No Known Immunizations SOCIAL HISTORY Never Assessed REASON FOR VISIT Earache-twooden,RMA, pt complaining of a tooth ache that started a couple of days ago, right side of face is swollen PLAN OF CARE Activity Details Follow Up Reg appt Reason: Future/Pending Procedure EAR LAVAGE VITAL SIGNS Height 63 in 2018-06-20 Weight 239.5 lbs 2018-06-20 Temperature 97.4 degrees Fahrenheit 2018-06-20 Heart Rate 85 bpm 2018-06-20 Respiratory Rate 24 2018-06-20 Oximetry w/ oxygen @ 2L:96 % 2018-06-20 BMI 42.42 kg/m2 2018-06-20 Blood pressure systolic 130 mmHg 2018-06-20 Blood pressure diastolic 90 mmHg 2018-06-20 MEDICATIONS Medication Instructions Dosage Frequency Start Date End Date Duration Status Symbicort 160-4.5 MCG/ACT Inhalation Twice a day 2 puffs 12h 21 Oct, 2015 Active Ibuprofen 200 MG Orally 2 times a day as needed 3 or 4 tablets Active Lisinopril 2.5 MG Orally Once a day 2 tablet 24h Jul, 90 days Active Lipitor 80 MG Orally Once a day 1 tablet 24h December, 30 day(s) Active Amoxicillin 500 mg Orally 3 times a day 1 tablet 8h 13 Jun, 2018 Jun, 7 days Active Spiriva HandiHaler 18 MCG Inhalation 2 times a day INHALE CONTENTS OF ONE CAPSULE 12h Active ProAir HFA 108 (90 Base) MCG/ACT INHAEL TWO PUFFS BY MOUTH EVERY 4 HOURS NEEDED 17 Active Lyrica 75 MG Orally twice a day 1 cap 12h Nov, Active Albuterol Sulfate (2.5 MG/3ML) 0.083% USE 1 VIAL IN NEBULIZER FOUR TIMES DAILY 12 Active Acetaminophen 500 MG Orally every 6 hrs 2 capsules as needed 6h Active Zyrtec Allergy 10 MG Orally Once a day 1 tablet 24h Not-Taking PredniSONE 5 mg Orally Once a day 2 tablet 24h Jun, 90 days Active Metformin HCl 1000 MG Orally twice a day, pc 1 tab q am, 1 tab q noon 30 Active Benadryl Allergy 25 MG Orally every 8 hrs 1 tablet as needed 8h Active Metformin HCl 500 MG TAKE ONE TABLET BY MOUTH TWICE DAILY WITH MEALS 30 Not-Taking RESULTS No Results PROCEDURES Procedure Date Ordered Result Body Site EAR IRRIGATION Jun 20, 2018 INSTRUCTIONS MEDICATIONS ADMINISTERED No Known Medications MEDICAL (GENERAL) HISTORY Type Description Date Medical History Asthma Medical History Diabetes Surgical History hernia repair Surgical History shoulder arthroscopy right Surgical History cholecystectomy Surgical History exploritory x 2 for abdominal pain Surgical History blockage repair of gallbladder prior to surgery Hospitalization History Atypical Pneumonia, Asthma, Hypoxia--[facility] 04/20/16 Hospitalization History Pneumonia, COPD exacerbation-[facility] 10/04/15 Hospitalization History hypoxia, COPD exac-[facility] 12/28/16
--- OUTSIDE RECORDS SUMMARY | 2018-12-13 11:18 | XMS REPORT ---
Author Author DIRK TY [facility] Address [address] [place] [address] Care Team Providers Care Personal Banker Name Role Phone DIRK TY Unavailable PROBLEMS Type Condition ICD9-CM Code SWB15-DT Code Onset Dates Condition Status SNOMED Code Problem Asthma J45.909 Active 607698084 Problem Hearing loss, unspecified laterality H91.90 Active 26590870 Problem Diabetes E11.9 Active 78950507 Problem Nicotine dependence F17.200 Active 29152261 Problem Chronic obstructive pulmonary disease, unspecified COPD type J44.9 Active 36296026 Problem Diabetic polyneuropathy associated with type 2 diabetes mellitus E11.42 Active 46520775 Problem COPD exacerbation J44.1 Active 801849202 Problem Other inflammatory polyneuropathies G61.89 Active 38754024 Problem Mixed hyperlipidemia E78.2 Active 998751793 Problem Sleep apnea, unspecified type G47.30 Active 36841339 ALLERGIES No Information ENCOUNTERS Encounter Location Date Diagnosis [place] [id number] [place] [address] 79384- 3029 Mar, COPD exacerbation J44.1 and Diabetes E11.9 [place] [address] [place] [address] 13736- 1695 Feb, Diabetes E11.9 ; Diabetic polyneuropathy associated with type 2 diabetes mellitus E11.42 and Chronic obstructive pulmonary disease, unspecified COPD type J44.9 [facility] [address] [place] [address] 94701- 4427 December, [place] [address] [place] [id number] [place] [address] 74614- 3514 December, Diabetes E11.9 [facility] [id number] [place] [address] 67884- 9610 December, [place] [address] [id number] [place] [address] 76609- 5248 December, Mixed hyperlipidemia E78.2 [facility] [address] [id number] [place] [address] 74969- 8387 Nov, Diabetes E11.9 ; Mixed hyperlipidemia E78.2 ; Asthma J45.909 ; Diabetic polyneuropathy associated with type 2 diabetes mellitus E11.42 ; Nicotine dependence F17.200 and BMI 40.0-44.9, adult Z68.41 [place] [address] [place] [id number] [place] [address] 40098- 3943 Nov, [place] [address] 29812- 8056 Sep, [place] [id number] [place] [address] 50485- 7703 Sep, [place] [address] [id number] [place] [address] 36207- 7943 Jul, COPD exacerbation J44.1 [place] [address] [id number] [place] [address] 06932- 3179 Jul, [place] [id number] [place] [address] 53712- 5992 Jul, BMI 40.0-44.9, adult Z68.41 ; Encounter for immunization Z23 ; Diabetes E11.9 ; Asthma J45.909 and Mixed hyperlipidemia E78.2 [place] [address] [place] [id number] [place] [address] 22784- 4834 Jun, [facility] [id number] [place] [address] 69960- 5051 May, Dental examination Z01.20 [place] [id number] [place] [address] 48877- 9735 Apr, Diabetes E11.9 [place] [id number] [place] [address] 33636- 0264 Feb, COPD exacerbation J44.1 [facility] [address] [place] [address]- 5548 Feb, [facility] [id number] [place] [address] 78306- 2615 Feb, Abscess L02.91 [facility] [id number] [place] [address] 16798- 7211 Jan, Diabetes E11.9 [facility] [id number] [place] [address] 52959- 2494 Jan, Diabetes E11.9 [facility] [id number] [place] [address] 88690- 9413 Jan, [facility] [id number] [place] [address] 59659- 5392 Jan, [facility] [id number] [place] [address] 58097- 1790 December, Dental examination Z01.20 [facility] [id number] [place] [address] 38867- 5722 December, Diabetes E11.9 [facility] [id number] [place] [address] 28558- 1802 December, [facility] [id number] [place] [address] 13467- 7364 December, [facility] [id number] [place] [address] 88089- 9841 December, Diabetes E11.9 ; COPD exacerbation J44.1 and Sleep apnea, unspecified type G47.30 [facility] [id number] [place] [address] 59753- 8137 December, [facility] [id number] [place] [address] 54503- 6464 Oct, COPD exacerbation J44.1 [facility] [id number] [place] [address] 29658- 9328 Oct, Ast[address] J45.909 [facility] [id number] [id number] Sep, [facility] [address] [place] [address] 862001- 0356 Aug, Asthma J45.909 and Other inflammatory polyneuropathies G61.89 [place] [address] [place] [address] 860372- 1842 May, Diabetes E11.9 and Asthma J45.909 [place] [address] [place] [address] 23885- 8172 Apr, Pneumonia of left lower lobe due to infectious organism J18.9 ; Asthma J45.909 ; Impacted cerumen of right ear H61.21 and Hearing loss, unspecified laterality H91.90 [address] [place] [address] 10689- 5058 Apr, [place] [address] [address]- 7670 Oct, Diabetes E11.9 ; Asthma J45.909 and Nicotine dependence F17.200 IMMUNIZATIONS No Known Immunizations SOCIAL HISTORY Never Assessed REASON FOR VISIT repository medication refill PLAN OF CARE VITAL SIGNS MEDICATIONS Medication Instructions Dosage Frequency Start Date End Date Duration Status Symbicort 160-4.5 MCG/ACT Inhalation Twice a day 2 puffs 12h 21 Oct, 2015 Active PredniSONE 5 mg Orally Once a day 2 tablet 24h Jun, 90 days Active Lisinopril 2.5 MG Orally Once a day 2 tablet 24h Jul, 90 days Active RESULTS No Results PROCEDURES No Known procedures INSTRUCTIONS MEDICATIONS ADMINISTERED No Known Medications MEDICAL (GENERAL) HISTORY Type Description Date Medical History Asthma Medical History Diabetes Surgical History hernia repair Surgical History shoulder arthroscopy right Surgical History cholecystectomy Surgical History exploritory x 2 for abdominal pain Surgical History blockage repair of gallbladder prior to surgery Hospitalization History Atypical Pneumonia, Asthma, Hypoxia--[facility] 04/20/16 Hospitalization History Pneumonia, COPD exacerbation-[facility] 10/04/15 Hospitalization History hypoxia, COPD exac-[facility] 12/28/16
--- OUTSIDE RECORDS SUMMARY | 2018-12-13 11:19 | XMS REPORT ---
Author Author DIRK TY [facility] Address [address] [place] [address] Care Team Providers Care Rail Setter Name Role Phone DIRK TY Unavailable PROBLEMS Type Condition ICD9-CM Code GUU19-TH Code Onset Dates Condition Status SNOMED Code Problem Asthma J45.909 Active 793915109 Problem Hearing loss, unspecified laterality H91.90 Active 38023372 Problem Diabetes E11.9 Active 20695568 Problem Nicotine dependence F17.200 Active 51733206 Problem Chronic obstructive pulmonary disease, unspecified COPD type J44.9 Active 41110331 Problem Diabetic polyneuropathy associated with type 2 diabetes mellitus E11.42 Active 27528824 Problem COPD exacerbation J44.1 Active 779676610 Problem Other inflammatory polyneuropathies G61.89 Active 95845359 Problem Mixed hyperlipidemia E78.2 Active 575568517 Problem Sleep apnea, unspecified type G47.30 Active 74855303 ALLERGIES No Information ENCOUNTERS Encounter Location Date Diagnosis [facility] [id number] [place] [address] 72395- 1020 Feb, Diabetes E11.9 ; Diabetic polyneuropathy associated with type 2 diabetes mellitus E11.42 and Chronic obstructive pulmonary disease, unspecified COPD type J44.9 [facility] [id number] [address] December, [facility] [address] [address] December, Diabetes E11.9 [facility] [id number] [place] [address] 34296- 7454 December, [facility] [address] [place] [address] 32532- 7947 December, Mixed hyperlipidemia E78.2 [facility] [id number] [place] [address] 14361- 1400 Nov, Diabetes E11.9 ; Mixed hyperlipidemia E78.2 ; Asthma J45.909 ; Diabetic polyneuropathy associated with type 2 diabetes mellitus E11.42 ; Nicotine dependence F17.200 and BMI 40.0-44.9, adult Z68.41 [facility] [id number] [place] [address] 88419- 2277 Nov, [facility] [id number] [place] [address] 16556- 7083 Sep, [place] [id number] [place] [address] 99770- 9483 Sep, [place] [id number] [place] [address] 74788- 1050 Jul, COPD exacerbation J44.1 [place] [id number] [place] [address] 22739- 3063 Jul, [place] [id number] [place] [address] 60704- 2962 Jul, BMI 40.0-44.9, adult Z68.41 ; Encounter for immunization Z23 ; Diabetes E11.9 ; Asthma J45.909 and Mixed hyperlipidemia E78.2 [place] [id number] [place] [address] 96377- 4262 Jun, [place] [id number] [place] [address] 21281- 1747 May, Dental examination Z01.20 [place] [facility] [id number] [place] [address] 73745- 1128 Apr, Diabetes E11.9 [place] [facility] [id number] [place] [address] 92470- 3671 Feb, COPD exacerbation J44.1 [place] [id number] [place] [address] 87871- 6569 Feb, [place] [id number] [place] [address] 01614- 1789 Feb, Abscess L02.91 [facility] [id number] [place] [address] 12416- 0742 Jan, Diabetes E11.9 [facility] [id number] [place] [address] 40001- 4139 Jan, Diabetes E11.9 [facility] [id number] [place] [address] 01235- 4401 Jan, [facility] [id number] [place] [address] 45934- 9553 Jan, [facility] [id number] [place] [address] 04901- 0555 December, Dental examination Z01.20 [facility] [id number] [place] [address] 28477- 8669 December, Diabetes E11.9 [facility] [id number] [place] [address] 12563- 8240 December, [facility] [id number] [place] [address] 38881- 2531 December, [facility] [id number] [place] [address] 16527- 8656 December, Diabetes E11.9 ; COPD exacerbation J44.1 and Sleep apnea, unspecified type G47.30 [facility] [address] [address]- 8383 December, [facility] [address] [place] [address] 06889- 4690 Oct, COPD exacerbation J44.1 [facility] [address] [place] [address] 08206- 7537 Oct, Asthma J45.909 [facility] [id number] [place] [address] [phone] Sep, [place] [address] [address]- 9907 12 Aug, 2016 Asthma J45.909 and Other inflammatory polyneuropathies G61.89 [place] [address] [place] [address] 56459- 4071 17 May, 2016 Diabetes E11.9 and Asthma J45.909 [place] [id number] [place] [address] 89317- 2018 16 Apr, 2016 Pneumonia of left lower lobe due to infectious organism J18.9 ; Asthma J45.909 ; Impacted cerumen of right ear H61.21 and Hearing loss, unspecified laterality H91.90 [place] [id number] [place] [address] 04302- 0858 15 Apr, 2016 [place] [address] [place] [address] 74234- 4305 Oct, Diabetes E11.9 ; Asthma J45.909 and Nicotine dependence F17.200 IMMUNIZATIONS No Known Immunizations SOCIAL HISTORY Never Assessed REASON FOR VISIT Blood pressure check -PA PLAN OF CARE VITAL SIGNS Height 63 in 2017-12-28 Blood pressure systolic 138 mmHg 2017-12-28 Blood pressure diastolic 86 mmHg 2017-12-28 MEDICATIONS No Known Medications RESULTS No Results PROCEDURES No Known procedures INSTRUCTIONS MEDICATIONS ADMINISTERED No Known Medications MEDICAL (GENERAL) HISTORY Type Description Date Medical History Asthma Medical History Diabetes Surgical History hernia repair Surgical History shoulder arthroscopy right Surgical History cholecystectomy Surgical History exploritory x 2 for abdominal pain Surgical History blockage repair of gallbladder prior to surgery Hospitalization History Atypical Pneumonia, Asthma, Hypoxia--[facility] 04/20/16 Hospitalization History Pneumonia, COPD exacerbation-[facility] 10/04/15 Hospitalization History hypoxia, COPD exac-[facility] 12/28/16
--- OUTSIDE RECORDS SUMMARY | 2018-12-13 11:19 | XMS REPORT ---
Author Author DIRK TY [facility] Address [address] [place] [address] Care Team Providers Care Dental Hygiene Administrative Assistant Name Role Phone DIRK TY Unavailable PROBLEMS Type Condition ICD9-CM Code FDL74-LC Code Onset Dates Condition Status SNOMED Code Problem Asthma J45.909 Active 084220017 Problem Hearing loss, unspecified laterality H91.90 Active 24400322 Problem Diabetes E11.9 Active 43663658 Problem Nicotine dependence F17.200 Active 43323266 Problem Chronic obstructive pulmonary disease, unspecified COPD type J44.9 Active 18654189 Problem Diabetic polyneuropathy associated with type 2 diabetes mellitus E11.42 Active 20224090 Problem COPD exacerbation J44.1 Active 018756057 Problem Other inflammatory polyneuropathies G61.89 Active 42571607 Problem Mixed hyperlipidemia E78.2 Active 348341010 Problem Sleep apnea, unspecified type G47.30 Active 05861933 ALLERGIES Substance Reaction Event Type Date Status narcotics makes him very sick Non Drug Allergy Feb, Active ENCOUNTERS Encounter Location Date Diagnosis [facility] [address] [place] [address] 83154- 0002 Mar, COPD exacerbation J44.1 and Diabetes E11.9 [facility] [address] [place] [address] 06198- 9764 Feb, Diabetes E11.9 ; Diabetic polyneuropathy associated with type 2 diabetes mellitus E11.42 and Chronic obstructive pulmonary disease, unspecified COPD type J44.9 [facility] [id number] [place] [address] 74525- 0000 December, [facility] [id number] [place] [address] 54232- 6972 December, Diabetes E11.9 [facility] [id number] [place] [address] 92097- 7401 December, [facility] [address] [place] [address] 59121- 9210 December, Mixed hyperlipidemia E78.2 [facility] [id number] [place] [address] 73459- 5443 Nov, Diabetes E11.9 ; Mixed hyperlipidemia E78.2 ; Asthma J45.909 ; Diabetic polyneuropathy associated with type 2 diabetes mellitus E11.42 ; Nicotine dependence F17.200 and BMI 40.0-44.9, adult Z68.41 [facility] [id number] [place] [address] 28511- 1483 Nov, [facility] [id number] [place] [address] 54943- 4308 Sep, [facility] [id number] [place] [address] 36960- 9452 Sep, [facility] [id number] [place] [address] 18592- 0562 Jul, COPD exacerbation J44.1 [facility] [id number] [place] [address] 31207- 3665 Jul, [facility] [id number] [place] [address] 82008- 0849 Jul, BMI 40.0-44.9, adult Z68.41 ; Encounter for immunization Z23 ; Diabetes E11.9 ; Asthma J45.909 and Mixed hyperlipidemia E78.2 [facility] [address] [place] [address] 24230- 4593 Jun, [facility] [id number] [place] [address] 03298- 7588 06 May, 2017 Dental examination Z01.20 [facility] [id number] [place] [address] 08060- 9110 15 Apr, 2017 Diabetes E11.9 [facility] [id number] [place] [address] 57518- 8228 Feb, COPD exacerbation J44.1 [facility] [address], [place] [address]- 4500 Feb, [facility] [id number] [address]- 3259 Feb, Abscess L02.91 [facility] [address] [address]- 1357 Jan, Diabetes E11.9 [facility] [address] [place] [address] 70455- 1617 Jan, Diabetes E11.9 [facility] [id number] [place] [address] 98545- 4149 Jan, [facility] [id number] [place] [address] 41995- 0530 Jan, [facility] [address] [place] [address] 98939- 5247 December, Dental examination Z01.20 [facility] [address] [place] [address] 41454- 7495 December, Diabetes E11.9 [facility] [address], [place] [address]- 4227 December, [facility] [address], [place] [address]- 8447 December, [facility] [address] [place] [address] 14641- 0216 December, Diabetes E11.9 ; COPD exacerbation J44.1 and Sleep apnea, unspecified type G47.30 [facility] [address], [place] [address]- 4976 December, [facility] [address] [address]- 2611 Oct, COPD exacerbation J44.1 [facility] [id number] [address]- 5939 Oct, Asthma J45.909 [facility] [address] [id number] Sep, [facility] [id number] [place] [address] 45359- 7396 Aug, Asthma J45.909 and Other inflammatory polyneuropathies G61.89 [place] [facility] [id number] [place] [address] 28119- 8324 May, Diabetes E11.9 and Asthma J45.909 [place] [address] 54810- 9408 16 Apr, 2016 Pneumonia of left lower lobe due to infectious organism J18.9 ; Asthma J45.909 ; Impacted cerumen of right ear H61.21 and Hearing loss, unspecified laterality H91.90 [place] [id number] [place] [address] 81530- 9293 Apr, [place] [id number] [place] [address] 02767- 4282 Oct, Diabetes E11.9 ; Asthma J45.909 and Nicotine dependence F17.200 IMMUNIZATIONS No Known Immunizations SOCIAL HISTORY Never Assessed REASON FOR VISIT Diabetes-LUCIA mckeon, A1C (not quite 91 days but pt has no insurance) PLAN OF CARE Activity Details Follow Up 3 Months Reason: VITAL SIGNS Height 63 in 2018-02-28 Weight 249.6 lbs 2018-02-28 Temperature 97.4 degrees Fahrenheit 2018-02-28 Heart Rate 84 bpm 2018-02-28 Respiratory Rate 24 2018-02-28 Oximetry w/ oxygen:96 % 2018-02-28 BMI 44.21 kg/m2 2018-02-28 Blood pressure systolic 130 mmHg 2018-02-28 Blood pressure diastolic 94 mmHg 2018-02-28 MEDICATIONS Medication Instructions Dosage Frequency Start Date End Date Duration Status Symbicort 160-4.5 MCG/ACT Inhalation Twice a day 2 puffs 12h 21 Oct, 2015 Active Metformin HCl 500 MG TAKE ONE TABLET BY MOUTH TWICE DAILY WITH MEALS 30 Active ProAir HFA 108 (90 Base) MCG/ACT INHAEL TWO PUFFS BY MOUTH EVERY 4 HOURS NEEDED 17 Active Benadryl Allergy 25 MG Orally every 8 hrs 1 tablet as needed 8h Active Zyrtec Allergy 10 MG Orally Once a day 1 tablet 24h Active Lyrica 75 MG Orally twice a day 1 cap 12h Nov, Active Acetaminophen 500 MG Orally every 6 hrs 2 capsules as needed 6h Active Metformin HCl 1000 MG Orally twice a day, pc 1 tab q am, 1 tab q noon 30 Active Lipitor 80 MG Orally Once a day 1 tablet 24h December, 30 day(s) Active Lisinopril 2.5 MG Orally Once a day 2 tablet 24h Jul, Active PredniSONE 5 mg Orally Once a day 2 tablet 24h Active Spiriva HandiHaler 18 MCG Inhalation 2 times a day INHALE CONTENTS OF ONE CAPSULE 12h Active Ibuprofen 200 MG Orally 2 times a day as needed 3 or 4 tablets Active Albuterol Sulfate (2.5 MG/3ML) 0.083% USE 1 VIAL IN NEBULIZER FOUR TIMES DAILY 12 Active RESULTS Name Result Date Reference Range A1C (IN HOUSE) 2018-02-28 A1C IN HOUSE 8.3 4.3 - 5.6 % Previous A1c 7.7 Lot [id number] Exp date 10/2019 PROCEDURES Procedure Date Ordered Result Body Site PULMONARY FUNCTION TEST 2018-02-28 VC appt 03/15/2018 @ 9:45 AM GLYCATED HEMOGLOBIN TEST February 28, 2018 INSTRUCTIONS MEDICATIONS ADMINISTERED No Known Medications MEDICAL (GENERAL) HISTORY Type Description Date Medical History Asthma Medical History Diabetes Surgical History hernia repair Surgical History shoulder arthroscopy right Surgical History cholecystectomy Surgical History exploritory x 2 for abdominal pain Surgical History blockage repair of gallbladder prior to surgery Hospitalization History Atypical Pneumonia, Asthma, Hypoxia--[facility] 04/20/16 Hospitalization History Pneumonia, COPD exacerbation-[facility] 10/04/15 Hospitalization History hypoxia, COPD exac-[facility] 12/28/16
--- OUTSIDE RECORDS SUMMARY | 2018-12-13 11:19 | XMS REPORT ---
Author Author DIRK TY [facility] Address [address] [place] [address] Care Team Providers Care Makeup Artist Name Role Phone DIRK TY Unavailable PROBLEMS Type Condition ICD9-CM Code DCX72-RT Code Onset Dates Condition Status SNOMED Code Problem Asthma J45.909 Active 806504040 Problem Hearing loss, unspecified laterality H91.90 Active 07194315 Problem Diabetes E11.9 Active 49729976 Problem Nicotine dependence F17.200 Active 88162740 Problem Chronic obstructive pulmonary disease, unspecified COPD type J44.9 Active 71875994 Problem Diabetic polyneuropathy associated with type 2 diabetes mellitus E11.42 Active 00458942 Problem COPD exacerbation J44.1 Active 810815455 Problem Other inflammatory polyneuropathies G61.89 Active 50616244 Problem Mixed hyperlipidemia E78.2 Active 070483092 Problem Sleep apnea, unspecified type G47.30 Active 07024437 ALLERGIES No Information ENCOUNTERS Encounter Location Date Diagnosis [facility] [address] [place] [address] 06823- 8684 Feb, Diabetes E11.9 ; Diabetic polyneuropathy associated with type 2 diabetes mellitus E11.42 and Chronic obstructive pulmonary disease, unspecified COPD type J44.9 [facility] [id number], [place] [address]- 3442 December, [facility] [address], [place] [address]- 4424 December, Diabetes E11.9 [facility] [address] [place] [address] 01451- 5495 December, [facility] [address] [place] [address] 67962- 5570 December, Mixed hyperlipidemia E78.2 [facility] [id number] [place] [address] 56902- 1711 Nov, Diabetes E11.9 ; Mixed hyperlipidemia E78.2 ; Asthma J45.909 ; Diabetic polyneuropathy associated with type 2 diabetes mellitus E11.42 ; Nicotine dependence F17.200 and BMI 40.0-44.9, adult Z68.41 [facility] [id number] [place] [address] 03702- 7943 Nov, [facility] [id number] [place] [address] 70958- 4425 Sep, [place] [id number] [place] [address] 45420- 4802 Sep, [place] [id number] [place] [address] 22606- 2898 Jul, COPD exacerbation J44.1 [place] [id number] [place] [address] 98048- 8434 Jul, [place] [id number] [place] [address] 81120- 8342 Jul, BMI 40.0-44.9, adult Z68.41 ; Encounter for immunization Z23 ; Diabetes E11.9 ; Asthma J45.909 and Mixed hyperlipidemia E78.2 [place] [id number] [place] [address] 71918- 7452 Jun, [place] [id number] [place] [address] 21337- 3326 May, Dental examination Z01.20 [place] [id number] [place] [address] 97761- 1427 Apr, Diabetes E11.9 [facility] [id number] [place] [address] 95326- 1023 Feb, COPD exacerbation J44.1 [place] [id number] [place] [address] 51565- 0468 Feb, [place] [id number] [place] [address] 05806- 0944 Feb, Abscess L02.91 [facility] [id number] [place] [address] 58789- 4725 Jan, Diabetes E11.9 [facility] [id number] [place] [address] 83943- 6052 Jan, Diabetes E11.9 [facility] [id number] [place] [address] 38725- 7534 Jan, [facility] [address] [place] [address] 81889- 9469 Jan, [facility] [id number] [place] [address] 32733- 6064 December, Dental examination Z01.20 [facility] [id number] [place] [address] 29690- 4792 December, Diabetes E11.9 [facility] [id number] [place] [address] 11200- 7770 December, [facility] [id number] [place] [address] 97355- 5752 December, [facility] [id number] [place] [address] 35466- 1658 December, Diabetes E11.9 ; COPD exacerbation J44.1 and Sleep apnea, unspecified type G47.30 [facility] [address], [place] [address]- 6865 December, [facility] [address] [place] [address] 71015- 1585 Oct, COPD exacerbation J44.1 [facility] [address] [place] [address] 75525- 7487 Oct, Asthma J45.909 [facility] [id number] [place] [address] [id number] Sep, [place] [address], [place] [address]- 0506 Aug, Asthma J45.909 and Other inflammatory polyneuropathies G61.89 [facility] [address], [place] [address]- 0106 17 May, 2016 Diabetes E11.9 and Asthma J45.909 [facility] [id number] [place] [address] 77682- 0476 16 Apr, 2016 Pneumonia of left lower lobe due to infectious organism J18.9 ; Asthma J45.909 ; Impacted cerumen of right ear H61.21 and Hearing loss, unspecified laterality H91.90 [facility] [id number] [place] [address] 07918- 2152 15 Apr, 2016 [place] [address] [place] [address] 16102- 0467 Oct, Diabetes E11.9 ; Asthma J45.909 and Nicotine dependence F17.200 IMMUNIZATIONS No Known Immunizations SOCIAL HISTORY Never Assessed REASON FOR VISIT Repository refill request PLAN OF CARE VITAL SIGNS MEDICATIONS Medication Instructions Dosage Frequency Start Date End Date Duration Status PredniSONE 5 mg Orally Once a day 2 tablet 24h Active Lisinopril 2.5 MG Orally Once a day 2 tablet 24h Jul, Active RESULTS No Results PROCEDURES No Known procedures INSTRUCTIONS MEDICATIONS ADMINISTERED No Known Medications MEDICAL (GENERAL) HISTORY Type Description Date Medical History Asthma Medical History Diabetes Surgical History hernia repair Surgical History shoulder arthroscopy right Surgical History cholecystectomy Surgical History exploritory x 2 for abdominal pain Surgical History blockage repair of gallbladder prior to surgery Hospitalization History Atypical Pneumonia, Asthma, Hypoxia--[facility] 04/20/16 Hospitalization History Pneumonia, COPD exacerbation-[facility] 10/04/15 Hospitalization History hypoxia, COPD exac-[facility] 12/28/16
--- OUTSIDE RECORDS SUMMARY | 2018-12-13 11:19 | XMS REPORT ---
Author Author DIRK TY [facility] Address [address] [place] [address] Care Team Providers Care Director Of Application Development Name Role Phone DIRK TY Unavailable PROBLEMS Type Condition ICD9-CM Code PCR99-TF Code Onset Dates Condition Status SNOMED Code Problem Nicotine dependence F17.200 Active 78757441 Problem Diabetes E11.9 Active 91303673 Problem Asthma J45.909 Active 113742797 Problem Diabetic polyneuropathy associated with type 2 diabetes mellitus E11.42 Active 41474149 Problem Mixed hyperlipidemia E78.2 Active 273303184 Problem Other inflammatory polyneuropathies G61.89 Active 08439724 Problem Hearing loss, unspecified laterality H91.90 Active 71191459 Problem Sleep apnea, unspecified type G47.30 Active 70784941 Problem COPD exacerbation J44.1 Active 890280993 ALLERGIES No Information ENCOUNTERS Encounter Location Date Diagnosis [place] [address] [address]- [address] December, [place] [address] 89895- 4929 December, Diabetes E11.9 [place] [address] [place] [id number] [place] [address] 46252- 5649 December, [place] [address] [place] [id number] [place] [address] 20156- 0240 December, Mixed hyperlipidemia E78.2 [place] [address] 36420- 9541 Nov, Diabetes E11.9 ; Mixed hyperlipidemia E78.2 ; Asthma J45.909 ; Diabetic polyneuropathy associated with type 2 diabetes mellitus E11.42 ; Nicotine dependence F17.200 and BMI 40.0-44.9, adult Z68.41 [place] [address] [address] Nov, [facility] [address] [place] [id number] [place] [address] 55570- 3459 Sep, [facility] [address] [place] [id number] [place] [address] 18139- 4914 Sep, [facility] [address] [address]- 1963 Jul, COPD exacerbation J44.1 [facility] [address] [place] [id number] [place] [address] 32965- 3199 Jul, [facility] [address] [place] [id number] [place] [address] 75312- 8856 Jul, BMI 40.0-44.9, adult Z68.41 ; Encounter for immunization Z23 ; Diabetes E11.9 ; Asthma J45.909 and Mixed hyperlipidemia E78.2 [facility] [address] [place] [id number] [place] [address] 51403- 0122 Jun, [facility] [address] [place] [id number] [place] [address] 91061- 4124 May, Dental examination Z01.20 [facility] [address] [place] [id number] [place] [address] 21628- 3620 Apr, Diabetes E11.9 [facility] [address] [place] [id number] [place] [address] 93535- 1563 Feb, COPD exacerbation J44.1 [facility] [address] [place] [id number] [place] [address] 66228- 1550 Feb, [facility] [address] [place] [id number] [place] [address] 66474- 3180 Feb, Abscess L02.91 [facility] [address] [place] [id number] [place] [address] 98144- 4901 Jan, Diabetes E11.9 [facility] [address] [place] [id number] [place] [address] 49552- 0314 Jan, Diabetes E11.9 [facility] [address] [place] [address] 17701- 0036 Jan, [facility] [address] [place] [id number] [place] [address] 87186- 9776 Jan, [facility] [address] [place] [id number] [place] [address] 93254- 0012 December, Dental examination Z01.20 [facility] [address] [place] [id number] [place] [address] 96059- 2778 December, Diabetes E11.9 [facility] [address] [place] [id number] [place] [address] 05210- 3282 December, [facility] [address] [place] [id number] [place] [address] 97016- 8617 December, [facility] [address] [place] [id number] [place] [address] 15029- 5941 December, Diabetes E11.9 ; COPD exacerbation J44.1 and Sleep apnea, unspecified type G47.30 [facility] [address] [place] [id number] [place] [address] 15273- 6045 December, [facility] [address] [place] [id number] [place] [address] 69325- 9600 Oct, COPD exacerbation J44.1 [facility] [address] [place] [id number] [place] [address] 01267- 1135 Oct, Asthma J45.909 [facility] [address] [place] [id number] [place] [address] [id number] Sep, [facility] [address] [place] [id number] [place] [address] 69945- 5937 Aug, Asthma J45.909 and Other inflammatory polyneuropathies G61.89 [facility] [address] [place] [id number] [place] [address] 93687- 5461 May, Diabetes E11.9 and Asthma J45.909 [facility] [address] [facility] [id number] [address] 8596 16 Apr, 2016 Pneumonia of left lower lobe due to infectious organism J18.9 ; Asthma J45.909 ; Impacted cerumen of right ear H61.21 and Hearing loss, unspecified laterality H91.90 [place] [address] [address] [facility] [id number] [address]- 6940 15 Apr, 2016 [place] [address] [address] [facility] [id number] [address] 6178 Oct, Diabetes E11.9 ; Asthma J45.909 and Nicotine dependence F17.200 IMMUNIZATIONS No Known Immunizations SOCIAL HISTORY Never Assessed REASON FOR VISIT RX question PLAN OF CARE VITAL SIGNS MEDICATIONS Unknown [...] to surgery Hospitalization History Atypical Pneumonia, Asthma, Hypoxia--[facility] 04/20/16 Hospitalization History Pneumonia, COPD exacerbation-[facility] 10/04/15 Hospitalization History hypoxia, COPD exac-[facility] 12/28/16
--- OUTSIDE RECORDS SUMMARY | 2018-12-13 11:19 | XMS REPORT ---
Author Author DIRK TY [facility] Address [address] [place] [address] Care Team Providers Care Supervisor [employer] Name Role Phone DIRK TY Unavailable PROBLEMS Type Condition ICD9-CM Code PYG74-KS Code Onset Dates Condition Status SNOMED Code Problem Asthma J45.909 Active 164081665 Problem Hearing loss, unspecified laterality H91.90 Active 33353646 Problem Diabetes E11.9 Active 31703391 Problem Nicotine dependence F17.200 Active 25857644 Problem Chronic obstructive pulmonary disease, unspecified COPD type J44.9 Active 21895915 Problem Diabetic polyneuropathy associated with type 2 diabetes mellitus E11.42 Active 27250291 Problem COPD exacerbation J44.1 Active 582309257 Problem Other inflammatory polyneuropathies G61.89 Active 08906044 Problem Mixed hyperlipidemia E78.2 Active 626513444 Problem Sleep apnea, unspecified type G47.30 Active 45708430 ALLERGIES No Information ENCOUNTERS Encounter Location Date Diagnosis [facility] [address] [place] [address] 95659- 4812 Feb, Diabetes E11.9 ; Diabetic polyneuropathy associated with type 2 diabetes mellitus E11.42 and Chronic obstructive pulmonary disease, unspecified COPD type J44.9 [facility] [address] [place] [id number] [address]- 4946 December, [facility] [address] [address]- 2157 December, Diabetes E11.9 [facility] [address] [place] [address] 48721- 7149 December, [facility] [address] [place] [address] 19699- 2976 December, Mixed hyperlipidemia E78.2 [facility] [address] [place] [id number] [place] [address] 26242- 1986 Nov, Diabetes E11.9 ; Mixed hyperlipidemia E78.2 ; Asthma J45.909 ; Diabetic polyneuropathy associated with type 2 diabetes mellitus E11.42 ; Nicotine dependence F17.200 and BMI 40.0-44.9, adult Z68.41 [facility] [address] [place] [id number] [place] [address] 28290- 5605 Nov, [facility] [address] [place] [id number] [place] [address] 47618- 4149 Sep, [place] [address] [place] [id number] [place] [address] 58911- 7746 Sep, [place] [address] [place] [id number] [place] [address] 85940- 9667 Jul, COPD exacerbation J44.1 [place] [address] [place] [id number] [place] [address] 21854- 5829 Jul, [place] [address] [place] [id number] [place] [address] 72746- 3643 Jul, BMI 40.0-44.9, adult Z68.41 ; Encounter for immunization Z23 ; Diabetes E11.9 ; Asthma J45.909 and Mixed hyperlipidemia E78.2 [place] [address] [place] [id number] [place] [address] 26814- 4625 Jun, [place] [address] [place] [id number] [place] [address] 08788- 3100 May, Dental examination Z01.20 [place] [address] [place] [id number] [place] [address] 59158- 3335 Apr, Diabetes E11.9 [place] [address] [place] [id number] [place] [address] 28055- 4207 Feb, COPD exacerbation J44.1 [place] [address] [place] [id number] [place] [address] 73215- 1976 Feb, [place] [address] [place] [id number] [place] [address] 06750- 4153 Feb, Abscess L02.91 [facility] [address] [place] [id number] [place] [address] 99581- 2686 Jan, Diabetes E11.9 [facility] [address] [place] [id number] [place] [address] 57643- 6432 Jan, Diabetes E11.9 [facility] [address] [place] [id number] [place] [address] 18864- 7289 Jan, [facility] [address] [place] [address] 04359- 8463 Jan, [facility] [address] [place] [id number] [place] [address] 98872- 5389 December, Dental examination Z01.20 [facility] [address] [place] [id number] [place] [address] 53513- 6914 December, Diabetes E11.9 [facility] [address] [place] [id number] [place] [address] 79846- 6149 December, [facility] [address] [place] [id number] [place] [address] 08708- 3993 December, [facility] [address] [place] [id number] [place] [address] 67026- 6670 December, Diabetes E11.9 ; COPD exacerbation J44.1 and Sleep apnea, unspecified type G47.30 [facility] [address] [address]- 3066 December, [facility] [address] [place] [address] 17454- 6602 Oct, COPD exacerbation J44.1 [facility] [address] [place] [address] 65281- 3062 Oct, Asthma J45.909 [facility] [address] [place] [id number] [place] [address] [phone] Sep, [place] [address] [address]- 7426 12 Aug, 2016 Asthma J45.909 and Other inflammatory polyneuropathies G61.89 [place] [address] [place] [address] 26999- 6720 17 May, 2016 Diabetes E11.9 and Asthma J45.909 [place] [address] [place] [id number] [place] [address] 14564- 7218 16 Apr, 2016 Pneumonia of left lower lobe due to infectious organism J18.9 ; Asthma J45.909 ; Impacted cerumen of right ear H61.21 and Hearing loss, unspecified laterality H91.90 [place] [address] [place] [id number] [place] [address] 93174- 1166 15 Apr, 2016 [place] [address] [place] [address] 38672- 5322 Oct, Diabetes E11.9 ; Asthma J45.909 and Nicotine dependence F17.200 IMMUNIZATIONS No Known Immunizations SOCIAL HISTORY Never Assessed REASON FOR VISIT 1 yr f/u DM Ed PLAN OF CARE VITAL SIGNS MEDICATIONS No [...] to surgery Hospitalization History Atypical Pneumonia, Asthma, Hypoxia--[facility] 04/20/16 Hospitalization History Pneumonia, COPD exacerbation-[facility] 10/04/15 Hospitalization History hypoxia, COPD exac-[facility] 12/28/16
--- OUTSIDE RECORDS SUMMARY | 2018-12-13 11:20 | XMS REPORT ---
Author Author DIRK TY [facility] Address [address] [place] [address] Care Team Providers Care Contact Lens Assistant Name Role Phone IDRK TY Unavailable PROBLEMS Type Condition ICD9-CM Code USC22-EB Code Onset Dates Condition Status SNOMED Code Problem Nicotine dependence F17.200 Active 67120196 Problem Diabetes E11.9 Active 52578589 Problem Asthma J45.909 Active 158379030 Problem Diabetic polyneuropathy associated with type 2 diabetes mellitus E11.42 Active 21404689 Problem Mixed hyperlipidemia E78.2 Active 218741889 Problem Other inflammatory polyneuropathies G61.89 Active 03235438 Problem Hearing loss, unspecified laterality H91.90 Active 98156719 Problem Sleep apnea, unspecified type G47.30 Active 26832886 Problem COPD exacerbation J44.1 Active 330177753 ALLERGIES Substance Reaction Event Type Date Status narcotics makes him very sick Non Drug Allergy Jul, Active ENCOUNTERS Encounter Location Date Diagnosis [facility] [address] [place] [address] 70521- 0926 December, [facility] [address] [place] [id number] [place] [address] 27642- 9606 December, Diabetes E11.9 [facility] [address] [place] [id number] [place] [address] 13124- 7968 December, [facility] [address] [place] [address] 52440- 1157 December, Mixed hyperlipidemia E78.2 [facility] [address] [place] [id number] [place] [address] 35991- 0178 Nov, Diabetes E11.9 ; Mixed hyperlipidemia E78.2 ; Asthma J45.909 ; Diabetic polyneuropathy associated with type 2 diabetes mellitus E11.42 ; Nicotine dependence F17.200 and BMI 40.0-44.9, adult Z68.41 [facility] [address] [place] [id number] [place] [address] 53713- 9693 Nov, [facility] [address] [address]016- 0566 Sep, [facility] [address] 36555- 0047 Sep, [facility] [address] 02162- 7880 Jul, COPD exacerbation J44.1 [place] [address] 17790- 5179 Jul, [place] [address] 06185- 7678 Jul, BMI 40.0-44.9, adult Z68.41 ; Encounter for immunization Z23 ; Diabetes E11.9 ; Asthma J45.909 and Mixed hyperlipidemia E78.2 [place] [address] [place] [id number] [place] [address] 81360- 7752 Jun, [place] [address] 77087- 4482 May, Dental examination Z01.20 [place] [address] 47024- 1095 Apr, Diabetes E11.9 [place] [address] [place] [id number] [place] [address] 81097- 6442 Feb, COPD exacerbation J44.1 [facility] [address] [place] [id number] [place] [address] 09927- 0253 Feb, [place] [address] 44363- 4165 Feb, Abscess L02.91 [place] [address] [place] [id number] [place] [address] 12223- 2234 Jan, Diabetes E11.9 [facility] [address] [address]- 1302 Jan, Diabetes E11.9 [facility] [address] [place] [address] 08888- 1886 Jan, [facility] [address] [place] [address] 40834- 5325 Jan, [facility] [address] [place] [id number] [place] [address] 67225- 8029 December, Dental examination Z01.20 [facility] [address] [place] [id number] [place] [address] 67851- 8668 December, Diabetes E11.9 [facility] [address] [place] [id number] [place] [address] 77401- 5146 December, [facility] [address] [place] [id number] [place] [address] 34822- 9342 December, [facility] [address] [place] [id number] [place] [address] 85289- 8093 December, Diabetes E11.9 ; COPD exacerbation J44.1 and Sleep apnea, unspecified type G47.30 [facility] [address] [place] [address] 23862- 5231 December, [facility] [address] [place] [address] 82755- 4954 Oct, COPD exacerbation J44.1 [facility] [address] [place] [address] 72138- 7213 Oct, Asthma J45.909 [facility] [address] [id number] [place] [address] [id number] Sep, [facility] [address] [place] [address] 84614- 2561 Aug, Asthma J45.909 and Other inflammatory polyneuropathies G61.89 [facility] [address] [place] [id number] [place] [address] 92109- 5497 May, Diabetes E11.9 and Asthma J45.909 [place] [address] [place] [id number] [address]- 0761 16 Apr, 2016 Pneumonia of left lower lobe due to infectious organism J18.9 ; Asthma J45.909 ; Impacted cerumen of right ear H61.21 and Hearing loss, unspecified laterality H91.90 [place] [address] [address]- 5996 15 Apr, 2016 [place] [address] [facility] [place] [id number] [address]- 6068 Oct, Diabetes E11.9 ; Asthma J45.909 and Nicotine dependence F17.200 IMMUNIZATIONS Vaccine Route Administration Date Status FLUARIX QUAD (3 AND UP) 2016 IM Intramuscular Jul 12, 2017 Administered SOCIAL HISTORY Never Assessed REASON FOR VISIT Diabetes jjournotRN PLAN OF CARE Activity Details Follow Up 3 Months Reason: VITAL SIGNS Height 63 in 2017-07-12 Weight 235.2 lbs 2017-07-12 Temperature 97.7 degrees Fahrenheit 2017-07-12 Heart Rate 84 bpm 2017-07-12 Respiratory Rate 26 2017-07-12 Oximetry w/ oxygen @ 2L:98 % 2017-07-12 BMI 41.66 kg/m2 2017-07-12 Blood pressure systolic 146 mmHg 2017-07-12 Blood pressure diastolic 88 mmHg 2017-07-12 MEDICATIONS Medication Instructions Dosage Frequency Start Date End Date Duration Status Symbicort 160-4.5 MCG/ACT Inhalation Twice a day 2 puffs 12h 21 Oct, 2015 Active Zyrtec Allergy 10 MG Orally Once a day 1 tablet 24h Not-Taking Ibuprofen 200 MG Orally 2 times a day as needed 3 or 4 tablets Active Benadryl Allergy 25 MG Orally every 8 hrs 1 tablet as needed 8h Active Lovastatin 40 mg Orally Once a day 1 tablet with a meal 24h Active Metformin HCl 500 MG Orally twice a day 1 tablet with meals 12h 30 days Active Albuterol Sulfate (2.5 MG/3ML) 0.083% USE 1 VIAL IN NEBULIZER FOUR TIMES DAILY 12 Active Spiriva Respimat 1.25 MCG/ACT Inhalation Once a day 2 puffs 24h Not-Taking ProAir HFA 108 (90 Base) MCG/ACT Inhalation every 4 hrs 2 puffs as needed 4h 21 Oct, 2015 Not-Taking Lisinopril 5 mg Orally Once a day 1 tablet 24h Jul, Active Acetaminophen 500 MG Orally every 6 hrs 2 capsules as needed 6h Active PredniSONE 5 MG Orally Once a day 2 tablet 24h Not-Taking Spiriva HandiHaler 18 MCG INHALE CONTENTS OF ONE CAPSULE BY MOUTH ONCE DAILY (TWO INHALATIONS PER ONE CAPSULE) 30 Not-Taking RESULTS Name Result Date Reference Range A1C (IN HOUSE) 2017-07-12 A1C IN HOUSE 7.0 4.3 - 5.6 % Previous A1c 7.9 Lot [id number] Exp date 03/2019 PROCEDURES Procedure Date Ordered Result Body Site MEASURE BLOOD OXYGEN LEVEL Jul 12, 2017 GLYCATED HEMOGLOBIN TEST Jul 12, 2017 SINGLE IMMUNIZATION ADMIN Jul 12, 2017 FLUARIX QUAD (3 AND UP) 2016Jul 12, 2017 INSTRUCTIONS MEDICATIONS ADMINISTERED No Known Medications MEDICAL (GENERAL) HISTORY Type Description Date Medical History Asthma Medical History Diabetes Surgical History hernia repair Surgical History shoulder arthroscopy right Surgical History cholecystectomy Surgical History exploritory x 2 for abdominal pain Surgical History blockage repair of gallbladder prior to surgery Hospitalization History Atypical Pneumonia, Asthma, Hypoxia--[facility] 04/20/16 Hospitalization History Pneumonia, COPD exacerbation-[facility] 10/04/15 Hospitalization History hypoxia, COPD exac-[facility] 12/28/16
--- OUTSIDE RECORDS SUMMARY | 2018-12-13 11:20 | XMS REPORT ---
Author Author DIRK TY [facility] Address [address] [place] [address] Care Team Providers Care Marshmallow Machine Worker Name Role Phone DIRK TY Unavailable PROBLEMS Type Condition ICD9-CM Code [id number] Code Onset Dates Condition Status SNOMED Code Problem Nicotine dependence F17.200 Active 78373904 Problem Diabetes E11.9 Active 14112391 Problem Asthma J45.909 Active 114951726 Problem Diabetic polyneuropathy associated with type 2 diabetes mellitus E11.42 Active 87182121 Problem Mixed hyperlipidemia E78.2 Active 646885597 Problem Other inflammatory polyneuropathies G61.89 Active 04361822 Problem Hearing loss, unspecified laterality H91.90 Active 05701977 Problem Sleep apnea, unspecified type G47.30 Active 25247142 Problem COPD exacerbation J44.1 Active [id number] ALLERGIES No Information ENCOUNTERS Encounter Location Date Diagnosis [place] [address] [address] December, [place] [address] 83783- 1777 December, Diabetes E11.9 [place] [address] [place] [id number] [place] [address] 90561- 5329 December, [place] [address] [place] [id number] [place] [address] 23979- 0116 December, Mixed hyperlipidemia E78.2 [place] [address] 07708- 8007 Nov, Diabetes E11.9 ; Mixed hyperlipidemia E78.2 ; Asthma J45.909 ; Diabetic polyneuropathy associated with type 2 diabetes mellitus E11.42 ; Nicotine dependence F17.200 and BMI 40.0-44.9, adult Z68.41 [place] [address] [address] Nov, [facility] [address] [place] [id number] [place] [address] 82142- 9021 Sep, [facility] [address] [place] [id number] [place] [address] 33057- 6856 Sep, [facility] [address] 74462- 3389 Jul, COPD exacerbation J44.1 [facility] [address] [place] [id number] [place] [address] 76745- 4680 Jul, [facility] [address] [place] [id number] [place] [address] 18381- 6516 Jul, BMI 40.0-44.9, adult Z68.41 ; Encounter for immunization Z23 ; Diabetes E11.9 ; Asthma J45.909 [address] Mixed hyperlipidemia E78.2 [facility] [address] [place] [id number] [place] [address] 98826- 3682 Jun, [facility] [address] [place] [id number] [place] [address] 65032- 6095 May, Dental examination Z01.20 [facility] [address] [place] [id number] [place] [address] 79136- 5013 Apr, Diabetes E[address].9 [facility] [address] [place] [id number] [place] [address] 94653- 4111 Feb, COPD exacerbation J44.1 [facility] [address] [place] [id number] [place] [address] 76975- 5066 Feb, [facility] [address] [place] [id number] [place] [address] 78124- 1712 Feb, Abscess L02.91 [facility] [address] [place] [id number] [place] [address] 86584- 0717 Jan, Diabetes E11.9 [facility] [address] [place] [id number] [place] [address] 82080- 4256 Jan, Diabetes E11.9 [facility] [id number] [place] [address] 02469- 2869 Jan, [facility] [address] [place] [id number] [place] [address] 48013- 3598 Jan, [facility] [address] [place] [id number] [place] [address] 48152- 5593 December, Dental examination Z01.20 [facility] [address] [place] [id number] [place] [address] 89124- 2771 December, Diabetes E11.9 [facility] [address] [place] [id number] [place] [address] 79517- 5967 December, [facility] [address] [place] [id number] [place] [address] 68884- 0349 December, [facility] [address] [place] [id number] [place] [address] 46726- 9414 December, Diabetes E11.9 ; COPD exacerbation J44.1 and Sleep apnea, unspecified type G47.30 [facility] [address] [place] [id number] [place] [address] 31045- 9887 December, [facility] [address] [place] [id number] [place] [address] 12218- 6285 Oct, COPD exacerbation J44.1 [facility] [address] [place] [id number] [place] [address] 73817- 7619 Oct, Asthma J45.909 [facility] [address] [place] [id number] [place] [address] [id number] Sep, [facility] [address] [place] [id number] [place] [address] 80077- 7910 Aug, Asthma J45.909 and Other inflammatory polyneuropathies G61.89 [facility] [address] [place] [id number] [place] [address] 05138- 6391 May, Diabetes E11.[address] [facility] [address] [facility] [id number] [address] 16 Apr, 2016 Pneumonia of left lower lobe due to infectious organism J18.9 ; Asthma J45.909 ; Impacted cerumen of right ear H61.21 and Hearing loss, unspecified laterality H91.90 [place] [address] [facility] [id number] [address] 15 Apr, 2016 [place] [address] [facility] [id number] [address] 0440 Oct, Diabetes E11.9 ; Asthma J45.909 and Nicotine dependence F17.200 IMMUNIZATIONS No Known Immunizations SOCIAL HISTORY Never Assessed REASON FOR VISIT Pals PLAN OF CARE VITAL SIGNS MEDICATIONS Medication Instructions Dosage Frequency Start Date End Date Duration Status Symbicort 160-4.5 MCG/ACT Inhalation Twice a day 2 puffs 12h Oct, Active ProAir HFA 108 (90 Base) MCG/ACT Inhalation every 4 hrs 2 puffs as needed 4h Oct, Active Spiriva HandiHaler 18 MCG Inhalation 2 times a day INHALE CONTENTS OF ONE CAPSULE 12h Active RESULTS No Results PROCEDURES No Known procedures INSTRUCTIONS MEDICATIONS ADMINISTERED No Known Medications MEDICAL (GENERAL) HISTORY Type Description Date Medical History Asthma Medical History Diabetes Surgical History hernia repair Surgical History shoulder arthroscopy right Surgical History cholecystectomy Surgical History exploritory x 2 for abdominal pain Surgical History blockage repair of gallbladder prior to surgery Hospitalization History Atypical Pneumonia, Asthma, Hypoxia--[facility] 04/20/16 Hospitalization History Pneumonia, COPD exacerbation-[facility] 10/04/15 Hospitalization History hypoxia, COPD exac-[facility] 12/28/16
--- OUTSIDE RECORDS SUMMARY | 2018-12-13 11:21 | XMS REPORT ---
Author Author DIRK TY [facility] Address [address] [place] [address] Care Team Providers Care News Reel Cameraman Name Role Phone DIRK TY Unavailable PROBLEMS Type Condition ICD9-CM Code ZYD26-VM Code Onset Dates Condition Status SNOMED Code Problem Asthma J45.909 Active 420744054 Problem Hearing loss, unspecified laterality H91.90 Active 31849021 Problem Diabetes E11.9 Active 69017980 Problem Nicotine dependence F17.200 Active 54607325 Problem Chronic obstructive pulmonary disease, unspecified COPD type J44.9 Active 89934367 Problem Diabetic polyneuropathy associated with type 2 diabetes mellitus E11.42 Active 22331432 Problem COPD exacerbation J44.1 Active 481148940 Problem Other inflammatory polyneuropathies G61.89 Active 90664484 Problem Mixed hyperlipidemia E78.2 Active 538196123 Problem Sleep apnea, unspecified type G47.30 Active 60535449 ALLERGIES No Information ENCOUNTERS Encounter Location Date Diagnosis [facility] [place] [id number] [place] [address] 62996- 5863 Feb, Diabetes E11.9 ; Diabetic polyneuropathy associated with type 2 diabetes mellitus E11.42 and Chronic obstructive pulmonary disease, unspecified COPD type J44.9 [facility] [place] [address] [place] [id number] [address]89 December, [facility] [place] [address] [address]- 4785 December, Diabetes E11.9 [facility] [place] [id number] [place] [address] 72745- 3678 December, [facility] [place] [id number] [place] [address] 54732- 7458 December, Mixed hyperlipidemia E78.2 [facility] [place] [address] [place] [id number] [place] [address] 94344- 1555 Nov, Diabetes E11.9 ; Mixed hyperlipidemia E78.2 ; Asthma J45.909 ; Diabetic polyneuropathy associated with type 2 diabetes mellitus E11.42 ; Nicotine dependence F17.200 and BMI 40.0-44.9, adult Z68.41 [facility] [place] [address] [place] [id number] [place] [address] 92565- 0765 Nov, [facility] [place] [address] [place] [id number] [place] [address] 50350- 2545 Sep, [place] [address] [place] [id number] [place] [address] 07525- 6117 Sep, [place] [address] [place] [id number] [place] [address] 50818- 0881 Jul, COPD exacerbation J44.1 [place] [address] [place] [id number] [place] [address] 09393- 4114 Jul, [place] [address] [place] [id number] [place] [address] 01843- 7297 Jul, BMI 40.0-44.9, adult Z68.41 ; Encounter for immunization Z23 ; Diabetes E11.9 ; Asthma J45.909 and Mixed hyperlipidemia E78.2 [place] [address] [place] [id number] [place] [address] 54653- 9493 Jun, [place] [address] [place] [id number] [place] [address] 82331- 8181 May, Dental examination Z01.20 [place] [address] [place] [id number] [place] [address] 79151- 3585 Apr, Diabetes E11.9 [place] [address] [place] [id number] [place] [address] 84177- 8101 Feb, COPD exacerbation J44.1 [place] [address] [place] [id number] [place] [address] 87380- 0790 Feb, [place] [address] [place] [id number] [place] [address] 27700- 5298 Feb, Abscess L02.91 [facility] [place] [address] [place] [id number] [place] [address] 76635- 4910 Jan, Diabetes E11.9 [facility] [place] [address] [place] [id number] [place] [address] 60621- 6851 Jan, Diabetes E11.9 [facility] [place] [address] [place] [id number] [place] [address] 20320- 0592 Jan, [facility] [place] [id number] [place] [address] 69197- 4571 Jan, [facility] [place] [address] [place] [id number] [place] [address] 00141- 5883 December, Dental examination Z01.20 [facility] [place] [address] [place] [id number] [place] [address] 86039- 9047 December, Diabetes E11.9 [facility] [place] [address] [place] [id number] [place] [address] 71573- 8938 December, [facility] [place] [address] [place] [id number] [place] [address] 95554- 9756 December, [facility] [place] [address] [place] [id number] [place] [address] 06774- 2202 December, Diabetes E11.9 ; COPD exacerbation J44.1 and Sleep apnea, unspecified type G47.30 [facility] [place] [address] [address]- 2315 December, [facility] [place] [id number] [place] [address] 06827- 2242 Oct, COPD exacerbation J44.1 [facility] [place] [address] [place] [address] 33584- 9177 Oct, Asthma J45.909 [facility] [address] [place] [id number] [place] [address] [id number] Sep, [place] [address] [address]- 2902 12 Aug, 2016 Asthma J45.909 and Other inflammatory polyneuropathies G61.89 [place] [id number] [place] [address] 38958- 2000 17 May, 2016 Diabetes E11.9 and Asthma J45.909 [place] [address] [place] [id number] [place] [address] 08334- 4596 16 Apr, 2016 Pneumonia of left lower lobe due to infectious organism J18.9 ; Asthma J45.909 ; Impacted cerumen of right ear H61.21 and Hearing loss, unspecified laterality H91.90 [place] [id number] [place] [address] 15862- 2132 15 Apr, 2016 [place] [address] [place] [id number] [place] [address] 41697- 8074 Oct, Diabetes E11.9 ; Asthma J45.909 and Nicotine dependence F17.200 IMMUNIZATIONS No Known Immunizations SOCIAL HISTORY Never Assessed REASON FOR VISIT PLAN OF CARE VITAL SIGNS MEDICATIONS Medication Instructions Dosage Frequency Start Date End Date Duration Status Lipitor 80 MG Orally Once a day 1 tablet 24h December, 30 day(s) Active RESULTS No Results PROCEDURES No Known procedures INSTRUCTIONS MEDICATIONS ADMINISTERED No Known Medications MEDICAL (GENERAL) HISTORY Type Description Date Medical History Asthma Medical History Diabetes Surgical History hernia repair Surgical History shoulder arthroscopy right Surgical History cholecystectomy Surgical History exploritory x 2 for abdominal pain Surgical History blockage repair of gallbladder prior to surgery Hospitalization History Atypical Pneumonia, Asthma, Hypoxia--[facility] 04/20/16 Hospitalization History Pneumonia, COPD exacerbation-[facility] 10/04/15 Hospitalization History hypoxia, COPD exac-[facility] 12/28/16
--- OUTSIDE RECORDS SUMMARY | 2018-12-13 11:21 | XMS REPORT ---
Author Author DIRK TY [facility] Address [address] [place] [address] Care Team Providers Care Patient Accounts Coordinator Name Role Phone DIRK TY Unavailable PROBLEMS Type Condition ICD9-CM Code URG75-SD Code Onset Dates Condition Status SNOMED Code Problem Asthma J45.909 Active 526127791 Problem Hearing loss, unspecified laterality H91.90 Active 84002443 Problem Diabetes E11.9 Active 19708025 Problem Nicotine dependence F17.200 Active 48190513 Problem Chronic obstructive pulmonary disease, unspecified COPD type J44.9 Active 91782613 Problem Diabetic polyneuropathy associated with type 2 diabetes mellitus E11.42 Active 44636716 Problem COPD exacerbation J44.1 Active 369470155 Problem Other inflammatory polyneuropathies G61.89 Active 81063595 Problem Mixed hyperlipidemia E78.2 Active 010287991 Problem Sleep apnea, unspecified type G47.30 Active 30216343 ALLERGIES Substance Reaction Event Type Date Status narcotics makes him very sick Non Drug Allergy Nov, Active ENCOUNTERS Encounter Location Date Diagnosis [facility] [address] [place] [address] 21270- 4176 Feb, Diabetes E11.9 ; Diabetic polyneuropathy associated with type 2 diabetes mellitus E11.42 and Chronic obstructive pulmonary disease, unspecified COPD type J44.9 [facility] [address] [place] [id number] [address]- 1356 December, [facility] [address] [place] [id number] [place] [address] 71265- 9099 December, Diabetes E11.9 [facility] [address] [place] [address] 84943- 9255 December, [facility] [address] [place] [id number] [place] [address] 35486- 5904 December, Mixed hyperlipidemia E78.2 [place] [address] [place] [id number] [place] [address] 43428- 5867 Nov, Diabetes E11.9 ; Mixed hyperlipidemia E78.2 ; Asthma J45.909 ; Diabetic polyneuropathy associated with type 2 diabetes mellitus E11.42 ; Nicotine dependence F17.200 and BMI 40.0-44.9, adult Z68.41 [place] [address] 41290- 7849 Nov, [place] [address] 17522- 2607 Sep, [place] [address] 16774- 2266 Sep, [place] [address] 58244- 4641 Jul, COPD exacerbation J44.1 [place] [address] 60364- 1968 Jul, [place] [address] 25369- 1445 Jul, BMI 40.0-44.9, adult Z68.41 ; Encounter for immunization Z23 ; Diabetes E11.9 ; Asthma J45.909 and Mixed hyperlipidemia E78.2 [place] [address] [place] [id number] [place] [address] 20827- 4200 Jun, [place] [address] [place] [id number] [place] [address] 99511- 3992 May, Dental examination Z01.20 [place] [id number] [place] [address] 25922- 9864 Apr, Diabetes E11.9 [place] [address] [place] [id number] [place] [address] 99265- 1245 Feb, COPD exacerbation J44.1 [place] [address] 43341- 9796 Feb, [facility] [address] [address]- 0488 Feb, Abscess L02.91 [facility] [address] [place] [address] 60981- 5825 Jan, Diabetes E11.9 [facility] [address] [place] [id number] [place] [address] 13349- 4077 Jan, Diabetes E11.9 [facility] [address] [place] [id number] [place] [address] 62844- 6858 Jan, [facility] [address] [place] [id number] [place] [address] 43655- 9298 Jan, [facility] [address] [place] [id number] [place] [address] 44734- 7346 December, Dental examination Z01.20 [facility] [address] [place] [id number] [place] [address] 37927- 0556 December, Diabetes E11.9 [facility] [address] [place] [id number] [place] [address] 12735- 2532 December, [facility] [address] [place] [id number] [place] [address] 75537- 5202 December, [facility] [address] [place] [id number] [place] [address] 47983- 3217 December, Diabetes E11.9 ; COPD exacerbation J44.1 and Sleep apnea, unspecified type G47.30 [facility] [address] [address]- 1895 December, [facility] [address] [place] [id number] [place] [address] 58836- 4235 Oct, COPD exacerbation J44.1 [facility] [address] [place] [address] 12066- 1983 Oct, Asthma J45.909 [facility] [address] [place] [id number] [place] [address] [id number] Sep, [place] [address] [place] [address] 73307- 6445 Aug, Asthma J45.909 and Other inflammatory polyneuropathies G61.89 [place] [address] [place] [address] 88676- 8275 17 May, 2016 Diabetes E11.9 and Asthma J45.909 [place] [id number] [place] [address] 19537- 3892 16 Apr, 2016 Pneumonia of left lower lobe due to infectious organism J18.9 ; Asthma J45.909 ; Impacted cerumen of right ear H61.21 and Hearing loss, unspecified laterality H91.90 [address] [place] [address] 57727- 0041 15 Apr, 2016 [place] [id number] [place] [address] 60391- 6365 Oct, Diabetes E11.9 ; Asthma J45.909 and Nicotine dependence F17.200 IMMUNIZATIONS No Known Immunizations SOCIAL HISTORY Never Assessed REASON FOR VISIT Diabetes- Beth Salazar RN, PHQ2, AUDIT C, A1C PLAN OF CARE Activity Details Follow Up 3 Months Reason: VITAL SIGNS Height 63 in 2017-12-01 Weight 246 lbs 2017-12-01 Temperature 98.0 degrees Fahrenheit 2017-12-01 Heart Rate 102 bpm 2017-12-01 Respiratory Rate 24 2017-12-01 Oximetry 96 % 2017-12-01 BMI 43.57 kg/m2 2017-12-01 Blood pressure systolic 142 mmHg 2017-12-01 Blood pressure diastolic 78 mmHg 2017-12-01 MEDICATIONS Medication Instructions Dosage Frequency Start Date End Date Duration Status Benadryl Allergy 25 MG Orally every 8 hrs 1 tablet as needed 8h Active Lovastatin 40 mg Orally Once a day 1 tablet with a meal 24h Active Albuterol Sulfate (2.5 MG/3ML) 0.083% USE 1 VIAL IN NEBULIZER FOUR TIMES DAILY 12 Active Zyrtec Allergy 10 MG Orally Once a day 1 tablet 24h Active Lisinopril 5 mg Orally Once a day 1 tablet 24h Jul, Active Lyrica 75 MG Orally twice a day 1 cap 12h Nov, Active Acetaminophen 500 MG Orally every 6 hrs 2 capsules as needed 6h Active ProAir HFA 108 (90 Base) MCG/ACT INHAEL TWO PUFFS BY MOUTH EVERY 4 HOURS NEEDED 17 Active Metformin HCl 500 MG TAKE ONE TABLET BY MOUTH TWICE DAILY WITH MEALS 30 Active Ibuprofen 200 MG Orally 2 times a day as needed 3 or 4 tablets Active Symbicort 160-4.5 MCG/ACT Inhalation Twice a day 2 puffs 12h Oct, Active Spiriva HandiHaler 18 MCG Inhalation 2 times a day INHALE CONTENTS OF ONE CAPSULE 12h Active RESULTS No Results PROCEDURES Procedure Date Ordered Result Body Site GLYCATED HEMOGLOBIN TEST December 01, 2017 COMPREHEN METABOLIC PANEL December 01, 2017 MICROALBUMIN, SEMIQUANT December 01, 2017 LIPID PANEL December 01, 2017 VENIPUNCT, ROUTINE* December 01, 2017 INSTRUCTIONS MEDICATIONS ADMINISTERED No Known Medications MEDICAL (GENERAL) HISTORY Type Description Date Medical History Asthma Medical History Diabetes Surgical History hernia repair Surgical History shoulder arthroscopy right Surgical History cholecystectomy Surgical History exploritory x 2 for abdominal pain Surgical History blockage repair of gallbladder prior to surgery Hospitalization History Atypical Pneumonia, Asthma, Hypoxia--[facility] 04/20/16 Hospitalization History Pneumonia, COPD exacerbation-[facility] 10/04/15 Hospitalization History hypoxia, COPD exac-[facility] 12/28/16
--- OUTSIDE RECORDS SUMMARY | 2018-12-13 11:21 | XMS REPORT ---
Author Author DIRK TY [facility] Address [address] [place] [address] Care Team Providers Care Machining Manager Name Role Phone DIRK TY Unavailable PROBLEMS Type Condition ICD9-CM Code [id number] Code Onset Dates Condition Status SNOMED Code Problem Asthma J45.909 Active 973056971 Problem Hearing loss, unspecified laterality H91.90 Active 89103058 Problem Diabetes E11.9 Active 09543212 Problem Nicotine dependence F17.200 Active 90906708 Problem Chronic obstructive pulmonary disease, unspecified COPD type J44.9 Active 54268299 Problem Diabetic polyneuropathy associated with type 2 diabetes mellitus E11.42 Active 70553401 Problem COPD exacerbation J44.1 Active 931669905 Problem Other inflammatory polyneuropathies G61.89 Active 09235701 Problem Mixed hyperlipidemia E78.2 Active 160334187 Problem Sleep apnea, unspecified type G47.30 Active 14767238 ALLERGIES No Information ENCOUNTERS Encounter Location Date Diagnosis [facility] [id number] [place] [address] 85661- 4670 Feb, Diabetes E11.9 ; Diabetic polyneuropathy associated with type 2 diabetes mellitus E11.42 and Chronic obstructive pulmonary disease, unspecified COPD type J44.9 [facility] [id number] [address] December, [facility] [address] [address] December, Diabetes E11.9 [facility] [address] [place] [address] 36817- 3236 December, [facility] [address] [place] [address] 90719- 9773 December, Mixed hyperlipidemia E78.2 [facility] [id number] [place] [address] 78378- 2675 Nov, Diabetes E11.9 ; Mixed hyperlipidemia E78.2 ; Asthma J45.909 ; Diabetic polyneuropathy associated with type 2 diabetes mellitus E11.42 ; Nicotine dependence F17.200 and BMI 40.0-44.9, adult Z68.41 [facility] [id number] [place] [address] 27812- 5012 Nov, [facility] [id number] [place] [address] 46678- 2905 Sep, [place] [id number] [place] [address] 35591- 7387 Sep, [place] [id number] [place] [address] 92652- 2317 Jul, COPD exacerbation J44.1 [place] [id number] [place] [address] 42535- 0502 Jul, [place] [id number] [place] [address] 75561- 0136 Jul, BMI 40.0-44.9, adult Z68.41 ; Encounter for immunization Z23 ; Diabetes E11.9 ; Asthma J45.909 and Mixed hyperlipidemia E78.2 [place] [id number] [place] [address] 08815- 2909 Jun, [facility] [facility] [id number] [place] [address] 31608- 2606 May, Dental examination Z01.20 [facility] [id number] [place] [address] 75787- 8261 Apr, Diabetes E11.9 [place] [facility] [id number] [place] [address] 17562- 1355 Feb, COPD exacerbation J44.1 [facility] [id number] [place] [address] 04986- 1705 Feb, [place] [id number] [place] [address] 04723- 3072 Feb, Abscess L02.91 [facility] [id number] [place] [address] 26621- 1223 Jan, Diabetes E11.9 [facility] [id number] [place] [address] 26689- 6227 Jan, Diabetes E11.9 [facility] [id number] [place] [address] 95928- 8187 Jan, [facility] [address] [place] [address] 44046- 5016 Jan, [facility] [id number] [place] [address] 43861- 9133 December, Dental examination Z01.20 [facility] [id number] [place] [address] 33150- 1511 December, Diabetes E11.9 [facility] [id number] [place] [address] 80579- 2561 December, [facility] [id number] [place] [address] 75752- 5475 December, [facility] [id number] [place] [address] 87198- 2259 December, Diabetes E11.9 ; COPD exacerbation J44.1 and Sleep apnea, unspecified type G47.30 [facility] [address] [address] 32[address] December, [facility] [address] [place] [address] 61805- 3252 Oct, COPD exacerbation J44.1 [facility] [address] [place] [address] 20512- 6761 Oct, Asthma J45.909 [facility] [id number] [place] [address] [id number] Sep, [place] [address] [address] 34[address] Aug, Asthma J45.909 and Other inflammatory polyneuropathies G61.89 [place] [address] [place] [address] 57304- 3380 17 May, 2016 Diabetes E11.9 and Asthma J45.909 [place] [id number] [place] [address] 02022- 9782 16 Apr, 2016 Pneumonia of left lower lobe due to infectious organism J18.9 ; Asthma J45.909 ; Impacted cerumen of right ear H61.21 and Hearing loss, unspecified laterality H91.90 [place] [id number] [place] [address] 28130- 0929 15 Apr, 2016 [place] [address] [place] [address] 85038- 6184 Oct, Diabetes E11.9 ; Asthma J45.909 and Nicotine dependence F17.200 IMMUNIZATIONS No Known Immunizations SOCIAL HISTORY Never Assessed REASON FOR VISIT Medication refill request PLAN OF CARE VITAL SIGNS MEDICATIONS No [...] to surgery Hospitalization History Atypical Pneumonia, Asthma, Hypoxia--[facility] 04/20/16 Hospitalization History Pneumonia, COPD exacerbation-[facility] 10/04/15 Hospitalization History hypoxia, COPD exac-[facility] 12/28/16
--- OUTSIDE RECORDS SUMMARY | 2018-12-13 11:21 | XMS REPORT ---
Author Author DIRK TY [facility] Address [address] [place] [address] Care Team Providers Care Professor Of Historical Theology Name Role Phone DIRK TY Unavailable PROBLEMS Type Condition ICD9-CM Code FPR14-KI Code Onset Dates Condition Status SNOMED Code Problem Nicotine dependence F17.200 Active 29547791 Problem Diabetes E11.9 Active 05877262 Problem Asthma J45.909 Active 654821242 Problem Diabetic polyneuropathy associated with type 2 diabetes mellitus E11.42 Active 33332265 Problem Mixed hyperlipidemia E78.2 Active 320505617 Problem Other inflammatory polyneuropathies G61.89 Active 01230867 Problem Hearing loss, unspecified laterality H91.90 Active 84948404 Problem Sleep apnea, unspecified type G47.30 Active 41281430 Problem COPD exacerbation J44.1 Active [id number] ALLERGIES No Information ENCOUNTERS Encounter Location Date Diagnosis [place] [address] [address]- [address]369 December, [place] [address] 76308- 4437 December, Diabetes E11.9 [place] [id number] [place] [address] 30868- 0515 December, [place] [id number] [place] [address] 09208- 0404 December, Mixed hyperlipidemia E78.2 [place] [address] 52759- 6903 Nov, Diabetes E11.9 ; Mixed hyperlipidemia E78.2 ; Asthma J45.909 ; Diabetic polyneuropathy associated with type 2 diabetes mellitus E11.42 ; Nicotine dependence F17.200 and BMI 40.0-44.9, adult Z68.41 [place] [address], [place] [address] Nov, [facility] [id number] [place] [address] 44923- 2149 Sep, [facility] [id number] [place] [address] 91865- 1484 Sep, [facility] [address] 46750- 8531 Jul, COPD exacerbation J44.1 [facility] [id number] [place] [address] 01530- 9205 Jul, [facility] [id number] [place] [address] 04968- 0365 Jul, BMI 40.0-44.9, adult Z68.41 ; Encounter for immunization Z23 ; Diabetes E11.9 ; Asthma J45.909 and Mixed hyperlipidemia E78.2 [facility] [id number] [place] [address] 09700- 9489 Jun, [facility] [id number] [place] [address] 97022- 3630 May, Dental examination Z01.20 [facility] [id number] [place] [address] 75500- 9182 Apr, Diabetes E11.9 [facility] [id number] [place] [address] 84023- 1121 Feb, COPD exacerbation J44.1 [facility] [id number] [place] [address] 86808- 0216 Feb, [facility] [id number] [place] [address] 45725- 9718 Feb, Abscess L02.91 [facility] [id number] [place] [address] 21358- 6055 Jan, Diabetes E11.9 [facility] [id number] [place] [address] 43140- 6482 Jan, Diabetes E11.9 [facility] [address] [place] [address] 61710- 0157 Jan, [facility] [id number] [place] [address] 39561- 5481 Jan, [facility] [id number] [place] [address] 67314- 2864 December, Dental examination Z01.20 [facility] [id number] [place] [address] 50434- 1291 December, Diabetes E11.9 [facility] [id number] [place] [address] 92365- 3356 December, [facility] [id number] [place] [address] 79733- 2168 December, [facility] [id number] [place] [address] 88051- 8842 December, Diabetes E11.9 ; COPD exacerbation J44.1 and Sleep apnea, unspecified type G47.30 [facility] [id number] [place] [address] 41529- 9418 December, [facility] [id number] [place] [address] 13572- 5436 Oct, COPD exacerbation J44.1 [facility] [id number] [place] [address] 78517- 5203 Oct, Asthma J45.909 [facility] [id number] [place] [id number] Sep, [facility] [id number] [place] [address] 55459- 2683 Aug, Asthma J45.909 and Other inflammatory polyneuropathies G61.89 [facility] [id number] [place] [address] 80285- 7412 May, Diabetes E11.[address] [facility] [address] [facility] [id number] [address] 16 Apr, 2016 Pneumonia of left lower lobe due to infectious organism J18.9 ; Asthma J45.909 ; Impacted cerumen of right ear H61.21 and Hearing loss, unspecified laterality H91.90 [place] [address] [facility] [id number] [address]- [address]17 15 Apr, 2016 [place] [address] [facility] [id number] [address]- 1702 Oct, Diabetes E11.9 ; Asthma J45.909 and Nicotine dependence F17.200 IMMUNIZATIONS No Known Immunizations SOCIAL HISTORY Never Assessed REASON FOR VISIT 6 mo DM ed f/u PLAN OF CARE VITAL SIGNS MEDICATIONS Unknown [...]
--- OUTSIDE RECORDS SUMMARY | 2018-12-13 11:24 | XMS REPORT | Continuity of Care Document ---
Author Organization Unknown Address Unknown Allergies Active Description Code Type Severity Reaction Onset Reported/Identified Relationship to Patient Clinical Status Yes No Known Drug Allergies [id number] Drug Allergy Unknown N/A 05/16/2012 Yes Opioids - Morphine Analogues [id number] Drug Allergy Moderate N/A 2017 Yes tramadol [id number] Drug Allergy Moderate NAUSEA 12/31/2017 Medications There is no data. Problems Date Dx Coded Attending Type Code [...] COMPL, TYPE II OR UNSPEC TY 01/17/2014 LARS ROA, MARC Tanner Ot 305.1 TOBACCO USE DISORDER 01/17/2014 MARC SOUSA MD Ot 574.91 CALC GB/BILE DUCT W/O CHOLECYST W/OBSTRU 01/18/2014 RYAN HANSON MD Ot 250.00 DIAB [...] APPIAH MD Ot 786.50 08/01/2015 NAIF SIMMS APRN Ot F17.210 NICOTINE DEPENDENCE, CIGARETTES, UNCOMPL 08/01/2015 NAIF SIMMS CONCRETE BLOCK MASON Ot J20.9 ACUTE BRONCHITIS, UNSPECIFIED 08/01/2015 LORENA APPIAH MD Ot 250.00 08/01/2015 LORENA APPIAH MD Ot 786.50 09/18/2015 SUZETTE GUPTA Ot F17.210 NICOTINE DEPENDENCE, CIGARETTES, UNCOMPL 09/18/2015 SUEZTTE GUPTA Ot J45.901 UNSPECIFIED ASTHMA WITH (ACUTE) [...] DIABETES MELLITUS WITHOUT COMPLIC 10/05/2016 MATTHEW ENCARNACION MD, Ot E66.9 OBESITY, UNSPECIFIED 10/05/2016 MATTHEW ENCARNACION MD Ot F17.210 NICOTINE DEPENDENCE, CIGARETTES, UNCOMPL 10/05/2016 MATTHEW ENCARNACION MD, Ot J18.9 PNEUMONIA, UNSPECIFIED ORGANISM 10/05/2016 MATTHEW ENCARNACION MD, Ot J44.1 CHRONIC OBSTRUCTIVE PULMONARY DISEASE W 10/05/2016 MATTHEW ENCARNACION MD Ot Z79.899 OTHER REGIONAL ENGAGEMENT CONSULTANT (CURRENT) DRUG THERAPY 12/28/2016 LORENA APPIAH MD [...] APPIAH MD Ot 786.50 CHEST PAIN NOS 01/29/2017 LORENA APPIAH MD Ot 250.00 DIAB DENAE WO COMPL, TYPE II OR UNSPEC TY 01/29/2017 LORENA APPIAH MD Ot 786.50 CHEST PAIN NOS 01/31/2017 NAIF SIMMS APRN Ot E11.9 TYPE 2 DIABETES MELLITUS WITHOUT COMPLIC 01/31/2017 NAIF SIMMS APRN Ot F17.210 NICOTINE DEPENDENCE, CIGARETTES, UNCOMPL 01/31/2017 NAIF SIMMS CONCRETE BLOCK MASON Ot J45.909 UNSPECIFIED ASTHMA, UNCOMPLICATED 01/31/2017 NAIF SIMMS APRN Ot R10.13 EPIGASTRIC PAIN 01/31/2017 NAIF SIMMS APRN Ot R11.2 NAUSEA WITH VOMITING, UNSPECIFIED 01/31/2017 NAIF SIMMS APRN Ot R50.9 FEVER, UNSPECIFIED 01/31/2017 NAIF ISMMS APRN Ot Z87.19 PERSONAL HISTORY OF OTHER DISEASES OF TH 01/31/2017 NAIF SIMMS APRN Ot Z87.442 PERSONAL HISTORY OF URINARY CALCULI 12/31/2017 LA[place] CARRERA MD Ot E11.9 TYPE 2 DIABETES MELLITUS WITHOUT COMPLIC 12/31/2017 LA[place] CARRERA MD Ot G43.909 MIGRAINE, UNSP, NOT INTRACTABLE, WITHOUT 12/31/2017 LA[place] CARRERA MD, Ot J44.9 CHRONIC OBSTRUCTIVE PULMONARY DISEASE, U 12/31/2017 LA[place] CARRERA MD, Ot K02.9 DENTAL CARIES, UNSPECIFIED 12/31/2017 LAKE CARRERA MD Ot K08.89 OTHER SPECIFIED DISORDERS OF TEETH AND S 12/31/2017 LA[place] CARRERA MD, Ot K21.9 GASTRO-ESOPHAGEAL REFLUX DISEASE WITHOUT 12/31/2017 LA[place] CARRERA MD, Ot Z77.22 CNTCT W AND EXPSR TO ENVIRON TOBACCO SMO 12/31/2017 LAKE CARRERA MD Ot Z79.4 REGIONAL ENGAGEMENT CONSULTANT (CURRENT) USE OF INSULIN 12/31/2017 LA[place] CARRERA MD, Ot Z79.52 REGIONAL ENGAGEMENT CONSULTANT (CURRENT) USE OF SYSTEMIC STER 12/31/2017 LA[place] CARRERA MD, Ot Z87.442 PERSONAL HISTORY OF URINARY CALCULI 12/31/2017 LA[place] CARRERA MD, Ot Z88.6 ALLERGY STATUS TO ANALGESIC AGENT STATUS 12/31/2017 LA[place] CARRERA MD Ot Z98.890 OTHER SPECIFIED POSTPROCEDURAL STATES 12/31/2017 LA[place] CARRERA MD, Ot Z99.2 DEPENDENCE ON RENAL DIALYSIS 01/02/2018 LA[place] CARRERA MD, Ot E11.9 TYPE 2 DIABETES MELLITUS WITHOUT COMPLIC 01/02/2018 LAKE CARRERA MD, Ot G43.909 MIGRAINE, UNSP, NOT INTRACTABLE, WITHOUT 01/02/2018 LAKE CARRERA MD, Ot J44.9 CHRONIC OBSTRUCTIVE PULMONARY DISEASE, U 01/02/2018 LAKE CARRERA MD, Ot K02.9 DENTAL CARIES, UNSPECIFIED 01/02/2018 LAKE CARRERA MD, Ot K08.89 OTHER SPECIFIED DISORDERS OF TEETH AND S 01/02/2018 LAKE CARRERA MD, Ot K21.9 GASTRO-ESOPHAGEAL REFLUX DISEASE WITHOUT 01/02/2018 LA[place] CARRERA MD, Ot Z77.22 CNTCT W AND EXPSR TO ENVIRON TOBACCO SMO 01/02/2018 LAKE CARRERA MD, Ot Z79.4 [facility] (CURRENT) USE OF INSULIN 01/02/2018 LAKE CARRERA MD, Ot Z79.52 REGIONAL ENGAGEMENT CONSULTANT (CURRENT) USE OF SYSTEMIC STER 01/02/2018 LAKE CARRERA MD, Ot Z87.442 PERSONAL HISTORY OF URINARY CALCULI 01/02/2018 LAKE CARRERA MD, Ot Z88.6 ALLERGY STATUS TO ANALGESIC AGENT STATUS 01/02/2018 LAKE CARRERA MD, Ot Z98.890 OTHER SPECIFIED POSTPROCEDURAL STATES 01/02/2018 LAKE CARRERA MD, Ot Z99.2 DEPENDENCE ON RENAL DIALYSIS 05/02/2018 KARSON ROA, DIRK Coulter Ot J44.9 CHRONIC OBSTRUCTIVE PULMONARY DISEASE, U Procedures There is no data. Results Test Result Range Complete blood count (CBC) with automated white blood cell (WBC) differential - 04/20/16 15:02 Blood leukocytes automated count (number/volume) 11.2 10*3/uL 4.3-11.0 Blood erythrocytes automated count (number/volume) 4.99 10*6/uL 4.35-5.85 Venous blood hemoglobin measurement (mass/volume) 15.8 [...] Automated blood platelet mean volume measurement 10.1 [foz_us] 7.4-10.4 Automated blood neutrophils/100 leukocytes 62 % [...] Serum or plasma sodium measurement (moles/volume) 139 mmol/L 135-145 Serum or plasma potassium measurement (moles/volume) 3.9 mmol/L 3.6-5.0 Serum or plasma chloride measurement (moles/volume) 108 mmol/L 98-107 Carbon dioxide 22 mmol/L 21-32 Serum or plasma anion gap determination (moles/volume) 9 mmol/L 5-14 Serum or plasma urea nitrogen measurement (mass/volume) 11 mg/dL 7-18 Serum or plasma creatinine measurement (mass/volume) 1.10 mg/dL 0.60-1.30 Serum or plasma urea nitrogen/creatinine mass [...] or plasma troponin i.cardiac measurement (mass/volume) < ng/ mL <0.30 Serum or plasma lithium measurement (moles/volume) - 04/20/16 15:02 BNP level < pg/mL <100.0 Arterial blood gas measurement - 04/20/16 16:09 Blood pCO2 26 mm[Hg] 35-45 Blood pO2 61 mm[Hg] 79-93 Arterial blood bicarbonate measurement (moles/volume) 20 mmol/L 23-27 Arterial blood base excess by calculation -0.7 mmol/L - 2.5-2.5 Arterial blood oxygen saturation measurement 95 % [...] blood base excess by calculation -1.5 mmol/L - 2.5-2.5 Arterial blood oxygen saturation measurement 97 % 94-100 * Inhaled oxygen flow rate 3 NRG Arterial blood pH measurement with patient temperature correction 7.38 7.37-7.43 Arterial blood carbon dioxide, total measurement (moles/volume) 24.8 mmol/L 21.0-31.0 Body site LEFT RADIAL NRG Assessment of wrist artery patency prior to arterial puncture POSITIVE NRG Setting of ventilation mode NO NRG Measurement of body temperature 98.4 NRG Complete blood count (CBC) with automated white blood cell (WBC) differential - 10/04/16 20:55 Blood leukocytes automated count (number/volume) 10.3 10*3/uL 4.3-11.0 Blood erythrocytes automated count (number/volume) 4.83 10*6/uL 4.35-5.85 Venous blood hemoglobin measurement (mass/volume) 15.2 g/dL 13.3-17.7 Blood hematocrit (volume fraction) 43 % 40-54 Automated erythrocyte mean corpuscular volume 89 [foz_us] 80-99 Automated erythrocyte mean corpuscular hemoglobin (mass per erythrocyte) 32 pg 25-34 Automated erythrocyte mean corpuscular hemoglobin concentration measurement ( mass/volume) 35 g/dL 32-36 Automated erythrocyte distribution width ratio 12.9 % 10.0-14.5 Automated blood platelet count (count/volume) 241 10*3/uL 130-400 Automated blood platelet mean volume measurement 10.0 [foz_us] 7.4-10.4 Automated blood neutrophils/100 leukocytes 53 % 42-75 Automated blood lymphocytes/100 leukocytes 26 % 12-44 Blood monocytes/100 leukocytes 17 % 0-12 Automated blood eosinophils/100 leukocytes 3 % 0-10 Automated blood basophils/100 leukocytes 1 % 0-10 Blood neutrophils automated count (number/volume) 5.5 10*3 1.8-7.8 Blood lymphocytes automated count (number/volume) 2.6 10*3 1.0-4.0 Blood monocytes automated count (number/volume) 1.7 10*3 0.0-1.0 Automated eosinophil count 0.3 10*3/uL 0.0-0.3 Automated blood basophil count (count/volume) 0.1 10*3/uL 0.0-0.1 PT panel in platelet poor plasma by coagulation assay - 10/04/16 20:55 Prothrombin time (PT) in platelet poor plasma by coagulation assay 12.0 s 12.2-14.7 INR in platelet poor plasma or blood by coagulation assay 0.9 0.8-1.4 Activated partial thromboplastin time (aPTT) in platelet poor plasma bycoagulation assay - 10/04/16 20:55 Activated partial thromboplastin time (aPTT) in platelet poor plasma bycoagulation assay 27 s 24-35 Comprehensive metabolic panel - 10/04/16 20:55 Serum or plasma sodium measurement (moles/volume) 141 mmol/L 135-145 Serum or plasma potassium measurement (moles/volume) 4.6 mmol/L 3.6-5.0 Serum or plasma chloride measurement (moles/volume) 107 mmol/L 98-107 Carbon dioxide 22 mmol/L 21-32 Serum or plasma anion gap determination (moles/volume) 12 mmol/L 5-14 Serum or plasma urea nitrogen measurement (mass/volume) 17 mg/dL 7-18 Serum or plasma creatinine measurement (mass/volume) 0.95 mg/dL 0.60-1.30 Serum or plasma urea nitrogen/creatinine mass ratio 18 NRG Serum or plasma creatinine measurement with calculation of estimated glomerular filtration rate > NRG Serum or plasma glucose measurement (mass/volume) 115 mg/dL 70-105 Serum or plasma calcium measurement (mass/volume) 9.7 mg/dL 8.5-10.1 Serum or plasma total bilirubin measurement (mass/volume) 0.3 mg/dL 0.1-1.0 Serum or plasma alkaline phosphatase measurement (enzymatic activity/volume) 121 U/L 40-136 Serum or plasma aspartate aminotransferase measurement (enzymatic activity/ volume) 28 U/L 5-34 Serum or plasma alanine aminotransferase measurement (enzymatic activity/volume ) 63 U/L 0-55 Serum or plasma protein measurement (mass/volume) 7.1 g/dL 6.4-8.2 Serum or plasma albumin measurement (mass/volume) 4.1 g/dL 3.2-4.5 Magnesium - 10/04/16 20:55 Magnesium 2.2 mg/dL 1.8-2.4 Serum or plasma creatine kinase measurement (enzymatic activity/volume) - 10/04 20:55 Serum or plasma creatine kinase measurement (enzymatic activity/volume) 159 U/L 30-200 Serum or plasma creatine kinase MB measurement (enzymatic activity/volume) - 20:55 Serum or plasma creatine kinase MB measurement (enzymatic activity/volume) 2.5 ng/mL <6.6 Serum or plasma troponin i.cardiac measurement (mass/volume) - 10/04/16 20:55 Serum or plasma troponin i.cardiac measurement (mass/volume) < ng/ mL <0.30 Serum or plasma lithium measurement (moles/volume) - 10/04/16 20:55 BNP level < pg/mL <100.0 Influenza virus A and B antigen detection - 10/04/16 21:11 FLU RESULT NEGATIVE FOR INFLUENZA A AND B ANTIGENS BY [facility] Complete blood count (CBC) with automated white blood cell (WBC) differential - 10/05/16 04:56 Blood leukocytes automated count (number/volume) 9.2 10*3/uL 4.3-11.0 Blood erythrocytes automated count (number/volume) 4.96 10*6/uL 4.35-5.85 Venous blood hemoglobin measurement (mass/volume) 15.4 g/dL 13.3-17.7 Blood hematocrit (volume fraction) 44 % 40-54 Automated erythrocyte mean corpuscular volume 90 [foz_us] 80-99 Automated erythrocyte mean corpuscular hemoglobin (mass per erythrocyte) 31 pg 25-34 Automated erythrocyte mean corpuscular hemoglobin concentration measurement ( mass/volume) 35 g/dL 32-36 Automated erythrocyte distribution width ratio 12.8 % 10.0-14.5 Automated blood platelet count (count/volume) 240 10*3/uL 130-400 Automated blood platelet mean volume measurement 10.1 [foz_us] 7.4-10.4 Automated blood neutrophils/100 leukocytes 89 % 42-75 Automated blood lymphocytes/100 leukocytes 10 % 12-44 Blood monocytes/100 leukocytes 1 % 0-12 Automated blood eosinophils/100 leukocytes 0 % 0-10 Automated blood basophils/100 leukocytes 0 % 0-10 Blood neutrophils automated count (number/volume) 8.2 10*3 1.8-7.8 Blood lymphocytes automated count (number/volume) 0.9 10*3 1.0-4.0 Blood monocytes automated count (number/volume) 0.1 10*3 0.0-1.0 Automated eosinophil count 0.0 10*3/uL 0.0-0.3 Automated blood basophil count (count/volume) 0.0 10*3/uL 0.0-0.1 Comprehensive metabolic panel - 10/05/16 04:56 Serum or plasma sodium measurement (moles/volume) 136 mmol/L 135-145 Serum or plasma potassium measurement (moles/volume) 4.9 mmol/L 3.6-5.0 Serum or plasma chloride measurement (moles/volume) 105 mmol/L 98-107 Carbon dioxide 17 mmol/L 21-32 Serum or plasma anion gap determination (moles/volume) 14 mmol/L 5-14 Serum or plasma urea nitrogen measurement (mass/volume) 19 mg/dL 7-18 Serum or plasma creatinine measurement (mass/volume) 0.93 mg/dL 0.60-1.30 Serum or plasma urea nitrogen/creatinine mass ratio 20 NRG Serum or plasma creatinine measurement with calculation of estimated glomerular filtration rate > NRG Serum or plasma glucose measurement (mass/volume) 277 mg/dL 70-105 Serum or plasma calcium measurement (mass/volume) 9.2 mg/dL 8.5-10.1 Serum or plasma total bilirubin measurement (mass/volume) 0.4 mg/dL 0.1-1.0 Serum or plasma alkaline phosphatase measurement (enzymatic activity/volume) 125 U/L 40-136 Serum or plasma aspartate aminotransferase measurement (enzymatic activity/ volume) 23 U/L 5-34 Serum or plasma alanine aminotransferase measurement (enzymatic activity/volume ) 64 U/L 0-55 Serum or plasma protein measurement (mass/volume) 7.2 g/dL 6.4-8.2 Serum or plasma albumin measurement (mass/volume) 4.2 g/dL 3.2-4.5 Arterial blood gas measurement - 12/27/16 22:07 Blood pCO2 34 mm[Hg] 35-45 Blood pO2 44 mm[Hg] 79-93 Arterial blood bicarbonate measurement (moles/volume) 24 mmol/L 23-27 Arterial blood base excess by calculation 0.6 mmol/L -2.5 -2.5 Arterial blood oxygen saturation measurement 87 % 94-100 * Inhaled oxygen flow rate 2L NRG Arterial blood pH measurement with patient temperature correction 7.46 7.37-7.43 Arterial blood carbon dioxide, total measurement (moles/volume) 25.3 mmol/L 21.0-31.0 Body site LEFT RADAIL NRG Assessment of wrist artery patency prior to arterial puncture YES- POS NRG Setting of ventilation mode NO NRG Measurement of body temperature 96.8 NRG Complete blood count (CBC) with automated white blood cell (WBC) differential - 12/27/16 22:12 Blood leukocytes automated count (number/volume) 10.3 10*3/uL 4.3-11.0 Blood erythrocytes automated count (number/volume) 4.99 10*6/uL 4.35-5.85 Venous blood hemoglobin measurement (mass/volume) 15.6 g/dL 13.3-17.7 Blood hematocrit (volume fraction) 44 % 40-54 Automated erythrocyte mean corpuscular volume 89 [foz_us] 80-99 Automated erythrocyte mean corpuscular hemoglobin (mass per erythrocyte) 31 pg 25-34 Automated erythrocyte mean corpuscular hemoglobin concentration measurement ( mass/volume) 35 g/dL 32-36 Automated erythrocyte distribution width ratio 12.8 % 10.0-14.5 Automated blood platelet count (count/volume) 258 10*3/uL 130-400 Automated blood platelet mean volume measurement 10.1 [foz_us] 7.4-10.4 Automated blood neutrophils/100 leukocytes 55 % 42-75 Automated blood lymphocytes/100 leukocytes 30 % 12-44 Blood monocytes/100 leukocytes 11 % 0-12 Automated blood eosinophils/100 leukocytes 3 % 0-10 Automated blood basophils/100 leukocytes 1 % 0-10 Blood neutrophils automated count (number/volume) 5.7 10*3 1.8-7.8 Blood lymphocytes automated count (number/volume) 3.1 10*3 1.0-4.0 Blood monocytes automated count (number/volume) 1.1 10*3 0.0-1.0 Automated eosinophil count 0.3 10*3/uL 0.0-0.3 Automated blood basophil count (count/volume) 0.1 10*3/uL 0.0-0.1 Blood lactic acid measurement (moles/volume) - 12/27/16 22:12 Blood lactic acid measurement (moles/volume) 2.00 mmol/L 0.50-2.00 Comprehensive metabolic panel - 12/27/16 22:12 Serum or plasma sodium measurement (moles/volume) 139 mmol/L 135-145 Serum or plasma potassium measurement (moles/volume) 4.0 mmol/L 3.6-5.0 Serum or plasma chloride measurement (moles/volume) 107 mmol/L 98-107 Carbon dioxide 20 mmol/L 21-32 Serum or plasma anion gap determination (moles/volume) 12 mmol/L 5-14 Serum or plasma urea nitrogen measurement (mass/volume) 13 mg/dL 7-18 Serum or plasma creatinine measurement (mass/volume) 1.13 mg/dL 0.60-1.30 Serum or plasma urea nitrogen/creatinine mass ratio 12 NRG Serum or plasma creatinine measurement with calculation of estimated glomerular filtration rate > NRG Serum or plasma glucose measurement (mass/volume) 159 mg/dL 70-105 Serum or plasma calcium measurement (mass/volume) 9.6 mg/dL 8.5-10.1 Serum or plasma total bilirubin measurement (mass/volume) 0.3 mg/dL 0.1-1.0 Serum or plasma alkaline phosphatase measurement (enzymatic activity/volume) 119 U/L 40-136 Serum or plasma aspartate aminotransferase measurement (enzymatic activity/ volume) 28 U/L 5-34 Serum or plasma alanine aminotransferase measurement (enzymatic activity/volume ) 58 U/L 0-55 Serum or plasma protein measurement (mass/volume) 7.0 g/dL 6.4-8.2 Serum or plasma albumin measurement (mass/volume) 4.1 g/dL 3.2-4.5 Serum or plasma troponin i.cardiac measurement (mass/volume) - 12/27/16 22:12 Serum or plasma troponin i.cardiac measurement (mass/volume) < ng/ mL <0.30 Bacterial blood culture - 12/27/16 22:12 Bacterial blood culture NG NRG Bacterial blood culture - 12/27/16 22:31 Bacterial blood culture NG NRG Hemoglobin A1c - 12/29/16 05:15 Hemoglobin A1c 8.2 % 4.5-6.2 Serum or plasma alpha 1 antitrypsin measurement (mass/volume) - 12/29/16 12:06 Serum or plasma alpha 1 antitrypsin measurement (mass/volume) 160.9 % 90.0-200.0 Lipid Panel - 01/04/17 09:57 Cholesterol, Total 163 mg/dL 100-199 Triglycerides 98 mg/dL 0-149 HDL Cholesterol 52 mg/dL >39 VLDL Cholesterol Jose De Jesus 20 mg/dL 5-40 LDL Cholesterol Calc 91 mg/dL 0-99 Microalb/Creat Ratio, Randm Ur - 01/05/17 13:30 Creatinine, Urine 55.7 mg/dL Not Estab. Microalbumin, Urine 3.3 ug/mL Not Estab. Microalb/Creat Ratio 5.9 mg/g creat 0.0-30.0 Complete blood count (CBC) with automated white blood cell (WBC) differential - 01/29/17 16:30 Blood leukocytes automated count (number/volume) 11.0 10*3/uL 4.3-11.0 Blood erythrocytes automated count (number/volume) 5.03 10*6/uL 4.35-5.85 Venous blood hemoglobin measurement (mass/volume) 15.5 g/dL 13.3-17.7 Blood hematocrit (volume fraction) 45 % 40-54 Automated erythrocyte mean corpuscular volume 89 [foz_us] 80-99 Automated erythrocyte mean corpuscular hemoglobin (mass per erythrocyte) 31 pg 25-34 Automated erythrocyte mean corpuscular hemoglobin concentration measurement ( mass/volume) 35 g/dL 32-36 Automated erythrocyte distribution width ratio 12.6 % 10.0-14.5 Automated blood platelet count (count/volume) 307 10*3/uL 130-400 Automated blood platelet mean volume measurement 10.2 [foz_us] 7.4-10.4 Automated blood neutrophils/100 leukocytes 61 % 42-75 Automated blood lymphocytes/100 leukocytes 26 % 12-44 Blood monocytes/100 leukocytes 11 % 0-12 Automated blood eosinophils/100 leukocytes 1 % 0-10 Automated blood basophils/100 leukocytes 0 % 0-10 Blood neutrophils automated count (number/volume) 6.7 10*3 1.8-7.8 Blood lymphocytes automated count (number/volume) 2.9 10*3 1.0-4.0 Blood monocytes automated count (number/volume) 1.2 10*3 0.0-1.0 Automated eosinophil count 0.1 10*3/uL 0.0-0.3 Automated blood basophil count (count/volume) 0.0 10*3/uL 0.0-0.1 Comprehensive metabolic panel - 01/29/17 16:30 Serum or plasma sodium measurement (moles/volume) 138 mmol/L 135-145 Serum or plasma potassium measurement (moles/volume) 3.8 mmol/L 3.6-5.0 Serum or plasma chloride measurement (moles/volume) 103 mmol/L 98-107 Carbon dioxide 24 mmol/L 21-32 Serum or plasma anion gap determination (moles/volume) 11 mmol/L 5-14 Serum or plasma urea nitrogen measurement (mass/volume) 10 mg/dL 7-18 Serum or plasma creatinine measurement (mass/volume) 0.93 mg/dL 0.60-1.30 Serum or plasma urea nitrogen/creatinine mass ratio 11 0 -20 Serum or plasma creatinine measurement with calculation of estimated glomerular filtration rate > NRG Serum or plasma glucose measurement (mass/volume) 138 mg/dL 70-105 Serum or plasma calcium measurement (mass/volume) 9.9 mg/dL 8.5-10.1 Serum or plasma total bilirubin measurement (mass/volume) 0.4 mg/dL 0.1-1.0 Serum or plasma alkaline phosphatase measurement (enzymatic activity/volume) 114 U/L 40-136 Serum or plasma aspartate aminotransferase measurement (enzymatic activity/ volume) 27 U/L 5-34 Serum or plasma alanine aminotransferase measurement (enzymatic activity/volume ) 53 U/L 0-55 Serum or plasma protein measurement (mass/volume) 7.3 g/dL 6.4-8.2 Serum or plasma albumin measurement (mass/volume) 4.2 g/dL 3.2-4.5 Lipase - 01/29/17 16:30 Lipase 76 U/L 8-78 Complete urinalysis with reflex to culture - 01/29/17 17:06 Urine color determination YELLOW NRG Urine clarity determination CLEAR NRG Urine pH measurement by test strip 7 5-9 Specific gravity of urine by test strip 1.010 1.016- 1.022 Urine protein assay by test strip, semi-quantitative NEGATIVE NEGATIVE Urine glucose detection by automated test strip NEGATIVE NEGATIVE Erythrocytes detection in urine sediment by light microscopy NEGATIVE NEGATIVE Urine ketones detection by automated test strip NEGATIVE NEGATIVE Urine nitrite detection by test strip NEGATIVE NEGATIVE Urine total bilirubin detection by test strip NEGATIVE NEGATIVE Urine urobilinogen measurement by automated test strip (mass/volume) 1 mg/dL NORMAL Urine leukocyte esterase detection by dipstick NEGATIVE NEGATIVE Automated urine sediment erythrocyte count by microscopy (number/high power field) NONE NRG Automated urine sediment leukocyte count by microscopy (number/high power field ) NONE NRG Bacteria detection in urine sediment by light microscopy NEGATIVE NRG Squamous epithelial cells detection in urine sediment by light microscopy 0-2 NRG Crystals detection in urine sediment by light microscopy NONE NRG Casts detection in urine sediment by light microscopy NONE NRG Mucus detection in urine sediment by light microscopy NEGATIVE NRG Complete urinalysis with reflex to culture NO NRG Encounters ACCT No. Visit Date/Time Discharge Status Pt. Type Provider Facility Loc./Unit Complaint [id number] 03/15/2018 09:45:00 03/15/2018 23:59:59 CLS Outpatient KARSON ROA, DIRK Coulter [facility] RT CHRONIC OBSTRUCTIVE PULMONARY DISEASE [id number] 12/31/2017 16:24:00 12/31/2017 18:42:00 DIS Emergency DEANDRE ROA, LAKE Hathaway [facility] ER TOOTH ACHE [id number] 01/29/2017 15:44:00 01/29/2017 18:21:00 DIS Outpatient NAIF SIMMS APRN [facility] ER THROWING UP/FEVER [id number] 12/28/2016 00:44:00 12/29/2016 13:30:00 DIS Inpatient ZACH ROA, VALENCIA Connors [facility] 4TH COPD EXACERBATION W/ HYPOXIA [id number] 10/04/2016 22:25:00 10/05/2016 12:30:00 DIS Inpatient SHASHANK ROA, MATTHEW Thompson [facility] 4TH PNEUMONIA,COPD EXACERBATION [id number] 04/20/2016 16:49:00 04/21/2016 11:10:00 DIS Inpatient MIRELA ROA, JOHN Parsons [facility] 4TH ATYPICAL PNEUMONIA, ASTHMA, HYPOXIA [id number] 09/18/2015 17:00:00 09/18/2015 19:34:00 DIS Emergency SUZETTE GUPTA [facility] ER CONGESTION,SOA [id number] 08/01/2015 20:35:00 08/01/2015 22:10:00 DIS Emergency NAIF SIMMS APRN [facility] ER SOA [id number] 06/30/2014 23:25:00 07/01/2014 01:00:00 DIS Emergency VINCENT MUÑOZ MD [facility] ER DIFFICULITY BREATHING [id number] 01/17/2014 19:10:00 01/18/2014 21:20:00 DIS Outpatient RYAN AHNSON MD [facility] SDC GALLSTONES [id number] 01/16/2014 17:44:00 01/17/2014 09:36:00 DIS Inpatient MARC SOUSA MD [facility] 4TH CHOLELITHIASIS WITH CBD OBSTRUCTION [id number] 11/12/2013 04:09:00 11/12/2013 08:07:00 DIS Emergency WANDA ROA, VINCENT Parsons [facility] ER ABD PAIN [id number] 06/14/2013 03:16:00 06/15/2013 11:20:00 DIS Inpatient RYAN HANSON MD [facility] SURGICAL ABD PAIN,ACUTE CHOLECYSTITIS [id number] 01/03/2013 10:24:00 01/03/2013 23:59:59 CLS Outpatient LORENA APPIAH MD [facility] RAD CHEST PAIN,DIZZINES,HTN, DIABETES [id number] 12/28/2012 18:10:00 12/29/2012 16:10:00 DIS Inpatient [id number] 10/13/2012 21:52:00 Document Registration [id number] 07/06/2012 00:05:00 Document Registration [id number] 05/16/2012 18:00:00 Document Registration [id number] 01/05/2017 08:36:00 Document Registration [id number] 01/06/2017 11:09:00 Document Registration [id number] 10/13/2018 08:40:00 10/13/2018 23:59:59 CLS Out[facility] KARSON ROA[facility]
[2018-12-13 11:52] LABS: INR 0.9 (0.8-1.4); PROTHROMBIN TIME PATIENT 12.7 SEC (12.2-14.7)
--- NOTE | 2018-12-13 11:53 | Diagnostic Imaging Report ---
INDICATION: Hemoptysis. TECHNIQUE: CTA chest obtained with IV contrast bolus and axial slices and MIP reconstructions. COMPARISON: 12/28/2016. FINDINGS: The pulmonary parenchymal vessels appear well-opacified with no CT evidence of pulmonary emboli. Thoracic aorta shows no evidence of aneurysm or dissection. Great vessel origins appear patent and unremarkable. There are few borderline size nodes in mediastinum and right hilum. These nodes however are stable compared to the previous study. There is no pleural or pericardial fluid. Lung parenchymal windows demonstrate severe emphysematous changes throughout both lungs. There is some peribronchial thickening. There is some parenchymal scarring in the lingular segment. There is no discrete consolidation. There is a small nodule versus scar in the left upper lobe medially along the medial surface. This measures about 8 mm in greatest diameter and is unchanged compared to the prior study. Visualized portions of the upper abdomen demonstrate fatty infiltration of the liver. IMPRESSION: No CT evidence of pulmonary emboli or acute aortic pathology. Extensive COPD changes are present which are similar to the prior study. There is some peribronchial thickening noted. There is a stable 8 mm nodular density along the medial surface of the left upper lobe, not changed from 12/28/2016. Fatty infiltration of the liver is noted incidentally. Dictated by: Dictated on workstation # [id number]
[2018-12-13 12:11] VITALS: BP 120/85
== END 2018-12-13 12:11 | disposition home or self-care (01) ==
LOC: EDUNIT# 10:05 → ER 10:06
DX: J44.9 Chronic obstructive pulmonary disease, unspecified (principal); R04.2 Hemoptysis; G43.909 Migraine, unspecified, not intractable, without status migrainosus; K21.9 Gastro-esophageal reflux disease without esophagitis; E11.9 Type 2 diabetes mellitus without complications; Z82.49 Family history of ischemic heart disease and other diseases of the circulatory system; Z80.6 Family history of leukemia; Z87.19 Personal history of other diseases of the digestive system; Z87.442 Personal history of urinary calculi; Z88.5 Allergy status to narcotic agent; Z88.6 Allergy status to analgesic agent; Z79.52 Long term (current) use of systemic steroids; Z79.84 Long term (current) use of oral hypoglycemic drugs; Z77.22 Contact with and (suspected) exposure to environmental tobacco smoke (acute) (chronic); Z98.890 Other specified postprocedural states; Z87.01 Personal history of pneumonia (recurrent)
CPT/HCPCS: 36415; 71275; 80048; 85025; 85610; 85730

== ENCOUNTER 2019-01-26 12:50 | Inpatient (IN) | payer MEDICAID ==
[~2019-01-26] VITALS: Ht 160 cm; Wt 61.3 kg
[~2019-01-26 12:50] MED LIST changes: +ATOR80TA76 PO; +LISI2.5T PO; +LOVA40TA2 PO; +PREG75CA PO
[2019-01-26] MEDS ORDERED: RT-ALBUTEROL/IPRATROPIUM 3 ML (DUONEB) VIAL INH ONE ×2 (13:00→14:15)
[2019-01-26] MEDS ORDERED: ASPIRIN 81 MG CHEW (CHILDREN'S ASA) PO ONE (13:00)
--- OUTSIDE RECORDS SUMMARY | 2019-01-26 13:00 | XMS REPORT | Continuity of Care Document ---
Author Organization Unknown Address Unknown Allergies Active Description Code Type Severity Reaction Onset Reported/Identified Relationship to Patient Clinical Status Yes No Known Drug Allergies [id number] Drug Allergy Unknown N/A 05/16/2012 Yes Opioids - Morphine Analogues [id number] Drug Allergy Moderate N/A 12/31/2017 Yes tramadol [id number] Drug Allergy Moderate NAUSEA 12/31/2017 Medications There [...] APPIAH MD Ot 786.50 08/01/2015 NAIF SIMMS BUYER Ot F17.210 NICOTINE DEPENDENCE, CIGARETTES, UNCOMPL 08/01/2015 NAIF SIMMS BUYER Ot J20.9 ACUTE BRONCHITIS, UNSPECIFIED 08/01/2015 LORENA [...] 10/05/2016 MATTHEW ENCARNACION MD Ot Z79.899 OTHER DETENTION (CURRENT) DRUG THERAPY 12/28/2016 LORENA APPIAH MD [...] MD Ot 786.50 CHEST PAIN NOS 01/29/2017 NAIF SIMMS APRN Ot E11.9 TYPE 2 DIABETES MELLITUS WITHOUT COMPLIC 01/29/2017 NAIF SIMMS APRN Ot F17.210 NICOTINE DEPENDENCE, CIGARETTES, UNCOMPL 01/29/2017 NAIF SIMMS APRN Ot J45.909 UNSPECIFIED ASTHMA, UNCOMPLICATED 01/29/2017 NAIF SIMMS APRN Ot R10.13 EPIGASTRIC PAIN 01/29/2017 NAIF SIMMS APRN Ot R11.2 NAUSEA WITH VOMITING, UNSPECIFIED 01/29/2017 NAIF SIMMS APRN Ot R50.9 FEVER, UNSPECIFIED 01/29/2017 NAIF SIMMS APRN Ot Z87.19 PERSONAL HISTORY OF OTHER DISEASES OF 01/29/2017 NAIF SIMMS APRN Ot Z87.442 PERSONAL HISTORY OF URINARY CALCULI 01/29/2017 LORENA APPIAH MD Ot 250.00 DIAB DENAE WO COMPL, TYPE II OR UNSPEC TY 01/29/2017 LORENA APPIAH MD Ot 786.50 CHEST PAIN NOS 01/31/2017 NAIF SIMMS APRN Ot E11.9 TYPE 2 DIABETES MELLITUS WITHOUT COMPLIC 01/31/2017 NAIF SIMMS APRN Ot F17.210 NICOTINE DEPENDENCE, CIGARETTES, UNCOMPL 01/31/2017 NAIF SIMMS APRN Ot J45.909 UNSPECIFIED ASTHMA, UNCOMPLICATED 01/31/2017 NAIF SIMMS APRN Ot R10.13 EPIGASTRIC PAIN 01/31/2017 NAIF SIMMS APRN Ot R11.2 NAUSEA WITH VOMITING, UNSPECIFIED 01/31/2017 NAIF SIMMS APRN Ot R50.9 FEVER, UNSPECIFIED 01/31/2017 NAIF SIMMS APRN Ot Z87.19 PERSONAL HISTORY OF OTHER DISEASES OF 01/31/2017 NAIF SIMMS APRN Ot Z87.442 PERSONAL HISTORY OF URINARY CALCULI 12/31/2017 LA[place] CARRERA MD Ot E11.9 TYPE 2 DIABETES MELLITUS WITHOUT COMPLIC 12/31/2017 LAKE CARRERA MD Ot G43.909 MIGRAINE, UNSP, NOT INTRACTABLE, WITHOUT 12/31/2017 LAKE CARRERA MD, Ot J44.9 CHRONIC OBSTRUCTIVE PULMONARY DISEASE, U 12/31/2017 LAKE CARRERA MD Ot K02.9 DENTAL CARIES, UNSPECIFIED 12/31/2017 LAKE CARRERA MD Ot K08.89 OTHER SPECIFIED DISORDERS OF TEETH AND S 12/31/2017 LAKE CARRERA MD, Ot K21.9 GASTRO-ESOPHAGEAL REFLUX DISEASE WITHOUT 12/31/2017 LAKE CARRERA MD, Ot Z77.22 CNTCT W AND EXPSR TO ENVIRON TOBACCO SMO 12/31/2017 LAKE CARRERA MD Ot Z79.4 DETENTION (CURRENT) USE OF INSULIN 12/31/2017 LAKE CARRERA MD Ot Z79.52 DETENTION (CURRENT) USE OF SYSTEMIC STER 12/31/2017 LAKE CARRERA MD Ot Z87.442 PERSONAL HISTORY OF URINARY CALCULI 12/31/2017 LAKE CARRERA MD, Ot Z88.6 ALLERGY STATUS TO ANALGESIC AGENT STATUS 12/31/2017 LKAE CARRERA MD Ot Z98.890 OTHER SPECIFIED POSTPROCEDURAL STATES 12/31/2017 LAKE CARRERA MD Ot Z99.2 DEPENDENCE ON RENAL DIALYSIS 01/02/2018 LAKE CARRERA MD Ot E11.9 TYPE 2 DIABETES MELLITUS WITHOUT COMPLIC 01/02/2018 LAKE CARRERA MD Ot G43.909 MIGRAINE, UNSP, NOT INTRACTABLE, WITHOUT 01/02/2018 LAKE CARRERA MD, Ot J44.9 CHRONIC OBSTRUCTIVE PULMONARY DISEASE, U 01/02/2018 LAKE CARRERA MD Ot K02.9 DENTAL CARIES, UNSPECIFIED 01/02/2018 LAKE CARRERA MD Ot K08.89 OTHER SPECIFIED DISORDERS OF TEETH AND S 01/02/2018 LAKE CARRERA MD Ot K21.9 GASTRO-ESOPHAGEAL REFLUX DISEASE WITHOUT 01/02/2018 LAKE CARRERA MD Ot Z77.22 CNTCT W AND EXPSR TO ENVIRON TOBACCO SMO 01/02/2018 LAKE CARRERA MD, Ot Z79.4 DETENTION (CURRENT) USE OF INSULIN 01/02/2018 LAKE CARRERA MD Ot Z79.52 SENIOR ENGINEERING ASSOCIATE (CURRENT) USE OF SYSTEMIC STER 01/02/2018 LAKE CARRERA MD Ot Z87.442 PERSONAL HISTORY OF URINARY CALCULI 01/02/2018 LAKE CARRERA MD, Ot Z88.6 ALLERGY STATUS TO ANALGESIC AGENT STATUS 01/02/2018 LAKE CARRERA MD Ot Z98.890 OTHER SPECIFIED POSTPROCEDURAL STATES 01/02/2018 DEANDRE ROA, LAKE Hathaway Ot Z99.2 DEPENDENCE ON RENAL DIALYSIS 05/02/2018 KARSON ROA, DIRK Coulter Ot J44.9 CHRONIC OBSTRUCTIVE PULMONARY DISEASE, U 12/13/2018 NAIF SIMMS APRN Ot E11.9 TYPE 2 DIABETES MELLITUS WITHOUT COMPLIC 12/13/2018 NAIF SIMMS APRN Ot G43.909 MIGRAINE, UNSP, NOT INTRACTABLE, WITHOUT 12/13/2018 NAIF SIMMS APRN, Ot J44.9 CHRONIC OBSTRUCTIVE PULMONARY DISEASE, U 12/13/2018 NAIF SIMMS APRN Ot K21.9 GASTRO-ESOPHAGEAL REFLUX DISEASE WITHOUT 12/13/2018 NAIF SIMMS APRN Ot R04.2 HEMOPTYSIS 12/13/2018 NAIF SIMMS APRN Ot Z77.22 CNTCT W AND EXPSR TO ENVIRON TOBACCO SMO 12/13/2018 NAIF SIMMS APRN Ot Z79.52 DETENTION (CURRENT) USE OF SYSTEMIC STER 12/13/2018 NAIF SIMMS APRN Ot Z79.84 SENIOR ENGINEERING ASSOCIATE (CURRENT) USE OF ORAL HYPOGLYC 12/13/2018 NAIF SIMMS APRN Ot Z80.6 FAMILY HISTORY OF LEUKEMIA 12/13/2018 NAIF SIMMS APRN Ot Z82.49 FAMILY HX OF ISCHEM HEART DIS AND OTH DI 12/13/2018 NAIF SIMMS APRN Ot Z87.01 PERSONAL HISTORY OF PNEUMONIA (RECURRENT 12/13/2018 NAIF SIMMS APRN Ot Z87.19 PERSONAL HISTORY OF OTHER DISEASES OF TH 12/13/2018 NAIF SIMMS APRN Ot Z87.442 PERSONAL HISTORY OF URINARY CALCULI 12/13/2018 NAIF SIMMS APRN Ot Z88.5 ALLERGY STATUS TO NARCOTIC AGENT STATUS 12/13/2018 NAIF SIMMS APRN Ot Z88.6 ALLERGY STATUS TO ANALGESIC AGENT STATUS 12/13/2018 NAIF SIMMS APRN Ot Z98.890 OTHER SPECIFIED POSTPROCEDURAL STATES 12/15/2018 NAIF SIMMS APRN Ot E11.9 TYPE 2 DIABETES MELLITUS WITHOUT COMPLIC 12/15/2018 NAIF SIMMS APRN Ot G43.909 MIGRAINE, UNSP, NOT INTRACTABLE, WITHOUT 12/15/2018 NAIF SIMMS APRN Ot J44.9 CHRONIC OBSTRUCTIVE PULMONARY DISEASE, U 12/15/2018 NAIF SIMMS APRN Ot K21.9 GASTRO-ESOPHAGEAL REFLUX DISEASE WITHOUT 12/15/2018 NAIF SIMMS APRN Ot R04.2 HEMOPTYSIS 12/15/2018 NAIF SIMMS APRN Ot Z77.22 CNTCT W AND EXPSR TO ENVIRON TOBACCO SMO 12/15/2018 NAIF SIMMS APRN Ot Z79.52 SENIOR ENGINEERING ASSOCIATE (CURRENT) USE OF SYSTEMIC STER 12/15/2018 NAIF SIMMS APRN Ot Z79.84 DETENTION (CURRENT) USE OF ORAL HYPOGLYC 12/15/2018 NAIF SIMMS APRN Ot Z80.6 FAMILY HISTORY OF LEUKEMIA 12/15/2018 NAIF SIMMS APRN Ot Z82.49 FAMILY HX OF ISCHEM HEART DIS AND OTH DI 12/15/2018 NAIF SIMMS APRN Ot Z87.01 PERSONAL HISTORY OF PNEUMONIA (RECURRENT 12/15/2018 NAIF SIMMS APRN Ot Z87.19 PERSONAL HISTORY OF OTHER DISEASES OF TH 12/15/2018 NAIF SIMMS APRN Ot Z87.442 PERSONAL HISTORY OF URINARY CALCULI 12/15/2018 NAIF SIMMS APRN Ot Z88.5 ALLERGY STATUS TO NARCOTIC AGENT STATUS 12/15/2018 NAIF SIMMS APRN Ot Z88.6 ALLERGY STATUS TO ANALGESIC AGENT STATUS 12/15/2018 NAIF SIMMS APRN Ot Z98.890 OTHER SPECIFIED POSTPROCEDURAL STATES 01/26/2019 KARSON ROA, DIRK Coulter Ot J44.9 CHRONIC [...] Automated erythrocyte mean corpuscular hemoglobin concentration measurement (mass/volume) 35 g/dL 32-36 Automated erythrocyte distribution width ratio 12.6 % 10.0- 14.5 Automated blood platelet count (count/volume) 271 10*3/uL [...] Blood monocytes automated count (number/volume) 1.2 10*3 0.0- 1.0 Automated eosinophil count 0.2 10*3/uL 0.0-0.3 Automated [...] Serum or plasma aspartate aminotransferase measurement (enzymatic activity/volume) 24 U/L 5-34 Serum or plasma alanine aminotransferase measurement (enzymatic activity/volume) 55 U/L 0-55 Serum or plasma protein [...] Blood lactic acid measurement (moles/volume) 1.4 mmol/L 0.5- 2.0 Bacterial blood culture - 04/20/16 17:18 Bacterial [...] Automated erythrocyte mean corpuscular hemoglobin concentration measurement (mass/volume) 35 g/dL 32-36 Automated erythrocyte distribution width ratio 12.9 % 10.0- 14.5 Automated blood platelet count (count/volume) 241 10*3/uL [...] Blood monocytes automated count (number/volume) 1.7 10*3 0.0- 1.0 Automated eosinophil count 0.3 10*3/uL 0.0-0.3 Automated [...] Serum or plasma aspartate aminotransferase measurement (enzymatic activity/volume) 28 U/L 5-34 Serum or plasma alanine aminotransferase measurement (enzymatic activity/volume) 63 U/L 0-55 Serum or plasma protein measurement (mass/volume) 7.1 g/dL 6.4-8.2 Serum or plasma albumin measurement (mass/volume) 4.1 g/dL 3.2-4.5 Magnesium - 10/04/16 20:55 Magnesium 2.2 mg/dL 1.8-2.4 Serum or plasma creatine kinase measurement (enzymatic activity/volume) - 10/04/16 20:55 Serum or plasma creatine kinase measurement (enzymatic activity/volume) 159 U/L 30-200 Serum or plasma creatine kinase MB measurement (enzymatic activity/volume) - 10/04/16 20:55 Serum or plasma creatine kinase MB [...] FOR INFLUENZA A AND B ANTIGENS BY [facility] Complete blood count (CBC) with automated white [...] Automated erythrocyte mean corpuscular hemoglobin concentration measurement (mass/volume) 35 g/dL 32-36 Automated erythrocyte distribution width ratio 12.8 % 10.0- 14.5 Automated blood platelet count (count/volume) 240 10*3/uL [...] Blood monocytes automated count (number/volume) 0.1 10*3 0.0- 1.0 Automated eosinophil count 0.0 10*3/uL 0.0-0.3 Automated blood basophil count (count/volume) 0.0 10*3/uL 0.0-0.1 Comprehensive metabolic panel - 02/28/17 04:56 Serum or plasma sodium measurement (moles/volume) [...] Serum or plasma aspartate aminotransferase measurement (enzymatic activity/volume) 23 U/L 5-34 Serum or plasma alanine aminotransferase measurement (enzymatic activity/volume) 64 U/L 0-55 Serum or plasma protein measurement (mass/volume) 7.2 g/dL 6.4-8.2 Serum or plasma albumin measurement (mass/volume) 4.2 g/dL 3.2-4.5 Arterial blood gas measurement - 12/27/16 22:07 Blood pCO2 34 mm[Hg] 35-45 Blood pO2 44 mm[Hg] 79-93 Arterial blood bicarbonate measurement (moles/volume) 24 mmol/L 23-27 Arterial blood base excess by calculation 0.6 mmol/L -2.5-2.5 Arterial blood oxygen saturation measurement 87 % 94-100 * Inhaled oxygen flow rate 2L NRG Arterial blood pH measurement with patient temperature correction 7.46 7.37-7.43 Arterial blood carbon dioxide, total measurement (moles/volume) 25.3 mmol/L 21.0-31.0 Body site LEFT RADAIL NRG Assessment of wrist artery patency prior to arterial puncture YES-POS NRG Setting of ventilation mode NO NRG [...] Automated erythrocyte mean corpuscular hemoglobin concentration measurement (mass/volume) 35 g/dL 32-36 Automated erythrocyte distribution width ratio 12.8 % 10.0- 14.5 Automated blood platelet count (count/volume) 258 10*3/uL [...] Blood monocytes automated count (number/volume) 1.1 10*3 0.0- 1.0 Automated eosinophil count 0.3 10*3/uL 0.0-0.3 Automated blood basophil count (count/volume) 0.1 10*3/uL 0.0-0.1 Blood lactic acid measurement (moles/volume) - 12/27/16 22:12 Blood lactic acid measurement (moles/volume) 2.00 mmol/L 0.50- 2.00 Comprehensive metabolic panel - 12/27/16 22:12 Serum [...] Serum or plasma aspartate aminotransferase measurement (enzymatic activity/volume) 28 U/L 5-34 Serum or plasma alanine aminotransferase measurement (enzymatic activity/volume) 58 U/L 0-55 Serum or plasma protein measurement (mass/volume) 7.0 g/dL 6.4-8.2 Serum or plasma albumin measurement (mass/volume) 4.1 g/dL 3.2-4.5 Serum or plasma troponin i.cardiac measurement (mass/volume) - 12/27/16 22:12 Serum or plasma troponin i.cardiac measurement (mass/volume) < ng/mL <0.30 Bacterial blood culture - 12/27/16 22:12 Bacterial blood culture NG NRG Bacterial blood culture - 12/27/16 22:31 Bacterial blood culture NG NRG Hemoglobin A1c - 12/29/16 05:15 Hemoglobin A1c 8.2 % 4.5-6.2 Serum or plasma alpha 1 antitrypsin measurement (mass/volume) - 12/29/16 12:06 Serum or plasma alpha 1 antitrypsin measurement (mass/volume) 160.9 % 90.0-200.0 Complete blood count (CBC) with automated white [...] Automated erythrocyte mean corpuscular hemoglobin concentration measurement (mass/volume) 35 g/dL 32-36 Automated erythrocyte distribution width ratio 12.6 % 10.0- 14.5 Automated blood platelet count (count/volume) 307 10*3/uL [...] Blood monocytes automated count (number/volume) 1.2 10*3 0.0- 1.0 Automated eosinophil count 0.1 10*3/uL 0.0-0.3 Automated [...] or plasma urea nitrogen/creatinine mass ratio 11 0- 20 Serum or plasma creatinine measurement with calculation of estimated glomerular filtration rate > NRG Serum or plasma glucose measurement (mass/volume) 138 mg/dL 70-105 Serum or plasma calcium measurement (mass/volume) 9.9 mg/dL 8.5-10.1 Serum or plasma total bilirubin measurement (mass/volume) 0.4 mg/dL 0.1-1.0 Serum or plasma alkaline phosphatase measurement (enzymatic activity/volume) 114 U/L 40-136 Serum or plasma aspartate aminotransferase measurement (enzymatic activity/volume) 27 U/L 5-34 Serum or plasma alanine aminotransferase measurement (enzymatic activity/volume) 53 U/L 0-55 Serum or plasma protein [...] gravity of urine by test strip 1.010 1.016-1.022 Urine protein assay by test strip, semi-quantitative [...] sediment leukocyte count by microscopy (number/high power field) NONE NRG Bacteria detection in urine sediment by light microscopy NEGATIVE NRG Squamous epithelial cells detection in urine sediment by light microscopy 0-2 NRG Crystals detection in urine sediment by light microscopy NONE NRG Casts detection in urine sediment by light microscopy NONE NRG Mucus detection in urine sediment by light microscopy NEGATIVE NRG Complete urinalysis with reflex to culture NO NRG Complete blood count (CBC) with automated white blood cell (WBC) differential - 12/13/18 10:49 Blood leukocytes automated count (number/volume) 10.0 10*3/uL 4.3-11.0 Blood erythrocytes automated count (number/volume) 5.16 10*6/uL 4.35-5.85 Venous blood hemoglobin measurement (mass/volume) 16.1 g/dL 13.3-17.7 Blood hematocrit (volume fraction) 46 % 40-54 Automated erythrocyte mean corpuscular volume 90 [foz_us] 80-99 Automated erythrocyte mean corpuscular hemoglobin (mass per erythrocyte) 31 pg 25-34 Automated erythrocyte mean corpuscular hemoglobin concentration measurement (mass/volume) 35 g/dL 32-36 Automated erythrocyte distribution width ratio 13.0 % 10.0- 14.5 Automated blood platelet count (count/volume) 238 10*3/uL 130-400 Automated blood platelet mean volume measurement 10.1 [foz_us] 7.4-10.4 Automated blood neutrophils/100 leukocytes 67 % 42-75 Automated blood lymphocytes/100 leukocytes 21 % 12-44 Blood monocytes/100 leukocytes 9 % 0-12 Automated blood eosinophils/100 leukocytes 2 % 0-10 Automated blood basophils/100 leukocytes 1 % 0-10 Blood neutrophils automated count (number/volume) 6.7 10*3 1.8-7.8 Blood lymphocytes automated count (number/volume) 2.1 10*3 1.0-4.0 Blood monocytes automated count (number/volume) 0.9 10*3 0.0- 1.0 Automated eosinophil count 0.2 10*3/uL 0.0-0.3 Automated blood basophil count (count/volume) 0.1 10*3/uL 0.0-0.1 Whole blood basic metabolic panel - 12/13/18 10:49 Serum or plasma sodium measurement (moles/volume) 138 mmol/L 135-145 Serum or plasma potassium measurement (moles/volume) 4.4 mmol/L 3.6-5.0 Serum or plasma chloride measurement (moles/volume) 103 mmol/L 98-107 Carbon dioxide 25 mmol/L 21-32 Serum or plasma anion gap determination (moles/volume) 10 mmol/L 5-14 Serum or plasma urea nitrogen measurement (mass/volume) 16 mg/dL 7-18 Serum or plasma creatinine measurement (mass/volume) 0.99 mg/dL 0.60-1.30 Serum or plasma urea nitrogen/creatinine mass ratio 16 NRG Serum or plasma creatinine measurement with calculation of estimated glomerular filtration rate > NRG Serum or plasma glucose measurement (mass/volume) 259 mg/dL 70-105 Serum or plasma calcium measurement (mass/volume) 10.0 mg/dL 8.5-10.1 PT panel in platelet poor plasma by coagulation assay - 12/13/18 11:35 Prothrombin time (PT) in platelet poor plasma by coagulation assay 12.7 s 12.2-14.7 INR in platelet poor plasma or blood by coagulation assay 0.9 0.8-1.4 Activated partial thromboplastin time (aPTT) in platelet poor plasma bycoagulation assay - 12/13/18 11:35 Activated partial thromboplastin time (aPTT) in platelet poor plasma bycoagulation assay 27 s 24-35 Encounters ACCT No. Visit Date/Time Discharge Status Pt. Type Provider Facility Loc./Unit Complaint [id number] 01/19/2019 11:20:00 01/19/2019 23:59:59 CLS Outpatient DIRK TY MD [facility] [id number] 12/13/2018 10:06:00 12/13/2018 12:11:00 DIS Emergency NAIF SIMMS APRN [facility] [address] ER COUGHING UP BLOOD [id number] 03/15/2018 09:45:00 03/15/2018 23:59:59 CLS Outpatient DIRK TY MD [facility] [address] RT CHRONIC OBSTRUCTIVE PULMONARY DISEASE [id number] 12/31/2017 16:24:00 12/31/2017 18:42:00 DIS Emergency DEANDRE ROA, LAKE T [facility] [address] ER TOOTH ACHE [id number] 01/29/2017 15:44:00 01/29/2017 18:21:00 DIS Emergency NAIF SIMMS APRN [facility] [address] ER THROWING UP/FEVER [id number] 12/28/2016 00:44:00 12/29/2016 13:30:00 DIS Inpatient ZACH ROA, VALENCIA Connors [facility] [address] 4TH COPD EXACERBATION W/ HYPOXIA [id number] 10/04/2016 22:25:00 10/05/2016 12:30:00 DIS Inpatient MATTHEW ENCARNACION MD [facility] [address] 4TH PNEUMONIA,COPD EXACERBATION [id number] 04/20/2016 16:49:00 04/21/2016 11:10:00 DIS Inpatient JOHN DIETZ MD [facility] [address] 4TH ATYPICAL PNEUMONIA, ASTHMA, HYPOXIA [id number] 09/18/2015 17:00:00 09/18/2015 19:34:00 DIS Emergency SUZETTE GUPTA [facility] [address] ER CONGESTION,SOA [id number] 08/01/2015 20:35:00 08/01/2015 22:10:00 DIS Emergency NAIF SIMMS APRN [facility] [address] ER SOA [id number] 06/30/2014 23:25:00 07/01/2014 01:00:00 DIS Emergency VINCENT MUÑOZ MD [facility] [address] ER DIFFICULITY BREATHING [id number] 01/17/2014 19:10:00 01/18/2014 21:20:00 DIS Outpatient RYAN HANSON MD [facility] [address] SDC GALLSTONES [id number] 01/16/2014 17:44:00 01/17/2014 09:36:00 DIS Inpatient LARS ROA, MARC Tanner [facility] [address] 4TH CHOLELITHIASIS WITH CBD OBSTRUCTION [id number] 11/12/2013 04:09:00 11/12/2013 08:07:00 DIS Emergency VINCENT MUÑOZ MD [facility] [address] ER ABD PAIN [id number] 06/14/2013 03:16:00 06/15/2013 11:20:00 DIS Inpatient RYAN HANSON MD [facility] [address] SURGICAL ABD PAIN,ACUTE CHOLECYSTITIS [id number] 01/03/2013 10:24:00 01/03/2013 23:59:59 CLS Outpatient LORENA APPIAH MD [facility] [address] RAD CHEST PAIN,DIZZINES,HTN,DIABETES [id number] 12/28/2012 18:10:00 12/29/2012 16:10:00 DIS Inpatient [id number] 01/26/2019 12:51:00 ACT Emergency LAKE CARRERA MD [facility] [address] ER SOB [id number] 10/13/2012 21:52:00 Document Registration [id number] 07/06/2012 00:05:00 Document Registration [id number] 05/16/2012 18:00:00 Document Registration
[2019-01-26 13:05] LABS: BASOPHILS % (AUTO) 1 % (0-10); EOSINOPHILS # (AUTO) 0.3 10^3/uL (0.0-0.3); EOSINOPHILS % (AUTO) 4 % (0-10); HEMATOCRIT 43 % (40-54); HEMOGLOBIN 14.8 G/DL (13.3-17.7); LYMPHOCYTES # (AUTO) 2.4 X 10^3 (1.0-4.0); LYMPHOCYTES % (AUTO) 28 % (12-44); MEAN CORPUSCULAR HEMOGLOBIN 31 PG (25-34); MEAN CORPUSCULAR HGB CONC 35 G/DL (32-36); MEAN CORPUSCULAR VOLUME 89 FL (80-99); MONOCYTES # (AUTO) 0.9 X 10^3 (0.0-1.0); MONOCYTES % (AUTO) 11 % (0-12); NEUTROPHILS # (AUTO) 4.8 X 10^3 (1.8-7.8); NEUTROPHILS % (AUTO) 57 % (42-75); PLATELET COUNT 262 10^3/uL (130-400); WHITE BLOOD COUNT 8.5 10^3/uL (4.3-11.0)
--- NOTE | 2019-01-26 13:09 | NUR ---
PT MOVED TO FAST TRACK DUE TO BUSY ER.
[2019-01-26 13:16] LABS: INR 0.9 (0.8-1.4); PROTHROMBIN TIME PATIENT 12.5 SEC (12.2-14.7)
--- NOTE | 2019-01-26 13:18 | Diagnostic Imaging Report ---
Indication: Shortness of breath. Time of exam: 1:10 PM Correlation is made to prior study 12/27/2016. The heart size is stable. Pulmonary vascularity is normal. There appears to be some linear density in the left base which may represent some scarring or atelectasis. Otherwise the lungs are clear. No effusion or pneumothorax is seen. Impression: No acute cardiopulmonary process is detected. Dictated by: Dictated on workstation # [id number]
[2019-01-26 13:22] LABS: ALANINE AMINOTRANSFERASE 59 U/L (0-55); ALBUMIN 4.4 GM/DL (3.2-4.5); ALKALINE PHOSPHATASE 117 U/L (40-136); BILIRUBIN,TOTAL 0.4 MG/DL (0.1-1.0); BUN/CREATININE RATIO 12; CALCIUM 9.9 MG/DL (8.5-10.1); CARBON DIOXIDE 22 MMOL/L (21-32); CHLORIDE 105 MMOL/L (98-107); CREATININE SERUM 1.04 MG/DL (0.60-1.30); GFR ESTIMATED > 60; GLUCOSE 188 MG/DL (70-105); MAGNESIUM 2.1 MG/DL (1.8-2.4); POTASSIUM 3.8 MMOL/L (3.6-5.0); SODIUM 140 MMOL/L (135-145); TOTAL PROTEIN 7.6 GM/DL (6.4-8.2)
--- NOTE | 2019-01-26 13:45 | NUR ---
RESTING IN BED ET DENIES NEEDS AT THIS TIME.
[2019-01-26] MEDS ORDERED: RT-ALBUTEROL SULF 2.5 MG/3 ML PRE-MIX VIAL INH STA (14:03)
[2019-01-26] MEDS ORDERED: methylPREDNISolone 40 MG/ML (Solu-MEDROL) VIAL IV ONE (14:15)
--- NOTE | 2019-01-26 14:26 | NUR ---
DUE TO CODE BLUE IN THE ER OTHER STAFF WATCHING THIS PT WHILE I AM THE PRIMARY RN WITH THE CODE.
--- NOTE | 2019-01-26 16:52 | ED Respiratory ---
General Chief Complaint: Respiratory Problems Stated Complaint: SOB Nursing Triage Note: ASSISTED TO ROOM 04 VIA WC. COMPLAINS OF INCREASED SOA. Source: patient Exam Limitations: no limitations History of Present Illness Date Seen by Provider: Jan 26, 2019 Time Seen by Provider: 12:51 Initial Comments This 48-year-old gentleman with COPD presents to the emergency room via private vehicle with respiratory distress worsening over the last couple of days. He admits to cough but denies any fever. He has been using nebulizer treatments at home without much improvement. He also notes right lower chest pain, particularly with inspiration. Patient has had this pain ever since he was diagnosed with bronchitis in December. He had hemoptysis at that time and had a CT angiogram of the chest. He was dismissed from the emergency room from that encounter with prednisone and azithromycin. Patient notes he is also diabetic and has had fairly well controlled blood sugars recently. He uses supplemental oxygen continuously at 3 L/m but has had to increase his rate recently. His [facility] care provider is Ameena Fisher at [facility]. 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 Allergies and Home Medications Allergies Coded Allergies: Opioids - Morphine Analogues (Verified Adverse Reaction, Intermediate, 12/31/17) Opioid medications cause dizziness and nausea tramadol (Verified Adverse Reaction, Intermediate, NAUSEA, 12/31/17) Tramadol caused immediate nausea and lightheadedness Home Medications Acetaminophen 500 Mg Tablet, 1,000 MG PO Q6H PRN for HEADACHE, (Reported) TAKES 2 (500MG) TABLETS Albuterol Sulfate 2.5 Mg/3 Ml Vial.neb, 2.5 MG NEB QID, (Reported) Albuterol Sulfate 6.7 Gm Hfa.aer.ad, 2 PUFF INH Q4H PRN for SHORTNESS OF BREATH, (Reported) Azithromycin 250 Mg Tablet, 250 MG PO UD TAKE 2 TABLETS ON DAY ONE THEN TAKE 1 TABLET DAILY FOR FOUR MORE DAYS Prescribed by: NAIF SIMMS on 12/13/18 1046 Budesonide/Formoterol Fumarate 10.2 Gm Hfa.aer.ad, 2 PUFF INH BID, (Reported) Ibuprofen 200 Mg Tablet, 600-800 MG PO BID PRN for BACK PAIN, (Reported) TAKES 3 TO 4 (200MG) TABLETS Lisinopril 2.5 Mg Tablet, 5 MG PO DAILY, (Reported) Metformin HCl 500 Mg Tablet, 500 MG PO DAILY Prescribed by: VALENCIA SERRANO on 12/29/16 1114 Prednisone 10 Mg Tab, 0 PO UD Take 6 tabs(60mg)daily, decrease by 1 tab(10mg) every other day. Prescribed by: VALENCIA SERRANO on 12/29/16 1114 Prednisone 20 Mg Tab, 40 MG PO DAILY Prescribed by: NAIF SIMMS on 12/13/18 1046 Sucralfate 1 Gm Tablet, 1 GM PO ACHS Prescribed by: NAIF SIMMS on 01/29/17 1739 Tiotropium [place] 1 Inh Aerp, 2 PUFF IH DAILY Prescribed by: VALENCIA SERRANO on 12/29/16 1114 Patient Home Medication List Home Medication List Reviewed: Yes Review of Systems Review of Systems Constitutional: no symptoms reported EENTM: no symptoms reported Respiratory: see HPI Cardiovascular: no symptoms reported Gastrointestinal: no symptoms reported Genitourinary: no symptoms reported Musculoskeletal: no symptoms reported Skin: no symptoms reported Psychiatric/Neurological: No Symptoms Reported Hematologic/Lymphatic: No Symptoms Reported Past Jobsebp-Eqfnaj-Undimt Hx Patient Social History Alcohol Use: Denies Use Recreational Drug Use: No Smoking Status: Current Everyday Smoker Type Used: Cigarettes 2nd Hand Smoke Exposure: Yes Recent Foreign Travel: No Contact w/Someone Who Travel: No Recent Infectious Disease Expo: No Recent Hopitalizations: No Immunizations Up To Date Tetanus Booster (TDap): More than 5yrs PED Vaccines UTD: Yes Date of Pneumonia Vaccine: May 01, 2012 Date of Influenza Vaccine: May 10, 2018 Seasonal Allergies Seasonal Allergies: Yes Past Medical History Surgeries: Yes (ERCP BEFORE GALL BLADDER REMOVAL ; HERNIA REPAIR; RIGHT SHOULDER SURGERY) Abdominal, Gallbladder, Orthopedic Respiratory: Yes Asthma, Pneumonia, Chronic Bronchitis, COPD (chronic hypoxia requiring supplemental oxygen) Currently Using CPAP: No Currently Using BIPAP: No Cardiac: No Neurological: Yes Headaches /Migraines Reproductive Disorders: No Genitourinary: Yes Kidney Stones Gastrointestinal: Yes ("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 5) Gastroesophageal Reflux, Gall Bladder Disease Musculoskeletal: Yes (RIGHT SHOULDER SURGERY-2006) Arthritis, Chronic Back Pain Endocrine: Yes (DIABETES, Reports diet control only) Diabetes, Non-Insulin dep HEENT: Yes Loss of Vision: Bilateral Hearing Impairment: Hard of Hearing Cancer: No Psychosocial: No Integumentary: No Psoriasis Blood Disorders: No Adverse Reaction/Blood Tranf: No Family Medical History Reviewed Nursing Family Hx Cancer 09 SISTER, Onset:Unknown (LEUKEMIA) Family history: Alzheimer's disease GRANDMOTHER, Onset:Unknown Family history: Arthritis GRANDMOTHER, Onset:Unknown Family history: Asthma 03 FATHER, Onset:Unknown Family history: Diabetes mellitus 03 FATHER, Onset:Unknown Family history: Hypertension 03 FATHER, Onset:Unknown 03 MOTHER, Onset:Unknown Kidney disease 03 FATHER (KIDNEY STONES) Visual impairment COPD, Hypertension Physical Exam Vital Signs - First Documented 01/26/19 12:50 Temp 98.0 Pulse 103 Resp 16 B/P (MAP) 150/101 (117) Pulse Ox 99 O2 Delivery Nasal Cannula O2 Flow Rate 6.00 Capillary Refill : Less Than 3 Seconds Height: 5'3.00" Weight: 235lbs. 0.0oz. 106.991562ov; 42.2 BMI Method:Stated General Appearance: WD/WN, moderate distress (respiratory) HEENT: PERRL/EOMI, normal ENT inspection Neck: normal inspection Respiratory: respiratory distress; No crackles; wheezing Cardiovascular: regular rate, rhythm, no edema, no murmur Gastrointestinal: normal bowel sounds, non tender, soft Extremities: normal inspection, no pedal edema Neurologic/Psychiatric: database analyst II-XII nml as tested, no motor/sensory deficits, alert, normal mood/affect, oriented x 3 Skin: normal color, warm/dry Progress/Results/Core Measures Suspected Sepsis Recent Fever Within 48 Hours: No Infection Criteria Present: Suspected New Infection New/Unexplained Altered Menta: No Sepsis Screen: No Definite Risk SIRS Temperature:98.0 Pulse: 103 Respiratory Rate: 16 Laboratory Tests 01/26/19 12:58: White Blood Count 8.5 Blood Pressure 150 /101 Mean: 117 Laboratory Tests 01/26/19 12:58: Creatinine 1.04, INR Comment 0.9, Platelet Count 262, Total Bilirubin 0.4 Results/Orders Lab Results Laboratory Tests Test 01/26/19 12:58 Range/Units White Blood Count 8.5 4.3-11.0 10^3/uL Red Blood Count 4.81 4.35-5.85 10^6/uL Hemoglobin 14.8 13.3-17.7 G/DL Hematocrit 43 40-54 % Mean Corpuscular Volume 89 80-99 FL Mean Corpuscular Hemoglobin 31 25-34 PG Mean Corpuscular Hemoglobin Concent 35 32-36 G/DL Red Cell Distribution Width 13.0 10.0-14.5 % Platelet Count 262 130-400 10^3/uL Mean Platelet Volume 10.0 7.4-10.4 FL Neutrophils (%) (Auto) 57 42-75 % Lymphocytes (%) (Auto) 28 12-44 % Monocytes (%) (Auto) 11 0-12 % Eosinophils (%) (Auto) 4 0-10 % Basophils (%) (Auto) 1 0-10 % Neutrophils # (Auto) 4.8 1.8-7.8 X 10^3 Lymphocytes # (Auto) 2.4 1.0-4.0 X 10^3 Monocytes # (Auto) 0.9 0.0-1.0 X 10^3 Eosinophils # (Auto) 0.3 0.0-0.3 10^3/uL Basophils # (Auto) 0.0 0.0-0.1 10^3/uL Prothrombin Time 12.5 12.2-14.7 SEC INR Comment 0.9 0.8-1.4 Activated Partial Thromboplast Time 28 24-35 SEC D-Dimer 0.26 0.00-0.49 UG/ML Sodium Level 140 135-145 MMOL/L Potassium Level 3.8 3.6-5.0 MMOL/L Chloride Level 105 98-107 MMOL/L Carbon Dioxide Level 22 21-32 MMOL/L Anion Gap 13 5-14 MMOL/L Blood Urea Nitrogen 12 7-18 MG/DL Creatinine 1.04 0.60-1.30 MG/DL Estimat Glomerular Filtration Rate > 60 BUN/Creatinine Ratio 12 Glucose Level 188 H 70-105 MG/DL Calcium Level 9.9 8.5-10.1 MG/DL Corrected Calcium 9.6 8.5-10.1 MG/DL Magnesium Level 2.1 1.8-2.4 MG/DL Total Bilirubin 0.4 0.1-1.0 MG/DL Aspartate Amino Transf (AST/SGOT) 31 5-34 U/L Alanine Aminotransferase (ALT/SGPT) 59 H 0-55 U/L Alkaline Phosphatase 117 40-136 U/L Myoglobin 33.6 10.0-92.0 NG/ML Troponin I < 0.028 <0.028 NG/ML C-Reactive Protein High Sensitivity 0.79 H 0.00-0.50 MG/DL B-Type Natriuretic Peptide < 10.0 <100.0 PG/ML Total Protein 7.6 6.4-8.2 GM/DL Albumin 4.4 3.2-4.5 GM/DL My Orders Orders - LA[place] CARRERA MD Cbc With Automated Diff (01/26/19 12:57) Magnesium (01/26/19 12:57) Chest 1 View, Ap/Pa Only (01/26/19 12:57) Ekg Tracing (01/26/19 12:57) Cardiac Profile 1 (01/26/19 12:57) Comprehensive Metabolic Panel (01/26/19 12:57) Myoglobin Serum (01/26/19 12:57) Protime With Inr (01/26/19 12:57) Partial Thromboplastin Time (01/26/19 12:57) O2 (01/26/19 12:57) Monitor-Rhythm Ecg Trace Only (01/26/19 12:57) Lipid Panel (01/27/19 06:00) Ed Iv/Invasive Line Start (01/26/19 12:57) BNP (01/26/19 12:57) Fibrin Degradation Products (01/26/19 12:57) Aspirin Chewable Tablet (Baby Aspirin Ch (01/26/19 13:00) Hs C Reactive Protein (01/26/19 12:57) Albuterol/Ipra Inhalation Soln (Duoneb I (01/26/19 13:00) Svn Small Volume Nebulizer (01/26/19 12:57) Methylprednisolone Sod Succ (Solu-Medrol (01/26/19 14:15) Albuterol Pre-Mix Nebs (Rt) (Proventil (01/26/19 14:03) Albuterol/Ipra Inhalation Soln (Duoneb I (01/26/19 14:15) Svn Small Volume Nebulizer (01/26/19 14:03) Svn Small Volume Nebulizer (01/26/19 14:03) Arterial Blood Gas (01/26/19 16:37) Medications Given in ED Current Medications Medications Dose Ordered Sig/Mike Route Start Time Stop Time Status Last Admin Dose Admin Albuterol/ Ipratropium 3 ml ONCE ONCE INH 01/26/19 13:00 01/26/19 13:01 DC 01/26/19 13:08 3 ML Albuterol/ Ipratropium 3 ml ONCE ONCE INH 01/26/19 14:15 01/26/19 14:16 DC 01/26/19 15:06 3 ML Aspirin 324 mg ONCE ONCE PO 01/26/19 13:00 01/26/19 13:01 DC 01/26/19 13:14 324 MG Methylprednisolone Sodium Succinate 40 mg ONCE ONCE IV 01/26/19 14:15 01/26/19 14:16 DC 01/26/19 15:00 40 MG Vital Signs/I&O 01/26/19 01/26/19 01/26/19 12:50 13:08 15:06 Temp 98.0 Pulse 103 Resp 16 B/P (MAP) 150/101 (117) Pulse Ox 99 96 94 O2 Delivery Nasal Cannula Nasal Cannula Nasal Cannula O2 Flow Rate 6.00 4.00 6.00 Capillary Refill : Less Than 3 Seconds Blood Pressure Mean: 117 Progress Note : Time: 16:50 Progress Note Patient arrived in respiratory distress. He received an hour-long nebulizer treatment and Solu-Medrol 40 mg IV but was still having shortness of breath. There was no evidence of infection. D-dimer was negative. Patient had a CT angiogram of the chest performed last month that was negative for pulmonary pathology. Case was discussed with Dr. Shepard who recommended scheduled nebulizer treatments and Solu-Medrol doses. He also recommended an ABG to assess for hypercarbia. This may help patient obtain vent to mask therapy at home. Patient notes that he has had concerns about possible sleep apnea for quite some time. He notes that his oxygen saturations declines and alarms anytime he starts to dose off. ECG Initial ECG Impression Date: Jan 26, 2019 Initial ECG Impression Time: 12:55 Initial ECG Rate: 96 Initial ECG Rhythm: Normal Sinus Initial ECG Intervals: Normal Initial ECG Impression: Normal Comment Sinus rhythm with borderline tachycardia. No ST elevation or depression. No abnormal intervals or axis deviation. Diagnostic Imaging Diagonstic Imaging: Xray Plain Films/CT/US/NM/MRI: chest Comments Chest x-ray viewed by me and report reviewed. See report below: NAME: KEITH SHERIFF [facility] REC#: [id number] PT STATUS: REG ER : 1970 PHYSICIAN: LA[place] CARREAR MD ADMIT DATE: 01/26/19/ER Signed Date of Exam: 01/26/19 CHEST 1 VIEW, AP/PA ONLY Indication: Shortness of breath. Time of exam: 1:10 PM Correlation is made to prior study 12/27/2016. The heart size is stable. Pulmonary vascularity is normal. There appears to be some linear density in the left base which may represent some scarring or atelectasis. Otherwise the lungs are clear. No effusion or pneumothorax is seen. Impression: No acute cardiopulmonary process is detected. Dictated by: Dictated on workstation # [id number] Dict: 01/26/19 1314 Trans: 01/26/19 1454 Interpreted by: JOSEMANUEL ULLOA MD Electronically signed by: JOSEMANUEL ULLOA MD 01/26/19 1454 Departure Communication (Admissions) Time/Spoke to Admitting Phy: 16:30 Dr. Cedillo Time/Spoke to Consulting Phy: 16:35 Dr. Shepard Impression Primary Impression: Acute and chronic respiratory failure Additional Impressions: COPD exacerbation Acute respiratory distress Disposition: ADMITTED INPATIENT Condition: Improved Admissions Decision to Admit Reason: Admit from ER (General) Decision to Admit/Date: Jan 26, 2019 Time/Decision to Admit Time: 14:25 Departure-Patient Inst. Referrals: [facility] (PCP/Family) Primary Care Physician LAKE CARRERA MD Jan 26, 2019 16:52
[2019-01-26 17:06] LABS: ABG BASE EXCESS -0.1 MMOL/L (-2.5-2.5); ABG OXYGEN SATURATION 94 % (94-100); ABG PCO2 37 MMHG (35-45); ABG PH 7.42 (7.37-7.43); ABG PO2 66 MMHG (79-93)
[2019-01-26 17:07] LABS: ALLENS TEST POSITIVE; INSPIRED O2 5 L NASAL CANULA; PATIENT TEMP 97.7; VENTILATOR NO
[2019-01-26 17:55] VITALS: BP 122/73
[2019-01-26] MEDS ORDERED: RT-ALBUTEROL SULF 2.5 MG/3 ML PRE-MIX VIAL IH PRN (18:00)
[2019-01-26] MEDS ORDERED: CATHETER FLUSH 10 ML SYR IV PRN (18:15)
--- NOTE | 2019-01-26 18:29 | NUR ---
KEITH SHERIFF admitted to room 408-1, with an admitting diagnosis of respiratory distress, on 01/26/19 from ED via wheelchair, accompanied by staff .KEITH SHERIFF introduced to surroundings, call light, bed controls, phone, TV, temperature control, lights, meal times, smoking policy, visitor policy, side rail policy, bathrooms and showers. Patient Rights given to patient in the handbook. KEITH SHERIFF verbalizes understanding that [facility] is not responsible for the loss or damage to any personal effects or valuables that are kept in the patients possession during their hospitalization. The following Patient Care Plans were discussed with the patient: Discharge Planning, medications, pain management, and dehydration. KEITH SHERIFF verbalizes understanding of Interdisciplinary Patient Education. Patient and/or family were informed about the Rapid Response Team and its purpose.
[2019-01-26] MEDS: RT-ALBUTEROL/IPRATROPIUM 3 ML (DUONEB) VIAL IH SCH ×2 (18:33→22:27)
[2019-01-26] MEDS: methylPREDNISolone 40 MG/ML (Solu-MEDROL) VIAL IV SCH ×2 (18:39→23:45)
[2019-01-26 19:48] VITALS: BP 103/54
[2019-01-26] MEDS: inSUlin ASPART (NovoLOG) 1 UNIT/0.01 ML (CHARGE PER UNIT) SC SCH (21:45)
[2019-01-26] MEDS: CATHETER FLUSH 10 ML SYR IV SCH (21:46)
[2019-01-26 23:29] VITALS: BP 114/51
[2019-01-27] MEDS: RT-ALBUTEROL/IPRATROPIUM 3 ML (DUONEB) VIAL IH SCH ×6 (01:59→21:59)
[2019-01-27 03:58] VITALS: BP 106/51
[2019-01-27 04:45] LABS: BASOPHILS % (AUTO) 0 % (0-10); EOSINOPHILS % (AUTO) 0 % (0-10); HEMATOCRIT 39 % (40-54); HEMOGLOBIN 13.5 G/DL (13.3-17.7); LYMPHOCYTES % (AUTO) 11 % (12-44); MEAN CORPUSCULAR HEMOGLOBIN 31 PG (25-34); MEAN CORPUSCULAR HGB CONC 34 G/DL (32-36); MEAN CORPUSCULAR VOLUME 89 FL (80-99); MEAN PLATELET VOLUME 10.4 FL (7.4-10.4); MONOCYTES # (AUTO) 0.3 X 10^3 (0.0-1.0); MONOCYTES % (AUTO) 3 % (0-12); NEUTROPHILS # (AUTO) 8.1 X 10^3 (1.8-7.8); NEUTROPHILS % (AUTO) 86 % (42-75); PLATELET COUNT 270 10^3/uL (130-400); WHITE BLOOD COUNT 9.4 10^3/uL (4.3-11.0)
[2019-01-27 05:10] LABS: BUN/CREATININE RATIO 12; CARBON DIOXIDE 18 MMOL/L (21-32); CHLORIDE 103 MMOL/L (98-107); CREATININE SERUM 0.98 MG/DL (0.60-1.30); GFR ESTIMATED > 60; GLUCOSE 277 MG/DL (70-105); POTASSIUM 4.5 MMOL/L (3.6-5.0); SODIUM 134 MMOL/L (135-145)
[2019-01-27 05:12] LABS: CHOLESTEROL 126 MG/DL (< 200); HDL CHOLESTEROL 32 MG/DL (40-60); TRIGLYCERIDES 66 MG/DL (<150); VLDL CHOLESTEROL 13 MG/DL (5-40)
--- NOTE | 2019-01-27 06:32 | NUR ---
patient is in bed during svn via mask; no distress noted at this time. patient was on 4 L NC, due to above O2 sat of 93% O2 was decreased to 3 L, RT will continue to monitor patient's O2
[2019-01-27] MEDS: methylPREDNISolone 40 MG/ML (Solu-MEDROL) VIAL IV SCH ×4 (06:42→23:27)
[2019-01-27] MEDS: inSUlin ASPART (NovoLOG) 1 UNIT/0.01 ML (CHARGE PER UNIT) SC SCH ×4 (06:43→21:56)
[2019-01-27] MEDS: CATHETER FLUSH 10 ML SYR IV SCH ×3 (06:44→21:58)
[2019-01-27 08:00] VITALS: BP 117/67
--- NOTE | 2019-01-27 09:35 | Pulmonary Consultation ---
History of Present Illness History of Present Illness Date of Consultation 01/27/19 09:35 Time Seen by Provider: 12:12 Date of Admission History of Present Illness 48yo with hx of severe oxygen dependent COPD (uses 3liters at home) presented to ED secondary to worsening respiratory distress and pleuritic CP over the last 2 days. Denies f/ns/c. Home nebulizer has not been much help. Pt also had hemoptysis however that has since improved. He was treated in December for acute bronchitis with a prednisone taper and azithromycin. prior to this hospitalization pt has not seen a duct layer supervisor. CT from 12/24 shows very severe emphysematous changes. Allergies and Home Medications Allergies Coded Allergies: Opioids - Morphine Analogues (Verified Adverse Reaction, Intermediate, 12/31/17) Opioid medications cause dizziness and nausea tramadol (Verified Adverse Reaction, Intermediate, NAUSEA, 12/31/17) Tramadol caused immediate nausea and lightheadedness Home Medications Acetaminophen 500 Mg Tablet, 1,000 MG PO Q6H PRN for HEADACHE, (Reported) TAKES 2 (500MG) TABLETS Albuterol Sulfate 2.5 Mg/3 Ml Vial.neb, 2.5 MG NEB QID, (Reported) Albuterol Sulfate 6.7 Gm Hfa.aer.ad, 2 PUFF INH Q4H PRN for SHORTNESS OF BREATH, (Reported) Azithromycin 250 Mg Tablet, 250 MG PO UD TAKE 2 TABLETS ON DAY ONE THEN TAKE 1 TABLET DAILY FOR FOUR MORE DAYS Prescribed by: NAIF SIMMS on 12/13/18 1046 Budesonide/Formoterol Fumarate 10.2 Gm Hfa.aer.ad, 2 PUFF INH BID, (Reported) Ibuprofen 200 Mg Tablet, 600-800 MG PO BID PRN for BACK PAIN, (Reported) TAKES 3 TO 4 (200MG) TABLETS Lisinopril 2.5 Mg Tablet, 5 MG PO DAILY, (Reported) Metformin HCl 500 Mg Tablet, 500 MG PO DAILY Prescribed by: VALENCIA SERRANO on 12/29/16 1114 Prednisone 10 Mg Tab, 0 PO UD Take 6 tabs(60mg)daily, decrease by 1 tab(10mg) every other day. Prescribed by: VALENCIA SRERANO on 12/29/16 1114 Prednisone 20 Mg Tab, 40 MG PO DAILY Prescribed by: NAIF SIMMS on 12/13/18 1046 Sucralfate 1 Gm Tablet, 1 GM PO ACHS Prescribed by: NAIF SIMMS on 01/29/17 1739 Tiotropium [place] 1 Inh Aerp, 2 PUFF IH DAILY Prescribed by: VALENCIA SERRANO on 12/29/16 1114 Past Qpknkjt-Iqyluc-Ordgwd Hx Patient Social History Alcohol Use: Denies Use Recreational Drug Use: No Smoking Status: Current Everyday Smoker Type Used: Cigarettes 2nd Hand Smoke Exposure: Yes Recent Foreign Travel: No Contact w/Someone Who Travel: No Recent Infectious Disease Expo: No Recent Hopitalizations: No Immunizations Up To Date Tetanus Booster (TDap): More than 5yrs PED Vaccines UTD: Yes Date of Pneumonia Vaccine: Jan 26, 2017 Date of Influenza Vaccine: May 10, 2018 Seasonal Allergies Seasonal Allergies: Yes Past Medical History Surgeries: Yes (ERCP BEFORE GALL BLADDER REMOVAL ; HERNIA REPAIR; RIGHT SHOULDER SURGERY) Abdominal, Gallbladder, Orthopedic Respiratory: Yes Asthma, Pneumonia, Chronic Bronchitis, COPD (chronic hypoxia requiring supplemental oxygen) Currently Using CPAP: No Currently Using BIPAP: No Cardiac: No Neurological: Yes Headaches /Migraines Reproductive Disorders: No Genitourinary: Yes Kidney Stones Gastrointestinal: Yes ("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 5) Gastroesophageal Reflux, Gall Bladder Disease Musculoskeletal: Yes (RIGHT SHOULDER SURGERY-2006) Arthritis, Chronic Back Pain Endocrine: Yes (DIABETES, Reports diet control only) Diabetes, Non-Insulin dep HEENT: Yes Loss of Vision: Bilateral Hearing Impairment: Hard of Hearing Cancer: No Psychosocial: No Integumentary: No Psoriasis Blood Disorders: No Adverse Reaction/Blood Tranf: No Family Medical History Reviewed Nursing Family Hx Cancer 09 SISTER, Onset:Unknown (LEUKEMIA) Family history: Alzheimer's disease GRANDMOTHER, Onset:Unknown Family history: Arthritis GRANDMOTHER, Onset:Unknown Family history: Asthma 03 FATHER, Onset:Unknown Family history: Diabetes mellitus 03 FATHER, Onset:Unknown Family history: Hypertension 03 FATHER, Onset:Unknown 03 MOTHER, Onset:Unknown Kidney disease 03 FATHER (KIDNEY STONES) Visual impairment COPD, Hypertension Review of Systems Time Seen by Provider: 12:28 Constitutional: Weakness, Malaise; No: Fever, Chills, Sweats, Other Eyes: No: Pain, Vision change, Conjunctivae inflammation, Eyelid inflammation, Other, Redness ENT: Nose congestion; No: Ear pain, Ear discharge, Nose pain, Nose discharge, Mouth pain, Mouth swelling, Throat pain, Throat swelling, Other Respiratory: Shortness of breath, SOB with excertion, Wheezing, Hemoptysis, Pleuritic Pain, Sputum Cardiovascular: Chest Pain, Paroxysmal Noc. Dyspnea, Lt Headedness Gastrointestinal: No: Nausea, Vomiting, Abdominal Pain, Diarrhea, Constipation, Melena, Hematochezia, Other Sepsis Event Evaluation Height, Weight, BMI Height: 5'3.00" Weight: 135lbs. 2.0oz. 61.429187lj; 23.9 BMI Method:Stated Exam Exam Vital Signs Date Time Temp Pulse Resp B/P (MAP) Pulse Ox O2 Delivery O2 Flow Rate FiO2 01/27/19 08:00 97.2 85 20 117/67 (84) 92 Nasal Cannula 3.00 01/27/19 06:24 93 Nasal Cannula 4.00 01/27/19 03:58 97.2 93 18 106/51 (69) 93 Nasal Cannula 4.00 01/27/19 01:59 92 Nasal Cannula 4.00 01/27/19 01:00 86 01/26/19 23:29 97.3 94 18 114/51 (72) 97 Nasal Cannula 4.00 01/26/19 22:35 100 01/26/19 22:27 94 Nasal Cannula 4.00 01/26/19 20:00 Nasal Cannula 4.00 01/26/19 19:48 98.5 92 20 103/54 (70) 95 Nasal Cannula 4.00 01/26/19 18:49 Nasal Cannula 4.00 01/26/19 18:34 93 Nasal Cannula 4.00 01/26/19 17:55 98.0 92 22 122/73 (89) 94 Nasal Cannula 4.00 01/26/19 17:55 98.0 92 22 122/73 94 Nasal Cannula 4.00 01/26/19 17:31 97.7 92 20 125/74 (91) 93 Nasal Cannula 4.00 01/26/19 15:06 94 Nasal Cannula 6.00 01/26/19 13:08 96 Nasal Cannula 4.00 01/26/19 12:50 98.0 103 16 150/101 (117) 99 Nasal Cannula 6.00 I & O 01/27/19 07:00 Intake Total 1700 ml Output Total 2000 ml Balance -300 ml Height & Weight Height: 5'3.00" Weight: 135lbs. 2.0oz. 61.149042mc; 23.9 BMI Method:Stated General Appearance: No Apparent Distress, WD/WN, Anxious HEENT: PERRL/EOMI, Normal ENT Inspection, Pharynx Normal Neck: Full Range of Motion, Non Tender, Supple Respiratory: No Respiratory Distress, Decreased Breath Sounds Cardiovascular: Regular Rate, Rhythm, No Edema, No Gallop Capillary Refill: Less Than 3 Seconds Gastrointestinal: normal bowel sounds, non tender, soft Extremity: Normal Capillary Refill, No Pedal Edema Neurologic/Psychiatric: Alert, Oriented x3 Skin: Normal Color, Warm/Dry Lymphatic: No Adenopathy Results Lab Laboratory Tests 01/26/19 12:58 01/27/19 04:18 Assessment/Plan Assessment/Plan Very severe COPD with COPDAE -Solumedrol 40 IV Q 6 -Duoneb -Add advair -ABG - C02 37 -Pt needs out pt alpha 1 testing if not already done -Out pt pulmonary rehab -CT from 12/24 reviewed Allergic rhinitis -Start singulair, Claritin Dehydration with metabolic lactic acidosis -IVF Tobacco use -Education -Pt denies marijuanna or E cigs probable WILL -Out pt testing TOMAS MASON DO Jan 27, 2019 09:35
[2019-01-27 10:48] LABS: ABG OXYGEN SATURATION 93 % (94-100); ABG PCO2 35 MMHG (35-45); ABG PH 7.43 (7.37-7.43); ABG PO2 60 MMHG (79-93); ABG TCO2 23.9 MMOL/L (21.0-31.0); ALLENS TEST YES-POS
[2019-01-27 10:49] LABS: INSPIRED O2 3 L; PATIENT TEMP 97.2; VENTILATOR NO
--- NOTE | 2019-01-27 11:16 | Diagnostic Imaging Report ---
EXAMINATION: PA and lateral chest at 1036 AM INDICATION: Shortness of breath The heart size is within normal limits and stable when compared to 01/26/2019. The coarse perihilar markings seen on the prior study are again evident and no different. There is no sign of failure, pneumonia or a pleural effusion to indicate an acute abnormality. The mediastinum is not widened. The osseous structures are intact. IMPRESSION: There is no evidence for an acute cardiopulmonary abnormality. When compared to the prior study, there has been no significant change. Dictated by: Dictated on workstation # [id number]
--- NOTE | 2019-01-27 11:43 | History & Physical-Hospitalist ---
History of Present Illness HPI/Chief Complaint Chief complaint: Shortness of breath History of present illness: This is a 48-year-old white male clinic patient of [facility] with a past medical history of severe COPD O2 dependent on 3 L at home who recently had an exacerbation of asthma COPD and may placed on Zithromax and prednisone had felt a little better afterwards but began having increasing shortness of breath and wheezing to the point that he was coughing up so hard that he had a small amount of hemoptysis. He was placed on IV steroids nebulized treatments oxygen supplementation and Dr. Shepard was consulted. At this current time he is maintained on IV fluids for elevated lactic acid from dehydration and severe coughing and shortness of breath and hypoxia. Source: patient Exam Limitations: no limitations Date Seen 01/27/19 Time Seen by a Provider: 11:00 Attending Physician Mounika Cedillo DO [facility]/[place],[facility] Referring Physician Date of Admission Jan 26, 2019 at 16:48 Home Medications & Allergies Home Medications Reviewed patient Home Medication Reconciliation performed by pharmacy medication reconciliations automation engineering technician and/or nursing. Patients Allergies have been reviewed. Allergies Allergies Coded Allergies Opioids - Morphine Analogues (Verified Adverse Reaction, Intermediate, 12/31/17) Opioid medications cause dizziness and nausea tramadol (Verified Adverse Reaction, Intermediate, NAUSEA, 12/31/17) Tramadol caused immediate nausea and lightheadedness Past Iszcwpv-Kxgvki-Mumxyn Hx Past Med/Social Hx: Reviewed Nursing Past Med/Soc Hx, Reviewed and Corrections made Patient Social History Marrital Status: single Employed/Student: unemployed Alcohol Use: Denies Use Recreational Drug Use: No Smoking Status: Current Everyday Smoker Type Used: Cigarettes 2nd Hand Smoke Exposure: Yes Recent Foreign Travel: No Contact w/other who traveled: No Recent Hopitalizations: No Recent Infectious Disease Expo: No Immunizations Up To Date Tetanus Booster (TDap): More than 5yrs Pediatric: Yes Date of Pneumonia Vaccine: Jan 26, 2017 Date of Influenza Vaccine: May 10, 2018 Seasonal Allergies Seasonal Allergies: Yes Past Medical History Surgeries: Abdominal, Gallbladder, Orthopedic Respiratory: Asthma, Chronic Bronchitis, COPD, Emphysema, Pneumonia Currently Using CPAP: No Currently Using BIPAP: No Cardiac: High Cholesterol, Hypertension Neurological: Headaches /Migraines Reproductive: No Genitourinary: Kidney Stones Gastrointestinal: Gastroesophageal Reflux, Gall Bladder Disease Musculoskeletal: Arthritis, Chronic Back Pain Endocrine: Diabetes, Non-Insulin dep Loss of Vision: Bilateral Hearing Impairment: Hard of Hearing Skin/Integumentary: Psoriasis History of Blood Disorders: No Adverse Reaction to Blood Boland: No Family History Reviewed Nursing Family Hx Cancer 09 SISTER, Onset:Unknown (LEUKEMIA) Family history: Alzheimer's disease GRANDMOTHER, Onset:Unknown Family history: Arthritis GRANDMOTHER, Onset:Unknown Family history: Asthma 03 FATHER, Onset:Unknown Family history: Diabetes mellitus 03 FATHER, Onset:Unknown Family history: Hypertension 03 FATHER, Onset:Unknown 03 MOTHER, Onset:Unknown Kidney disease 03 FATHER (KIDNEY STONES) Visual impairment COPD, Hypertension Review of Systems Constitutional: see HPI, malaise, weakness EENTM: no symptoms reported Respiratory: dyspnea on exertion, short of breath, wheezing Gastrointestinal: no symptoms reported Genitourinary: no symptoms reported Musculoskeletal: no symptoms reported Skin: no symptoms reported Psychiatric/Neurological: No Symptoms Reported All Other Systems Reviewed Negative Unless Noted: Yes Physical Exam Physical Exam Vital Signs Vital Signs - First Documented 01/26/19 12:50 Temp 98.0 Pulse 103 Resp 16 B/P (MAP) 150/101 (117) Pulse Ox 99 O2 Delivery Nasal Cannula O2 Flow Rate 6.00 Capillary Refill : Less Than 3 Seconds Height, Weight, BMI Height: 5'3.00" Weight: 135lbs. 2.0oz. 61.097982lm; 23.9 BMI Method:Stated General Appearance: WD/WN, Anxious, Chronically ill, Mild Distress, Obese Eyes: Right Eye Normal Inspection, Right Eye PERRL HEENT: PERRL/EOMI, Normal ENT Inspection, Pharynx Normal, Moist Mucous Membranes Neck: Full Range of Motion, Normal Inspection, Non Tender Respiratory: Chest Non Tender, No Accessory Muscle Use, No Respiratory Distress, Crackles, Decreased Breath Sounds, Rales, Wheezing Cardiovascular: Regular Rate, Rhythm, No Edema, No Gallop, No JVD, No Murmur, Normal Peripheral Pulses Gastrointestinal: Normal Bowel Sounds, No Organomegaly, No Pulsatile Mass, Non Tender, Soft Back: Normal Inspection, No CVA Tenderness, No Vertebral Tenderness Extremity: Normal Capillary Refill, Normal Inspection, Normal Range of Motion, Non Tender, No Calf Tenderness, No Pedal Edema Neurologic/Psychiatric: Alert, Oriented x3, No Motor/Sensory Deficits, Normal Mood/Affect Skin: Normal Color, Warm/Dry Lymphatic: No Adenopathy Results Results/Procedures Labs Laboratory Tests 01/26/19 12:58 01/27/19 04:18 Patient resulted labs reviewed. Assessment/Plan Admission Diagnosis Assessment: Severe COPD with exacerbation Allergies Dehydration Smoker Presumed WILL Elevated lactic acid from hypoxia and work of breathing Plan: IV steroids O2 Nebs Smoking cessation IVF Admission Status: Inpatient Order (span 2 midnights) Reason for Inpatient Admission: Severity of COPD will require 4 days inpatient Diagnosis/Problems Diagnosis/Problems (1) Acute and chronic respiratory failure Status: Acute (2) COPD exacerbation Status: Acute (3) Acute respiratory distress Status: Acute (4) Hypoxia Status: Acute (5) Hyperventilation Status: Acute (6) Chronic bronchitis Status: Chronic Qualifiers: Chronic bronchitis type: unspecified Qualified Codes: J42 - Unspecified chronic bronchitis (7) Hemoptysis Status: Acute (8) Nausea and vomiting Status: Acute Qualifiers: Vomiting type: unspecified (9) Hypertension (10) Diabetes mellitus (11) GERD (gastroesophageal reflux disease) (12) Smoker (13) Oxygen dependent (14) Lactic acid acidosis Status: Acute (15) DVT prophylaxis Status: Acute Clinical Quality Measures DVT/VTE Risk/Contraindication: Risk Factor Score Per Nursin RFS Level Per Nursing on Admit: 4+=Very High MOUNIKA CEDILLO DO Jan 27, 2019 11:42
[2019-01-27 12:00] VITALS: BP 144/69
[2019-01-27] MEDS: NS IV 1000 ML 1,000 ML IV SCH ×2 (12:57→23:29)
[2019-01-27 15:58] VITALS: BP 139/82
[2019-01-27] MEDS ORDERED: DOCUSATE SODIUM 100 MG (COLACE) CAP PO PRN (16:15)
[2019-01-27] MEDS ORDERED: diphenhydrAMINE 25 MG TAB (BENADRYL) PO PRN (16:15)
[2019-01-27] MEDS ORDERED: ONDANSETRON 4 MG/2 ML (SDV) Z0FRAN IVP PRN (16:15)
[2019-01-27] MEDS ORDERED: CALCIUM CARBONATE 500 MG (TUMS) TAB.CHEW PO PRN (16:15)
[2019-01-27] MEDS ORDERED: LOPERAMIDE 2 MG (IMODIUM) TABLET PO PRN (16:15)
[2019-01-27] MEDS ORDERED: ACETAMINOPHEN 500 MG TAB (TYLENOL) PO PRN (16:15)
[2019-01-27] MEDS ORDERED: MELATONIN 3 MG TABLET PO PRN (16:15)
[2019-01-27] MEDS ORDERED: ENOXAPARIN 40 MG/0.4 ML (LOVENOX) SYR SC SCH (16:15)
[2019-01-27] MEDS ORDERED: ALPRAZolam 0.25 MG (XANAX) TAB PO PRN (16:15)
[2019-01-27 19:41] VITALS: BP 132/72
[2019-01-27] MEDS ORDERED: MONTELUKAST 10 MG (SINGULAIR) TAB PO SCH (21:00)
[2019-01-27] MEDS: RT-ADVAIR HFA 115/21 MCG PER PUFF IH SCH (21:37)
[2019-01-27] MEDS: SENNA W/DOCUSATE (SENOKOT S) TABLET PO SCH (21:54)
[2019-01-27 23:54] VITALS: BP 125/80
[2019-01-28] MEDS: RT-ALBUTEROL/IPRATROPIUM 3 ML (DUONEB) VIAL IH SCH ×3 (02:43→10:44)
[2019-01-28 03:54] VITALS: BP 111/65
[2019-01-28 05:32] LABS: BASOPHILS % (AUTO) 0 % (0-10); EOSINOPHILS % (AUTO) 0 % (0-10); HEMATOCRIT 39 % (40-54); HEMOGLOBIN 13.3 G/DL (13.3-17.7); LYMPHOCYTES # (AUTO) 1.3 X 10^3 (1.0-4.0); LYMPHOCYTES % (AUTO) 10 % (12-44); MEAN CORPUSCULAR HEMOGLOBIN 31 PG (25-34); MEAN CORPUSCULAR HGB CONC 34 G/DL (32-36); MEAN CORPUSCULAR VOLUME 90 FL (80-99); MEAN PLATELET VOLUME 10.8 FL (7.4-10.4); MONOCYTES # (AUTO) 0.7 X 10^3 (0.0-1.0); MONOCYTES % (AUTO) 5 % (0-12); NEUTROPHILS # (AUTO) 11.4 X 10^3 (1.8-7.8); NEUTROPHILS % (AUTO) 85 % (42-75); PLATELET COUNT 251 10^3/uL (130-400); RED CELL DISTRIBUTION WIDTH 13.1 % (10.0-14.5); WHITE BLOOD COUNT 13.4 10^3/uL (4.3-11.0)
[2019-01-28 05:59] LABS: ALANINE AMINOTRANSFERASE 43 U/L (0-55); ALBUMIN 4.2 GM/DL (3.2-4.5); ALKALINE PHOSPHATASE 98 U/L (40-136); BILIRUBIN,TOTAL 0.3 MG/DL (0.1-1.0); BUN/CREATININE RATIO 17; CALCIUM 9.1 MG/DL (8.5-10.1); CARBON DIOXIDE 20 MMOL/L (21-32); CHLORIDE 105 MMOL/L (98-107); CREATININE SERUM 0.92 MG/DL (0.60-1.30); GFR ESTIMATED > 60; GLUCOSE 286 MG/DL (70-105); POTASSIUM 4.4 MMOL/L (3.6-5.0); SODIUM 136 MMOL/L (135-145)
--- NOTE | 2019-01-28 06:19 | Pulmonary Progress Note ---
Sepsis Event Evaluation Height, Weight, BMI Height: 5'3.00" Weight: 135lbs. 2.0oz. 61.901518fu; 23.9 BMI Method:Stated Focused Exam Lactate Level 01/27/19 09:48: Lactic Acid Level 3.40*H 01/27/19 11:57: Lactic Acid Level 3.13*H Exam Exam Vital Signs Date Time Temp Pulse Resp B/P (MAP) Pulse Ox O2 Delivery O2 Flow Rate FiO2 01/28/19 03:54 97.9 76 20 111/65 (80) 95 Nasal Cannula 3.00 01/28/19 02:43 94 Nasal Cannula 3.00 01/27/19 23:54 98.0 95 20 125/80 (95) 95 Nasal Cannula 3.00 01/27/19 21:42 92 Nasal Cannula 3.00 01/27/19 21:37 92 Nasal Cannula 3.00 01/27/19 20:00 Nasal Cannula 3.00 01/27/19 19:41 98.2 86 22 132/72 (92) 94 Nasal Cannula 3.00 01/27/19 15:58 99.1 86 18 139/82 (101) 92 Nasal Cannula 3.00 01/27/19 15:44 92 Nasal Cannula 3.00 01/27/19 13:00 92 01/27/19 12:00 97.3 93 24 144/69 (94) 95 Nasal Cannula 3.00 01/27/19 10:42 92 Nasal Cannula 3.00 01/27/19 08:00 97.2 85 20 117/67 (84) 92 Nasal Cannula 3.00 01/27/19 08:00 Nasal Cannula 3.00 01/27/19 07:00 86 01/27/19 06:24 93 Nasal Cannula 4.00 I & O 01/28/19 07:00 Intake Total 3940 ml Output Total 3400 ml Balance 540 ml Height & Weight Height: 5'3.00" Weight: 135lbs. 2.0oz. 61.320825hj; 23.9 BMI Method:Stated General Appearance: WD/WN, Anxious, Chronically ill, Mild Distress, Obese HEENT: PERRL/EOMI, Normal ENT Inspection, Pharynx Normal, Moist Mucous Membranes Neck: Full Range of Motion, Normal Inspection, Non Tender Respiratory: Chest Non Tender, No Accessory Muscle Use, No Respiratory Distress, Crackles, Decreased Breath Sounds, Rales, Wheezing Cardiovascular: Regular Rate, Rhythm, No Edema, No Gallop, No JVD, No Murmur, Normal Peripheral Pulses Capillary Refill: Less Than 3 Seconds Gastrointestinal: normal bowel sounds, non tender, soft Extremity: Normal Capillary Refill, Normal Inspection, Normal Range of Motion, Non Tender, No Calf Tenderness, No Pedal Edema Neurologic/Psychiatric: Alert, Oriented x3, No Motor/Sensory Deficits, Normal Mood/Affect Skin: Normal Color, Warm/Dry Lymphatic: No Adenopathy Results Lab Laboratory Tests 01/26/19 12:58 01/27/19 04:18 01/28/19 05:02 01/28/19 05:07 Assessment/Plan Assessment/Plan Very severe COPD with COPDAE -Solumedrol 40 IV Q 6 -Duoneb -Add advair -ABG - C02 37 -Pt needs out pt alpha 1 testing if not already done -Out pt pulmonary rehab -CT from 12/24 reviewed Allergic rhinitis -Start singulair, Claritin Dehydration with metabolic lactic acidosis -IVF Tobacco use -Education -Pt denies marijuanna or E cigs probable WILL -Out pt testing TOMAS MASON DO Jan 28, 2019 06:19
[2019-01-28] MEDS: CATHETER FLUSH 10 ML SYR IV SCH (06:49)
[2019-01-28] MEDS: methylPREDNISolone 40 MG/ML (Solu-MEDROL) VIAL IV SCH ×2 (07:08→13:28)
[2019-01-28] MEDS: inSUlin ASPART (NovoLOG) 1 UNIT/0.01 ML (CHARGE PER UNIT) SC SCH ×2 (07:09→11:41)
[2019-01-28 08:00] VITALS: BP 137/82
[2019-01-28] MEDS: RT-ADVAIR HFA 115/21 MCG PER PUFF IH SCH (08:08)
[2019-01-28] MEDS ORDERED: LORATADINE (CLARITIN) 10 MG TAB PO SCH (09:00)
[2019-01-28] MEDS: NS IV 1000 ML 1,000 ML IV SCH (09:30)
[2019-01-28] MEDS: SENNA W/DOCUSATE (SENOKOT S) TABLET PO SCH (09:33)
--- NOTE | 2019-01-28 11:35 | Progress Note-Hospitalist ---
Subjective HPI/CC On Admission Date Seen by Provider: Jan 28, 2019 Time Seen by Provider: 11:30 Chief complaint: Shortness of breath History of present illness: This is a 48-year-old white male clinic patient of [facility] with a past medical history of severe COPD O2 dependent on 3 L at home who recently had an exacerbation of asthma COPD and may placed on Zithromax and prednisone had felt a little better afterwards but began having increasing shortness of breath and wheezing to the point that he was coughing up so hard that he had a small amount of hemoptysis. He was placed on IV steroids nebulized treatments oxygen supplementation and Dr. Shepard was consulted. At this current time he is maintained on IV fluids for elevated lactic acid from dehydration and severe coughing and shortness of breath and hypoxia. Focused Exam Lactate Level 01/27/19 09:48: Lactic Acid Level 3.40*H 01/27/19 11:57: Lactic Acid Level 3.13*H Objective Exam Vital Signs Vital Signs Date Time Temp Pulse Resp B/P (MAP) Pulse Ox O2 Delivery O2 Flow Rate FiO2 01/28/19 12:00 97.2 89 18 125/71 (89) 93 Nasal Cannula 2.00 Capillary Refill : Less Than 3 Seconds General Appearance: WD/WN, Anxious, Chronically ill, Mild Distress, Obese HEENT: PERRL/EOMI, Normal ENT Inspection, Pharynx Normal, Moist Mucous Membranes Neck: Full Range of Motion, Normal Inspection, Non Tender Respiratory: Chest Non Tender, No Accessory Muscle Use, No Respiratory Dis tress, Crackles, Decreased Breath Sounds, Rales, Wheezing Cardiovascular: Regular Rate, Rhythm, No Edema, No Gallop, No JVD, No Murmur, Normal Peripheral Pulses Gastrointestinal: Normal Bowel Sounds, No Organomegaly, No Pulsatile Mass, Non Tender, Soft Back: Normal Inspection, No CVA Tenderness, No Vertebral Tenderness Extremity: Normal Capillary Refill, Normal Inspection, Normal Range of Motion, Non Tender, No Calf Tenderness, No Pedal Edema Neurologic/Psychiatric: Alert, Oriented x3, No Motor/Sensory Deficits, Normal Mood/Affect Skin: Normal Color, Warm/Dry Lymphatic: No Adenopathy Results/Procedures Lab Laboratory Tests 01/28/19 05:02 01/28/19 05:07 Patient resulted labs reviewed. Assessment/Plan Assessment and Plan Assess & Plan/Chief Complaint Assessment: Severe COPD with exacerbation Allergies Dehydration Smoker Presumed WILL Elevated lactic acid from hypoxia and work of breathing Plan: IV steroids O2 Nebs Smoking cessation IVF Diagnosis/Problems Diagnosis/Problems (1) Acute and chronic respiratory failure Status: Acute (2) COPD exacerbation Status: Acute (3) Acute respiratory distress Status: Acute (4) Hypoxia Status: Acute (5) Hyperventilation Status: Acute (6) Chronic bronchitis Status: Chronic Qualifiers: Chronic bronchitis type: unspecified Qualified Codes: J42 - Unspecified chronic bronchitis (7) Hemoptysis Status: Acute (8) Nausea and vomiting Status: Acute Qualifiers: Vomiting type: unspecified (9) Hypertension (10) Diabetes mellitus (11) GERD (gastroesophageal reflux disease) (12) Smoker (13) Oxygen dependent (14) Lactic acid acidosis Status: Acute (15) DVT prophylaxis Status: Acute Clinical Quality Measures DVT/VTE Risk/Contraindication: Risk Factor Score Per Nursin RFS Level Per Nursing on Admit: 4+=Very High MELVIN MEDRANO DO Jan 28, 2019 11:35
[2019-01-28 12:00] VITALS: BP 125/71
[2019-01-28] MEDS ORDERED: LORA10TA7 PO (12:42)
[2019-01-28] MEDS ORDERED: MONT10TA24 PO (12:42)
[2019-01-28] MEDS ORDERED: GLYB1.253 PO (12:42)
[2019-01-28] MEDS ORDERED: PRED10TA22 PO (12:42)
--- NOTE | 2019-01-28 12:43 | Discharge Summary-Hospitalist ---
Diagnosis/Chief Complaint Date of Admission Jan 26, 2019 at 16:48 Date of Discharge Discharge Date: Jan 28, 2019 Admission Diagnosis Assessment: Severe COPD with exacerbation Allergies Dehydration Smoker Presumed WILL Elevated lactic acid from hypoxia and work of breathing Plan: IV steroids O2 Nebs Smoking cessation IVF Discharge Diagnosis (1) Acute and chronic respiratory failure Status: Acute (2) COPD exacerbation Status: Acute (3) Acute respiratory distress Status: Acute (4) Hypoxia Status: Acute (5) Hyperventilation Status: Acute (6) Chronic bronchitis Status: Chronic (7) Hemoptysis Status: Acute (8) Nausea and vomiting Status: Acute (9) Hypertension (10) Diabetes mellitus (11) GERD (gastroesophageal reflux disease) (12) Smoker (13) Oxygen dependent (14) Lactic acid acidosis Status: Acute (15) DVT prophylaxis Status: Acute Discharge Summary Discharge Physical Exam Allergies: Coded Allergies: Opioids - Morphine Analogues (Verified Adverse Reaction, Intermediate, 12/31/17) Opioid medications cause dizziness and nausea tramadol (Verified Adverse Reaction, Intermediate, NAUSEA, 12/31/17) Tramadol caused immediate nausea and lightheadedness Vitals & I&Os Vital Signs Date Time Temp Pulse Resp B/P (MAP) Pulse Ox O2 Delivery O2 Flow Rate FiO2 01/28/19 12:00 97.2 89 18 125/71 (89) 93 Nasal Cannula 2.00 General Appearance: No Apparent Distress, WD/WN Cardiovascular: Regular Rate, Rhythm, No Edema, No Gallop, No JVD, No Murmur, Normal Peripheral Pulses Gastrointestinal: Normal Bowel Sounds, No Organomegaly, No Pulsatile Mass, Non Tender, Soft Neurologic/Psychiatric: Alert, Oriented x3, No Motor/Sensory Deficits, Normal Mood/Affect Hospital Course Was the Problem List Reviewed?: Yes Hospital course: Patient had a brief hospital course he was admitted for exacerbation of COPD and requiring more oxygen than his 2 L/m that he takes at home. No pneumonia on chest x-ray. IV fluids were given for elevated lactic acid. Overall patient responded to IV steroids and Dr. Shepard consultation. Singulair and Claritin were added to his regimen. He has nebulizer treatments at home and really needed to return home to take care of his family and his lungs were clear at time of discharge and he will need close follow-up with his primary care provider Ameena Fisher at [facility]. All medications were sent to [facility] at his request. Labs (last 24 hrs) Laboratory Tests 01/27/19 15:49: Glucometer 210H 01/27/19 21:31: Glucometer 211H 01/28/19 05:02: Sodium Level 136, Potassium Level 4.4, Chloride Level 105, Carbon Dioxide Level 20L, Anion Gap 11, Blood Urea Nitrogen 16, Creatinine 0.92, Estimat Glomerular Filtration Rate > 60, BUN/Creatinine Ratio 17, Glucose Level 286H, Calcium Level 9.1, Corrected Calcium 8.9, Total Bilirubin 0.3, Aspartate Amino Transf (AST/SGOT) 16, Alanine Aminotransferase (ALT/SGPT) 43, Alkaline Phosphatase 98, Total Protein 7.0, Albumin 4.2 01/28/19 05:07: White Blood Count 13.4H, Red Blood Count 4.32L, Hemoglobin 13.3, Hematocrit 39L, Mean Corpuscular Volume 90, Mean Corpuscular Hemoglobin 31, Mean Corpuscular Hemoglobin Concent 34, Red Cell Distribution Width 13.1, Platelet Count 251, Mean Platelet Volume 10.8H, Neutrophils (%) (Auto) 85H, Lymphocytes (%) (Auto) 10L, Monocytes (%) (Auto) 5, Eosinophils (%) (Auto) 0, Basophils (%) (Auto) 0, Neutrophils # (Auto) 11.4H, Lymphocytes # (Auto) 1.3, Monocytes # (Auto) 0.7, Eosinophils # (Auto) 0.0, Basophils # (Auto) 0.0 01/28/19 05:27: Glucometer 257H 01/28/19 11:17: Glucometer 259H Patient resulted labs reviewed. Pending Labs Laboratory Tests 01/28/19 05:07: White Blood Count 13.4, Red Blood Count 4.32, Hemoglobin 13.3, Hematocrit 39, Mean Corpuscular Volume 90, Mean Corpuscular Hemoglobin 31, Mean Corpuscular Hemoglobin Concent 34, Red Cell Distribution Width 13.1, Platelet Count 251, Mean Platelet Volume 10.8, Neutrophils (%) (Auto) 85, Lymphocytes (%) (Auto) 10, Monocytes (%) (Auto) 5, Eosinophils (%) (Auto) 0, Basophils (%) (Auto) 0, Neutrophils # (Auto) 11.4, Lymphocytes # (Auto) 1.3, Monocytes # (Auto) 0.7, Eosinophils # (Auto) 0.0, Basophils # (Auto) 0.0 01/28/19 05:27: Glucometer 257 01/28/19 11:17: Glucometer 259 Discussion & Recommendations Discharge Planning: <30 minutes discharge planning Discharge Home Medications: Active Scripts Active Glyburide 1.25 Mg Tablet 1.25 Mg PO BID Prednisone 10 Mg Tab.ds.pk 10 Mg PO DAILY Take 6 tabs(60mg)daily,decrease by 1 tab(10MG)daily. Montelukast Sodium 10 Mg Tablet 10 Mg PO HS Loratadine 10 Mg Tablet 10 Mg PO DAILY Azithromycin 250 Mg Tablet 250 Mg PO UD TAKE 2 TABLETS ON DAY ONE THEN TAKE 1 TABLET DAILY FOR FOUR MORE DAYS Prednisone 20 Mg Tab 40 Mg PO DAILY Carafate (Sucralfate) 1 Gm Tablet 1 Gm PO ACHS Metformin HCl 500 Mg Tablet 500 Mg PO DAILY Spiriva (Tiotropium Palisade) 1 Inh Aerp 2 Puff IH DAILY Prednisone 10 Mg Tab 0 PO UD Take 6 tabs(60mg)daily, decrease by 1 tab(10mg) every other day. Reported Atorvastatin Calcium 80 Mg Tablet 80 Mg PO Lyrica (Pregabalin) 75 Mg Capsule 75 Mg PO Lisinopril 2.5 Mg Tablet 5 Mg PO DAILY Lovastatin 40 Mg Tablet 40 Mg PO Proventil Hfa (Albuterol Sulfate) 6.7 Gm Hfa.aer.ad 2 Puff INH Q4H PRN Tylenol Extra Strength (Acetaminophen) 500 Mg Tablet 1,000 Mg PO Q6H PRN TAKES 2 (500MG) TABLETS Advil (Ibuprofen) 200 Mg Tablet 600-800 Mg PO BID PRN TAKES 3 TO 4 (200MG) TABLETS Albuterol Sulfate 2.5 Mg/3 Ml Vial.neb 2.5 Mg NEB QID Symbicort 160-4.5 Mcg Inhaler (Budesonide/Formoterol Fumarate) 10.2 Gm Hfa.aer.ad 2 Puff INH BID Instructions to patient/family Please see electronic discharge instructions given to patient. Clinical Quality Measures DVT/VTE Risk/Contraindication: Risk Factor Score Per Nursin RFS Level Per Nursing on Admit: 4+=Very High Problem Qualifiers (1) Chronic bronchitis: Chronic bronchitis type: unspecified Qualified Codes: J42 - Unspecified chronic bronchitis (2) Nausea and vomiting: Vomiting type: unspecified MELVIN MEDRANO 23, 2019 12:43
--- NOTE | 2019-01-28 14:20 | NUR ---
PT STABLE AND READY FOR DISCHARGE PER DR MEDRANO ORDERS. WRITTEN AND VERBAL D/C INSTRUCTIONS GONE OVER. 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 FOLLOW UP FAX SENT FOR BOTH. NEW MEDICATIONS GONE OVER WITH PT. ALL BELONGINGS SENT WITH PT. PT VERBALIZED UNDERSTANDING OF D/C INSTRUCTIONS. PT WAS TAKEN VIA WHEELCHAIR TO PRIVATE VEHICLE. NO FURTHER NEEDS IDENTIFIED.
[2019-01-28 14:26] VITALS: BP 125/71
== END 2019-01-28 14:20 | disposition home or self-care (01) | DRG 190 ==
LOC: EDUNIT# 12:50 → ER 12:51 → 4TH 16:48
PROVIDERS: ADMIT Internal Medicine; ATTEND Internal Medicine
DX: J43.9 Emphysema, unspecified (principal); J96.21 Acute and chronic respiratory failure with hypoxia; E87.2 Acidosis; R04.2 Hemoptysis; J30.9 Allergic rhinitis, unspecified; E86.0 Dehydration; G47.33 Obstructive sleep apnea (adult) (pediatric); F17.210 Nicotine dependence, cigarettes, uncomplicated; K21.9 Gastro-esophageal reflux disease without esophagitis; I10 Essential (primary) hypertension; E11.9 Type 2 diabetes mellitus without complications; M19.91 Primary osteoarthritis, unspecified site; E78.00 Pure hypercholesterolemia, unspecified; G43.909 Migraine, unspecified, not intractable, without status migrainosus; H91.90 Unspecified hearing loss, unspecified ear; L40.9 Psoriasis, unspecified; Z99.81 Dependence on supplemental oxygen; Z87.01 Personal history of pneumonia (recurrent); Z88.5 Allergy status to narcotic agent
CPT/HCPCS: 36415; 36600; 71045; 71046; 80048; 80053; 80061; 82805; 82962; 83605; 83735; 83874; 83880; 84484; 85025; 85379; 85610; 85730; 86141; 93005; 93041; 94640; 94664; 94760

== ENCOUNTER 2019-04-02 18:09 | Outpatient (CLI) | payer MEDICAID ==
[~2019-04-02 18:09] MED LIST changes: +GLYB1.253 PO; +LORA10TA7 PO; +MONT10TA24 PO
== END 2019-04-03 05:24 | disposition home or self-care (01) ==
LOC: SLEEP 18:09
PROVIDERS: ATTEND Nurse Practitioner Family
DX: G47.50 Parasomnia, unspecified (principal); J30.9 Allergic rhinitis, unspecified; J44.9 Chronic obstructive pulmonary disease, unspecified; G47.10 Hypersomnia, unspecified; Z72.0 Tobacco use
CPT/HCPCS: 95810

== ENCOUNTER → 2019-04-19 | Outpatient (CLI) | payer MEDICAID ==
[~2019-04-19] MED LIST changes: +RT-ALBUTEROL SULF 2.5 MG/3 ML PRE-MIX VIAL INH ONE
--- NOTE | 2019-04-19 08:50 | Diagnostic Imaging Report ---
PROCEDURE: CT chest with contrast only. TECHNIQUE: Multiple contiguous axial images were obtained through the chest after administration of intravenous contrast. Auto Exposure Controls were utilized during the CT exam to meet ALARA standards for radiation dose reduction. INDICATION: Cough and shortness of breath. COMPARISON: Correlation is made with prior CT chest from 12/13/2018. FINDINGS: No axillary lymphadenopathy is identified. Mildly prominent right paratracheal lymph nodes are present, largest approximately 15 mm x 12 mm compared with 14 mm x 11 mm on prior. No definite hilar lymphadenopathy is seen. No pericardial or pleural fluid is detected. Significant emphysematous changes in both lungs are again noted. Previously noted nodular density in the medial aspect of the left upper lobe is stable. No new mass or infiltrate is detected. Upper abdomen again demonstrates hepatic steatosis. IMPRESSION: Overall stable CT of the chest when compared with prior examination from 12/13/2018. Mildly prominent mediastinal lymph nodes appear to be stable. Severe emphysematous changes are noted. No new abnormality is detected. Dictated by: Dictated on workstation # [id number]
== END ==
LOC: RAD 07:46
PROVIDERS: ATTEND Nurse Practitioner Family
DX: J43.9 Emphysema, unspecified (principal); J30.9 Allergic rhinitis, unspecified; G47.50 Parasomnia, unspecified; G47.10 Hypersomnia, unspecified; Z72.0 Tobacco use
CPT/HCPCS: 71260; 94640

== ENCOUNTER → 2019-06-12 | Outpatient (RCR) | payer MEDICAID ==
[2019-03-22 14:30] VITALS: BP 130/60
[2019-03-22 16:00] VITALS: BP 130/60
[2019-03-27 14:30] VITALS: BP 124/68
[2019-03-27 15:05] VITALS: BP 148/72
[2019-03-29 14:20] VITALS: BP 116/62
[2019-03-29 15:30] VITALS: BP 105/68
[2019-04-03 14:30] VITALS: BP 120/80
[2019-04-03 15:33] VITALS: BP 100/70
[2019-04-10 14:10] VITALS: BP 120/60
[2019-04-10 15:10] VITALS: BP 110/60
[2019-04-17 14:30] VITALS: BP 140/60
[2019-04-17 15:32] VITALS: BP 138/50
[2019-04-19 14:00] VITALS: BP 159/76
[2019-04-19 15:35] VITALS: BP 128/60
[2019-04-24 14:15] VITALS: BP 130/62
[2019-04-24 15:10] VITALS: BP 120/60
[2019-04-26 14:10] VITALS: BP 108/70
[2019-04-26 15:35] VITALS: BP 130/60
[2019-05-03 14:10] VITALS: BP 120/68
[2019-05-03 15:27] VITALS: BP 120/60
[2019-05-08 14:30] VITALS: BP 132/95
[2019-05-08 14:45] VITALS: BP 140/60
[2019-05-10 14:30] VITALS: BP 110/70
[2019-05-10 15:55] VITALS: BP 118/68
[2019-05-15 14:30] VITALS: BP 118/60
[2019-05-15 15:50] VITALS: BP 138/80
[2019-05-24 13:50] VITALS: BP 130/67
[2019-05-24 15:10] VITALS: BP 120/62
[2019-05-29 14:30] VITALS: BP 145/50
[2019-05-29 15:20] VITALS: BP 130/60
[2019-05-31 14:30] VITALS: BP 138/66
[2019-05-31 15:36] VITALS: BP 130/58
[2019-06-05 14:15] VITALS: BP 122/60
[2019-06-05 15:35] VITALS: BP 104/80
[2019-06-07 14:00] VITALS: BP 148/82
[2019-06-07 15:16] VITALS: BP 130/60
[~2019-06-12] MED LIST changes: -RT-ALBUTEROL SULF 2.5 MG/3 ML PRE-MIX VIAL INH ONE
[2019-06-12 14:30] VITALS: BP 121/82
[2019-06-12 15:47] VITALS: BP 130/60
[2019-06-14 13:15] VITALS: BP 150/60
[2019-06-14 13:45] VITALS: BP_SYST 148; BP_SYST 150; BP_DIAS 60; BP_DIAS 82
[2019-06-14 14:15] VITALS: BP 130/60
[2019-06-14 16:00] VITALS: BP 130/60
== END | disposition home or self-care (01) ==
LOC: PULM 03-14 09:57
PROVIDERS: ATTEND Nurse Practitioner Family
DX: J44.9 Chronic obstructive pulmonary disease, unspecified (principal); G47.50 Parasomnia, unspecified; G47.10 Hypersomnia, unspecified; R09.02 Hypoxemia; Z72.0 Tobacco use
CPT/HCPCS: 99211

== ENCOUNTER 2019-07-10 14:08 | Emergency (ER) | payer MEDICAID ==
[~2019-07-10] VITALS: Ht 160 cm; Wt 100.0 kg
--- NOTE | 2019-07-10 14:16 | ED Cough/URI ---
General Chief Complaint: Respiratory Problems Stated Complaint: SOA Source: patient Exam Limitations: no limitations History of Present Illness Date Seen by Provider: Jul 10, 2019 Time Seen by Provider: 14:14 Initial Comments 49-year-old male presents with dyspnea. Patient has a history of COPD and asthma. He continues to smoke a half pack per day. He is currently on 5 L of home oxygen. Patient reports that over the last couple weeks she's been having some increasing dyspnea. He denies any chest pain, nausea vomiting. Symptoms get significantly worse with exertion. No other systemic complaints Allergies and Home Medications Allergies Coded Allergies: Opioids - Morphine Analogues (Verified Adverse Reaction, Intermediate, 12/31/17) Opioid medications cause dizziness and nausea tramadol (Verified Adverse Reaction, Intermediate, NAUSEA, 12/31/17) Tramadol caused immediate nausea and lightheadedness Home Medications Acetaminophen 500 Mg Tablet, 1,000 MG PO Q6H PRN for HEADACHE, (Reported) TAKES 2 (500MG) TABLETS Albuterol Sulfate 2.5 Mg/3 Ml Vial.neb, 2.5 MG NEB QID, (Reported) Albuterol Sulfate 6.7 Gm Hfa.aer.ad, 2 PUFF INH Q4H PRN for SHORTNESS OF BREATH, (Reported) Budesonide/Formoterol Fumarate 10.2 Gm Hfa.aer.ad, 2 PUFF INH BID, (Reported) Doxycycline Hyclate 100 Mg Tablet, 100 MG PO BID Prescribed by: YINKA RAMIREZ on 07/10/19 1538 Glyburide 1.25 Mg Tablet, 1.25 MG PO BID Prescribed by: MELVIN MEDRANO on 01/28/19 124 Ibuprofen 200 Mg Tablet, 600-800 MG PO BID PRN for BACK PAIN, (Reported) TAKES 3 TO 4 (200MG) TABLETS Lisinopril 2.5 Mg Tablet, 5 MG PO DAILY, (Reported) Loratadine 10 Mg Tablet, 10 MG PO DAILY Prescribed by: MELVIN MEDRANO on 01/28/19 124 Montelukast Sodium 10 Mg Tablet, 10 MG PO HS Prescribed by: MELVIN MEDRANO on 01/28/19 124 Prednisone 10 Mg Tab.ds.pk, 10 MG PO DAILY Take 6 tabs(60mg)daily,decrease by 1 tab(10MG)daily. Prescribed by: MELVIN MEDRANO on 01/28/19 1242 Prednisone 20 Mg Tab, 40 MG PO DAILY Prescribed by: YINKA RAMIREZ on 07/10/19 1538 Sucralfate 1 Gm Tablet, 1 GM PO ACHS Prescribed by: NAIF SIMMS on 01/29/17 1739 Tiotropium [place] 1 Inh Aerp, 2 PUFF IH DAILY Prescribed by: VALENCIA SERRANO on 12/29/16 1114 Patient Home Medication List Home Medication List Reviewed: Yes Review of Systems Review of Systems Constitutional: No chills, No fever Respiratory: cough, short of breath, wheezing Cardiovascular: No chest pain, No palpitations Gastrointestinal: no symptoms reported Genitourinary: no symptoms reported Skin: no symptoms reported Psychiatric/Neurological: No Symptoms Reported Past [facility] Hx Past Med/Social Hx: Reviewed Nursing Past Med/Soc Hx Patient Social History Type Used: Cigarettes 2nd Hand Smoke Exposure: Yes Recent Hopitalizations: No Immunizations Up To Date Tetanus Booster (TDap): More than 5yrs PED Vaccines UTD: Yes Date of Pneumonia Vaccine: Jan 26, 2017 Date of Influenza Vaccine: May 10, 2018 Seasonal Allergies Seasonal Allergies: Yes Past Medical History Surgeries: Yes (ERCP BEFORE GALL BLADDER REMOVAL ; HERNIA REPAIR; RIGHT SHOULDER SURGERY) Abdominal, Gallbladder, Orthopedic Respiratory: Yes Asthma, Pneumonia, Chronic Bronchitis, COPD Currently Using CPAP: No Currently Using BIPAP: No Cardiac: No High Cholesterol, Hypertension Neurological: Yes Headaches /Migraines Reproductive Disorders: No Genitourinary: Yes Kidney Stones Gastrointestinal: Yes ("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 5) Gastroesophageal Reflux, Gall Bladder Disease Musculoskeletal: Yes (RIGHT SHOULDER SURGERY-2005) Arthritis, Chronic Back Pain Endocrine: Yes (DIABETES, Reports diet control only) Diabetes, Non-Insulin dep HEENT: Yes Loss of Vision: Bilateral Hearing Impairment: Hard of Hearing Cancer: No Psychosocial: No Integumentary: No Psoriasis Blood Disorders: No Adverse Reaction/Blood Tranf: No Family Medical History Cancer 09 SISTER, Onset:Unknown (LEUKEMIA) Family history: Alzheimer's disease GRANDMOTHER, Onset:Unknown Family history: Arthritis GRANDMOTHER, Onset:Unknown Family history: Asthma 03 FATHER, Onset:Unknown Family history: Diabetes mellitus 03 FATHER, Onset:Unknown Family history: Hypertension 03 FATHER, Onset:Unknown 03 MOTHER, Onset:Unknown Kidney disease 03 FATHER (KIDNEY STONES) Visual impairment COPD, Hypertension Physical Exam Vital Signs - First Documented 07/10/19 07/10/19 14:12 15:13 Temp 36.7 Pulse 92 Resp 22 B/P (MAP) 138/84 (102) Pulse Ox 98 O2 Delivery Nasal Cannula O2 Flow Rate 6.00 Capillary Refill : Height: 5'3.00" Weight: 219lbs. 6.0oz. [id number]; 23.9 BMI Method:Stated General Appearance: mild distress Respiratory: decreased breath sounds, wheezing Cardiovascular: normal peripheral pulses, regular rate, rhythm Extremities: normal range of motion Neurologic/Psychiatric: hammerer II-XII nml as tested, no motor/sensory deficits, normal mood/affect, oriented x 3 Progress/Results/Core Measures Suspected Sepsis SIRS Temperature: Pulse: Respiratory Rate: Laboratory Tests 07/10/19 14:30: White Blood Count 9.4 Blood Pressure / Mean: Laboratory Tests 07/10/19 14:30: Creatinine 0.97, Platelet Count 283 Results/Orders Lab Results Laboratory Tests Test 07/10/19 14:30 Range/Units White Blood Count 9.4 4.3-11.0 10^3/uL Red Blood Count 5.07 4.35-5.85 10^6/uL Hemoglobin 15.3 13.3-17.7 G/DL Hematocrit 45 40-54 % Mean Corpuscular Volume 88 80-99 FL Mean Corpuscular Hemoglobin 30 25-34 PG Mean Corpuscular Hemoglobin Concent 34 32-36 G/DL Red Cell Distribution Width 14.4 10.0-14.5 % Platelet Count 283 130-400 10^3/uL Mean Platelet Volume 9.8 7.4-10.4 FL Neutrophils (%) (Auto) 57 42-75 % Lymphocytes (%) (Auto) 29 12-44 % Monocytes (%) (Auto) 11 0-12 % Eosinophils (%) (Auto) 3 0-10 % Basophils (%) (Auto) 1 0-10 % Neutrophils # (Auto) 5.3 1.8-7.8 X 10^3 Lymphocytes # (Auto) 2.7 1.0-4.0 X 10^3 Monocytes # (Auto) 1.0 0.0-1.0 X 10^3 Eosinophils # (Auto) 0.3 0.0-0.3 10^3/uL Basophils # (Auto) 0.1 0.0-0.1 10^3/uL Neutrophils % (Manual) 62 % Lymphocytes % (Manual) 24 % Monocytes % (Manual) 10 % Eosinophils % (Manual) 3 % Basophils % (Manual) 1 % Band Neutrophils 0 % Blood Morphology Comment NORMAL Sodium Level 139 135-145 MMOL/L Potassium Level 4.3 3.6-5.0 MMOL/L Chloride Level 103 98-107 MMOL/L Carbon Dioxide Level 25 21-32 MMOL/L Anion Gap 11 5-14 MMOL/L Blood Urea Nitrogen 17 7-18 MG/DL Creatinine 0.97 0.60-1.30 MG/DL Estimat Glomerular Filtration Rate > 60 BUN/Creatinine Ratio 18 Glucose Level 98 70-105 MG/DL Calcium Level 9.6 8.5-10.1 MG/DL B-Type Natriuretic Peptide < 10.0 <100.0 PG/ML Micro Results Microbiology 07/10/19 Influenza Types A,B Antigen (ORESTES) - Final, Complete My Orders Orders - RAMIREZ,YINKA L DO Monitor-Rhythm Ecg Trace Only (07/10/19 14:16) Pulse Oximetry Order (07/10/19 14:16) Rt Request For Service (07/10/19 14:16) Methylprednisolone Sod Succ (Solu-Medrol (07/10/19 14:30) Albuterol/Ipra Inhalation Soln (Duoneb I (07/10/19 14:30) Cbc And Manual Diff (07/10/19 14:16) Basic Metabolic Panel (07/10/19 14:16) BNP (07/10/19 14:16) Influenza A And B Antigens (07/10/19 14:16) Chest Pa/Lat (2 View) (07/10/19 14:16) Magnesium 1 Gm/100 Ml Ivpb (Magnesium Alvarez (07/10/19 14:30) Albuterol/Ipra Inhalation Soln (Duoneb I (07/10/19 15:45) Svn Small Volume Nebulizer (07/10/19 15:34) Medications Given in ED Current Medications Medications Dose Ordered Sig/Mike Route Start Time Stop Time Status Last Admin Dose Admin Albuterol/ Ipratropium 3 ml ONCE ONCE INH 07/10/19 15:45 07/10/19 15:46 DC 07/10/19 15:58 3 ML Albuterol/ Ipratropium 3 ml Q4HR PRN IH 07/10/19 14:30 07/10/19 15:13 3 ML Methylprednisolone Sodium Succinate 60 mg ONCE ONCE IV 07/10/19 14:30 07/10/19 14:31 DC 07/10/19 14:55 60 MG Vital Signs/I&O 07/10/19 07/10/19 07/10/19 14:12 15:13 15:58 Temp 36.7 Pulse 92 Resp 22 B/P (MAP) 138/84 (102) Pulse Ox 98 99 97 O2 Delivery Nasal Cannula Nasal Cannula Nasal Cannula O2 Flow Rate 6.00 6.00 Capillary Refill : Progress Note : Time: 16:17 Progress Note Patient feeling significantly better following these treatments. He'll be discha rged home with antibiotics and steroids. Patient symptoms consistent with COPD. Patient was educated on proper home oxygen use Departure Impression Primary Impression: COPD exacerbation Disposition: HOME, SELF-CARE Condition: Stable Departure-Patient Inst. Referrals: [facility] [place] Primary Care Physician Patient Instructions: Chronic Bronchitis (DC) Add. Discharge Instructions: Usually your nebulizer every 4 hours when awake for the 24 hours then as needed The Emergency Department focuses on treating and ruling out life-threatening diseases. Whenever possible, a diagnosis is given. However most patient's are given an impression based on the history, physical exam, and workup during their brief time in the ER. Information about probable diagnosis and other educational material has been provided. Please take the time to read and understand this information. It is very important that he follow up with a doctor as discussed during her visit today. Failure to adhere to your follow-up instructions may result in severe disability, injury or so please make sure to keep your appointments. Please keep in mind the emergency department is not designed to be your primary care or "family doctor" and not urgent issues are best evaluated by an outpatient physician All discharge instructions reviewed with patient and/or family. Voiced understanding. Scripts Prednisone (Prednisone) 20 Mg Tab 40 MG PO DAILY, #6 TAB 0 Refills Prov: EVA RAMIREZR L DO 07/10/19 Doxycycline Hyclate (Doxycycline Hyclate) 100 Mg Tablet 100 MG PO BID, #20 TAB 0 Refills Prov: SANIA RAMIREZVOR L DO 07/10/19 EVA RAMIREZR L DO Jul 10, 2019 14:16 POS
[2019-07-10] MEDS ORDERED: RT-ALBUTEROL/IPRATROPIUM 3 ML (DUONEB) VIAL IH PRN (14:30)
[2019-07-10] MEDS ORDERED: MAGNESIUM 1 GM/100 ML IVPB 100 ML IV SCH (14:30)
[2019-07-10] MEDS ORDERED: methylPREDNISolone 125 MG (Solu-MEDROL) VIAL IV ONE (14:30)
[2019-07-10 14:39] LABS: BASOPHILS # (AUTO) 0.1 10^3/uL (0.0-0.1); BASOPHILS % (AUTO) 1 % (0-10); EOSINOPHILS # (AUTO) 0.3 10^3/uL (0.0-0.3); EOSINOPHILS % (AUTO) 3 % (0-10); HEMATOCRIT 45 % (40-54); HEMOGLOBIN 15.3 G/DL (13.3-17.7); LYMPHOCYTES # (AUTO) 2.7 X 10^3 (1.0-4.0); LYMPHOCYTES % (AUTO) 29 % (12-44); MEAN CORPUSCULAR HEMOGLOBIN 30 PG (25-34); MEAN CORPUSCULAR HGB CONC 34 G/DL (32-36); MEAN CORPUSCULAR VOLUME 88 FL (80-99); MEAN PLATELET VOLUME 9.8 FL (7.4-10.4); MONOCYTES % (AUTO) 11 % (0-12); NEUTROPHILS # (AUTO) 5.3 X 10^3 (1.8-7.8); NEUTROPHILS % (AUTO) 57 % (42-75); PLATELET COUNT 283 10^3/uL (130-400); RED CELL DISTRIBUTION WIDTH 14.4 % (10.0-14.5); WHITE BLOOD COUNT 9.4 10^3/uL (4.3-11.0)
--- NOTE | 2019-07-10 14:43 | Diagnostic Imaging Report ---
INDICATION: Pulmonary rehabilitation. Shortness of breath. Comparison with 01/27/2019. FINDINGS: Bilateral bullous emphysematous disease with interstitial infiltrates are again noted unchanged. There are no acute infiltrates. No evidence of pneumothorax. Heart is mildly enlarged. No evidence of pleural effusion. No bony abnormalities. IMPRESSION: Obstructive interstitial lung disease with diffuse bullous disease. Mild cardiomegaly. No acute changes. Dictated by: Dictated on workstation # [id number]
[2019-07-10 14:56] LABS: BAND NEUTROPHILS 0 %; BASOPHILS % (MANUAL) 1 %; EOSINOPHILS % (MANUAL) 3 %; LYMPHOCYTES % (MANUAL) 24 %; MONOCYTES % (MANUAL) 10 %; NEUTROPHILS % (MANUAL) 62 %; RBC MORPH NORMAL
[2019-07-10 14:57] LABS: BUN/CREATININE RATIO 18; CALCIUM 9.6 MG/DL (8.5-10.1); CARBON DIOXIDE 25 MMOL/L (21-32); CHLORIDE 103 MMOL/L (98-107); CREATININE SERUM 0.97 MG/DL (0.60-1.30); GFR ESTIMATED > 60; GLUCOSE 98 MG/DL (70-105); POTASSIUM 4.3 MMOL/L (3.6-5.0); SODIUM 139 MMOL/L (135-145)
[2019-07-10] MEDS ORDERED: DOXY100T2 PO (15:38)
[2019-07-10] MEDS ORDERED: PRD20T PO (15:38)
[2019-07-10] MEDS ORDERED: RT-ALBUTEROL/IPRATROPIUM 3 ML (DUONEB) VIAL INH ONE (15:45)
[2019-07-10 16:42] VITALS: BP 113/71
== END 2019-07-10 16:42 | disposition home or self-care (01) ==
LOC: EDUNIT# 14:08 → ER 14:08
DX: J44.1 Chronic obstructive pulmonary disease with (acute) exacerbation (principal); J45.909 Unspecified asthma, uncomplicated; I10 Essential (primary) hypertension; E11.9 Type 2 diabetes mellitus without complications; E78.00 Pure hypercholesterolemia, unspecified; G43.909 Migraine, unspecified, not intractable, without status migrainosus; K21.9 Gastro-esophageal reflux disease without esophagitis; Z87.442 Personal history of urinary calculi; Z99.81 Dependence on supplemental oxygen; Z88.5 Allergy status to narcotic agent; Z79.52 Long term (current) use of systemic steroids; Z77.22 Contact with and (suspected) exposure to environmental tobacco smoke (acute) (chronic); Z80.6 Family history of leukemia; Z82.49 Family history of ischemic heart disease and other diseases of the circulatory system
CPT/HCPCS: 36415; 71046; 80048; 83880; 85007; 85027; 87804; 93041; 94640; 96365; 96375

== ENCOUNTER 2019-08-07 14:30 | Outpatient (RCR) | payer MEDICAID ==
[2019-06-19 14:15] VITALS: BP 148/52
[2019-06-19 15:20] VITALS: BP 140/62
[2019-06-21 14:20] VITALS: BP 130/80
[2019-06-21 15:25] VITALS: BP 138/60
[2019-06-26 14:20] VITALS: BP 124/70
[2019-06-26 15:38] VITALS: BP 107/61
[2019-07-03 14:20] VITALS: BP 112/62
[2019-07-03 15:05] VITALS: BP 109/63
[2019-07-17 14:10] VITALS: BP 120/60
[2019-07-17 15:32] VITALS: BP 123/50
[2019-07-19 14:20] VITALS: BP 140/80
[2019-07-19 16:50] VITALS: BP 122/60
[2019-07-26 14:31] VITALS: BP 122/78
[2019-07-26 15:44] VITALS: BP 150/60
[2019-08-07 14:15] VITALS: BP 118/70
[2019-08-07 15:11] VITALS: BP 128/60
[2019-09-10] MEDS ORDERED: AMOX500C2 PO (18:34)
== END 2019-09-17 | disposition home or self-care (01) ==
LOC: PULM 14:30
PROVIDERS: ATTEND Nurse Practitioner Family
DX: J44.9 Chronic obstructive pulmonary disease, unspecified (principal); G47.50 Parasomnia, unspecified; G47.10 Hypersomnia, unspecified; J30.9 Allergic rhinitis, unspecified; Z72.0 Tobacco use

== ENCOUNTER 2019-09-10 17:27 | Emergency (ER) | payer MEDICAID ==
[~2019-09-10] VITALS: Ht 160 cm; Wt 99.8 kg
[2019-09-10] MEDS ORDERED: AMOX500C2 PO (18:34)
--- NOTE | 2019-09-10 18:34 | ED EENT ---
History of Present Illness General Chief Complaint: Dental Problems/Pain Stated Complaint: TOOTH PAIN Nursing Triage Note: PT AMBULATE TO [facility] WITH DENTAL PAIN. PT STATES HE IS WAITING ON A RETURN CALL FROM [facility] CONCERNING HAVING HIS TEETH PULLED AT THIS HOSP. PT STATES IT IS TO BE DONE HERE DUE TO HIM BEING HIGH RISK BECAUSE HE HAS COPD. PT STATES THE ORAL SURGEON AT [facility] IS SUPPOSED TO SCHEDULE AND APPT AT THIS [facility] FOR THE PROCEDURE. PT STATES HE HAS NOT CONTACTED [facility] CONCERNING THE TOOTH PAIN BECAUSE HE HAS BEEN TOO BUSY LEANING OVER THE SINK RINSING HIS MOUTH WITH SALT WATER. Source: patient Exam Limitations: no limitations History of Present Illness Date Seen by Provider: Sep 10, 2019 Time Seen by Provider: 18:32 Initial Comments R with diffuse dental pain both upper and lower and both sides. He is scheduled to have his teeth removed at some point, not sure when. He denies fevers or chills. He would like some antibiotics. Reports he is allergic to oral narcotic pain medications. Timing/Duration: this morning Severity: moderate Associated Symptoms: facial pain/swelling Allergies and Home Medications Allergies Coded Allergies: Opioids - Morphine Analogues (Verified Adverse Reaction, Intermediate, 12/31/17) Opioid medications cause dizziness and nausea tramadol (Verified Adverse Reaction, Intermediate, NAUSEA, 12/31/17) Tramadol caused immediate nausea and lightheadedness Home Medications Acetaminophen 500 Mg Tablet, 1,000 MG PO Q6H PRN for HEADACHE, (Reported) TAKES 2 (500MG) TABLETS Albuterol Sulfate 2.5 Mg/3 Ml Vial.neb, 2.5 MG NEB QID, (Reported) Albuterol Sulfate 6.7 Gm Hfa.aer.ad, 2 PUFF INH Q4H PRN for SHORTNESS OF BREATH, (Reported) Budesonide/Formoterol Fumarate 10.2 Gm Hfa.aer.ad, 2 PUFF INH BID, (Reported) Doxycycline Hyclate 100 Mg Tablet, 100 MG PO BID Prescribed by: YINKA RAMIREZ on 07/10/19 1538 Glyburide 1.25 Mg Tablet, 1.25 MG PO BID Prescribed by: MELVIN MEDRANO on 01/28/19 1242 Ibuprofen 200 Mg Tablet, 600-800 MG PO BID PRN for BACK PAIN, (Reported) TAKES 3 TO 4 (200MG) TABLETS Lisinopril 2.5 Mg Tablet, 5 MG PO DAILY, (Reported) Loratadine 10 Mg Tablet, 10 MG PO DAILY Prescribed by: MELVIN MEDRANO on 01/28/19 1242 Montelukast Sodium 10 Mg Tablet, 10 MG PO HS Prescribed by: MELVIN MEDRANO on 01/28/19 1242 Prednisone 10 Mg Tab.ds.pk, 10 MG PO DAILY Take 6 tabs(60mg)daily,decrease by 1 tab(10MG)daily. Prescribed by: MELVIN MEDRANO on 01/28/19 1242 Prednisone 20 Mg Tab, 40 MG PO DAILY Prescribed by: YINKA RAMIREZ on 07/10/19 1538 Sucralfate 1 Gm Tablet, 1 GM PO ACHS Prescribed by: NAIF SIMMS on 01/29/17 1739 Tiotropium [place] 1 Inh Aerp, 2 PUFF IH DAILY Prescribed by: VALENCIA SERRANO on 12/29/16 1114 Patient Home Medication List Home Medication List Reviewed: Yes Review of Systems Review of Systems Constitutional: see HPI Eyes: No Symptoms Reported Ears: No Symptoms Reported Nose: no symptoms reported Mouth: see HPI Throat: no symptoms reported Respiratory: no symptoms reported Cardiovascular: no symptoms reported Musculoskeletal: no symptoms reported Skin: no symptoms reported Hematologic/Lymphatic: No Symptoms Reported Past Qhisokv-Gertif-Royzcm Hx Patient Social History Alcohol Use: Denies Use Recreational Drug Use: No Smoking Status: Current Everyday Smoker Type Used: Cigarettes 2nd Hand Smoke Exposure: Yes Recent Foreign Travel: No Contact w/Someone Who Travel: No Recent Infectious Disease Expo: No Recent Hopitalizations: No Physical Abuse: No Sexual Abuse: No Mistreated: No Fear: No Immunizations Up To Date Tetanus Booster (TDap): More than 5yrs PED Vaccines UTD: Yes Date of Pneumonia Vaccine: Jan 26, 2017 Date of Influenza Vaccine: Jun 20, 2019 Seasonal Allergies Seasonal Allergies: Yes Past Medical History Surgeries: Yes (ERCP BEFORE GALL BLADDER REMOVAL ; HERNIA REPAIR; RIGHT SHOULDER SURGERY) Abdominal, Gallbladder, Orthopedic Respiratory: Yes Asthma, Pneumonia, Chronic Bronchitis, COPD Currently Using CPAP: No Currently Using BIPAP: No Cardiac: Yes High Cholesterol, Hypertension Neurological: Yes Headaches /Migraines Reproductive Disorders: No Genitourinary: Yes Kidney Stones Gastrointestinal: Yes ("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 5) Gastroesophageal Reflux, Gall Bladder Disease Musculoskeletal: Yes (RIGHT SHOULDER SURGERY-2006) Arthritis, Chronic Back Pain Endocrine: Yes (DIABETES, Reports diet control only) Diabetes, Non-Insulin dep HEENT: Yes ("GOING DEAF") Loss of Vision: Bilateral Hearing Impairment: Hard of Hearing Cancer: No Psychosocial: No Integumentary: No Psoriasis Blood Disorders: No Adverse Reaction/Blood Tranf: No Family Medical History Cancer 09 SISTER, Onset:Unknown (LEUKEMIA) Family history: Alzheimer's disease GRANDMOTHER, Onset:Unknown Family history: Arthritis GRANDMOTHER, Onset:Unknown Family history: Asthma 03 FATHER, Onset:Unknown Family history: Diabetes mellitus 03 FATHER, Onset:Unknown Family history: Hypertension 03 FATHER, Onset:Unknown 03 MOTHER, Onset:Unknown Kidney disease 03 FATHER (KIDNEY STONES) Visual impairment COPD, Hypertension Physical Exam Vital Signs Vital Signs - First Documented 09/10/19 17:36 Temp 36.5 Pulse 75 Resp 18 B/P (MAP) 166/97 (120) O2 Delivery Nasal Cannula O2 Flow Rate 2.00 Height, Weight, BMI Height: 5'3.00" Weight: 221lbs. 6.0oz. 61.162963xw; 38.00 BMI Method:Stated General Appearance: WD/WN, no apparent distress Eyes: bilateral eye normal inspection, bilateral eye PERRL, bilateral eye EOMI Ears: bilateral ear auricle normal, bilateral ear canal normal, bilateral ear TM normal Mouth/Throat: No mandibular swelling, No maxillary swelling; other (all of his teeth are carious, fractured, eroded and with gingivitis.) Neck: non-tender, full range of motion Respiratory: no respiratory distress, no accessory muscle use Neurologic/Psychiatric: alert, normal mood/affect, oriented x 3 Skin: normal color, warm/dry Progress/Results/Core Measures Results/Orders Vital Signs/I&O 09/10/19 17:36 Temp 36.5 Pulse 75 Resp 18 B/P (MAP) 166/97 (120) O2 Delivery Nasal Cannula O2 Flow Rate 2.00 Blood Pressure Mean: 120 Departure Impression Primary Impression: Pain, dental Disposition: HOME, SELF-CARE Condition: Stable Departure-Patient Inst. Decision time for Depature: 18:33 Referrals: [facility] (PCP/Family) Primary Care Physician Patient Instructions: Dental Pain (DC) Scripts Amoxicillin (Amoxicillin) 500 Mg Capsule 500 MG PO TID, #21 CAP 0 Refills Prov: NAIF SIMMS APRN 09/10/19 NAIF SIMMS APRN Sep 10, 2019 18:34
[2019-09-10 18:40] VITALS: BP 144/89
== END 2019-09-10 18:41 | disposition home or self-care (01) ==
LOC: EDUNIT# 17:27 → ER 17:28
DX: K08.89 Other specified disorders of teeth and supporting structures (principal); J44.9 Chronic obstructive pulmonary disease, unspecified; I10 Essential (primary) hypertension; K21.9 Gastro-esophageal reflux disease without esophagitis; E11.9 Type 2 diabetes mellitus without complications; F17.210 Nicotine dependence, cigarettes, uncomplicated; Z88.5 Allergy status to narcotic agent; Z79.52 Long term (current) use of systemic steroids; Z80.6 Family history of leukemia
CPT/HCPCS: 99282

== ENCOUNTER 2019-10-24 13:34 | Emergency (ER) | payer MEDICAID ==
[~2019-10-24] VITALS: Ht 160 cm; Wt 63.5 kg
[~2019-10-24 13:34] MED LIST changes: +AMOX500C2 PO; -CETI10TA20 PO; +CETI10TA21 PO; -MONT10TA24 PO; +MONT10TA26 PO
--- NOTE | 2019-10-24 13:56 | ED Chest Pain ---
General Chief Complaint: Chest Pain Stated Complaint: CHEST PAIN Nursing Triage Note: chest pain started two weeks ago Nursing Sepsis Screen: No Definite Risk Source: patient Exam Limitations: no limitations History of Present Illness Date Seen by Provider: Oct 24, 2019 Time Seen by Provider: 13:54 Initial Comments Chest pain intermittent 2 weeks, central chest, sharp and brought about by deep breathing. He does have COPD oxygen dependent, no fevers and a chronic cough unchanged in character. 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 NTG SL SPRAY DRY OPERATOR: No Allergies and Home Medications Allergies Coded Allergies: Opioids - Morphine Analogues (Verified Adverse Reaction, Intermediate, 12/31/17) Opioid medications cause dizziness and nausea tramadol (Verified Adverse Reaction, Intermediate, NAUSEA, 12/31/17) Tramadol caused immediate nausea and lightheadedness Home Medications Acetaminophen 500 Mg Tablet, 1,000 MG PO Q6H PRN for HEADACHE, (Reported) TAKES 2 (500MG) TABLETS Albuterol Sulfate 2.5 Mg/3 Ml Vial.neb, 2.5 MG NEB QID, (Reported) Albuterol Sulfate 6.7 Gm Hfa.aer.ad, 2 PUFF INH Q4H PRN for SHORTNESS OF BREATH, (Reported) Amoxicillin 500 Mg Capsule, 500 MG PO TID Prescribed by: NAIF SIMMS on 09/10/19 183 Budesonide/Formoterol Fumarate 10.2 Gm Hfa.aer.ad, 2 PUFF INH BID, (Reported) Doxycycline Hyclate 100 Mg Tablet, 100 MG PO BID Prescribed by: YINKA RAMIREZ on 07/10/19 1538 Glyburide 1.25 Mg Tablet, 1.25 MG PO BID Prescribed by: MELVIN MEDRANO on 01/28/19 124 Ibuprofen 200 Mg Tablet, 600-800 MG PO BID PRN for BACK PAIN, (Reported) TAKES 3 TO 4 (200MG) TABLETS Lisinopril 2.5 Mg Tablet, 5 MG PO DAILY, (Reported) Loratadine 10 Mg Tablet, 10 MG PO DAILY Prescribed by: MELVIN MEDRANO on 01/28/19 124 Montelukast Sodium 10 Mg Tablet, 10 MG PO HS Prescribed by: MELVIN MEDRANO on 01/28/19 1242 Prednisone 10 Mg Tab.ds.pk, 10 MG PO DAILY Take 6 tabs(60mg)daily,decrease by 1 tab(10MG)daily. Prescribed by: MELVIN MEDRANO on 01/28/19 1242 Prednisone 20 Mg Tab, 40 MG PO DAILY Prescribed by: YINKA RAMIREZ on 07/10/19 1538 Sucralfate 1 Gm Tablet, 1 GM PO ACHS Prescribed by: NAIF SIMMS on 01/29/17 1739 Tiotropium [place] 1 Inh Aerp, 2 PUFF IH DAILY Prescribed by: VALENCIA SERRANO on 12/29/16 1114 Patient Home Medication List Home Medication List Reviewed: Yes Review of Systems Review of Systems Constitutional: see HPI; No chills, No fever EENTM: No Symptoms Reported Respiratory: See HPI, Cough Cardiovascular: See HPI, Chest Pain Gastrointestinal: No Symptoms Reported Genitourinary: No Symptoms Reported Musculoskeletal: no symptoms reported Skin: no symptoms reported Psychiatric/Neurological: No Symptoms Reported Endocrine: No Symptoms Reported Hematologic/Lymphatic: No Symptoms Reported Past [id number]-Fgtepm-Zowdma Hx Patient Social History Alcohol Use: Denies Use Recreational Drug Use: No Smoking Status: Current Everyday Smoker Type Used: Cigarettes 2nd Hand Smoke Exposure: Yes Recent Foreign Travel: No Contact w/Someone Who Travel: No Recent Infectious Disease Expo: No Recent Hopitalizations: No Physical Abuse: No Sexual Abuse: No Mistreated: No Fear: No Immunizations Up To Date Tetanus Booster (TDap): More than 5yrs PED Vaccines UTD: Yes Date of Pneumonia Vaccine: Jan 26, 2017 Date of Influenza Vaccine: May 08, 2019 Seasonal Allergies Seasonal Allergies: Yes Past Medical History Surgeries: Yes (ERCP BEFORE GALL BLADDER REMOVAL ; HERNIA REPAIR; RIGHT SHOULDER SURGERY) Abdominal, Gallbladder, Orthopedic Respiratory: Yes Asthma, Pneumonia, Chronic Bronchitis, COPD Currently Using CPAP: No Currently Using BIPAP: No Cardiac: Yes High Cholesterol, Hypertension Neurological: Yes Headaches /Migraines Reproductive Disorders: No Genitourinary: Yes Kidney Stones Gastrointestinal: Yes ("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 5) Gastroesophageal Reflux, Gall Bladder Disease Musculoskeletal: Yes (RIGHT SHOULDER SURGERY-2006) Arthritis, Chronic Back Pain Endocrine: Yes (DIABETES, Reports diet control only) Diabetes, Non-Insulin dep HEENT: Yes ("GOING DEAF") Loss of Vision: Bilateral Hearing Impairment: Hard of Hearing Cancer: No Psychosocial: No Integumentary: No Psoriasis Blood Disorders: No Adverse Reaction/Blood Tranf: No Family Medical History Cancer 09 SISTER, Onset:Unknown (LEUKEMIA) Family history: Alzheimer's disease GRANDMOTHER, Onset:Unknown Family history: Arthritis GRANDMOTHER, Onset:Unknown Family history: Asthma 03 FATHER, Onset:Unknown Family history: Diabetes mellitus 03 FATHER, Onset:Unknown Family history: Hypertension 03 FATHER, Onset:Unknown 03 MOTHER, Onset:Unknown Kidney disease 03 FATHER (KIDNEY STONES) Visual impairment COPD, Hypertension Physical Exam Vital Signs Vital Signs - First Documented 10/24/19 10/24/19 13:44 13:46 Temp 36.7 Pulse 75 Resp 20 B/P (MAP) 158/92 (114) Pulse Ox 96 O2 Delivery Room Air O2 Flow Rate 2.0 Capillary Refill : Less Than 3 Seconds Height, Weight, BMI Height: 5'3.00" Weight: 221lbs. 6.0oz. 61.077505ki; 24.00 BMI Method:Stated General Appearance: No Apparent Distress, WD/WN, Other (no distress, speaks in full sentences) HEENT: PERRL/EOMI, TMs Normal Neck: Full Range of Motion, Normal Inspection Respiratory: No Accessory Muscle Use, No Respiratory Distress Cardiovascular: Regular Rate, Rhythm, Normal Peripheral Pulses Gastrointestinal: Non Tender, Soft Extremity: Normal Capillary Refill, Normal Inspection, Other (clubbing the fingertips) Neurologic/Psychiatric: Alert, Oriented x3 Skin: Normal Color, Warm/Dry Progress/Results/Core Measures Results/Orders Lab Results Laboratory Tests Test 10/24/19 13:45 Range/Units White Blood Count 9.6 4.3-11.0 10^3/uL Red Blood Count 5.00 4.35-5.85 10^6/uL Hemoglobin 15.4 13.3-17.7 G/DL Hematocrit 45 40-54 % Mean Corpuscular Volume 90 80-99 FL Mean Corpuscular Hemoglobin 31 25-34 PG Mean Corpuscular Hemoglobin Concent 34 32-36 G/DL Red Cell Distribution Width 13.5 10.0-14.5 % Platelet Count 278 130-400 10^3/uL Mean Platelet Volume 10.2 7.4-10.4 FL Neutrophils (%) (Auto) 53 42-75 % Lymphocytes (%) (Auto) 33 12-44 % Monocytes (%) (Auto) 10 0-12 % Eosinophils (%) (Auto) 4 0-10 % Basophils (%) (Auto) 1 0-10 % Neutrophils # (Auto) 5.1 1.8-7.8 X 10^3 Lymphocytes # (Auto) 3.2 1.0-4.0 X 10^3 Monocytes # (Auto) 0.9 0.0-1.0 X 10^3 Eosinophils # (Auto) 0.3 0.0-0.3 10^3/uL Basophils # (Auto) 0.1 0.0-0.1 10^3/uL Sodium Level 141 135-145 MMOL/L Potassium Level 4.2 3.6-5.0 MMOL/L Chloride Level 105 98-107 MMOL/L Carbon Dioxide Level 25 21-32 MMOL/L Anion Gap 11 5-14 MMOL/L Blood Urea Nitrogen 13 7-18 MG/DL Creatinine 1.01 0.60-1.30 MG/DL Estimat Glomerular Filtration Rate > 60 BUN/Creatinine Ratio 13 Glucose Level 91 70-105 MG/DL Calcium Level 9.9 8.5-10.1 MG/DL Troponin I < 0.028 <0.028 NG/ML My Orders Orders - NAIF SIMMS VENUE COORDINATOR Cbc With Automated Diff (10/24/19 13:44) Basic Metabolic Panel (10/24/19 13:44) Chest 1 View, Ap/Pa Only (10/24/19 13:44) Ed Iv/Invasive Line Start (10/24/19 13:44) Ekg Tracing (10/24/19 13:53) Troponin I (10/24/19 13:53) Ketorolac Injection (Toradol Injection) (10/24/19 14:30) Medications Given in ED Current Medications Medications Dose Ordered Sig/Mike Route Start Time Stop Time Status Last Admin Dose Admin Ketorolac Tromethamine 30 mg ONCE ONCE IVP 10/24/19 14:30 10/24/19 14:31 10/24/19 14:28 30 MG Vital Signs/I&O 10/24/19 10/24/19 13:44 13:46 Temp 36.7 Pulse 75 Resp 20 B/P (MAP) 158/92 (114) Pulse Ox 96 O2 Delivery Room Air Nasal Cannula O2 Flow Rate 2.0 Blood Pressure Mean: 114 Departure Impression Primary Impression: Pleuritic chest pain Additional Impression: COPD (chronic obstructive pulmonary disease) Disposition: 01 HOME, SELF-CARE Condition: Stable Departure-Patient Inst. Decision time for Depature: 13:56 Referrals: [facility] (PCP/Family) Primary Care Physician Patient Instructions: Pleuritic Chest Pain Add. Discharge Instructions: 1. Return to ER for any concerns 2. Follow-up with your doctor next week 3. All discharge instructions reviewed with patient and/or family. Voiced understanding. NAIF SIMMS APRN Oct 24, 2019 13:56
[2019-10-24 13:58] LABS: BASOPHILS # (AUTO) 0.1 10^3/uL (0.0-0.1); BASOPHILS % (AUTO) 1 % (0-10); EOSINOPHILS # (AUTO) 0.3 10^3/uL (0.0-0.3); EOSINOPHILS % (AUTO) 4 % (0-10); HEMATOCRIT 45 % (40-54); HEMOGLOBIN 15.4 G/DL (13.3-17.7); LYMPHOCYTES # (AUTO) 3.2 X 10^3 (1.0-4.0); LYMPHOCYTES % (AUTO) 33 % (12-44); MEAN CORPUSCULAR HEMOGLOBIN 31 PG (25-34); MEAN CORPUSCULAR HGB CONC 34 G/DL (32-36); MEAN CORPUSCULAR VOLUME 90 FL (80-99); MEAN PLATELET VOLUME 10.2 FL (7.4-10.4); MONOCYTES # (AUTO) 0.9 X 10^3 (0.0-1.0); MONOCYTES % (AUTO) 10 % (0-12); NEUTROPHILS # (AUTO) 5.1 X 10^3 (1.8-7.8); NEUTROPHILS % (AUTO) 53 % (42-75); PLATELET COUNT 278 10^3/uL (130-400); RED CELL DISTRIBUTION WIDTH 13.5 % (10.0-14.5); WHITE BLOOD COUNT 9.6 10^3/uL (4.3-11.0)
[2019-10-24 14:17] LABS: BUN/CREATININE RATIO 13; CALCIUM 9.9 MG/DL (8.5-10.1); CARBON DIOXIDE 25 MMOL/L (21-32); CHLORIDE 105 MMOL/L (98-107); CREATININE SERUM 1.01 MG/DL (0.60-1.30); GFR ESTIMATED > 60; GLUCOSE 91 MG/DL (70-105); POTASSIUM 4.2 MMOL/L (3.6-5.0); SODIUM 141 MMOL/L (135-145)
--- NOTE | 2019-10-24 14:21 | Diagnostic Imaging Report ---
INDICATION: COPD and chest pain. TECHNIQUE/COMPARISON: An AP view of the chest was obtained. Comparison is made to the study of 07/10/2019. FINDINGS: There is bilateral air trapping. Prominent interstitial markings are seen throughout the lungs. There is no evidence of pneumothorax or consolidation. No significant pleural fluid is identified. IMPRESSION: Background COPD. No definite acute abnormality or adverse change is seen. Dictated by: Dictated on workstation # [id number]
[2019-10-24] MEDS ORDERED: KETOROLAC 30 MG/ML VIAL IVP ONE (14:30)
[2019-10-24] MEDS ORDERED: IOHEXOL 350 MG/ML 100 ML (OMNIPAQUE 350) VIAL IV ONE (15:45)
[2019-10-24] MEDS ORDERED: HOLD METFORMIN - RECEIVED CONTRAST 20 ML VIAL IV SCH (15:45)
[2019-10-24] MEDS ORDERED: NS 100 ML (IVPB) BAG IV ONE (15:45)
--- NOTE | 2019-10-24 15:55 | Diagnostic Imaging Report ---
INDICATION: Chest pain x 2 weeks, difficulty breathing. TECHNIQUE: Multiple contiguous axial images were obtained through the chest after uneventful bolus administration of intravenous contrast. 3D reconstructed CTA MIP acquisitions were also performed. Auto Exposure Controls were utilized during the CT exam to meet ALARA standards for radiation dose reduction. FINDINGS: The pulmonary parenchymal vessels are well opacified with no CT evidence of pulmonary emboli. The thoracic aorta shows no evidence of aneurysm or dissection. Great vessel origins are patent and without stenosis. There is a borderline size node in the right hilum, measuring about 12 mm. There are some borderline prominent nodes in the paratracheal region, the largest measuring about 1.3 x 1.1 cm. These nodes have shown minimal to no change compared with 04/19/2019. There are no enlarged axillary nodes. There is no pleural or pericardial fluid. Lung parenchymal windows demonstrated severe emphysematous changes throughout both lungs, worse in the apical regions. There is no tamara consolidation or discrete mass lesion. Visualized portions of the upper abdomen mid show no acute finding. IMPRESSION: Severe COPD changes. No evidence of pulmonary emboli, aortic dissection or aneurysm. There are some borderline size nodes in the mediastinum and right hilum which appear unchanged from 04/19/2019. There is no new finding otherwise. Dictated by: Dictated on workstation # [id number]
[2019-10-24 16:12] VITALS: BP 128/82
--- OUTSIDE RECORDS SUMMARY | 2019-10-24 17:56 | XMS REPORT | Continuity of Care Document ---
Author Organization Unknown Address Unknown Phone Unavailable Allergies Active Description Code Type Severity Reaction Onset Reported/Identified Relationship to Patient Clinical Status Yes No Known Drug Allergies [id number] Drug Allergy Unknown N/A 05/16/2012 Yes Opioids - Morphine Analogues [id number] Drug Allergy Moderate N/A 12/31/2017 Yes tramadol [id number] Drug Allergy Moderate NAUSEA 12/31/2017 Medications There is no data. 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 05/17/2012 Ot 493.90 AST HMA, UNSPECIFIED 05/17/2012 Ot 790.6 ABN BLOOD CHEMISTRY NEC 05/17/2012 Ot V03.82 PRO PHYLACTIC VACC AGAINST STREPTOCOCCUS 05/17/2012 Ot V04.81 ND FOR PROPHYLACTIC VACCIN AND INOCULATI 07/06/2012 Ot 493.92 AST HMA, UNSPECIFIED, W (ACUTE) EXACERBAT 10/13/[address] BITE HEAD 10/13/2012 Ot E000.8 OTH ER EXTERNAL CAUSE STATUS 10/13/2012 Ot E849.0 ACC IDENT IN HOME 10/13/2012 Ot E906.4 NON VENOM ARTHROPOD BITE 06/15/2013 RYAN HANSON MD Ot 250.00 DIAB DENAE WO COMPL, TYPE II OR UNSPEC TY 06/15/2013 RYAN HANSON MD Ot 305.1 TOBACCO USE DISORDER 06/15/2013 RYAN HANSON MD Ot 574.00 CHOLELITH W AC CHOLECYST 06/15/2013 RYAN HANSON MD Ot 574.10 CHOLELITH W CHOLECYS NEC 06/15/2013 RYAN HANSON MD Ot V04.81 ND FOR PROPHYLACTIC VACCIN AND INOCULATI 11/12/2013 WANDA ROA, VINCENT Parsons Ot 574. 20 CHOLELITHIASIS NOS 11/12/2013 VINCENT MUÑOZ MD Ot 789. 03 ABDOMINAL PAIN, RIGHT LOWER QUADRANT 01/17/2014 MARC [...] CHOLECYS NEC 07/01/2014 VINCENT MUÑOZ MD Ot 493. 92 ASTHMA, UNSPECIFIED, W (ACUTE) EXACERBAT 07/01/2014 VINCENT MUÑOZ MD Ot 786. 09 RESPIRATORY ABNORM NEC 08/01/2015 LORENA APPIAH MD Ot 250. 00 08/01/2015 LORENA APPIAH MD Ot 786. 50 08/01/2015 NAIF SIMMS TEAM LEAD Ot F17.210 NICOTINE DEPENDENCE, CIGARETTES, UNCOMPL 08/01/2015 NAIF SIMMS TEAM LEAD Ot J20 .9 ACUTE BRONCHITIS, UNSPECIFIED 08/01/2015 LORENA APPIAH MD Ot 250. 00 08/01/2015 LORENA APPIAH MD Ot 786. 50 09/18/2015 SUZETTE GUPTA Ot F17.210 NICOTINE DEPENDENCE, CIGARETTES, UNCOMPL 09/18/2015 SUZETTE GUPTA Ot J45.901 UNSPECIFIED ASTHMA WITH (ACUTE) EXACERBA 09/18/2015 LORENA APPIAH MD Ot 250. 00 09/18/2015 LORENA APPIAH MD Ot 786. 50 11/11/2015 LORENA APPIAH MD Ot 250. 00 11/11/2015 LORENA APPIAH MD Ot 786. 50 04/20/2016 LORENA APPIAH MD Ot 250. 00 DIAB DENAE WO COMPL, TYPE II OR UNSPEC TY 04/20/2016 LORENA APPIAH MD Ot 786. 50 CHEST PAIN NOS 04/21/2016 JOHN DIETZ MD Ot J18 .9 PNEUMONIA, UNSPECIFIED ORGANISM 04/21/2016 MIRELA ROA, JOHN Parsons Ot J45.51 SEVERE PERSISTENT ASTHMA WITH (ACUTE) EX 04/21/2016 LORENA APPIAH MD Ot 250. 00 DIAB DENAE WO COMPL, TYPE II OR UNSPEC TY 04/21/2016 LORENA APPIAH MD Ot 786. 50 CHEST PAIN NOS 10/05/2016 LORENA APPIAH MD Ot 250. 00 DIAB DENAE WO COMPL, TYPE II OR UNSPEC TY 10/05/2016 LORENA APPIAH MD Ot 786. 50 CHEST PAIN NOS 10/05/2016 MATTHEW ENCARNACION MD Ot E11.9 TYPE 2 DIABETES MELLITUS WITHOUT COMPLIC 10/05/2016 MATTHEW ENCARNACION MD Ot E66.9 OBESITY, UNSPECIFIED 10/05/2016 MATTHEW ENCARNACION MD Ot F17.2 10 NICOTINE DEPENDENCE, CIGARETTES, UNCOMPL 10/05/2016 MATTHEW ENCARNACION MD Ot J18.9 PNEUMONIA, UNSPECIFIED ORGANISM 10/05/2016 MATTHEW ENCARNACION MD Ot J44.1 CHRONIC OBSTRUCTIVE PULMONARY DISEASE W 10/05/2016 MATTHEW ENCARNACION MD Ot Z79.8 99 OTHER MDM SR (CURRENT) DRUG THERAPY 12/28/2016 LORENA APPIAH MD Ot 250. 00 DIAB DENAE WO COMPL, TYPE II OR UNSPEC TY 12/28/2016 LORENA APPIAH MD Ot 786. 50 CHEST PAIN NOS 12/28/2016 LORENA APPIAH MD Ot 250. 00 DIAB DENAE WO COMPL, TYPE II OR UNSPEC TY 12/28/2016 LORENA APPIAH MD Ot 786. 50 CHEST PAIN NOS 12/29/2016 VALENCIA SERRANO MD Ot E11 .9 TYPE 2 DIABETES MELLITUS WITHOUT COMPLIC 12/29/2016 VALENCIA SERRANO MD Ot R06.89 OTHER ABNORMALITIES OF BREATHING 01/29/2017 LORENA APPIAH MD Ot 250. 00 DIAB DENAE WO COMPL, TYPE II OR UNSPEC TY 01/29/2017 LORENA APPIAH MD Ot 786. 50 CHEST PAIN NOS 01/29/2017 NAIF SIMMS APRN Ot E11 .9 TYPE 2 DIABETES MELLITUS WITHOUT COMPLIC 01/29/2017 NAIF SIMMS APRN Ot F17.210 NICOTINE DEPENDENCE, CIGARETTES, UNCOMPL 01/29/2017 NAIF SIMMS APRN Ot J45.909 UNSPECIFIED ASTHMA, UNCOMPLICATED 01/29/2017 NAIF SIMMS APRN Ot R10.13 EPIGASTRIC PAIN 01/29/2017 NAIF SIMMS APRN Ot R11 .2 NAUSEA WITH VOMITING, UNSPECIFIED 01/29/2017 NAIF SIMMS APRN Ot R50 .9 FEVER, UNSPECIFIED 01/29/2017 NAIF SIMMS APRN Ot Z87.19 PERSONAL HISTORY OF OTHER DISEASES OF 01/29/2017 NAIF SIMMS APRN Ot Z87.442 PERSONAL HISTORY OF URINARY CALCULI 01/29/2017 LORENA APPIAH MD Ot 250. 00 DIAB DENAE WO COMPL, TYPE II OR UNSPEC TY 01/29/2017 LORENA APPIAH MD Ot 786. 50 CHEST PAIN NOS 01/31/2017 NAIF SIMMS APRN Ot E11 .9 TYPE 2 DIABETES MELLITUS WITHOUT COMPLIC 01/31/2017 NAIF SIMMS APRN Ot F17.210 NICOTINE DEPENDENCE, CIGARETTES, UNCOMPL 01/31/2017 NAIF SIMMS APRN Ot J45.909 UNSPECIFIED ASTHMA, UNCOMPLICATED 01/31/2017 NAIF SIMMS APRN Ot R10.13 EPIGASTRIC PAIN 01/31/2017 NAIF SIMMS APRN Ot R11 .2 NAUSEA WITH VOMITING, UNSPECIFIED 01/31/2017 NAIF SIMMS APRN Ot R50 .9 FEVER, UNSPECIFIED 01/31/2017 NAIF SIMMS APRN Ot Z87.19 PERSONAL HISTORY OF OTHER DISEASES OF 01/31/2017 NAIF SIMMS APRN Ot Z87.442 PERSONAL HISTORY OF URINARY CALCULI 12/31/2017 [place] CARR[place] MD Ot E11.9 TYPE 2 DIABETES MELLITUS WITHOUT COMPLIC 12/31/2017 [place] C[place] MD Ot G43.909 MIGRAINE, UNSP, NOT INTRACTABLE, WITHOUT 12/31/2017 [place] CARR[place] MD Ot J44.9 CHRONIC OBSTRUCTIVE PULMONARY DISEASE, U 12/31/2017 [place] CARRERA MD Ot K02.9 DENTAL CARIES, UNSPECIFIED 12/31/2017 [place] CARRERA MD Ot K08.89 OTHER SPECIFIED DISORDERS OF TEETH AND S 12/31/2017 [place] CARR[place] MD Ot K21.9 GASTRO-ESOPHAGEAL REFLUX DISEASE WITHOUT 12/31/2017 [place] CARRERA MD, Ot Z77.22 CNTCT W AND EXPSR TO ENVIRON TOBACCO SMO 12/31/2017 LA[place] CARRERA MD, Ot Z79.4 MDM SR (CURRENT) USE OF INSULIN 12/31/2017 [place] CARRERA MD, Ot Z79.52 ALF (CURRENT) USE OF SYSTEMIC STER 12/31/2017 LAKE [...] EXPSR TO ENVIRON TOBACCO SMO 01/02/2018 [place] CARRREA MD Ot Z79.4 MDM SR (CURRENT) USE OF INSULIN 01/02/2018 [place] CARR[place] MD Ot Z79.52 ALF (CURRENT) USE OF SYSTEMIC STER 01/02/2018 [place] CARRERA MD, Ot Z87.442 PERSONAL HISTORY OF URINARY CALCULI 01/02/2018 [place] CARR[place] MD Ot Z88.6 ALLERGY STATUS TO ANALGESIC AGENT STATUS 01/02/2018 DEANDRE ROA, [place] Ot Z98.890 OTHER SPECIFIED POSTPROCEDURAL STATES 01/02/2018 DEANDRE ROA, [place] Ot Z99.2 DEPENDENCE ON RENAL DIALYSIS 05/02/2018 KARSON ROA, DIRK Coulter Ot J44 .9 CHRONIC OBSTRUCTIVE PULMONARY DISEASE, U 12/13/2018 NAIF SIMMS APRN Ot E11 .9 TYPE 2 DIABETES MELLITUS WITHOUT COMPLIC 12/13/2018 NAIF SIMMS APRN Ot G43.909 MIGRAINE, UNSP, NOT INTRACTABLE, WITHOUT 12/13/2018 NAIF SIMMS APRN, Ot J44 .9 CHRONIC OBSTRUCTIVE PULMONARY DISEASE, U 12/13/2018 NAIF SIMMS APRN Ot K21 .9 GASTRO-ESOPHAGEAL REFLUX DISEASE WITHOUT 12/13/2018 NAIF SIMMS APRN Ot R04 .2 HEMOPTYSIS 12/13/2018 NAIF SIMMS APRN Ot Z77.22 CNTCT W AND EXPSR TO ENVIRON TOBACCO SMO 12/13/2018 NAIF SIMMS APRN Ot Z79.52 MDM SR (CURRENT) USE OF SYSTEMIC STER 12/13/2018 NAIF SIMMS APRN Ot Z79.84 ALF (CURRENT) USE OF ORAL HYPOGLYC 12/13/2018 NAIF SIMMS APRN Ot Z80 .6 FAMILY HISTORY OF LEUKEMIA 12/13/2018 NAIF SIMMS APRN Ot Z82.49 FAMILY HX OF ISCHEM HEART DIS AND OTH DI 12/13/2018 NAIF SIMMS APRN Ot Z87.01 PERSONAL HISTORY OF PNEUMONIA (RECURRENT 12/13/2018 NAIF SIMMS APRN Ot Z87.19 PERSONAL HISTORY OF OTHER DISEASES OF TH 12/13/2018 NAIF SIMMS APRN Ot Z87.442 PERSONAL HISTORY OF URINARY CALCULI 12/13/2018 NAIF SIMMS APRN Ot Z88 .5 ALLERGY STATUS TO NARCOTIC AGENT STATUS 12/13/2018 NAIF SIMMS APRN Ot Z88 .6 ALLERGY STATUS TO ANALGESIC AGENT STATUS 12/13/2018 NAIF SIMMS APRN Ot Z98.890 OTHER SPECIFIED POSTPROCEDURAL STATES 12/15/2018 NAIF SIMMS APRN Ot E11 .9 TYPE 2 DIABETES MELLITUS WITHOUT COMPLIC 12/15/2018 NAIF SIMMS APRN Ot G43.909 MIGRAINE, UNSP, NOT INTRACTABLE, WITHOUT 12/15/2018 NAIF SIMMS APRN Ot J44 .9 CHRONIC OBSTRUCTIVE PULMONARY DISEASE, U 12/15/2018 NAIF SIMMS APRN Ot K21 .9 GASTRO-ESOPHAGEAL REFLUX DISEASE WITHOUT 12/15/2018 NAIF SIMMS APRN Ot R04 .2 HEMOPTYSIS 12/15/2018 NAIF SIMMS APRN Ot Z77.22 CNTCT W AND EXPSR TO ENVIRON TOBACCO SMO 12/15/2018 NAIF SIMMS APRN Ot Z79.52 MDM SR (CURRENT) USE OF SYSTEMIC STER 12/15/2018 NAIF SIMMS APRN Ot Z79.84 ALF (CURRENT) USE OF ORAL HYPOGLYC 12/15/2018 NAIF SIMMS APRN Ot Z80 .6 FAMILY HISTORY OF LEUKEMIA 12/15/2018 NAIF SIMMS APRN Ot Z82.49 FAMILY HX OF ISCHEM HEART DIS AND OTH DI 12/15/2018 NAIF SIMMS APRN Ot Z87.01 PERSONAL HISTORY OF PNEUMONIA (RECURRENT 12/15/2018 NAIF SIMMS APRN Ot Z87.19 PERSONAL HISTORY OF OTHER DISEASES OF TH 12/15/2018 NAIF SIMMS APRN Ot Z87.442 PERSONAL HISTORY OF URINARY CALCULI 12/15/2018 NAIF SIMMS APRN Ot Z88 .5 ALLERGY STATUS TO NARCOTIC AGENT STATUS 12/15/2018 NAIF SIMMS APRN Ot Z88 .6 ALLERGY STATUS TO ANALGESIC AGENT STATUS 12/15/2018 NAIF SIMMS APRN Ot Z98.890 OTHER SPECIFIED POSTPROCEDURAL STATES 01/26/2019 [address] ROA, DIRK Coulter Ot J44 .9 CHRONIC OBSTRUCTIVE PULMONARY DISEASE, U 01/26/2019 NAIF SIMMS APRN Ot E11 .9 TYPE 2 DIABETES MELLITUS WITHOUT COMPLIC 01/26/2019 NAIF SIMMS APRN Ot G43.909 MIGRAINE, UNSP, NOT INTRACTABLE, WITHOUT 01/26/2019 NAIF SIMMS APRN, Ot J44 .9 CHRONIC OBSTRUCTIVE PULMONARY DISEASE, U 01/26/2019 NAIF SIMMS APRN Ot K21 .9 GASTRO-ESOPHAGEAL REFLUX DISEASE WITHOUT 01/26/2019 NAIF SIMMS APRN Ot R04 .2 HEMOPTYSIS 01/26/2019 NAIF SIMMS APRN Ot Z77.22 CNTCT W AND EXPSR TO ENVIRON TOBACCO SMO 01/26/2019 NAIF SIMMS APRN Ot Z79.52 ALF (CURRENT) USE OF SYSTEMIC STER 01/26/2019 NAIF SIMMS APRN Ot Z79.84 MDM SR (CURRENT) USE OF ORAL HYPOGLYC 01/26/2019 NAIF SIMMS APRN Ot Z80 .6 FAMILY HISTORY OF LEUKEMIA 01/26/2019 NAIF SIMMS APRN Ot Z82.49 FAMILY HX OF ISCHEM HEART DIS AND OTH DI 01/26/2019 NAIF SIMMS APRN Ot Z87.01 PERSONAL HISTORY OF PNEUMONIA (RECURRENT 01/26/2019 NAIF SIMMS APRN Ot Z87.19 PERSONAL HISTORY OF OTHER DISEASES OF TH 01/26/2019 NAIF SIMMS APRN Ot Z87.442 PERSONAL HISTORY OF URINARY CALCULI 01/26/2019 NAIF SIMMS APRN Ot Z88 .5 ALLERGY STATUS TO NARCOTIC AGENT STATUS 01/26/2019 NAIF SIMMS APRN Ot Z88 .6 ALLERGY STATUS TO ANALGESIC AGENT STATUS 01/26/2019 NAIF SIMMS APRN Ot Z98.890 OTHER SPECIFIED POSTPROCEDURAL STATES 01/28/2019 MELVIN MEDRANO DO Ot E11.9 TYPE 2 DIABETES MELLITUS WITHOUT COMPLIC 01/28/2019 MICHAEL MEDRANO DOI Ot E78.00 PURE HYPERCHOLESTEROLEMIA, UNSPECIFIED 01/28/2019 MICHAEL MEDRANO DOI Ot E86.0 DEHYDRATION 01/28/2019 MICHAEL MEDRANO DOI Ot E87.2 ACIDOSIS 01/28/2019 MICHAEL MEDRANO DOI Ot F17.21 0 NICOTINE DEPENDENCE, CIGARETTES, UNCOMPL 01/28/2019 MICAHEL MEDRANO DOI Ot G43.90 9 MIGRAINE, UNSP, NOT INTRACTABLE, WITHOUT 01/28/2019 MICHAEL MEDRANO DOI Ot G47.33 OBSTRUCTIVE SLEEP APNEA (ADULT) (PEDIATR 01/28/2019 MICHAEL MEDRANO DOI Ot H91.90 UNSPECIFIED HEARING LOSS, UNSPECIFIED EA 01/28/2019 MITCHELL GROVES MELVIN Ot I10 ESSENTIAL (PRIMARY) HYPERTENSION 01/28/2019 MICHAEL MEDRANO DOI Ot J30.9 ALLERGIC RHINITIS, UNSPECIFIED 01/28/2019 MICHAEL MEDRANO DOI Ot J43.9 EMPHYSEMA, UNSPECIFIED 01/28/2019 MICHAEL MEDRANO DOI Ot J96.21 ACUTE AND CHRONIC RESPIRATORY FAILURE [place] 01/28/2019 MITCHELL GROVES MELVIN Ot K21.9 GASTRO-ESOPHAGEAL REFLUX DISEASE WITHOUT 01/28/2019 MICHAEL MEDRANO DOI Ot L40.9 PSORIASIS, UNSPECIFIED 01/28/2019 MITCHELL GROVES MELVIN Ot M19.91 PRIMARY OSTEOARTHRITIS, UNSPECIFIED SITE 01/28/2019 MICHAEL MEDRANO DOI Ot R04.2 HEMOPTYSIS 01/28/2019 MICHAEL MEDRANO DOI Ot Z87.01 PERSONAL HISTORY OF PNEUMONIA (RECURRENT 01/28/2019 MICHAEL MEDRANO DOI Ot Z88.5 ALLERGY STATUS TO NARCOTIC AGENT STATUS 01/28/2019 MICHAEL MEDRANO DOI Ot Z99.81 DEPENDENCE ON SUPPLEMENTAL OXYGEN 04/03/2019 SOLO CHO TEAM LEAD Ot G47.10 HYPERSOMNIA, UNSPECIFIED 04/03/2019 SOLO CHO TEAM LEAD Ot G47.50 PARASOMNIA, UNSPECIFIED 04/03/2019 SOLO CHO TEAM LEAD Ot J30.9 ALLERGIC RHINITIS, UNSPECIFIED 04/03/2019 SOLO CHO TEAM LEAD Ot J44.9 CHRONIC OBSTRUCTIVE PULMONARY DISEASE, U 04/03/2019 SOLO CHO TEAM LEAD Ot Z72.0 TOBACCO USE 04/10/2019 SOLO CHO TEAM LEAD Ot G47.10 HYPERSOMNIA, UNSPECIFIED 04/10/2019 SOLO CHO TEAM LEAD Ot G47.50 PARASOMNIA, UNSPECIFIED 04/10/2019 SOLO CHO TEAM LEAD Ot J44.9 CHRONIC OBSTRUCTIVE PULMONARY DISEASE, U 04/10/2019 SOLO CHO TEAM LEAD Ot R09.02 HYPOXEMIA 04/10/2019 SOLO CHO TEAM LEAD Ot Z72.0 TOBACCO USE 04/17/2019 SOLO CHO TEAM LEAD Ot G47.10 HYPERSOMNIA, UNSPECIFIED 04/17/2019 SOLO CHO TEAM LEAD Ot G47.50 PARASOMNIA, UNSPECIFIED 04/17/2019 SOLO CHO TEAM LEAD Ot J44.9 CHRONIC OBSTRUCTIVE PULMONARY DISEASE, U 04/17/2019 SOLO CHO TEAM LEAD Ot R09.02 HYPOXEMIA 04/17/2019 SOLO CHO TEAM LEAD Ot Z72.0 TOBACCO USE 04/19/2019 TAMMIE, SOLO E TEAM LEAD Ot G47.10 HYPERSOMNIA, UNSPECIFIED 04/19/2019 TAMMIE, SOLO E TEAM LEAD Ot G47.50 PARASOMNIA, UNSPECIFIED 04/19/2019 SANYA CHOINE E TEAM LEAD Ot J44.9 CHRONIC OBSTRUCTIVE PULMONARY DISEASE, U 04/19/2019 TAMMIE, SOLO E TEAM LEAD Ot R09.02 HYPOXEMIA 04/19/2019 SANYA CHOINE E TEAM LEAD Ot Z72.0 TOBACCO USE 04/23/2019 SANYA CHOINE E TEAM LEAD Ot G47.10 HYPERSOMNIA, UNSPECIFIED 04/23/2019 TAMMIE, SOLO E TEAM LEAD Ot G47.50 PARASOMNIA, UNSPECIFIED 04/23/2019 SANYA CHOINE E TEAM LEAD Ot J30.9 ALLERGIC RHINITIS, UNSPECIFIED 04/23/2019 SANYA CHOINE E TEAM LEAD Ot J43.9 EMPHYSEMA, UNSPECIFIED 04/23/2019 SANYA CHOINE E TEAM LEAD Ot Z72.0 TOBACCO USE 04/24/2019 SANYA CHOINE E TEAM LEAD Ot G47.10 HYPERSOMNIA, UNSPECIFIED 04/24/2019 SANYA CHOINE E TEAM LEAD Ot G47.50 PARASOMNIA, UNSPECIFIED 04/24/2019 SANYA CHOINE E TEAM LEAD Ot J44.9 CHRONIC OBSTRUCTIVE PULMONARY DISEASE, U 04/24/2019 SANYA CHOINE E TEAM LEAD Ot R09.02 HYPOXEMIA 04/24/2019 SANYA CHOINE E TEAM LEAD Ot Z72.0 TOBACCO USE 04/26/2019 SANYA CHOINE E TEAM LEAD Ot G47.10 HYPERSOMNIA, UNSPECIFIED 04/26/2019 SANYA CHOINE E TEAM LEAD Ot G47.50 PARASOMNIA, UNSPECIFIED 04/26/2019 SANYA CHOINE E TEAM LEAD Ot J44.9 CHRONIC OBSTRUCTIVE PULMONARY DISEASE, U 04/26/2019 SANYA CHOINE E TEAM LEAD Ot R09.02 HYPOXEMIA 04/26/2019 SANYA CHOINE E TEAM LEAD Ot Z72.0 TOBACCO USE 05/03/2019 TAMMIE SOLO E TEAM LEAD Ot G47.10 HYPERSOMNIA, UNSPECIFIED 05/03/2019 TAMMIE SOLO E TEAM LEAD Ot G47.50 PARASOMNIA, UNSPECIFIED 05/03/2019 TAMMIE SOLO E TEAM LEAD Ot J44.9 CHRONIC OBSTRUCTIVE PULMONARY DISEASE, U 05/03/2019 TAMMIE, SOLO E TEAM LEAD Ot R09.02 HYPOXEMIA 05/03/2019 TAMMIE, SOLO E TEAM LEAD Ot Z72.0 TOBACCO USE 05/07/2019 TAMMIE, SOLO E TEAM LEAD Ot G47.10 HYPERSOMNIA, UNSPECIFIED 05/07/2019 TAMMIE, SOLO E TEAM LEAD Ot G47.50 PARASOMNIA, UNSPECIFIED 05/07/2019 TAMMIE, SOLO E TEAM LEAD Ot J30.9 ALLERGIC RHINITIS, UNSPECIFIED 05/07/2019 TAMMIE, SOLO E TEAM LEAD Ot J43.9 EMPHYSEMA, UNSPECIFIED 05/07/2019 TAMMIE, SOLO E TEAM LEAD Ot Z72.0 TOBACCO USE 05/08/2019 TAMMIE, SOLO E TEAM LEAD Ot G47.10 HYPERSOMNIA, UNSPECIFIED 05/08/2019 TAMMIE, SOLO E TEAM LEAD Ot G47.50 PARASOMNIA, UNSPECIFIED 05/08/2019 TAMMIE, SOLO E TEAM LEAD Ot J44.9 CHRONIC OBSTRUCTIVE PULMONARY DISEASE, U 05/08/2019 TAMMIE, SOLO E TEAM LEAD Ot R09.02 HYPOXEMIA 05/08/2019 TAMMIE, SOLO E TEAM LEAD Ot Z72.0 TOBACCO USE 05/10/2019 TAMMIE, SOLO E TEAM LEAD Ot G47.10 HYPERSOMNIA, UNSPECIFIED 05/10/2019 TAMMIE, SOLO E TEAM LEAD Ot G47.50 PARASOMNIA, UNSPECIFIED 05/10/2019 TAMMIE, SOLO E TEAM LEAD Ot J30.9 ALLERGIC RHINITIS, UNSPECIFIED 05/10/2019 SANYA CHOINE E TEAM LEAD Ot J43.9 EMPHYSEMA, UNSPECIFIED 05/10/2019 TAMMIE, SOLO E TEAM LEAD Ot Z72.0 TOBACCO USE 05/10/2019 TAMMIE, SOLO E TEAM LEAD Ot G47.10 HYPERSOMNIA, UNSPECIFIED 05/10/2019 TAMMIE, SOLO E TEAM LEAD Ot G47.50 PARASOMNIA, UNSPECIFIED 05/10/2019 TAMMIE, SOLO E TEAM LEAD Ot J44.9 CHRONIC OBSTRUCTIVE PULMONARY DISEASE, U 05/10/2019 TAMMIE, SOLO E TEAM LEAD Ot R09.02 HYPOXEMIA 05/10/2019 TAMMIE, SOLO E TEAM LEAD Ot Z72.0 TOBACCO USE 05/15/2019 TAMMIE, SOLO E TEAM LEAD Ot G47.10 HYPERSOMNIA, UNSPECIFIED 05/15/2019 TAMMIE, SOLO E TEAM LEAD Ot G47.50 PARASOMNIA, UNSPECIFIED 05/15/2019 TAMMIE, SOLO E TEAM LEAD Ot J44.9 CHRONIC OBSTRUCTIVE PULMONARY DISEASE, U 05/15/2019 TAMMIE, SOLO E TEAM LEAD Ot R09.02 HYPOXEMIA 05/15/2019 TAMMIE, SOLO E TEAM LEAD Ot Z72.0 TOBACCO USE 05/24/2019 TAMMIE, SOLO E TEAM LEAD Ot G47.10 HYPERSOMNIA, UNSPECIFIED 05/24/2019 TAMMIE, SOLO E TEAM LEAD Ot G47.50 PARASOMNIA, UNSPECIFIED 05/24/2019 TAMMIE, SOLO E TEAM LEAD Ot J44.9 CHRONIC OBSTRUCTIVE PULMONARY DISEASE, U 05/24/2019 TAMMIE, SOLO E TEAM LEAD Ot R09.02 HYPOXEMIA 05/24/2019 TAMMIE, SOLO E TEAM LEAD Ot Z72.0 TOBACCO USE 05/28/2019 TAMMIE, SOLO E TEAM LEAD Ot G47.10 HYPERSOMNIA, UNSPECIFIED 05/28/2019 TAMMIE, SOLO E TEAM LEAD Ot G47.50 PARASOMNIA, UNSPECIFIED 05/28/2019 TAMMIE, SOLO E TEAM LEAD Ot J44.9 CHRONIC OBSTRUCTIVE PULMONARY DISEASE, U 05/28/2019 TAMMIE, SOLO E TEAM LEAD Ot R09.02 HYPOXEMIA 05/28/2019 TAMMIE, SOLO E TEAM LEAD Ot Z72.0 TOBACCO USE 05/29/2019 TAMMIE, SOLO E TEAM LEAD Ot G47.10 HYPERSOMNIA, UNSPECIFIED 05/29/2019 TAMMIE, SOLO E TEAM LEAD Ot G47.50 PARASOMNIA, UNSPECIFIED 05/29/2019 TAMMIE, SOLO E TEAM LEAD Ot J44.9 CHRONIC OBSTRUCTIVE PULMONARY DISEASE, U 05/29/2019 TAMMIE, SOLO E TEAM LEAD Ot R09.02 HYPOXEMIA 05/29/2019 TAMMIE, SOLO E TEAM LEAD Ot Z72.0 TOBACCO USE 05/29/2019 TAMMIE, SOLO E TEAM LEAD Ot G47.10 HYPERSOMNIA, UNSPECIFIED 05/29/2019 TAMMIE, SOLO E TEAM LEAD Ot G47.50 PARASOMNIA, UNSPECIFIED 05/29/2019 TAMMIE, SOLO E TEAM LEAD Ot J44.9 CHRONIC OBSTRUCTIVE PULMONARY DISEASE, U 05/29/2019 TAMMIE, SOLO E TEAM LEAD Ot R09.02 HYPOXEMIA 05/29/2019 TAMMIE, SOLO E TEAM LEAD Ot Z72.0 TOBACCO USE 05/30/[address], DIRK Coulter Ot J44 .9 CHRONIC OBSTRUCTIVE PULMONARY DISEASE, U 05/30/2019 TAMMIE, SOLO E TEAM LEAD Ot G47.10 HYPERSOMNIA, UNSPECIFIED 05/30/2019 TAMMIE, SOLO E TEAM LEAD Ot G47.50 PARASOMNIA, UNSPECIFIED 05/30/2019 TAMMIE, SOLO E TEAM LEAD Ot J30.9 ALLERGIC RHINITIS, UNSPECIFIED 05/30/2019 TAMMIE, SOLO E TEAM LEAD Ot J43.9 EMPHYSEMA, UNSPECIFIED 05/30/2019 TAMMIE, SOLO E TEAM LEAD Ot Z72.0 TOBACCO USE 05/30/2019 TAMMIE, SOLO E TEAM LEAD Ot G47.10 HYPERSOMNIA, UNSPECIFIED 05/30/2019 TAMMIE, SOLO E TEAM LEAD Ot G47.50 PARASOMNIA, UNSPECIFIED 05/30/2019 TAMMIE, SOLO E TEAM LEAD Ot J44.9 CHRONIC OBSTRUCTIVE PULMONARY DISEASE, U 05/30/2019 TAMMIE, SOLO E TEAM LEAD Ot R09.02 HYPOXEMIA 05/30/2019 TAMMIE, SOLO E TEAM LEAD Ot Z72.0 TOBACCO USE 05/31/2019 TAMMIE, SOLO E TEAM LEAD Ot G47.10 HYPERSOMNIA, UNSPECIFIED 05/31/2019 TAMMIE, SOLO E TEAM LEAD Ot G47.50 PARASOMNIA, UNSPECIFIED 05/31/2019 TAMMIE, SOLO E TEAM LEAD Ot J44.9 CHRONIC OBSTRUCTIVE PULMONARY DISEASE, U 05/31/2019 TAMMIE, SOLO E TEAM LEAD Ot R09.02 HYPOXEMIA 05/31/2019 TAMMIE, SOLO E TEAM LEAD Ot Z72.0 TOBACCO USE 06/05/2019 TAMMIE, SOLO E TEAM LEAD Ot G47.10 HYPERSOMNIA, UNSPECIFIED 06/05/2019 TAMMIE, SOLO E TEAM LEAD Ot G47.50 PARASOMNIA, UNSPECIFIED 06/05/2019 TAMMIE, SOLO E TEAM LEAD Ot J44.9 CHRONIC OBSTRUCTIVE PULMONARY DISEASE, U 06/05/2019 TAMMIE, SOLO E TEAM LEAD Ot R09.02 HYPOXEMIA 06/05/2019 TAMMIE, SOLO E TEAM LEAD Ot Z72.0 TOBACCO USE 06/07/2019 TAMMIE, SOLO E TEAM LEAD Ot G47.10 HYPERSOMNIA, UNSPECIFIED 06/07/2019 TAMMIE, SOLO E TEAM LEAD Ot G47.50 PARASOMNIA, UNSPECIFIED 06/07/2019 TAMMIE, SOLO E TEAM LEAD Ot J44.9 CHRONIC OBSTRUCTIVE PULMONARY DISEASE, U 06/07/2019 TAMMIE, SOLO E TEAM LEAD Ot R09.02 HYPOXEMIA 06/07/2019 TAMMIE, SOLO E TEAM LEAD Ot Z72.0 TOBACCO USE 06/12/2019 TAMMIE, SOLO E TEAM LEAD Ot G47.10 HYPERSOMNIA, UNSPECIFIED 06/12/2019 TAMMIE, SOLO E TEAM LEAD Ot G47.50 PARASOMNIA, UNSPECIFIED 06/12/2019 TAMMIE, SOLO E TEAM LEAD Ot J44.9 CHRONIC OBSTRUCTIVE PULMONARY DISEASE, U 06/12/2019 TAMMIE, SOLO E TEAM LEAD Ot R09.02 HYPOXEMIA 06/12/2019 SANYA CHOINE E TEAM LEAD Ot Z72.0 TOBACCO USE 06/12/2019 SANYA CHOINE E TEAM LEAD Ot G47.10 HYPERSOMNIA, UNSPECIFIED 06/12/2019 TAMMIE, SOLO E TEAM LEAD Ot G47.50 PARASOMNIA, UNSPECIFIED 06/12/2019 TAMMIE, SOLO E TEAM LEAD Ot J44.9 CHRONIC OBSTRUCTIVE PULMONARY DISEASE, U 06/12/2019 TAMMIE, SOLO E TEAM LEAD Ot R09.02 HYPOXEMIA 06/12/2019 TAMMIE, SOLO E TEAM LEAD Ot Z72.0 TOBACCO USE 06/14/2019 SANYA CHOINE E TEAM LEAD Ot G47.10 HYPERSOMNIA, UNSPECIFIED 06/14/2019 TAMMIE SOLO E TEAM LEAD Ot G47.50 PARASOMNIA, UNSPECIFIED 06/14/2019 TAMMIE, SOLO E TEAM LEAD Ot J44.9 CHRONIC OBSTRUCTIVE PULMONARY DISEASE, U 06/14/2019 TAMMIE, SOLO E TEAM LEAD Ot R09.02 HYPOXEMIA 06/14/2019 TAMMIE, SOLO E TEAM LEAD Ot Z72.0 TOBACCO USE 06/19/2019 TAMMIE, SOLO E TEAM LEAD Ot G47.10 HYPERSOMNIA, UNSPECIFIED 06/19/2019 TAMMIE, SOLO E TEAM LEAD Ot G47.50 PARASOMNIA, UNSPECIFIED 06/19/2019 TAMMIESANYA GONZALEZINE E TEAM LEAD Ot J44.9 CHRONIC OBSTRUCTIVE PULMONARY DISEASE, U 06/19/2019 TAMMIE, SOLO E TEAM LEAD Ot R09.02 HYPOXEMIA 06/19/2019 TAMMIE, SOLO E TEAM LEAD Ot Z72.0 TOBACCO USE 06/19/2019 TAMMIE, SOLO E TEAM LEAD Ot G47.10 HYPERSOMNIA, UNSPECIFIED 06/19/2019 TAMMIE, SOLO E TEAM LEAD Ot G47.50 PARASOMNIA, UNSPECIFIED 06/19/2019 TAMMIE, SOLO E TEAM LEAD Ot J44.9 CHRONIC OBSTRUCTIVE PULMONARY DISEASE, U 06/19/2019 TAMMIE, SOLO E TEAM LEAD Ot R09.02 HYPOXEMIA 06/19/2019 TAMMIE, SOLO E TEAM LEAD Ot Z72.0 TOBACCO USE 06/21/2019 TAMMIE, SOLO E TEAM LEAD Ot G47.10 HYPERSOMNIA, UNSPECIFIED 06/21/2019 TAMMIE, SOLO E TEAM LEAD Ot G47.50 PARASOMNIA, UNSPECIFIED 06/21/2019 TAMMIE, SOLO E TEAM LEAD Ot J44.9 CHRONIC OBSTRUCTIVE PULMONARY DISEASE, U 06/21/2019 TAMMIE, SOLO E TEAM LEAD Ot R09.02 HYPOXEMIA 06/21/2019 TAMMIE, SOLO E TEAM LEAD Ot Z72.0 TOBACCO USE 06/21/2019 TAMMIE, SOLO E TEAM LEAD Ot G47.10 HYPERSOMNIA, UNSPECIFIED 06/21/2019 TAMMIE, SOLO E TEAM LEAD Ot G47.50 PARASOMNIA, UNSPECIFIED 06/21/2019 TAMMIE, SOLO E TEAM LEAD Ot J44.9 CHRONIC OBSTRUCTIVE PULMONARY DISEASE, U 06/21/2019 TAMMIE, SOLO E TEAM LEAD Ot R09.02 HYPOXEMIA 06/21/2019 TAMMIE, SOLO E TEAM LEAD Ot Z72.0 TOBACCO USE 06/26/2019 TAMMIE, SOLO E TEAM LEAD Ot G47.10 HYPERSOMNIA, UNSPECIFIED 06/26/2019 TAMMIE, SOLO E TEAM LEAD Ot G47.50 PARASOMNIA, UNSPECIFIED 06/26/2019 TAMMIE, SOLO E TEAM LEAD Ot J44.9 CHRONIC OBSTRUCTIVE PULMONARY DISEASE, U 06/26/2019 TAMMIE, SOLO E TEAM LEAD Ot R09.02 HYPOXEMIA 06/26/2019 TAMMIE, SOLO E TEAM LEAD Ot Z72.0 TOBACCO USE 06/26/2019 TAMMIE, SOLO E TEAM LEAD Ot G47.10 HYPERSOMNIA, UNSPECIFIED 06/26/2019 TAMMIE, SOLO E TEAM LEAD Ot G47.50 PARASOMNIA, UNSPECIFIED 06/26/2019 TAMMIE SOLO E TEAM LEAD Ot J44.9 CHRONIC OBSTRUCTIVE PULMONARY DISEASE, U 06/26/2019 SOLO CHO TEAM LEAD Ot R09.02 HYPOXEMIA 06/26/2019 SANYA CHOINE E TEAM LEAD Ot Z72.0 TOBACCO USE 06/29/2019 SANYA CHOINE E TEAM LEAD Ot G47.10 HYPERSOMNIA, UNSPECIFIED 06/29/2019 SANYA CHOINE E TEAM LEAD Ot G47.50 PARASOMNIA, UNSPECIFIED 06/29/2019 TAMMIE SOLO Patel TEAM LEAD Ot J30.9 ALLERGIC RHINITIS, UNSPECIFIED 06/29/2019 SOLO CHO E TEAM LEAD Ot J44.9 CHRONIC OBSTRUCTIVE PULMONARY DISEASE, U 06/29/2019 SOLO CHO TEAM LEAD Ot Z72.0 TOBACCO USE 07/03/2019 SOLO CHO TEAM LEAD Ot G47.10 HYPERSOMNIA, UNSPECIFIED 07/03/2019 SOLO CHO E TEAM LEAD Ot G47.50 PARASOMNIA, UNSPECIFIED 07/03/2019 SOLO CHO E TEAM LEAD Ot J30.9 ALLERGIC RHINITIS, UNSPECIFIED 07/03/2019 SOLO CHO E TEAM LEAD Ot J44.9 CHRONIC OBSTRUCTIVE PULMONARY DISEASE, U 07/03/2019 TAMMIE SOLO Patel TEAM LEAD Ot Z72.0 TOBACCO USE 07/03/2019 TAMMIE SOLO Patel TEAM LEAD Ot G47.10 HYPERSOMNIA, UNSPECIFIED 07/03/2019 SOLO CHO TEAM LEAD Ot G47.50 PARASOMNIA, UNSPECIFIED 07/03/2019 SOLO CHO TEAM LEAD Ot J30.9 ALLERGIC RHINITIS, UNSPECIFIED 07/03/2019 SOLO CHO TEAM LEAD Ot J44.9 CHRONIC OBSTRUCTIVE PULMONARY DISEASE, U 07/03/2019 SOLO CHO TEAM LEAD Ot Z72.0 TOBACCO USE 07/10/2019 RAMIREZ DO, YINKA L Ot E11.9 TYPE 2 DIABETES MELLITUS WITHOUT COMPLIC 07/10/2019 RAMIREZ DO, YINKA L Ot E78.0 0 PURE HYPERCHOLESTEROLEMIA, UNSPECIFIED 07/10/2019 RAMIREZ DO, YINKA L Ot G43.9 09 MIGRAINE, UNSP, NOT INTRACTABLE, WITHOUT 07/10/2019 RAMIREZ DO, YINKA L Ot I10 ESSENTIAL (PRIMARY) HYPERTENSION 07/10/2019 RAMIREZ DO, YINKA L Ot J44.1 CHRONIC OBSTRUCTIVE PULMONARY DISEASE W 07/10/2019 RAMIREZ DO, YINKA L Ot J45.9 09 UNSPECIFIED ASTHMA, UNCOMPLICATED 07/10/2019 RAMIREZ DO, YINKA L Ot K21.9 GASTRO-ESOPHAGEAL REFLUX DISEASE WITHOUT 07/10/2019 RAMIREZ DO, YINKA L Ot R06.0 0 DYSPNEA, UNSPECIFIED 07/10/2019 RAMIREZ DO, YINKA L Ot Z77.2 2 CNTCT W AND EXPSR TO ENVIRON TOBACCO SMO 07/10/2019 RAMIREZ DO, YINKA L Ot Z79.5 2 ALF (CURRENT) USE OF SYSTEMIC STER 07/10/2019 RAMIREZ DO, YINKA L Ot Z80.6 FAMILY HISTORY OF LEUKEMIA 07/10/2019 RAMIREZ DO, YINKA L Ot Z82.4 9 FAMILY HX OF ISCHEM HEART DIS AND OTH DI 07/10/2019 RAMIREZ DO, YINKA L Ot Z87.4 42 PERSONAL HISTORY OF URINARY CALCULI 07/10/2019 RAMIREZ DO, YINKA L Ot Z88.5 ALLERGY STATUS TO NARCOTIC AGENT STATUS 07/10/2019 RAMIREZ DO, YINKA L Ot Z99.8 1 DEPENDENCE ON SUPPLEMENTAL OXYGEN 07/16/2019 RAMIREZ DO, YINKA L Ot E11.9 TYPE 2 DIABETES MELLITUS WITHOUT COMPLIC 07/16/2019 RAMIREZ DO, YINKA L Ot E78.0 0 PURE HYPERCHOLESTEROLEMIA, UNSPECIFIED 07/16/2019 RAMIREZ DO, YINKA L Ot G43.9 09 MIGRAINE, UNSP, NOT INTRACTABLE, WITHOUT 07/16/2019 RAMIREZ DO, YINKA L Ot I10 ESSENTIAL (PRIMARY) HYPERTENSION 07/16/2019 RAMIREZ DO, YINKA L Ot J44.1 CHRONIC OBSTRUCTIVE PULMONARY DISEASE W 07/16/2019 RAMIREZ DO, YINKA L Ot J45.9 09 UNSPECIFIED ASTHMA, UNCOMPLICATED 07/16/2019 RAMIREZ DO, YINKA L Ot K21.9 GASTRO-ESOPHAGEAL REFLUX DISEASE WITHOUT 07/16/2019 RAMIREZ DO, YINKA L Ot R06.0 0 DYSPNEA, UNSPECIFIED 07/16/2019 RAMIREZ DO, YINKA L Ot Z77.2 2 CNTCT W AND EXPSR TO ENVIRON TOBACCO SMO 07/16/2019 RAMIREZ DO, YINKA L Ot Z79.5 2 ALF (CURRENT) USE OF SYSTEMIC STER 07/16/2019 RAMIREZ DO, YINKA L Ot Z80.6 FAMILY HISTORY OF LEUKEMIA 07/16/2019 RAMIREZ DO, YINKA L Ot Z82.4 9 FAMILY HX OF ISCHEM HEART DIS AND OTH DI 07/16/2019 RAMIREZ DO, YINKA L Ot Z87.4 42 PERSONAL HISTORY OF URINARY CALCULI 07/16/2019 RAMIREZ DO, YINKA L Ot Z88.5 ALLERGY STATUS TO NARCOTIC AGENT STATUS 07/16/2019 RAMIREZ DO, YINKA L Ot Z99.8 1 DEPENDENCE ON SUPPLEMENTAL OXYGEN 07/17/2019 TAMMIE, SOLO E TEAM LEAD Ot G47.10 HYPERSOMNIA, UNSPECIFIED 07/17/2019 TAMMIE, SOLO E TEAM LEAD Ot G47.50 PARASOMNIA, UNSPECIFIED 07/17/2019 TAMMIE, SOLO E TEAM LEAD Ot J30.9 ALLERGIC RHINITIS, UNSPECIFIED 07/17/2019 TAMMIE, SOLO E TEAM LEAD Ot J44.9 CHRONIC OBSTRUCTIVE PULMONARY DISEASE, U 07/17/2019 TAMMIE, SOLO E TEAM LEAD Ot Z72.0 TOBACCO USE 07/17/2019 TAMMIE, SOLO E TEAM LEAD Ot G47.10 HYPERSOMNIA, UNSPECIFIED 07/17/2019 TAMMIE, SOLO E TEAM LEAD Ot G47.50 PARASOMNIA, UNSPECIFIED 07/17/2019 TAMMIE, SOLO E TEAM LEAD Ot J30.9 ALLERGIC RHINITIS, UNSPECIFIED 07/17/2019 TAMMIE, SOLO E TEAM LEAD Ot J44.9 CHRONIC OBSTRUCTIVE PULMONARY DISEASE, U 07/17/2019 TAMMIE, SOLO E TEAM LEAD Ot Z72.0 TOBACCO USE 07/19/2019 TAMMIE, SOLO E TEAM LEAD Ot G47.10 HYPERSOMNIA, UNSPECIFIED 07/19/2019 TAMMIE, SOLO E TEAM LEAD Ot G47.50 PARASOMNIA, UNSPECIFIED 07/19/2019 TAMMIE, SOLO E TEAM LEAD Ot J30.9 ALLERGIC RHINITIS, UNSPECIFIED 07/19/2019 TAMMIE, SOLO E TEAM LEAD Ot J43.9 EMPHYSEMA, UNSPECIFIED 07/19/2019 TAMMIE, SOLO E TEAM LEAD Ot Z72.0 TOBACCO USE 07/19/2019 TAMMIE, SOLO E TEAM LEAD Ot G47.10 HYPERSOMNIA, UNSPECIFIED 07/19/2019 TAMMIE, SOLO E TEAM LEAD Ot G47.50 PARASOMNIA, UNSPECIFIED 07/19/2019 TAMMIE, SOLO E TEAM LEAD Ot J30.9 ALLERGIC RHINITIS, UNSPECIFIED 07/19/2019 TAMMIE, SOLO E TEAM LEAD Ot J44.9 CHRONIC OBSTRUCTIVE PULMONARY DISEASE, U 07/19/2019 TAMMIE, SOLO E TEAM LEAD Ot Z72.0 TOBACCO USE 07/25/2019 TAMMIE, SOLO E TEAM LEAD Ot G47.10 HYPERSOMNIA, UNSPECIFIED 07/25/2019 TAMMIE, SOLO E TEAM LEAD Ot G47.50 PARASOMNIA, UNSPECIFIED 07/25/2019 TAMMIE, SOLO E TEAM LEAD Ot J30.9 ALLERGIC RHINITIS, UNSPECIFIED 07/25/2019 TAMMIE, SOLO E TEAM LEAD Ot J44.9 CHRONIC OBSTRUCTIVE PULMONARY DISEASE, U 07/25/2019 TAMMIE, SOLO E TEAM LEAD Ot Z72.0 TOBACCO USE 07/26/2019 TAMMIE, SOLO E TEAM LEAD Ot G47.10 HYPERSOMNIA, UNSPECIFIED 07/26/2019 TAMMIE, SOLO E TEAM LEAD Ot G47.50 PARASOMNIA, UNSPECIFIED 07/26/2019 TAMMIE, SOLO E TEAM LEAD Ot J30.9 ALLERGIC RHINITIS, UNSPECIFIED 07/26/2019 TAMMIE, SOLO E TEAM LEAD Ot J44.9 CHRONIC OBSTRUCTIVE PULMONARY DISEASE, U 07/26/2019 TAMMIE, SOLO E TEAM LEAD Ot Z72.0 TOBACCO USE 07/26/2019 TAMMIE, SOLO E TEAM LEAD Ot G47.10 HYPERSOMNIA, UNSPECIFIED 07/26/2019 TAMMIE, SOLO E TEAM LEAD Ot G47.50 PARASOMNIA, UNSPECIFIED 07/26/2019 TAMMIE, SOLO E TEAM LEAD Ot J30.9 ALLERGIC RHINITIS, UNSPECIFIED 07/26/2019 TAMMIE, SOLO E TEAM LEAD Ot J44.9 CHRONIC OBSTRUCTIVE PULMONARY DISEASE, U 07/26/2019 TAMMIE, SOLO E TEAM LEAD Ot Z72.0 TOBACCO USE 08/07/2019 TAMMIE, SOLO E TEAM LEAD Ot G47.10 HYPERSOMNIA, UNSPECIFIED 08/07/2019 TAMMIE, SOLO E TEAM LEAD Ot G47.50 PARASOMNIA, UNSPECIFIED 08/07/2019 TAMMIE, SOLO E TEAM LEAD Ot J30.9 ALLERGIC RHINITIS, UNSPECIFIED 08/07/2019 TAMMIE, SOLO E TEAM LEAD Ot J44.9 CHRONIC OBSTRUCTIVE PULMONARY DISEASE, U 08/07/2019 SOLO CHO TEAM LEAD Ot Z72.0 TOBACCO USE 09/13/2019 NAIF SIMMS APRN Ot E11 .9 TYPE 2 DIABETES MELLITUS WITHOUT COMPLIC 09/13/2019 NAIF SIMMS APRN Ot F17.210 NICOTINE DEPENDENCE, CIGARETTES, UNCOMPL 09/13/2019 NAIF SIMMS APRN Ot I10 ESSENTIAL (PRIMARY) HYPERTENSION 09/13/2019 NAIF SIMMS APRN Ot J44 .9 CHRONIC OBSTRUCTIVE PULMONARY DISEASE, U 09/13/2019 NAIF SIMMS APRN Ot K08.89 OTHER SPECIFIED DISORDERS OF TEETH AND S 09/13/2019 NAIF SIMMS APRN Ot K21 .9 GASTRO-ESOPHAGEAL REFLUX DISEASE WITHOUT 09/13/2019 NAIF SIMMS APRN Ot Z79.52 MDM SR (CURRENT) USE OF SYSTEMIC STER 09/13/2019 NAIF SIMMS APRN Ot Z80 .6 FAMILY HISTORY OF LEUKEMIA 09/13/2019 NAIF SIMMS APRN Ot Z88 .5 ALLERGY STATUS TO NARCOTIC AGENT STATUS 09/17/2019 TAMMIE SOLO E TEAM LEAD Ot G47.10 HYPERSOMNIA, UNSPECIFIED 09/17/2019 TAMMIE, SOLO E TEAM LEAD Ot G47.50 PARASOMNIA, UNSPECIFIED 09/17/2019 SANYA CHOINE E TEAM LEAD Ot J30.9 ALLERGIC RHINITIS, UNSPECIFIED 09/17/2019 SANYA CHOINE Jorge TEAM LEAD Ot J44.9 CHRONIC OBSTRUCTIVE PULMONARY DISEASE, U 09/17/2019 SANYA CHOINE Jorge TEAM LEAD Ot Z72.0 TOBACCO USE 09/19/2019 SANYA CHOINE E TEAM LEAD Ot G47.10 HYPERSOMNIA, UNSPECIFIED 09/19/2019 TAMMIE, SOLO E TEAM LEAD Ot G47.50 PARASOMNIA, UNSPECIFIED 09/19/2019 SANYA CHOINE E TEAM LEAD Ot J30.9 ALLERGIC RHINITIS, UNSPECIFIED 09/19/2019 SANYA CHOINE E TEAM LEAD Ot J44.9 CHRONIC OBSTRUCTIVE PULMONARY DISEASE, U 09/19/2019 SANYA CHOINE Jorge TEAM LEAD Ot Z72.0 TOBACCO USE Procedures There is no data. Results Test Result Range Complete blood count (CBC) with automate d white blood cell (WBC) differential - 04/20/16 15:02 Blood leukocytes automated count (number/volume) 11.2 10*3/uL 4.3-11.0 Blood erythrocytes automated count (number/volume) 4.99 10*6/uL 4.35-5.85 Venous blood hemoglobin measurement (mass/volume) 15.8 g/dL 13.3-17.7 Blood hematocrit (volume fraction) 45 % 40-54 Automated erythrocyte mean corpuscular volume 90 [ foz_us] 80-99 Automated erythrocyte mean corpuscular h emoglobin (mass per erythrocyte) 32 pg 25-34 Automated erythrocyte mean corpuscular h emoglobin concentration measurement (mass/volume) 35 g/dL 32-36 Automated erythrocyte distribution width ratio 12. 6 % 10.0- 14.5 Automated blood platelet count [...] 10*3 1.0-4.0 Blood monocytes automated count (number/volume) 1. 2 10*3 0.0-1.0 Automated eosinophil count 0.2 10*3/uL 0 .0-0.3 Automated blood basophil count (count/volume) 0.1 10*3/uL 0.0-0.1 Comprehensive metabolic panel - 04/20/16 15:02 Serum or plasma sodium measurement (moles/volume) 139 mmol/L 135-145 Serum or plasma potassium measurement (moles/volume) 3.9 mmol/L 3.6-5.0 Serum or plasma chloride measurement (moles/volume) 108 mmol/L 98-107 Carbon dioxide 22 mmol/L 21-32 Serum or plasma anion gap determination (moles/volume) 9 mmol/L 5-14 Serum or plasma urea nitrogen measurement (mass/volume ) 11 mg/dL 7-18 Serum or plasma creatinine measurement (mass/volume) 1.10 mg/dL 0.60-1.30 Serum or plasma urea nitrogen/creatinine mass ratio 10 NRG Serum or plasma creatinine measurement w ith calculation of estimated glomerular filtration rate > NRG Serum or plasma glucose measurement (mass/volume) 155 mg/dL 70-105 Serum or plasma calcium measurement (mass/volume) 9.8 mg/dL 8.5-10.1 Serum or plasma total bilirubin measurement (mass/volu me) 0.3 mg/dL 0.1-1.0 Serum or plasma alkaline phosphatase everardo surement (enzymatic activity/volume) 119 U/L 40-136 Serum or plasma aspartate aminotransfera se measurement (enzymatic activity/volume) 24 U/L 5-34 Serum or plasma alanine aminotransferase measurement (enzymatic activity/volume) 55 U/L 0-55 Serum or plasma protein measurement (mass/volume) 7.4 g/dL 6.4-8.2 Serum or plasma albumin measurement (mass/volume) 4.3 g/dL 3.2-4.5 Serum or plasma troponin i.cardiac measu rement (mass/volume) - 04/20/16 15:02 Serum or plasma troponin i.cardiac measurement (mass/v olume) < ng/mL <0.30 Serum or plasma lithium measurement (mol es/volume) - 04/20/16 15:02 BNP level < pg/mL <100.0 Arterial blood gas measurement - 6 16:09 Blood pCO2 26 mm[Hg] 35-45 Blood pO2 61 mm[Hg] 79-93 Arterial blood bicarbonate measurement (moles/volume) 20 mmol/L 23-27 Arterial blood base excess by calculation -0.7 mmo l/L -2.5-2.5 Arterial blood oxygen saturation measurement 95 % 94-100 * Inhaled oxygen flow rate 2 NRG Arterial blood pH measurement with patient temperature correction 7.52 7.37-7.43 Arterial blood carbon dioxide, total measurement (mole s/volume) 21.2 mmol/L 21.0-31.0 Body site LEFT RADIAL NRG Assessment of wrist artery patency prior to arterial p uncture POSITIVE NRG Setting of ventilation mode NO NR G Measurement of body temperature 98.7 NRG Bacterial blood culture - 04/20/16 16:49 Bacterial blood culture NG NRG Blood lactic acid measurement (moles/vol ume) - 04/20/16 17:18 Blood lactic acid measurement (moles/volume) 1.4 m mol/L 0.5- 2.0 Bacterial blood culture - 04/20/16 17:18 Bacterial blood culture NG NRG Arterial blood gas measurement - 6 18:46 Blood pCO2 41 mm[Hg] 35-45 Blood pO2 85 mm[Hg] 79-93 Arterial blood bicarbonate measurement (moles/volume) 24 mmol/L 23-27 Arterial blood base excess by calculation -1.5 mmo l/L -2.5-2.5 Arterial blood oxygen saturation measurement 97 % 94-100 * Inhaled oxygen flow rate 3 NRG Arterial blood pH measurement with patient temperature correction 7.38 7.37-7.43 Arterial blood carbon dioxide, total measurement (mole s/volume) 24.8 mmol/L 21.0-31.0 Body site LEFT RADIAL NRG Assessment of wrist artery patency prior to arterial p uncture POSITIVE NRG Setting of ventilation mode NO NR G Measurement of body temperature 98.4 NRG Complete blood count (CBC) with automate d white blood cell (WBC) differential - 10/04/16 20:55 Blood leukocytes automated count (number/volume) 10.3 10*3/uL 4.3-11.0 Blood erythrocytes automated count (number/volume) 4.83 10*6/uL 4.35-5.85 Venous blood hemoglobin measurement (mass/volume) 15.2 g/dL 13.3-17.7 Blood hematocrit (volume fraction) 43 % 40-54 Automated erythrocyte mean corpuscular volume 89 [ foz_us] 80-99 Automated erythrocyte mean corpuscular h emoglobin (mass per erythrocyte) 32 pg 25-34 Automated erythrocyte mean corpuscular h emoglobin concentration measurement (mass/volume) 35 g/dL 32-36 Automated erythrocyte distribution width ratio 12. 9 % 10.0- 14.5 Automated blood platelet count [...] 10*3 1.0-4.0 Blood monocytes automated count (number/volume) 1. 7 10*3 0.0-1.0 Automated eosinophil count 0.3 10*3/uL 0 .0-0.3 Automated blood basophil count (count/volume) 0.1 10*3/uL 0.0-0.1 PT panel in platelet poor plasma by coag ulation assay - 10/04/16 20:55 Prothrombin time (PT) in platelet poor plasma by coagu lation assay 12.0 s 12.2-14.7 INR in platelet poor plasma or blood by coagulation as say 0.9 0.8-1.4 Activated partial thromboplastin time (a PTT) in platelet poor plasma bycoagulation assay - 10/04/16 20:55 Activated partial thromboplastin time (a PTT) in platelet poor plasma bycoagulation assay 27 s 24-35 Comprehensive metabolic panel - 10/04/16 20:55 Serum or plasma sodium measurement (moles/volume) 141 mmol/L 135-145 Serum or plasma potassium measurement (moles/volume) 4.6 mmol/L 3.6-5.0 Serum or plasma chloride measurement (moles/volume) 107 mmol/L 98-107 Carbon dioxide 22 mmol/L 21-32 Serum or plasma anion gap determination (moles/volume) 12 mmol/L 5-14 Serum or plasma urea nitrogen measurement (mass/volume ) 17 mg/dL 7-18 Serum or plasma creatinine measurement (mass/volume) 0.95 mg/dL 0.60-1.30 Serum or plasma urea nitrogen/creatinine mass ratio 18 NRG Serum or plasma creatinine measurement w ith calculation of estimated glomerular filtration rate > NRG Serum or plasma glucose measurement (mass/volume) 115 mg/dL 70-105 Serum or plasma calcium measurement (mass/volume) 9.7 mg/dL 8.5-10.1 Serum or plasma total bilirubin measurement (mass/volu me) 0.3 mg/dL 0.1-1.0 Serum or plasma alkaline phosphatase everardo surement (enzymatic activity/volume) 121 U/L 40-136 Serum or plasma aspartate aminotransfera se measurement (enzymatic activity/volume) 28 U/L 5-34 Serum or plasma alanine aminotransferase measurement (enzymatic activity/volume) 63 U/L 0-55 Serum or plasma protein measurement (mass/volume) 7.1 g/dL 6.4-8.2 Serum or plasma albumin measurement (mass/volume) 4.1 g/dL 3.2-4.5 Magnesium - 10/04/16 20:55 Magnesium 2.2 mg/dL 1.8-2.4 Serum or plasma creatine kinase measurem ent (enzymatic activity/volume) - 10/04/16 20:55 Serum or plasma creatine kinase measurem ent (enzymatic activity/volume) 159 U/L 30-200 Serum or plasma creatine kinase MB measu rement (enzymatic activity/volume) - 10/04/16 20:55 Serum or plasma creatine kinase MB measu rement (enzymatic activity/volume) 2.5 ng/mL <6.6 Serum or plasma troponin i.cardiac measu rement (mass/volume) - 10/04/16 20:55 Serum or plasma troponin i.cardiac measurement (mass/v olume) < ng/mL <0.30 Serum or plasma lithium measurement (mol es/volume) - 10/04/16 20:55 BNP level < pg/mL <100.0 Influenza virus A and B antigen detectio n - 10/04/16 21:11 FLU RESULT NEGATIVE FOR INFLUENZA A AND B ANTIGENS BY [facility] Complete blood count (CBC) with automate d white blood cell (WBC) differential - 10/05/16 04:56 Blood leukocytes automated count (number/volume) 9.2 10*3/uL 4.3-11.0 Blood erythrocytes automated count (number/volume) 4.96 10*6/uL 4.35-5.85 Venous blood hemoglobin measurement (mass/volume) 15.4 g/dL 13.3-17.7 Blood hematocrit (volume fraction) 44 % 40-54 Automated erythrocyte mean corpuscular volume 90 [ foz_us] 80-99 Automated erythrocyte mean corpuscular h emoglobin (mass per erythrocyte) 31 pg 25-34 Automated erythrocyte mean corpuscular h emoglobin concentration measurement (mass/volume) 35 g/dL 32-36 Automated erythrocyte distribution width ratio 12. 8 % 10.0- 14.5 Automated blood platelet count [...] 10*3 1.0-4.0 Blood monocytes automated count (number/volume) 0. 1 10*3 0.0-1.0 Automated eosinophil count 0.0 10*3/uL 0 .0-0.3 Automated blood basophil count (count/volume) 0.0 10*3/uL 0.0-0.1 Comprehensive metabolic panel - 10/05/16 04:56 Serum or plasma sodium measurement (moles/volume) 136 mmol/L 135-145 Serum or plasma potassium measurement (moles/volume) 4.9 mmol/L 3.6-5.0 Serum or plasma chloride measurement (moles/volume) 105 mmol/L 98-107 Carbon dioxide 17 mmol/L 21-32 Serum or plasma anion gap determination (moles/volume) 14 mmol/L 5-14 Serum or plasma urea nitrogen measurement (mass/volume ) 19 mg/dL 7-18 Serum or plasma creatinine measurement (mass/volume) 0.93 mg/dL 0.60-1.30 Serum or plasma urea nitrogen/creatinine mass ratio 20 NRG Serum or plasma creatinine measurement w ith calculation of estimated glomerular filtration rate > NRG Serum or plasma glucose measurement (mass/volume) 277 mg/dL 70-105 Serum or plasma calcium measurement (mass/volume) 9.2 mg/dL 8.5-10.1 Serum or plasma total bilirubin measurement (mass/volu me) 0.4 mg/dL 0.1-1.0 Serum or plasma alkaline phosphatase everardo surement (enzymatic activity/volume) 125 U/L 40-136 Serum or plasma aspartate aminotransfera se measurement (enzymatic activity/volume) 23 U/L 5-34 Serum or plasma alanine aminotransferase measurement (enzymatic activity/volume) 64 U/L 0-55 Serum or plasma protein measurement (mass/volume) 7.2 g/dL 6.4-8.2 Serum or plasma albumin measurement (mass/volume) 4.2 g/dL 3.2-4.5 Arterial blood gas measurement - 7 22:07 Blood pCO2 34 mm[Hg] 35-45 Blood pO2 44 mm[Hg] 79-93 Arterial blood bicarbonate measurement (moles/volume) 24 mmol/L 23-27 Arterial blood base excess by calculation 0.6 mmol /L -2.5-2.5 Arterial blood oxygen saturation measurement 87 % 94-100 * Inhaled oxygen flow rate 2L NRG Arterial blood pH measurement with patient temperature correction 7.46 7.37-7.43 Arterial blood carbon dioxide, total measurement (mole s/volume) 25.3 mmol/L 21.0-31.0 Body site LEFT RADAIL NRG Assessment of wrist artery patency prior to arterial p uncture YES-POS NRG Setting of ventilation mode NO NR G Measurement of body temperature 96.8 NRG Complete blood count (CBC) with automate d white blood cell (WBC) differential - 12/27/16 22:12 Blood leukocytes automated count (number/volume) 10.3 10*3/uL 4.3-11.0 Blood erythrocytes automated count (number/volume) 4.99 10*6/uL 4.35-5.85 Venous blood hemoglobin measurement (mass/volume) 15.6 g/dL 13.3-17.7 Blood hematocrit (volume fraction) 44 % 40-54 Automated erythrocyte mean corpuscular volume 89 [ foz_us] 80-99 Automated erythrocyte mean corpuscular h emoglobin (mass per erythrocyte) 31 pg 25-34 Automated erythrocyte mean corpuscular h emoglobin concentration measurement (mass/volume) 35 g/dL 32-36 Automated erythrocyte distribution width ratio 12. 8 % 10.0- 14.5 Automated blood platelet count [...] 10*3 1.0-4.0 Blood monocytes automated count (number/volume) 1. 1 10*3 0.0-1.0 Automated eosinophil count 0.3 10*3/uL 0 .0-0.3 Automated blood basophil count (count/volume) 0.1 10*3/uL 0.0-0.1 Blood lactic acid measurement (moles/vol ume) - 12/27/16 22:12 Blood lactic acid measurement [...] 5-14 Serum or plasma urea nitrogen measurement (mass/volume ) 13 mg/dL 7-18 Serum or plasma creatinine measurement (mass/volume) 1.13 mg/dL 0.60-1.30 Serum or plasma urea nitrogen/creatinine mass ratio 12 NRG Serum or plasma creatinine measurement w ith calculation of estimated glomerular filtration rate > NRG Serum or plasma glucose measurement (mass/volume) 159 mg/dL 70-105 Serum or plasma calcium measurement (mass/volume) 9.6 mg/dL 8.5-10.1 Serum or plasma total bilirubin measurement (mass/volu me) 0.3 mg/dL 0.1-1.0 Serum or plasma alkaline phosphatase everardo surement (enzymatic activity/volume) 119 U/L 40-136 Serum or plasma aspartate aminotransfera se measurement (enzymatic activity/volume) 28 U/L 5-34 Serum or plasma alanine aminotransferase measurement (enzymatic activity/volume) 58 U/L 0-55 Serum or plasma protein measurement (mass/volume) 7.0 g/dL 6.4-8.2 Serum or plasma albumin measurement (mass/volume) 4.1 g/dL 3.2-4.5 Serum or plasma troponin i.cardiac measu rement (mass/volume) - 12/27/16 22:12 Serum or plasma troponin i.cardiac measurement (mass/v olume) < ng/mL <0.30 Bacterial blood culture - 12/27/16 22:12 Bacterial blood culture NG NRG Bacterial blood culture - 12/27/16 22:31 Bacterial blood culture NG NRG Hemoglobin A1c - 12/29/16 05:15 Hemoglobin A1c 8.2 % 4.5-6.2 Serum or plasma alpha 1 antitrypsin donita urement (mass/volume) - 12/29/16 12:06 Serum or plasma alpha 1 antitrypsin measurement (mass/ volume) 160.9 % 90.0-200.0 Complete blood count (CBC) with automate d white blood cell (WBC) differential - 01/29/17 16:30 Blood leukocytes automated count (number/volume) 11.0 10*3/uL 4.3-11.0 Blood erythrocytes automated count (number/volume) 5.03 10*6/uL 4.35-5.85 Venous blood hemoglobin measurement (mass/volume) 15.5 g/dL 13.3-17.7 Blood hematocrit (volume fraction) 45 % 40-54 Automated erythrocyte mean corpuscular volume 89 [ foz_us] 80-99 Automated erythrocyte mean corpuscular h emoglobin (mass per erythrocyte) 31 pg 25-34 Automated erythrocyte mean corpuscular h emoglobin concentration measurement (mass/volume) 35 g/dL 32-36 Automated erythrocyte distribution width ratio 12. 6 % 10.0- 14.5 Automated blood platelet count [...] 10*3 1.0-4.0 Blood monocytes automated count (number/volume) 1. 2 10*3 0.0-1.0 Automated eosinophil count 0.1 10*3/uL 0 .0-0.3 Automated blood basophil count (count/volume) 0.0 10*3/uL 0.0-0.1 Comprehensive metabolic panel - 01/29/17 16:30 Serum or plasma sodium measurement (moles/volume) 138 mmol/L 135-145 Serum or plasma potassium measurement (moles/volume) 3.8 mmol/L 3.6-5.0 Serum or plasma chloride measurement (moles/volume) 103 mmol/L 98-107 Carbon dioxide 24 mmol/L 21-32 Serum or plasma anion gap determination (moles/volume) 11 mmol/L 5-14 Serum or plasma urea nitrogen measurement (mass/volume ) 10 mg/dL 7-18 Serum or plasma creatinine measurement (mass/volume) 0.93 mg/dL 0.60-1.30 Serum or plasma urea nitrogen/creatinine mass ratio 11 0-20 Serum or plasma creatinine measurement w ith calculation of estimated glomerular filtration rate > NRG Serum or plasma glucose measurement (mass/volume) 138 mg/dL 70-105 Serum or plasma calcium measurement (mass/volume) 9.9 mg/dL 8.5-10.1 Serum or plasma total bilirubin measurement (mass/volu me) 0.4 mg/dL 0.1-1.0 Serum or plasma alkaline phosphatase everardo surement (enzymatic activity/volume) 114 U/L 40-136 Serum or plasma aspartate aminotransfera se measurement (enzymatic activity/volume) 27 U/L 5-34 Serum or plasma alanine aminotransferase measurement (enzymatic activity/volume) 53 U/L 0-55 Serum or plasma protein measurement (mass/volume) 7.3 g/dL 6.4-8.2 Serum or plasma albumin measurement (mass/volume) 4.2 g/dL 3.2-4.5 Lipase - 01/29/17 16:30 Lipase 76 U/L 8-78 Complete urinalysis with reflex to cultu re - 01/29/17 17:06 Urine color determination YELLOW NRG Urine clarity determination CLEAR NR G Urine pH measurement by test strip 7 5-9 Specific gravity of urine by test strip 1.010 1.016-1.022 Urine protein assay by test strip, semi-quantitative NEGATIVE NEGATIVE Urine glucose detection by automated test strip NE GATIVE NEGATIVE Erythrocytes detection in urine sediment by light micr oscopy NEGATIVE NEGATIVE Urine ketones detection by automated test strip NE GATIVE NEGATIVE Urine nitrite detection by test strip NEGATIVE NEGATIVE Urine total bilirubin detection by test strip NEGA TIVE NEGATIVE Urine urobilinogen measurement by automated test strip (mass/volume) 1 mg/dL NORMAL Urine leukocyte esterase detection by dipstick NEG ATIVE NEGATIVE Automated urine sediment erythrocyte cou nt by microscopy (number/high power field) NONE NRG Automated urine sediment leukocyte count by microscopy (number/high power field) NONE NRG Bacteria detection in urine sediment by light microsco py NEGATIVE NRG Squamous epithelial cells detection in u rine sediment by light microscopy 0-2 NRG Crystals detection in urine sediment by light microsco py NONE NRG Casts detection in urine sediment by light microscopy NONE NRG Mucus detection in urine sediment by light microscopy NEGATIVE NRG Complete urinalysis with reflex to culture NO NRG Complete blood count (CBC) with automate d white blood cell (WBC) differential - 12/13/18 10:49 Blood leukocytes automated count (number/volume) 10.0 10*3/uL 4.3-11.0 Blood erythrocytes automated count (number/volume) 5.16 10*6/uL 4.35-5.85 Venous blood hemoglobin measurement (mass/volume) 16.1 g/dL 13.3-17.7 Blood hematocrit (volume fraction) 46 % 40-54 Automated erythrocyte mean corpuscular volume 90 [ foz_us] 80-99 Automated erythrocyte mean corpuscular h emoglobin (mass per erythrocyte) 31 pg 25-34 Automated erythrocyte mean corpuscular h emoglobin concentration measurement (mass/volume) 35 g/dL 32-36 Automated erythrocyte distribution width ratio 13. 0 % 10.0- 14.5 Automated blood platelet count [...] 10*3 1.0-4.0 Blood monocytes automated count (number/volume) 0. 9 10*3 0.0-1.0 Automated eosinophil count 0.2 10*3/uL 0 .0-0.3 Automated blood basophil count (count/volume) 0.1 10*3/uL 0.0-0.1 Whole blood basic metabolic panel - 03/26 10:49 Serum or plasma sodium measurement (moles/volume) 138 mmol/L 135-145 Serum or plasma potassium measurement (moles/volume) 4.4 mmol/L 3.6-5.0 Serum or plasma chloride measurement (moles/volume) 103 mmol/L 98-107 Carbon dioxide 25 mmol/L 21-32 Serum or plasma anion gap determination (moles/volume) 10 mmol/L 5-14 Serum or plasma urea nitrogen measurement (mass/volume ) 16 mg/dL 7-18 Serum or plasma creatinine measurement (mass/volume) 0.99 mg/dL 0.60-1.30 Serum or plasma urea nitrogen/creatinine mass ratio 16 NRG Serum or plasma creatinine measurement w ith calculation of estimated glomerular filtration rate > NRG Serum or plasma glucose measurement (mass/volume) 259 mg/dL 70-105 Serum or plasma calcium measurement (mass/volume) 10.0 mg/dL 8.5-10.1 PT panel in platelet poor plasma by coag ulation assay - 12/13/18 11:35 Prothrombin time (PT) in platelet poor plasma by coagu lation assay 12.7 s 12.2-14.7 INR in platelet poor plasma or blood by coagulation as say 0.9 0.8-1.4 Activated partial thromboplastin time (a PTT) in platelet poor plasma bycoagulation assay - 12/13/18 11:35 Activated partial thromboplastin time (a PTT) in platelet poor plasma bycoagulation assay 27 s 24-35 PDM - PAIN MGMT (PROFILE 3 WITH CONFIRMA TION) - 01/19/19 11:28 Prescribed Drug 1 Lyrica(TM) NRG Creatinine 265.5 mg/dL > or = 20.0 pH 6.02 4.5 - 9.0 Oxidant NEGATIVE mcg/mL <200 Amphetamines NEGATIVE ng/mL <500 medMATCH Amphetamines CONSISTENT NRG Benzodiazepines NEGATIVE ng/mL <100 medMATCH Benzodiazepines CONSISTENT NRG Marijuana Metabolite NEGATIVE ng/mL <20 medMATCH Marijuana Metab CONSISTENT NRG Cocaine Metabolite NEGATIVE ng/mL <150 medMATCH Cocaine Metab CONSISTENT NRG Opiates NEGATIVE ng/mL <100 medMATCH Opiates CONSISTENT NRG Oxycodone NEGATIVE ng/mL <100 medMATCH Oxycodone CONSISTENT NRG COMMENT NRG MAGNESIUM SERUM - 01/26/19 08:09 MAGNESIUM 1.8 mg/dL 1.5-2.5 TSH - 01/26/19 08:09 TSH 1.61 mIU/L 0.40-4.50 Complete blood count (CBC) with automate d white blood cell (WBC) differential - 01/26/19 12:58 Blood leukocytes automated count (number/volume) 8.5 10*3/uL 4.3-11.0 Blood erythrocytes automated count (number/volume) 4.81 10*6/uL 4.35-5.85 Venous blood hemoglobin measurement (mass/volume) 14.8 g/dL 13.3-17.7 Blood hematocrit (volume fraction) 43 % 40-54 Automated erythrocyte mean corpuscular volume 89 [ foz_us] 80-99 Automated erythrocyte mean corpuscular h emoglobin (mass per erythrocyte) 31 pg 25-34 Automated erythrocyte mean corpuscular h emoglobin concentration measurement (mass/volume) 35 g/dL 32-36 Automated erythrocyte distribution width ratio 13. 0 % 10.0- 14.5 Automated blood platelet count (count/volume) 262 10*3/uL 130-400 Automated blood platelet mean volume measurement 10.0 [foz_us] 7.4-10.4 Automated blood neutrophils/100 leukocytes 57 % 42-75 Automated blood lymphocytes/100 leukocytes 28 % 12-44 Blood monocytes/100 leukocytes 11 % 0-12 Automated blood eosinophils/100 leukocytes 4 % 0-10 Automated blood basophils/100 leukocytes 1 % 0-10 Blood neutrophils automated count (number/volume) 4.8 10*3 1.8-7.8 Blood lymphocytes automated count (number/volume) 2.4 10*3 1.0-4.0 Blood monocytes automated count (number/volume) 0. 9 10*3 0.0-1.0 Automated eosinophil count 0.3 10*3/uL 0 .0-0.3 Automated blood basophil count (count/volume) 0.0 10*3/uL 0.0-0.1 PT panel in platelet poor plasma by coag ulation assay - 01/26/19 12:58 Prothrombin time (PT) in platelet poor plasma by coagu lation assay 12.5 s 12.2-14.7 INR in platelet poor plasma or blood by coagulation as say 0.9 0.8-1.4 Activated partial thromboplastin time (a PTT) in platelet poor plasma bycoagulation assay - 01/26/19 12:58 Activated partial thromboplastin time (a PTT) in platelet poor plasma bycoagulation assay 28 s 24-35 Serum or plasma C reactive protein measu rement (mass/volume) - 01/26/19 12:58 Serum or plasma C reactive protein measurement (mass/v olume) 0.79 mg/dL 0.00-0.50 Fibrin D-dimer FEU measurement in platel et poor plasma (mass/volume) - 01/26/19 12:58 Fibrin D-dimer FEU measurement in platelet poor plasma (mass/volume) 0.26 ug/mL 0.00-0.49 Comprehensive metabolic panel - 01/26/19 12:58 Serum or plasma sodium measurement (moles/volume) 140 mmol/L 135-145 Serum or plasma potassium measurement (moles/volume) 3.8 mmol/L 3.6-5.0 Serum or plasma chloride measurement (moles/volume) 105 mmol/L 98-107 Carbon dioxide 22 mmol/L 21-32 Serum or plasma anion gap determination (moles/volume) 13 mmol/L 5-14 Serum or plasma urea nitrogen measurement (mass/volume ) 12 mg/dL 7-18 Serum or plasma creatinine measurement (mass/volume) 1.04 mg/dL 0.60-1.30 Serum or plasma urea nitrogen/creatinine mass ratio 12 NRG Serum or plasma creatinine measurement w ith calculation of estimated glomerular filtration rate > NRG Serum or plasma glucose measurement (mass/volume) 188 mg/dL 70-105 Serum or plasma calcium measurement (mass/volume) 9.9 mg/dL 8.5-10.1 Serum or plasma total bilirubin measurement (mass/volu me) 0.4 mg/dL 0.1-1.0 Serum or plasma alkaline phosphatase everardo surement (enzymatic activity/volume) 117 U/L 40-136 Serum or plasma aspartate aminotransfera se measurement (enzymatic activity/volume) 31 U/L 5-34 Serum or plasma alanine aminotransferase measurement (enzymatic activity/volume) 59 U/L 0-55 Serum or plasma protein measurement (mass/volume) 7.6 g/dL 6.4-8.2 Serum or plasma albumin measurement (mass/volume) 4.4 g/dL 3.2-4.5 CALCIUM CORRECTED 9.6 mg/dL 8.5-10.1 Magnesium - 01/26/19 12:58 Magnesium 2.1 mg/dL 1.8-2.4 Serum or plasma troponin i.cardiac measu rement (mass/volume) - 01/26/19 12:58 Serum or plasma troponin i.cardiac measurement (mass/v olume) < ng/mL <0.028 Myoglobin, serum - 01/26/19 12:58 Myoglobin, serum 33.6 ng/mL 10.0-92.0 Serum or plasma lithium measurement (mol es/volume) - 01/26/19 12:58 BNP PT < 10.0 <100.0 Arterial blood gas measurement - 9 16:58 Blood pCO2 37 mm[Hg] 35-45 Blood pO2 66 mm[Hg] 79-93 Arterial blood bicarbonate measurement (moles/volume) 24 mmol/L 23-27 Arterial blood base excess by calculation -0.1 mmo l/L -2.5-2.5 Arterial blood oxygen saturation measurement 94 % 94-100 * Inhaled oxygen flow rate 5 L NASAL CANULA NRG Arterial blood pH measurement with patient temperature correction 7.42 7.37-7.43 Arterial blood carbon dioxide, total measurement (mole s/volume) 25.0 mmol/L 21.0-31.0 Body site RIGHT RADIAL NRG Assessment of wrist artery patency prior to arterial p uncture POSITIVE NRG Setting of ventilation mode NO NR G Measurement of body temperature 97.7 NRG Capillary blood glucose measurement by g lucometer (mass/volume) - 01/26/19 20:56 Capillary blood glucose measurement by glucometer (mas s/volume) 305 mg/dL 70-110 Complete blood count (CBC) with automate d white blood cell (WBC) differential - 01/27/19 04:18 Blood leukocytes automated count (number/volume) 9.4 10*3/uL 4.3-11.0 Blood erythrocytes automated count (number/volume) 4.43 10*6/uL 4.35-5.85 Venous blood hemoglobin measurement (mass/volume) 13.5 g/dL 13.3-17.7 Blood hematocrit (volume fraction) 39 % 40-54 Automated erythrocyte mean corpuscular volume 89 [ foz_us] 80-99 Automated erythrocyte mean corpuscular h emoglobin (mass per erythrocyte) 31 pg 25-34 Automated erythrocyte mean corpuscular h emoglobin concentration measurement (mass/volume) 34 g/dL 32-36 Automated erythrocyte distribution width ratio 13. 0 % 10.0- 14.5 Automated blood platelet count (count/volume) 270 10*3/uL 130-400 Automated blood platelet mean volume measurement 10.4 [foz_us] 7.4-10.4 Automated blood neutrophils/100 leukocytes 86 % 42-75 Automated blood lymphocytes/100 leukocytes 11 % 12-44 Blood monocytes/100 leukocytes 3 % 0-12 Automated blood eosinophils/100 leukocytes 0 % 0-10 Automated blood basophils/100 leukocytes 0 % 0-10 Blood neutrophils automated count (number/volume) 8.1 10*3 1.8-7.8 Blood lymphocytes automated count (number/volume) 1.0 10*3 1.0-4.0 Blood monocytes automated count (number/volume) 0. 3 10*3 0.0-1.0 Automated eosinophil count 0.0 10*3/uL 0 .0-0.3 Automated blood basophil count (count/volume) 0.0 10*3/uL 0.0-0.1 Whole blood basic metabolic panel - 01/07 09/26 04:18 Serum or plasma sodium measurement (moles/volume) 134 mmol/L 135-145 Serum or plasma potassium measurement (moles/volume) 4.5 mmol/L 3.6-5.0 Serum or plasma chloride measurement (moles/volume) 103 mmol/L 98-107 Carbon dioxide 18 mmol/L 21-32 Serum or plasma anion gap determination (moles/volume) 13 mmol/L 5-14 Serum or plasma urea nitrogen measurement (mass/volume ) 12 mg/dL 7-18 Serum or plasma creatinine measurement (mass/volume) 0.98 mg/dL 0.60-1.30 Serum or plasma urea nitrogen/creatinine mass ratio 12 NRG Serum or plasma creatinine measurement w ith calculation of estimated glomerular filtration rate > NRG Serum or plasma glucose measurement (mass/volume) 277 mg/dL 70-105 Serum or plasma calcium measurement (mass/volume) 10.0 mg/dL 8.5-10.1 Lipid 1996 panel - 01/27/19 04:18 Serum or plasma triglyceride measurement (mass/volume) 66 mg/dL <150 Serum or plasma cholesterol measurement (mass/volume) 126 mg/dL < 200 Serum or plasma cholesterol in HDL measurement (mass/v olume) 32 mg/dL 40-60 Cholesterol in LDL [mass/volume] in serum or plasma by direct assay 83 mg/dL 1-129 Serum or plasma cholesterol in VLDL measurement (mass/ volume) 13 mg/dL 5-40 Capillary blood glucose measurement by g lucometer (mass/volume) - 01/27/19 05:15 Capillary blood glucose measurement by glucometer (mas s/volume) 267 mg/dL 70-110 Blood lactic acid measurement (moles/vol ume) - 01/27/19 09:48 Blood lactic acid measurement (moles/volume) 3.40 mmol/L 0.50-2.00 Serum or plasma lithium measurement (mol es/volume) - 01/27/19 09:48 BNP PT 47.0 pg/mL <100.0 Arterial blood gas measurement - 9 10:39 Blood pCO2 35 mm[Hg] 35-45 Blood pO2 60 mm[Hg] 79-93 Arterial blood bicarbonate measurement (moles/volume) 23 mmol/L 23-27 Arterial blood base excess by calculation -1.0 mmo l/L -2.5-2.5 Arterial blood oxygen saturation measurement 93 % 94-100 * Inhaled oxygen flow rate 3 L NRG Arterial blood pH measurement with patient temperature correction 7.43 7.37-7.43 Arterial blood carbon dioxide, total measurement (mole s/volume) 23.9 mmol/L 21.0-31.0 Body site RT RAD NRG Assessment of wrist artery patency prior to arterial p uncture YES-POS NRG Setting of ventilation mode NO NR G Measurement of body temperature 97.2 NRG Capillary blood glucose measurement by g lucometer (mass/volume) - 01/27/19 11:20 Capillary blood glucose measurement by glucometer (mas s/volume) 262 mg/dL 70-110 Serum or plasma lactate measurement (mol es/volume) - 01/27/19 11:57 Serum or plasma lactate measurement (moles/volume) 3.13 mmol/L 0.50-2.00 Capillary blood glucose measurement by g lucometer (mass/volume) - 01/27/19 15:49 Capillary blood glucose measurement by glucometer (mas s/volume) 210 mg/dL 70-110 Capillary blood glucose measurement by g lucometer (mass/volume) - 01/27/19 21:31 Capillary blood glucose measurement by glucometer (mas s/volume) 211 mg/dL 70-110 Comprehensive metabolic panel - 01/28/19 05:02 Serum or plasma sodium measurement (moles/volume) 136 mmol/L 135-145 Serum or plasma potassium measurement (moles/volume) 4.4 mmol/L 3.6-5.0 Serum or plasma chloride measurement (moles/volume) 105 mmol/L 98-107 Carbon dioxide 20 mmol/L 21-32 Serum or plasma anion gap determination (moles/volume) 11 mmol/L 5-14 Serum or plasma urea nitrogen measurement (mass/volume ) 16 mg/dL 7-18 Serum or plasma creatinine measurement (mass/volume) 0.92 mg/dL 0.60-1.30 Serum or plasma urea nitrogen/creatinine mass ratio 17 NRG Serum or plasma creatinine measurement w ith calculation of estimated glomerular filtration rate > NRG Serum or plasma glucose measurement (mass/volume) 286 mg/dL 70-105 Serum or plasma calcium measurement (mass/volume) 9.1 mg/dL 8.5-10.1 Serum or plasma total bilirubin measurement (mass/volu me) 0.3 mg/dL 0.1-1.0 Serum or plasma alkaline phosphatase everardo surement (enzymatic activity/volume) 98 U/L 40-136 Serum or plasma aspartate aminotransfera se measurement (enzymatic activity/volume) 16 U/L 5-34 Serum or plasma alanine aminotransferase measurement (enzymatic activity/volume) 43 U/L 0-55 Serum or plasma protein measurement (mass/volume) 7.0 g/dL 6.4-8.2 Serum or plasma albumin measurement (mass/volume) 4.2 g/dL 3.2-4.5 CALCIUM CORRECTED 8.9 mg/dL 8.5-10.1 Complete blood count (CBC) with automate d white blood cell (WBC) differential - 01/28/19 05:07 Blood leukocytes automated count (number/volume) 13.4 10*3/uL 4.3-11.0 Blood erythrocytes automated count (number/volume) 4.32 10*6/uL 4.35-5.85 Venous blood hemoglobin measurement (mass/volume) 13.3 g/dL 13.3-17.7 Blood hematocrit (volume fraction) 39 % 40-54 Automated erythrocyte mean corpuscular volume 90 [ foz_us] 80-99 Automated erythrocyte mean corpuscular h emoglobin (mass per erythrocyte) 31 pg 25-34 Automated erythrocyte mean corpuscular h emoglobin concentration measurement (mass/volume) 34 g/dL 32-36 Automated erythrocyte distribution width ratio 13. 1 % 10.0- 14.5 Automated blood platelet count (count/volume) 251 10*3/uL 130-400 Automated blood platelet mean volume measurement 10.8 [foz_us] 7.4-10.4 Automated blood neutrophils/100 leukocytes 85 % 42-75 Automated blood lymphocytes/100 leukocytes 10 % 12-44 Blood monocytes/100 leukocytes 5 % 0-12 Automated blood eosinophils/100 leukocytes 0 % 0-10 Automated blood basophils/100 leukocytes 0 % 0-10 Blood neutrophils automated count (number/volume) 11.4 10*3 1.8-7.8 Blood lymphocytes automated count (number/volume) 1.3 10*3 1.0-4.0 Blood monocytes automated count (number/volume) 0. 7 10*3 0.0-1.0 Automated eosinophil count 0.0 10*3/uL 0 .0-0.3 Automated blood basophil count (count/volume) 0.0 10*3/uL 0.0-0.1 Capillary blood glucose measurement by g lucometer (mass/volume) - 01/28/19 05:27 Capillary blood glucose measurement by glucometer (mas s/volume) 257 mg/dL 70-110 Capillary blood glucose measurement by g lucometer (mass/volume) - 01/28/19 11:17 Capillary blood glucose measurement by glucometer (mas s/volume) 259 mg/dL 70-110 Blood CBC with ordered manual differenti al panel - 07/10/19 14:30 Blood leukocytes automated count (number/volume) 9.4 10*3/uL 4.3-11.0 Blood erythrocytes automated count (number/volume) 5.07 10*6/uL 4.35-5.85 Venous blood hemoglobin measurement (mass/volume) 15.3 g/dL 13.3-17.7 Blood hematocrit (volume fraction) 45 % 40-54 Automated erythrocyte mean corpuscular volume 88 [ [facility]] 80-99 Automated erythrocyte mean corpuscular h emoglobin (mass per erythrocyte) 30 pg 25-34 Automated erythrocyte mean corpuscular h emoglobin concentration measurement (mass/volume) 34 g/dL 32-36 Automated erythrocyte distribution width ratio 14. 4 % 10.0- 14.5 Automated blood platelet count (count/volume) 283 10*3/uL 130-400 Automated blood platelet mean volume measurement 9.8 [[facility]_us] 7.4-10.4 Automated blood neutrophils/100 leukocytes 57 % 42-75 Automated blood lymphocytes/100 leukocytes 29 % 12-44 Blood monocytes/100 leukocytes 10 % NRG Automated blood eosinophils/100 leukocytes 3 % 0-10 Automated blood basophils/100 leukocytes 1 % 0-10 Blood neutrophils automated count (number/volume) 5.3 10*3 1.8-7.8 Blood lymphocytes automated count (number/volume) 2.7 10*3 1.0-4.0 Blood monocytes automated count (number/volume) 1. 0 10*3 0.0-1.0 Automated eosinophil count 0.3 10*3/uL 0 .0-0.3 Automated blood basophil count (count/volume) 0.1 10*3/uL 0.0-0.1 Manual blood segmented neutrophils/100 leukocytes 62 % NRG Blood band neutrophils/100 leukocytes 0 % NRG Manual blood lymphocytes/100 leukocytes 24 % NRG Manual eosinophils/100 leukocytes in nose 3 % NRG Manual blood basophils/100 leukocytes 1 % NRG Blood erythrocyte morphology finding identification [facility] Whole blood basic metabolic panel - 10/24 14:30 Serum or plasma sodium measurement (moles/volume) 139 mmol/L 135-145 Serum or plasma potassium measurement (moles/volume) 4.3 mmol/L 3.6-5.0 Serum or plasma chloride measurement (moles/volume) 103 mmol/L 98-107 Carbon dioxide 25 mmol/L 21-32 Serum or plasma anion gap determination (moles/volume) 11 mmol/L 5-14 Serum or plasma urea nitrogen measurement (mass/volume ) 17 mg/dL 7-18 Serum or plasma creatinine measurement (mass/volume) 0.97 mg/dL 0.60-1.30 Serum or plasma urea nitrogen/creatinine mass ratio 18 NRG Serum or plasma creatinine measurement w ith calculation of estimated glomerular filtration rate > NRG Serum or plasma glucose measurement (mass/volume) 98 mg/dL 70-105 Serum or plasma calcium measurement (mass/volume) 9.6 mg/dL 8.5-10.1 Influenza virus A and B antigen detectio n - 07/10/19 14:30 FLU RESULT NEGATIVE FOR INFLUENZA A AND B ANTIGENS BY IA NRG Serum or plasma lithium measurement (mol es/volume) - 07/10/19 14:30 BNP PT < 10.0 <100.0 CBC - 07/25/19 09:22 WHITE BLOOD CELL COUNT 13.6 Thousand/uL 3.8-10.8 RED BLOOD CELL COUNT 5.33 Million/uL 4.2 0-5.80 HEMOGLOBIN 15.9 g/dL 13.2-17.1 HEMATOCRIT 48.0 % 38.5-50.0 MCV 90.1 fL 80.0-100.0 MCH 29.8 pg 27.0-33.0 MCHC 33.1 g/dL 32.0-36.0 RDW 14.2 % 11.0-15.0 PLATELET COUNT 277 Thousand/uL 140-400 MPV 10.8 fL 7.5-12.5 ABSOLUTE NEUTROPHILS 9275 cells/uL 1500- 7800 ABSOLUTE LYMPHOCYTES 2870 cells/uL 850-3 900 ABSOLUTE MONOCYTES 1197 cells/uL 200-950 ABSOLUTE EOSINOPHILS 163 cells/uL 15-500 ABSOLUTE BASOPHILS 95 cells/uL 0-200 NEUTROPHILS 68.2 % NRG LYMPHOCYTES 21.1 % NRG MONOCYTES 8.8 % NRG EOSINOPHILS 1.2 % NRG BASOPHILS 0.7 % NRG A1C - 07/25/19 09:22 HEMOGLOBIN A1c 6.4 % of total Hgb <5.7 LIPID PANEL - 09/27/19 07:57 CHOLESTEROL, TOTAL 132 mg/dL <200 HDL CHOLESTEROL 32 mg/dL > OR = 40 TRIGLYCERIDES 98 mg/dL <150 LDL-CHOLESTEROL 81 mg/dL (calc) NRG CHOL/HDLC RATIO 4.1 (calc) <5.0 NON HDL CHOLESTEROL 100 mg/dL (calc) <13 0 CMP - 09/27/19 07:57 GLUCOSE 109 mg/dL 65-99 UREA NITROGEN (BUN) 14 mg/dL 7-25 CREATININE 0.95 mg/dL 0.60-1.35 eGFR NON-AFR. SAO TOMEAN 94 mL/min/1.73m2 > OR = 60 eGFR 109 mL/min/1.73m2 > OR = 60 BUN/CREATININE RATIO NOT APPLICABLE (calc) 6-22 SODIUM 139 mmol/L 135-146 POTASSIUM 4.4 mmol/L 3.5-5.3 CHLORIDE 102 mmol/L 98-110 CARBON DIOXIDE 28 mmol/L 20-32 CALCIUM 9.7 mg/dL 8.6-10.3 PROTEIN, TOTAL 7.2 g/dL 6.1-8.1 ALBUMIN 4.6 g/dL 3.6-5.1 GLOBULIN 2.6 g/dL (calc) 1.9-3.7 ALBUMIN/GLOBULIN RATIO 1.8 (calc) 1.0-2. 5 BILIRUBIN, TOTAL 0.5 mg/dL 0.2-1.2 ALKALINE PHOSPHATASE 116 U/L 36-130 AST 17 U/L 10-40 ALT 28 U/L 9-46 Complete blood count (CBC) with automate d white blood cell (WBC) differential - 10/24/19 13:45 Blood leukocytes automated count (number/volume) 9.6 10*3/uL 4.3-11.0 Blood erythrocytes automated count (number/volume) 5.00 10*6/uL 4.35-5.85 Venous blood hemoglobin measurement (mass/volume) 15.4 g/dL 13.3-17.7 Blood hematocrit (volume fraction) 45 % 40-54 Automated erythrocyte mean corpuscular volume 90 [ foz_us] 80-99 Automated erythrocyte mean corpuscular h emoglobin (mass per erythrocyte) 31 pg 25-34 Automated erythrocyte mean corpuscular h emoglobin concentration measurement (mass/volume) 34 g/dL 32-36 Automated erythrocyte distribution width ratio 13. 5 % 10.0- 14.5 Automated blood platelet count (count/volume) 278 10*3/uL 130-400 Automated blood platelet mean volume measurement 10.2 [foz_us] 7.4-10.4 Automated blood neutrophils/100 leukocytes 53 % 42-75 Automated blood lymphocytes/100 leukocytes 33 % 12-44 Blood monocytes/100 leukocytes 10 % 0-12 Automated blood eosinophils/100 leukocytes 4 % 0-10 Automated blood basophils/100 leukocytes 1 % 0-10 Blood neutrophils automated count (number/volume) 5.1 10*3 1.8-7.8 Blood lymphocytes automated count (number/volume) 3.2 10*3 1.0-4.0 Blood monocytes automated count (number/volume) 0. 9 10*3 0.0-1.0 Automated eosinophil count 0.3 10*3/uL 0 .0-0.3 Automated blood basophil count (count/volume) 0.1 10*3/uL 0.0-0.1 Whole blood basic metabolic panel - 10/06 03/27 13:45 Serum or plasma sodium measurement (moles/volume) 141 mmol/L 135-145 Serum or plasma potassium measurement (moles/volume) 4.2 mmol/L 3.6-5.0 Serum or plasma chloride measurement (moles/volume) 105 mmol/L 98-107 Carbon dioxide 25 mmol/L 21-32 Serum or plasma anion gap determination (moles/volume) 11 mmol/L 5-14 Serum or plasma urea nitrogen measurement (mass/volume ) 13 mg/dL 7-18 Serum or plasma creatinine measurement (mass/volume) 1.01 mg/dL 0.60-1.30 Serum or plasma urea nitrogen/creatinine mass ratio 13 NRG Serum or plasma creatinine measurement w ith calculation of estimated glomerular filtration rate > NRG Serum or plasma glucose measurement (mass/volume) 91 mg/dL 70-105 Serum or plasma calcium measurement (mass/volume) 9.9 mg/dL 8.5-10.1 Serum or plasma troponin i.cardiac measu rement (mass/volume) - 10/24/19 13:45 Serum or plasma troponin i.cardiac measurement (mass/v olume) < ng/mL <0.028 Encounters ACCT No. Visit Date/Time Discharge Status Pt. Type Provider Facility Loc./Unit Complaint [id number] 09/27/2019 08:00:00 09/27/2019 23:59: 59 CLS Outpatient [facility]ILFREDO [facility] [id number] 09/27/2019 08:00:00 Document Registration [id number] 07/25/2019 09:00:00 Document Registration [id number] 01/26/2019 08:40:00 Document Registration [id number] 01/19/2019 11:20:00 Document Registration [id number] 10/24/2019 13:35:00 16:14:00 DIS Emergency NAIF SIMMS TEAM LEAD [facility] ER CHEST PAIN [id number] 08/07/2019 14:30:00 00:01:00 DIS Outpatient SOLO CHO TEAM LEAD [facility] PULM DYSPNEA [id number] 09/10/2019 17:28:00 18:41:00 DIS Outpatient NAIF SIMMS TEAM LEAD [facility] ER TOOTH PAIN [id number] 07/10/2019 14:08:00 16:42:00 DIS Emergency YINKA RAMIREZ DO [facility] ER SOA [id number] 06/12/2019 14:30:00 00:01:00 DIS Outpatient SOLO CHO APRN [facility] PULM DYSPNEA [id number] 04/19/2019 07:46:00 23:59:59 CLS Outpatient SOLO CHO TEAM LEAD [facility] RAD DYSPNEA [id number] 04/02/2019 18:09:00 05:24:00 DIS Outpatient SOLO CHO TEAM LEAD [facility] SLEEP SUSPECTED SLEEP APNEA [id number] 03/05/2019 09:32:00 23:59:59 CLS Preadmit SOLO CHO APRN [facility] RT DYSPNEA [id number] 01/26/2019 16:48:00 14:20:00 DIS Inpatient MELVIN MEDRNAO DO, V [facility] 4TH RESPIRATORY DISTRESS,[place] PD EXACERBATION [id number] 12/13/2018 10:06:00 12:11:00 DIS Emergency NAIF SIMMS TEAM LEAD [facility] ER COUGHING UP BLOOD [id number] 03/15/2018 09:45:00 23:59:59 CLS Outpatient KARSON ROA, DIRK Coulter [facility] RT CHRONIC OBSTRUCTIVE PUL MONARY DISEASE [id number] 12/31/2017 16:24:00 018 18:42:00 DIS Emergency DEANDRE ROA, [place] [facility] ER TOOTH ACHE [id number] 01/29/2017 15:44:00 017 18:21:00 DIS Emergency NAIF SIMMS APRN [facility] ER THROWING UP/FEVER [id number] 12/28/2016 00:44:00 017 13:30:00 DIS Inpatient ZACH ROA, VALENCIA Connors [facility] 4TH COPD EXACERBATION W/ HY POXIA [id number] 10/04/2016 22:25:00 017 12:30:00 DIS Inpatient SHASHANK ROA, MATTHEW Thompson [facility] 4TH PNEUMONIA,COPD EXACERBA TION [id number] 04/20/2016 16:49:00 016 11:10:00 DIS Inpatient MIRELA ROA, JOHN Parsons [facility] 4TH ATYPICAL PNEUMONIA, AST HMA, HYPOXIA [id number] 09/18/2015 17:00:00 016 19:34:00 DIS Emergency SUZETTE GUPTA [facility] ER CONGESTION,SOA [id number] 08/01/2015 20:35:00 015 22:10:00 DIS Emergency NAIF SIMMS APRN [facility] ER SOA [id number] 06/30/2014 23:25:00 014 01:00:00 DIS Emergency VINCENT MUÑOZ MD [facility] ER DIFFICULITY BREATHING [id number] 01/17/2014 19:10:00 014 21:20:00 DIS Outpatient RYAN HANSON MD [facility] SDC GALLSTONES [id number] 01/16/2014 17:44:00 014 09:36:00 DIS Inpatient LARS ROA, MARC Tanner [facility] 4TH CHOLELITHIASIS WITH CBD OBSTRUCTION [id number] 11/12/2013 04:09:00 014 08:07:00 DIS Emergency WANDA ROA, VINCENT Parsons [facility] ER ABD PAIN [id number] 06/14/2013 03:16:00 013 11:20:00 DIS Inpatient VALENTIN ROA, RYAN ricardo [facility] SURGICAL ABD PAIN,ACUTE CHOLECYS TITIS [id number] 01/03/2013 10:24:00 013 23:59:59 CLS Outpatient TD ROA, LORENA Dempsey [facility] RAD CHEST PAIN,DIZZINES,HTN ,DIABETES [id number] 12/28/2012 18:10:00 16:10:00 DIS Inpatient [id number] 10/13/2012 21:52:00 Document Registration [id number] 07/06/2012 00:05:00 Document Registration [id number] 05/16/2012 18:00:00 Document Registration
== END 2019-10-24 16:14 | disposition home or self-care (01) ==
LOC: EDUNIT# 13:34 → ER 13:35
DX: J44.9 Chronic obstructive pulmonary disease, unspecified (principal); R07.81 Pleurodynia; I10 Essential (primary) hypertension; E78.00 Pure hypercholesterolemia, unspecified; K21.9 Gastro-esophageal reflux disease without esophagitis; E11.9 Type 2 diabetes mellitus without complications; F17.210 Nicotine dependence, cigarettes, uncomplicated; Z88.5 Allergy status to narcotic agent; Z79.52 Long term (current) use of systemic steroids; Z77.22 Contact with and (suspected) exposure to environmental tobacco smoke (acute) (chronic)
CPT/HCPCS: 36415; 71045; 71275; 80048; 84484; 85025; 93005

== ENCOUNTER → 2020-07-02 | Outpatient (CLI) | payer MEDICAID ==
[~2020-07-02] MED LIST changes: -CETI10TA21 PO; +CETI10TA49 PO
== END ==
LOC: LABNPT 08:10
PROVIDERS: ATTEND Internal Medicine Critical Care Medicine
DX: J44.9 Chronic obstructive pulmonary disease, unspecified (principal); Z20.828 Contact with and (suspected) exposure to other viral communicable diseases
CPT/HCPCS: 87635

== ENCOUNTER 2020-07-05 19:36 | Outpatient (CLI) | payer MEDICAID | END 2020-07-06 06:30 | disposition home or self-care (01) | LOC: SLEEP 19:36 | PROVIDERS: ATTEND Nurse Practitioner Family | DX: G47.33 Obstructive sleep apnea (adult) (pediatric) (principal); Z20.828 Contact with and (suspected) exposure to other viral communicable diseases | CPT/HCPCS: 95810 ==

== ENCOUNTER → 2020-07-14 | Outpatient (CLI) | payer MEDICAID ==
[~2020-07-14] MED LIST changes: +CATHETER FLUSH 10 ML SYR IV PRN; +HOLD METFORMIN - RECEIVED CONTRAST 20 ML VIAL IV SCH; +IOHEXOL 350 MG/ML 100 ML (OMNIPAQUE 350) VIAL IV ONE; -MONT10TA26 PO; +MONT10TA97 PO; +NS 100 ML (IVPB) BAG IV ONE
[2020-07-14 09:17] LABS: BUN/CREATININE RATIO 15; CREATININE SERUM 0.84 MG/DL (0.60-1.30); GFR ESTIMATED > 60
--- NOTE | 2020-07-14 09:36 | Diagnostic Imaging Report ---
PROCEDURE: CT chest with contrast only. TECHNIQUE: Multiple contiguous axial images were obtained through the chest after administration of intravenous contrast. Auto Exposure Controls were utilized during the CT exam to meet ALARA standards for radiation dose reduction. INDICATION: Chronic cough and bronchitis. Shortness of air, apnea. History of COPD, asthma, tobacco use. CORRELATION: 10/24/2019 FINDINGS: Prominent mediastinal lymph nodes are again demonstrated but overall appear generally stable. Marker lymph node in the periazygous region 13 x 9 mm, previously 13 x 11 mm. Right infrahilar lymph node proximate 14 to 15 mm, generally stable. Lower left paraesophageal lymph node 14 x 11 mm, generally stable. Additional scattered mediastinal, hilar and subcarinal lymph nodes also appear generally unchanged. No definitive enlarging lymphadenopathy. Heart size normal. There is scattered prominent coronary artery calcification. Most pronounced in the region of the LAD. There is rather markedly advanced bullous emphysematous lung disease. No infiltrate. There is approximately 9 mm solid nodule along the pleural surface anterior medial left upper lobe. There are slight spiculated margins. Does appear to be likely mild steatosis within the liver. Probable hemangioma T3 level. IMPRESSION: 1. Rather severe bullous emphysematous lung disease. No infiltrate. 2. Nearly 1 cm nodule along the pleural surface of the medial left upper lobe. While not significantly changed from prior older studies, does have some features raising concern for potential lung neoplasm. This is a currently borderline for PET/CT assessment. Continued short-term followup imaging evaluation is recommended. 3. Generally stable, continued borderline sized mediastinal and hilar lymph nodes. Dictated by: Dictated on workstation # [id number]
== END ==
LOC: RAD 08:30
PROVIDERS: ATTEND Nurse Practitioner Family
DX: J43.9 Emphysema, unspecified (principal); J30.9 Allergic rhinitis, unspecified; G47.33 Obstructive sleep apnea (adult) (pediatric); R59.0 Localized enlarged lymph nodes; R91.1 Solitary pulmonary nodule; Z72.0 Tobacco use
CPT/HCPCS: 36415; 71260; 82565; 84520

== ENCOUNTER → 2020-07-29 | Outpatient (CLI) | payer MEDICAID ==
[~2020-07-29] MED LIST changes: -CATHETER FLUSH 10 ML SYR IV PRN; -HOLD METFORMIN - RECEIVED CONTRAST 20 ML VIAL IV SCH; -IOHEXOL 350 MG/ML 100 ML (OMNIPAQUE 350) VIAL IV ONE; -NS 100 ML (IVPB) BAG IV ONE
--- NOTE | 2020-07-30 09:45 | Diagnostic Imaging Report ---
Indication: Left lung nodule. Serum blood glucose level at time of injection 92 mg/dL. Patient was administered 15.4 mCi F-18 FDG intravenously in the right antecubital location and PET imaging was performed from the top of skull to mid thighs. Noncontrast CT was also performed for attenuation correction and anatomic correlation. Correlation is made with recent CT chest from 07/14/2020. There is symmetric activity throughout the brain. Soft tissues of the neck are unremarkable. Imaging through the chest demonstrates the mediastinum and amrit to be unremarkable. The small nodule in the medial aspect left upper lobe described on recent CT does not demonstrate FDG avidity. There is physiologic activity throughout the gastrointestinal and genitourinary tracts of abdomen and pelvis. No suspicious hypermetabolism is identified. There is a nonobstructing calculus in the lower pole left kidney. IMPRESSION: Unremarkable PET/CT study. The nodule in the left upper lobe does not demonstrate FDG avidity. Continued CT chest follow-up is recommended to show continued stability. Dictated by: Dictated on workstation # [id number]
== END ==
LOC: RAD 10:30
PROVIDERS: ATTEND Nurse Practitioner Family
DX: R91.1 Solitary pulmonary nodule (principal); R06.00 Dyspnea, unspecified; R09.02 Hypoxemia
CPT/HCPCS: 78815; A9552

== ENCOUNTER → 2021-01-15 | Outpatient (CLI) | payer MEDICARE, MEDICAID ==
[~2021-01-15] MED LIST changes: +CATHETER FLUSH 10 ML SYR IV PRN; +HOLD METFORMIN - RECEIVED CONTRAST 20 ML VIAL IV SCH; +IOHEXOL 350 MG/ML 100 ML (OMNIPAQUE 350) VIAL IV ONE; +MONT10TA32 PO; -MONT10TA97 PO; +NS 100 ML (IVPB) BAG IV ONE; +RT-ALBUTEROL SULF 2.5 MG/3 ML PRE-MIX VIAL INH NR
[2021-01-15 09:34] LABS: BUN/CREATININE RATIO 14; CREATININE SERUM 0.91 MG/DL (0.60-1.30); GFR ESTIMATED > 60
--- NOTE | 2021-01-15 11:42 | Diagnostic Imaging Report ---
PROCEDURE: CT chest with contrast only. TECHNIQUE: Multiple contiguous axial images were obtained through the chest after administration of intravenous contrast. Auto Exposure Controls were utilized during the CT exam to meet ALARA standards for radiation dose reduction. INDICATION: Left upper lobe mass. FINDINGS: The previous CT chest exam performed on 07/14/2020 noted a roughly 1 cm subpleural nodule in the medial aspect of the left upper lung. The subsequent PET/CT exam performed on 07/29/2020 did not demonstrate any FDG activity. There is no other hypermetabolic activity identified on the PET/CT exam to suggest malignancy either. On this study, the nodule in question is again evident and does not appear to have changed significantly in size or appearance. There is no other parenchymal lung mass identified. There is no sign of failure, pneumonia or pleural effusion to indicate an acute abnormality evident. The severe bullous and emphysematous disease involving both lungs noted on the prior study is again evident and no different. The heart is enlarged but stable when compared to the prior exam. Extensive coronary artery calcifications involving the LAD are again noted. The aorta is not abnormally dilated. There is no evidence for dissection. There is no defect within the pulmonary arteries to indicate a pulmonary embolus, although the pulmonary arteries were not optimally opacified. In particular the branches to the lower lobes are difficult to assess. There are a few small mediastinal and hilar nodes. These seems similar to the prior study. The thyroid gland is partially obscured by streak artifact. The sections through the upper abdomen failed to show any evidence for an acute abnormality. The liver is of lower density than usually seen and this does suggest fatty metamorphosis. The bone windows are unremarkable for fracture or for destructive lesion. IMPRESSION: 1. The nodule along the medial aspect of the left upper lung seen previously appears stable. The fact that this finding has not changed in 6 months would suggest it is not related to an aggressive neoplastic process. Even so, I may prove worthwhile to follow up exam in 6 months for continued evaluation. 2. There is severe chronic pulmonary disease involving both lungs but there is no sign of an acute abnormality. 3. The heart is mildly enlarged and there are coronary calcifications evident. 4. 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 Dictated by: Dictated on workstation # [id number]
== END ==
LOC: RT 10:30
PROVIDERS: ATTEND Nurse Practitioner Family
DX: J44.9 Chronic obstructive pulmonary disease, unspecified (principal); I51.7 Cardiomegaly; I25.10 Atherosclerotic heart disease of native coronary artery without angina pectoris; R91.8 Other nonspecific abnormal finding of lung field
CPT/HCPCS: 36415; 71260; 82565; 84520; 94060; 94726; 94729

== ENCOUNTER → 2021-02-03 | Outpatient (CLI) | payer MEDICARE, MEDICAID ==
[~2021-02-03] MED LIST changes: -CATHETER FLUSH 10 ML SYR IV PRN; -HOLD METFORMIN - RECEIVED CONTRAST 20 ML VIAL IV SCH; -IOHEXOL 350 MG/ML 100 ML (OMNIPAQUE 350) VIAL IV ONE; -NS 100 ML (IVPB) BAG IV ONE; -RT-ALBUTEROL SULF 2.5 MG/3 ML PRE-MIX VIAL INH NR
== END ==
LOC: LABNPT 03:31
PROVIDERS: ATTEND Nurse Practitioner Family
DX: G47.30 Sleep apnea, unspecified (principal); G47.50 Parasomnia, unspecified; G47.10 Hypersomnia, unspecified; R06.83 Snoring; Z20.822 Contact with and (suspected) exposure to COVID-19
CPT/HCPCS: 87635

== ENCOUNTER 2021-02-05 20:31 | Outpatient (CLI) | payer MEDICARE, MEDICAID | END 2021-02-06 06:25 | disposition home or self-care (01) | LOC: SLEEP 20:31 | PROVIDERS: ATTEND Nurse Practitioner Family | DX: G47.30 Sleep apnea, unspecified (principal); G47.50 Parasomnia, unspecified; G47.10 Hypersomnia, unspecified | CPT/HCPCS: 95810 ==

== ENCOUNTER → 2021-05-08 | Outpatient (CLI) | payer MEDICARE, MEDICAID ==
[~2021-05-08] MED LIST changes: +CATHETER FLUSH 10 ML SYR IV PRN; +HOLD METFORMIN - RECEIVED CONTRAST 20 ML VIAL IV SCH; +IOHEXOL 350 MG/ML 100 ML (OMNIPAQUE 350) VIAL IV ONE; -LISI2.5T PO; +LISI2.5T13 PO; +NS 100 ML (IVPB) BAG IV ONE
[2021-05-08 08:51] LABS: CREATININE SERUM 1.03 MG/DL (0.60-1.30)
--- NOTE | 2021-05-08 10:31 | Diagnostic Imaging Report ---
PROCEDURE: CT chest with contrast only. TECHNIQUE: Multiple contiguous axial images were obtained through the chest after administration of intravenous contrast. Auto Exposure Controls were utilized during the CT exam to meet ALARA standards for radiation dose reduction. INDICATION: Follow-up pulmonary nodule. COMPARISON: 12/28/2016, 04/19/2019, and 01/15/2021 FINDINGS: Evaluation of lung haynes again demonstrates subpleural micronodule within the anterior medial margins of the left upper lobe (image 62, series 3). Micronodule in today's exam measures 7 mm. This is essentially stable when compared to 8 mm on prior study dated 12/28/2016. No new suspicious pulmonary nodule or mass is seen. Note is again made of severe diffuse bilateral emphysematous disease. Lungs are otherwise clear. There is no focal consolidation, large effusion, nor pneumothorax. Cardiomediastinal structures show normal heart size. There is no large pericardial effusion. There is mild scattered calcified aortic and coronary atherosclerosis. Several borderline prominent mediastinal and paraesophageal lymph nodes are again identified. These too are stable when compared to 12/28/2016. No abnormal hilar or axillary adenopathy is identified. Osseous structures show no acute abnormalities. No lytic or blastic bony lesions are identified. Included portions of the upper abdomen show hypodense appearance to the liver consistent with underlying hepatic steatosis. IMPRESSION: 1. Micronodule of the medial lateral margins of the left upper lobe is again identified. Stability when compared to 12/28/2016 favors benignity. 2. No new suspicious pulmonary nodule or mass. 3. Redemonstration background advanced diffuse emphysematous changes. 4. Hepatic steatosis. Dictated by: Dictated on workstation # [id number]
== END ==
LOC: RAD 09:45
PROVIDERS: ATTEND Nurse Practitioner Family
DX: J43.9 Emphysema, unspecified (principal); R91.8 Other nonspecific abnormal finding of lung field; K76.0 Fatty (change of) liver, not elsewhere classified
CPT/HCPCS: 36415; 71260; 82565; 84520

== ENCOUNTER 2021-07-13 11:16 | Outpatient (RCR) | payer MEDICARE, MEDICAID ==
[~2021-07-13 11:16] MED LIST changes: -CATHETER FLUSH 10 ML SYR IV PRN; -HOLD METFORMIN - RECEIVED CONTRAST 20 ML VIAL IV SCH; -IOHEXOL 350 MG/ML 100 ML (OMNIPAQUE 350) VIAL IV ONE; +MONT-40 PO; -MONT10TA32 PO; -NS 100 ML (IVPB) BAG IV ONE
== END 2021-07-13 11:59 | disposition home or self-care (01) ==
PROVIDERS: ATTEND Nurse Practitioner Family
DX: J44.9 Chronic obstructive pulmonary disease, unspecified (principal)

== ENCOUNTER → 2022-03-25 | Outpatient (CLI) | payer MEDICARE, MEDICAID ==
[~2022-03-25] MED LIST changes: +RT-ALBUTEROL SULF 2.5 MG/3 ML PRE-MIX VIAL INH ONE
== END ==
LOC: RT 09:15
PROVIDERS: ATTEND Internal Medicine Critical Care Medicine
DX: J44.9 Chronic obstructive pulmonary disease, unspecified (principal)
CPT/HCPCS: 94060; 94621; 94726; 94729

== ENCOUNTER 2022-04-14 06:06 | Outpatient (CLI) | payer MEDICARE, MEDICAID ==
[~2022-04-14] VITALS: Ht 160 cm; Wt 105.2 kg
[~2022-04-14 06:06] MED LIST changes: -RT-ALBUTEROL SULF 2.5 MG/3 ML PRE-MIX VIAL INH ONE
[2022-04-15] MEDS ORDERED: SEMA0.25 SQ (14:54)
[2022-04-15] MEDS ORDERED: FLUT1BLS3 IH (14:54)
[2022-04-15] MEDS ORDERED: HYDR12.56 PO (14:54)
[2022-04-15] MEDS ORDERED: METF-399 PO (14:54)
[2022-04-15] MEDS ORDERED: PREG150C46 PO (14:54)
[2022-04-15] MEDS ORDERED: FLUT16SP22 NS (14:54)
[2022-04-15] MEDS ORDERED: LISI20TA26 PO (14:54)
[2022-04-15] MEDS ORDERED: FAMO20TA3 PO (14:54)
[2022-04-15] MEDS ORDERED: CETI10TA24 PO (14:54)
== END 2022-04-15 14:55 | disposition home or self-care (01) ==
LOC: PREOP 06:06
PROVIDERS: ATTEND Surgery
DX: Z01.818 Encounter for other preprocedural examination (principal)

== ENCOUNTER 2022-04-27 08:32 | Day surgery (SDC) | payer MEDICARE, MEDICAID ==
[~2022-04-27] VITALS: Ht 160 cm; Wt 105.2 kg
[~2022-04-27 08:32] MED LIST changes: +CETI10TA24 PO; +FAMO20TA3 PO; +FLUT16SP22 NS; +FLUT1BLS3 IH; +HYDR12.56 PO; +LISI20TA26 PO; +METF-399 PO; +PREG150C46 PO; +SEMA0.25 SQ
[2022-04-27] MEDS ORDERED: LACTATED RINGERS 1,000 ML IV STA (08:41)
[2022-04-27] MEDS ORDERED: LACTATED RINGERS 1,000 ML IV ONE (08:45)
[2022-04-27 09:00] VITALS: BP 133/98
[2022-04-27] MEDS ORDERED: MIDAZOLAM 2 MG/2 ML (VERSED) VIAL ONE (11:17)
[2022-04-27] MEDS ORDERED: PROPOFOL INJECTION 50 ML IV ONE (11:17)
--- NOTE | 2022-04-27 12:19 | Discharge Inst-Simple/Standard ---
Discharge Inst-Standard Patient Instructions/Follow Up Plan of Care/Instructions/FU: 2 weeks Pari Activity as Tolerated: Yes Discharge Diet: Regular Diet (high fiber) AMRIT GUILLEN DO Apr 27, 2022 12:19
[2022-04-27 12:21] VITALS: BP 116/59
[2022-04-27 12:26] VITALS: BP 108/63
--- NOTE | 2022-04-27 12:33 | Anesthesia-General Post-Op ---
MAC Patient Condition Mental Status/LOC: Same as Preop Cardiovascular: Satisfactory Nausea/Vomiting: Absent Respiratory: Satisfactory Pain: Controlled Complications: Absent Post Op Complications Complications None Follow Up Care/Instructions Patient Instructions None needed. Anesthesiology Discharge Order Discharge Order Patient is doing well, no complaints, stable vital signs, no apparent adverse anesthesia problems. No complications reported per nursing. STEVEN BOUCHER CRNA Apr 27, 2022 12:33
[2022-04-27 12:35] VITALS: BP 108/63
[2022-04-27 13:05] VITALS: BP 108/63
--- NOTE | 2022-04-27 16:36 | OPERATIVE REPORT ---
DATE OF SERVICE: 04/27/2022 PREOPERATIVE DIAGNOSIS: Screening colonoscopy. POSTOPERATIVE DIAGNOSES: Diverticulosis, sigmoid colon polyp. PROCEDURE: Colonoscopy with hot biopsy polypectomy. SURGEON: Amrit Yañez DO ANESTHESIA: Per [employer] OPERATOR. ESTIMATED BLOOD LOSS: None. COMPLICATIONS: None. INDICATIONS: The patient is a 52-year-old male needing colonoscopy. He understands risks and benefits of procedure and wished to proceed. Consent was signed in the chart. DESCRIPTION OF PROCEDURE: The patient was taken to the endoscopy suite, placed in left lateral recumbent position. Timeout was performed. Digital rectal exam was performed. No palpable polyps, masses or ulcerations. Scope was inserted in the rectum and advanced all the way to cecum with minimal difficulty. Prep was adequate with irrigation and suction. Scope was then slowly retracted back. No polyps, masses or ulcerations in the cecum, ascending, transverse, descending colon. In the sigmoid colon, a small polyp was present, which hot biopsy polypectomy was performed. Scope was then continuously retracted back in the rectum, it was also retroflexed noting no other pathology. Scope was returned to its normal position, slowly withdrawn until completely removed. The patient tolerated procedure well without any complications, taken to recovery room in stable condition. RECOMMENDATIONS: The patient will need repeat colonoscopy in 5 years. Any issues before that be seen at that time. Recommend high fiber diet. Due to diverticulosis, the patient will follow up in 2 weeks. Job ID: [id number] DocumentID: [id number] Dictated Date: 04/27/2022 12:22:01 Instructor [employer]am[employer] Date: 04/27/2022 16:35:40 Dictated By: AMRIT YAÑEZ DO
== END 2022-04-27 14:00 | disposition home or self-care (01) ==
LOC: ENDO 08:32
PROVIDERS: ATTEND Surgery
DX: Z12.11 Encounter for screening for malignant neoplasm of colon (principal); K63.5 Polyp of colon; K57.30 Diverticulosis of large intestine without perforation or abscess without bleeding; F17.210 Nicotine dependence, cigarettes, uncomplicated

== ENCOUNTER → 2023-01-17 | Outpatient (CLI) | payer MEDICARE, MEDICAID ==
[~2023-01-17] MED LIST changes: +ALBU8.5H6 IH; +RT-ALBUTEROL SULF 2.5 MG/3 ML PRE-MIX VIAL INH ONE
--- NOTE | 2023-01-17 13:46 | Diagnostic Imaging Report ---
TIME OF EXAM: 01/17/2023 9:19 AM REASON FOR EXAM: Lung cancer screening. 60 pack year smoking history. COMPARISON: 05/08/2021. TECHNIQUE: Low Dose CT helical images obtained through the chest. Sagittal and coronal reformats were obtained and reviewed. Dose reduction techniques were utilized. CTDI vol: 2.22 mGy FINDINGS: Nodules: -- A) 7] mm, indeterminate noncalcified solid left upper lobe nodule (image 102, series 2) Lungs: Emphysema is seen throughout the lungs, greatest in the apices. Mild subpleural reticular opacities are noted. Bronchial wall thickening is seen. There is no appreciable bronchiectasis. No pulmonary mass or consolidation is present. No central endoluminal airway lesion is seen. Heart and Mediastinum: Heart size is within normal limits. Small amount of coronary calcifications are present. Aortic atherosclerosis is present without aneurysm. No pericardial effusion is present. No axillary, supraclavicular, mediastinal, internal mammary, or hilar adenopathy is present by CT size criteria. Normal size and attenuation of the visualized thyroid gland. Pleura: Normal pleural spaces. No effusion or pneumothorax. No pleural nodularity or mass. Abdomen: Included views of the upper abdomen demonstrate no acute abnormality. Bones and soft tissues: Regional skeletal and soft tissue structures are age-appropriate. IMPRESSION: 1. Stable nodule in the medial aspect of the left upper lobe measuring 7 mm. No new nodules are seen. Recommend continued surveillance with low-dose chest CT in 12 months. 2. Emphysema, greatest in the apices. Additional mild subpleural reticular opacities are present. Findings can be seen with UIP pattern and correlation with pulmonary function tests is recommended. 3. Bronchial wall thickening, suggestive of bronchitis/bronchiolitis. No focal consolidations. Result code: Category 2: Benign Appearance or Behavior Follow up: Continue annual screening with LDCT in 12 months Dictated by: Dictated on workstation # [id number]
== END ==
LOC: RT 07:18
PROVIDERS: ATTEND Nurse Practitioner Family
DX: J44.9 Chronic obstructive pulmonary disease, unspecified (principal); G47.33 Obstructive sleep apnea (adult) (pediatric); G47.34 Idiopathic sleep related nonobstructive alveolar hypoventilation; F17.210 Nicotine dependence, cigarettes, uncomplicated
CPT/HCPCS: 71271; 94060; 94621; 94726; 94729

== ENCOUNTER → 2023-06-29 | Outpatient (CLI) | payer MEDICAID, MEDICARE ==
[~2023-06-29] MED LIST changes: +FAMO-356 PO; -FAMO20TA3 PO; -PREG150C46 PO; +PREG150C47 PO; -RT-ALBUTEROL SULF 2.5 MG/3 ML PRE-MIX VIAL INH ONE
== END ==
LOC: CARD 08:29
PROVIDERS: ATTEND Pediatrics
DX: I51.7 Cardiomegaly (principal); I35.8 Other nonrheumatic aortic valve disorders; R60.0 Localized edema
CPT/HCPCS: 93306